=== PATIENT | male | born 1950 | race Caucasian/White ===

== ENCOUNTER → 2017-04-10 | Outpatient (CLI) | payer MEDICARE, BC ==
[2017-04-10 09:37] LABS: CH 33.6; CHCM 33.6; HCT 44.3 % (39.0-53.0); HDW 2.73; HGB 14.8 gm/dL (13.0-17.5); MCH 33.6 pg (25.0-35.0); MCHC 33.4 g/dL (31.0-37.0); MCV 100.5 fL (80.0-100.0); Macrocytosis Slight; Mean Platelet Volume 7.1; RBC 4.41 m/uL (4.30-5.90); RDW 14.1 % (11.5-15.5); WBC 4.5 k/uL (3.8-10.6)
[2017-04-10 10:01] LABS: Anion Gap 6 mmol/L; Blood Urea Nitrogen 12 mg/dL (9-20); Calcium 8.9 mg/dL (8.4-10.2); Carbon Dioxide 29 mmol/L (22-30); Chloride 103 mmol/L (98-107); Glucose 158 mg/dL (74-99); Non-African American GFR(MDRD) >60 (>60 ml/min/1.73 sqM); Potassium 4.9 mmol/L (3.5-5.1); Sodium 138 mmol/L (137-145)
== END | disposition home or self-care (01) ==
LOC: LABWHC1 08:53
PROVIDERS: ATTEND Internal Medicine Clinical Cardiac Electrophysiology
DX: I47.2 Ventricular tachycardia (principal); I25.5 Ischemic cardiomyopathy
CPT/HCPCS: 36415; 80048; 85027

== ENCOUNTER 2017-04-20 11:17 | Inpatient (IN) | payer MEDICARE, BC ==
[2017-04-20] MEDS ORDERED: SODIUM CHLORIDE 0.9% 1,000 ML IV STA (11:31)
[2017-04-20] MEDS ORDERED: LORazepam 2 MG/ML INJ IV STA (11:32)
[2017-04-20] MEDS ORDERED: MECLIZINE 12.5 MG TAB PO STA (11:32)
[2017-04-20] MEDS ORDERED: METOCLOPRAMIDE 5 MG/ML 2 ML VIAL IVP STA (11:32)
--- NOTE | 2017-04-20 11:36 | ED ---
General Adult HPI - General Chief complaint: Dizziness Stated complaint: Dizziness Time Seen by Provider: 04/20/17 11:28 Source: patient, RN notes reviewed Mode of arrival: wheelchair Limitations: no limitations - History of Present Illness Initial comments: Patient is a pleasant 66-year-old male presenting to the emergency department with dizziness. Onset was just 10 minutes ago. Patient feels he is spinning. Symptoms were worse prior to arrival however are still moderate to severe. Patient fall earlier like he was going to fall down. No history of similar symptoms previously. Patient denies any chest pain. No weakness. No confusion. No speech problems. Patient amiss to feeling anxious. - Related Data Home Medications Medication Instructions Recorded Confirmed Atorvastatin [Lipitor] 40 mg PO DAILY 11/28/15 04/20/17 Lisinopril [Zestril] 5 mg PO DAILY 11/28/15 04/20/17 Rivaroxaban [Xarelto] 20 mg PO DAILY 11/28/15 04/20/17 Sotalol [Betapace] 80 mg PO BID 11/28/15 04/20/17 Mexiletine [Mexitil] 150 mg PO TID 04/09/17 04/20/17 Previous Rx's Medication Instructions Recorded Aspirin EC [Ecotrin Low Dose] 81 mg PO DAILY #30 tablet. 03/14/14 Escitalopram [Lexapro] 10 mg PO DAILY #30 tab 03/14/14 Metoprolol Tartrate [Lopressor] 50 mg PO BID #60 tab 03/14/14 Magnesium Oxide [Mag-Ox] 400 mg PO DAILY #30 tab 05/13/14 Allergies Allergy/AdvReac Type Severity Reaction Status Date / Time codeine AdvReac passed out Verified 04/20/17 12:29 Review of Systems ROS Statement: Those systems with pertinent positive or pertinent negative responses have been documented in the HPI. ROS Other: All systems not noted in ROS Statement are negative. Constitutional: Denies: fever Eyes: Denies: eye pain ENT: Denies: ear pain Respiratory: Denies: cough, dyspnea Cardiovascular: Denies: chest pain Endocrine: Denies: fatigue Gastrointestinal: Denies: abdominal pain Genitourinary: Denies: dysuria Musculoskeletal: Denies: back pain Skin: Denies: rash Neurological: Reports: vertigo. Denies: headache, weakness, numbness, paresthesias, confusion Psychiatric: Reports: anxiety Past Medical History Past Medical History: Cancer, Chest Pain / Angina, Hyperlipidemia, Hypertension , Myocardial Infarction ([place]) Additional Past Medical History / Comment(s): BASAL CELL CA, NON SUSTAINED V TACH Last Myocardial Infarction Date:: 1999 History of Any Multi-Drug Resistant Organisms: None Reported Past Surgical History: AICD, Cardiac Ablation, Heart Catheterization With Stent Additional Past Surgical History / Comment(s): COLONOSCOPY Past Anesthesia/Blood Transfusion Reactions: No Reported Reaction Additional Past Anesthesia/Blood Transfusion Reaction / Comment(s): DIFFICULTY WAKING UP AFTER AA Date of Last Stent Placement:: 2012 Type of Cardiac Device: AICD Device Placement Date:: 02/23/14 Past Psychological History: No Psychological Hx Reported Smoking Status: Former smoker Past Alcohol Use History: Occasional Past Drug Use History: None Reported - Past Family History Father Family Medical History: Diabetes Mellitus Additional Family Medical History / Comment(s): AT AGE 72-GAVE UP HIS INSULIN ATE THE WAY HE WANTED A 1 YEAR LATER. HX SPINAL MENINGITIS Mother Family Medical History: Liver Disease Additional Family Medical History / Comment(s): IN 1984- LIVER CONDITION. General Exam Limitations: no limitations General appearance: alert, in no apparent distress Head exam: Present: atraumatic Eye exam: Present: normal appearance, PERRL, EOMI. Absent: nystagmus ENT exam: Present: normal oropharynx Neck exam: Present: normal inspection Respiratory exam: Present: normal lung sounds bilaterally Cardiovascular Exam: Present: regular rate, normal rhythm Expanded Peripheral pulses: 2+: Radial (R), Radial (L), Dorsalis Pedis (R), Dorsalis Pedis (L) GI/Abdominal exam: Present: soft. Absent: tenderness Extremities exam: Present: normal inspection. Absent: pedal edema, calf tenderness Neurological exam: Present: alert, oriented X3, CN II-XII intact. Absent: motor sensory deficit Expanded Cranial nerves: EOM's Intact: Normal, Facial Sensation: Normal Sensory exam: Upper Extremity Light Touch: Normal, Lower Extremity Light Touch: Normal Motor strength exam: RUE: 5, LUE: 5, RLE: 5, LLE: 5 Eye Response: (4) open spontaneously Motor Response: (6) obeys commands Verbal Response: (5) oriented Psychiatric exam: Present: normal affect, normal mood Skin exam: Present: normal color Course Vital Signs 04/20/17 04/20/17 11:30 12:32 Temperature 98.3 F Pulse Rate 60 52 L Respiratory 18 18 Rate Blood Pressure 98/60 124/65 O2 Sat by Pulse 97 98 Oximetry - Reevaluation(s) Reevaluation #1: 04/20/17 14:57 does have some concern regarding previous evaluation of pacemaker/ defibrillator. Patient reexamined and feels much better at this time. Patient has no complaints at this time. Case was discussed with Dr. Feng who would like patient admitted to telemetry and bed rest and have the unit interrogated. Case was also discussed with Dr. Castillo, who will admit for Dr. Cabrera. EKG Findings - EKG Comments: EKG Findings:: Sinus bradycardia 59. First 3 AV block with a OR of 244. QRS 194. QT 506. QTc 500. Left axis. Left bundle branch block. No acute ST change. Previous EKG reviewed dated 11/29/2015. Medical Decision Making - Lab Data Result diagrams: 04/20/17 11:35 04/20/17 11:35 Lab Results 04/20/17 04/20/17 04/20/17 Range/Units 11:35 11:35 11:35 WBC 4.6 (3.8-10.6) k/uL RBC 4.73 (4.30-5.90) m/uL Hgb 15.8 (13.0-17.5) gm/dL Hct 46.7 (39.0-53.0) % MCV 98.8 (80.0-100.0) fL MCH 33.5 (25.0-35.0) pg MCHC 33.9 (31.0-37.0) g/dL RDW 14.7 (11.5-15.5) % Plt Count 171 (150-450) k/uL Neutrophils % 57 % Lymphocytes % 25 % Monocytes % 10 % Eosinophils % 4 % Basophils % 1 % Neutrophils # 2.6 (1.3-7.7) k/uL Lymphocytes # 1.1 (1.0-4.8) k/uL Monocytes # 0.5 (0-1.0) k/uL Eosinophils # 0.2 (0-0.7) k/uL Basophils # 0.0 (0-0.2) k/uL PT (9.0-12.0) sec INR (<1.2) APTT (22.0-30.0) sec Sodium 141 (137-145) mmol/L Potassium 4.2 (3.5-5.1) mmol/L Chloride 104 (98-107) mmol/L Carbon Dioxide 26 (22-30) mmol/L Anion Gap 11 mmol/L BUN 15 (9-20) mg/dL Creatinine 0.64 L (0.66-1.25) mg/dL Est GFR (MDRD) Af Amer >60 (>60 ml/min/1.73 sqM) Est GFR (MDRD) Non-Af >60 (>60 ml/min/1.73 sqM) Glucose 97 (74-99) mg/dL Calcium 9.3 (8.4-10.2) mg/dL Total Bilirubin 1.0 (0.2-1.3) mg/dL AST 52 (17-59) U/L ALT 63 (21-72) U/L Alkaline Phosphatase 120 (38-126) U/L Total Creatine Kinase 421 H (55-170) U/L CK-MB (CK-2) 7.8 H* (0.0-2.4) ng/mL CK-MB (CK-2) Rel Index 1.9 Troponin I 0.034 (0.000-0.034) ng/mL Total Protein 7.0 (6.3-8.2) g/dL Albumin 4.1 (3.5-5.0) g/dL 04/20/17 Range/Units 11:35 WBC (3.8-10.6) k/uL RBC (4.30-5.90) m/uL Hgb (13.0-17.5) gm/dL Hct (39.0-53.0) % MCV (80.0-100.0) fL MCH (25.0-35.0) pg MCHC (31.0-37.0) g/dL RDW (11.5-15.5) % Plt Count (150-450) k/uL Neutrophils % % Lymphocytes % % Monocytes % % Eosinophils % % Basophils % % Neutrophils # (1.3-7.7) k/uL Lymphocytes # (1.0-4.8) k/uL Monocytes # (0-1.0) k/uL Eosinophils # (0-0.7) k/uL Basophils # (0-0.2) k/uL PT 13.4 H (9.0-12.0) sec INR 1.4 H (<1.2) APTT 29.7 (22.0-30.0) sec Sodium (137-145) mmol/L Potassium (3.5-5.1) mmol/L Chloride (98-107) mmol/L Carbon Dioxide (22-30) mmol/L Anion Gap mmol/L BUN (9-20) mg/dL Creatinine (0.66-1.25) mg/dL Est GFR (MDRD) Af Amer (>60 ml/min/1.73 sqM) Est GFR (MDRD) Non-Af (>60 ml/min/1.73 sqM) Glucose (74-99) mg/dL Calcium (8.4-10.2) mg/dL Total Bilirubin (0.2-1.3) mg/dL AST (17-59) U/L ALT (21-72) U/L Alkaline Phosphatase (38-126) U/L Total Creatine Kinase (55-170) U/L CK-MB (CK-2) (0.0-2.4) ng/mL CK-MB (CK-2) Rel Index Troponin I (0.000-0.034) ng/mL Total Protein (6.3-8.2) g/dL Albumin (3.5-5.0) g/dL - Radiology Data Radiology results: report reviewed (Computed tomography scan of the brain shows no acute intercranial abnormality.), image reviewed (Chest x-ray shows some interstitial prominence.) Disposition Clinical Impression: Near syncope Disposition: ADMITTED IP TO THIS [facility] Referrals: Sudeep Cabrera MD [Primary Care Provider] - 1-2 days Decision Time: 15:00
[2017-04-20 11:55] LABS: INR 1.4 (<1.2); Partial Thromboplastin Time 29.7 sec (22.0-30.0); Prothrombin Time 13.4 sec (9.0-12.0)
[2017-04-20 12:01] LABS: ALT 63 U/L (21-72); AST 52 U/L (17-59); Alkaline Phosphatase 120 U/L (38-126); Anion Gap 11 mmol/L; Blood Urea Nitrogen 15 mg/dL (9-20); Calcium 9.3 mg/dL (8.4-10.2); Carbon Dioxide 26 mmol/L (22-30); Chloride 104 mmol/L (98-107); Glucose 97 mg/dL (74-99); Non-African American GFR(MDRD) >60 (>60 ml/min/1.73 sqM); Potassium 4.2 mmol/L (3.5-5.1); Sodium 141 mmol/L (137-145)
[2017-04-20 12:03] LABS: Basophils % (A) 1 %; CH 34.7; CHCM 35.3; Eosinophils # (A) 0.2 k/uL (0-0.7); Eosinophils % (A) 4 %; HCT 46.7 % (39.0-53.0); HDW 2.72; HGB 15.8 gm/dL (13.0-17.5); Luc # (Auto) 0.16; Luc % (Auto) 4; Lymphocytes # (A) 1.1 k/uL (1.0-4.8); Lymphocytes % (A) 25 %; MCH 33.5 pg (25.0-35.0); MCHC 33.9 g/dL (31.0-37.0); MCV 98.8 fL (80.0-100.0); Mean Platelet Volume 7.6; Monocytes # (A) 0.5 k/uL (0-1.0); Monocytes % (A) 10 %; Neutrophils # (A) 2.6 k/uL (1.3-7.7); Neutrophils % (A) 57 %; RBC 4.73 m/uL (4.30-5.90); RDW 14.7 % (11.5-15.5); WBC 4.6 k/uL (3.8-10.6); WBC (Perox) 4.62
--- NOTE | 2017-04-20 12:13 | XR ---
EXAMINATION TYPE: XR chest 2V DATE OF EXAM: 04/20/2017 HISTORY: Dizziness. REFERENCE: Previous study dated 11/28/2015. FINDINGS: There is a bipolar pacemaker in place on the left. Heart is mildly enlarged. The lungs are overinflated. There is vascular congestion and subtle interst itial change. Pleural spaces are clear. IMPRESSION: FINDINGS CONSISTENT WITH MILD HEART FAILURE.
[2017-04-20 12:22] LABS: Troponin I 0.034 ng/mL (0.000-0.034)
[2017-04-20 12:29] LABS: Creatine Kinase MB 7.8 ng/mL (0.0-2.4)
--- NOTE | 2017-04-20 13:24 | CT ---
EXAMINATION TYPE: CT brain wo con DATE OF EXAM: 04/20/2017 COMPARISON: Previous study dated 01/25/2014 HISTORY: Dizziness CT DLP: 1017.9 mGycm Automated exposure control for dose reduction was used. FINDINGS: There are mild, generalized changes of sulcal prominence and ventriculomegaly, compatible with atroph ic change. There is diffuse periventricular white matter lucency, compatible with chronic white matte r ischemic change. There is no acute focal lesion, mass effect or midline shift identified. I do not see evidence of intracranial blood. There is extensive vascular calcification. There is mucoperiosteal thickening involving both ethmoid and the right frontal sinus. Mastoid air ce lls are clear. No depressed skull fracture is seen. IMPRESSION: 1. NO ACUTE INTRACRANIAL ABNORMALITY. 2. MILD ATROPHIC CHANGE. 3. CHRONIC WHITE MATTER ISCHEMIC CHANGE. 4. CHRONIC SINUS MUCOSAL DISEASE.
[2017-04-20] MEDS ORDERED: NALOXONE 0.4 MG/ML 1 ML VIAL IV PRN (15:00)
[2017-04-20 16:50] VITALS: BMI 33.5
[2017-04-20] MEDS: MEXILETINE 150 MG CAP PO SCH ×2 (16:59→20:58)
[2017-04-20] MEDS: METOPROLOL TARTRATE 50 MG TAB PO SCH (20:58)
[2017-04-20] MEDS: SOTALOL 80 MG TAB PO SCH (20:58)
[2017-04-21] MEDS: SOTALOL 80 MG TAB PO SCH (09:14)
[2017-04-21] MEDS: RIVAROXABAN 10 MG TAB PO SCH (09:14)
[2017-04-21] MEDS: ATORVASTATIN 40 MG TAB PO SCH (09:15)
[2017-04-21] MEDS: MEXILETINE 150 MG CAP PO SCH (09:15)
[2017-04-21] MEDS: METOPROLOL TARTRATE 50 MG TAB PO SCH ×2 (09:15→20:53)
[2017-04-21] MEDS: ASPIRIN 81 MG PO SCH (09:15)
[2017-04-21] MEDS: MAGNESIUM OXIDE 400 MG TAB PO SCH (09:15)
[2017-04-21] MEDS: LISINOPRIL 5 MG TAB PO SCH (09:16)
--- NOTE | 2017-04-21 10:52 | P.CRDCN ---
History of Present Illness Consult date: 04/21/17 Requesting physician: Yaya Henson Jr Reason for Consult (text): Dizziness Chief complaint: Dizziness History of present illness: This is a pleasant 66-year-old gentleman who follows regularly with Dr. Garcia in the office. Patient also sees Dr. Celis for history of DVT as well as AICD implant. Most recently patient was just in the hospital earlier this month at which time he underwent an EP study, no VT was induced, following that the device was reprogrammed. Patient has history of hypertension , hyperlipidemia, coronary artery disease with prior stenting of the LAD, history of prior DVT with prior V. fib T ablation. The patient is on Betapace and mexiletine along with Lopressor currently at home. Anticoagulated with xarelto. He presented to the hospital on this occasion with symptoms of dizziness, he states he developed a significant dizzy episode, he felt that as though he may pass out, felt as though everything was spinning, he sat down, did not lose consciousness. He felt as though he was completely unsteady lightheaded and dizzy. He denies any chest discomfort, no difficulty breathing. Device was interrogated by [employer], it did reveal evidence of ventricular tachycardia episodes 2, the exact timing of that is unclear. It appears that ATP was successful twice. EKG on arrival shows a sinus bradycardia with a first-degree AV block and left bundle branch block pattern. Chest x-ray suggests mild congestive heart failure. CAT scan of the brain was performed which did not reveal any acute intracranial abnormality, mild atrophic change, chronic white matter ischemic change. Blood pressure 116/ 60 with a heart rate in the 60s, respirations 18. CBC normal. Potassium 4.2, BUN 15, creatinine 0.6. Troponins 0.034, 0.030, 0.045. BNP 772. At the time of my examination this morning, patient denies any further episodes of dizziness. Past Medical History Past Medical History: Cancer, Chest Pain / Angina, Hyperlipidemia, Hypertension , Myocardial Infarction ([place]) Additional Past Medical History / Comment(s): BASAL CELL CA, NON SUSTAINED V TACH Last Myocardial Infarction Date:: 1999 History of Any Multi-Drug Resistant Organisms: None Reported Past Surgical History: AICD, Cardiac Ablation, Heart Catheterization With Stent Additional Past Surgical History / Comment(s): COLONOSCOPY Past Anesthesia/Blood Transfusion Reactions: No Reported Reaction Additional Past Anesthesia/Blood Transfusion Reaction / Comment(s): DIFFICULTY WAKING UP AFTER AA Date of Last Stent Placement:: 2012 Type of Cardiac Device: AICD Device Placement Date:: 02/23/14 Past Psychological History: No Psychological Hx Reported Additional Psychological History / Comment(s): PT LIVES WITH HIS OF 39 YEARS.PT IS RETIRED-WORKED AN [employer] AND FOR [employer]. 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 Smoking Status: Former smoker Past Alcohol Use History: Occasional Additional Past Alcohol Use History / Comment(s): LESS THAN 14 DRINKS PER WEEK. PT STATED OCC IN PAST WOULD BUMB CIGARETTES HERE AND THERE,QUIT 1994. Past Drug Use History: None Reported - Past Family History Father Family Medical History: Diabetes Mellitus Additional Family Medical History / Comment(s): AT AGE 72-GAVE UP HIS INSULIN ATE THE WAY HE WANTED A 1 YEAR LATER. HX SPINAL MENINGITIS Mother Family Medical History: Liver Disease Additional Family Medical History / Comment(s): IN 1984- LIVER CONDITION. Medications and Allergies Home Medications Medication Instructions Recorded Confirmed Type Aspirin EC [Ecotrin Low Dose] 81 mg PO DAILY #30 tablet. 03/14/14 04/20/17 Rx Escitalopram [Lexapro] 10 mg PO DAILY #30 tab 03/14/14 04/20/17 Rx Metoprolol Tartrate [Lopressor] 50 mg PO BID #60 tab 03/14/14 04/20/17 Rx Magnesium Oxide [Mag-Ox] 400 mg PO DAILY #30 tab 05/13/14 04/20/17 Rx Atorvastatin [Lipitor] 40 mg PO DAILY 11/28/15 04/20/17 History Lisinopril [Zestril] 5 mg PO DAILY 11/28/15 04/20/17 History Rivaroxaban [Xarelto] 20 mg PO DAILY 11/28/15 04/20/17 History Sotalol [Betapace] 80 mg PO BID 11/28/15 04/20/17 History Mexiletine [Mexitil] 150 mg PO TID 04/09/17 04/20/17 History Allergies Allergy/AdvReac Type Severity Reaction Status Date / Time codeine AdvReac passed out Verified 04/20/17 12:29 Physical Exam Vitals: Vital Signs Temp Pulse Pulse Resp BP BP BP 04/21/17 08:00 98.4 F 59 L 18 117/69 04/21/17 04:00 97.4 F L 55 L 18 114/78 04/21/17 00:00 97.9 F 53 L 18 113/69 04/20/17 20:00 97.6 F 65 18 105/60 92/49 04/20/17 16:11 97.3 F L 57 L 16 107/55 04/20/17 15:45 51 L 20 114/68 04/20/17 15:02 54 L 20 105/56 04/20/17 13:27 52 L 20 105/63 04/20/17 12:32 52 L 18 124/65 04/20/17 11:30 98.3 F 60 18 98/60 Pulse Ox 04/21/17 08:00 98 04/21/17 04:00 96 04/21/17 00:00 95 04/20/17 20:00 96 04/20/17 16:11 100 04/20/17 15:45 98 04/20/17 15:02 98 04/20/17 13:27 97 04/20/17 12:32 98 04/20/17 11:30 97 Intake and Output 04/20/17 04/21/17 04/21/17 22:59 06:59 14:59 Intake Total 240 Balance 240 Intake: Oral 240 Other: Voiding Method Toilet Toilet # Voids 1 2 Weight 106.141 kg 107.2 kg PHYSICAL EXAMINATION: HEENT: Head is atraumatic, normocephalic. Pupils equal, round. Neck is supple. There is no elevated jugular venous pressure. HEART EXAMINATION: Heart S1, S2 normal. No murmur or gallop heard. CHEST EXAMINATION: Lungs are clear to auscultation and precussion. No chest wall tenderness is noted on palpation or with deep breathing. ABDOMEN: Soft, nontender. Bowel sounds are heard. No organomegaly noted. EXTREMITIES: 2+ peripheral pulses with no evidence of peripheral edema and no calf tenderness noted. NEUROLOGIC patient is awake, alert and oriented -3. . Results 04/20/17 11:35 04/20/17 11:35 Cardiac Enzymes 04/20/17 04/20/17 04/20/17 Range/Units 11:35 11:35 17:45 AST 52 (17-59) U/L CK-MB (CK-2) 7.8 H* (0.0-2.4) ng/mL Troponin I 0.034 0.030 (0.000-0.034) ng/mL 04/20/17 Range/Units 23:07 AST (17-59) U/L CK-MB (CK-2) (0.0-2.4) ng/mL Troponin I 0.045 H* (0.000-0.034) ng/mL Coagulation 04/20/17 Range/Units 11:35 PT 13.4 H (9.0-12.0) sec APTT 29.7 (22.0-30.0) sec CBC 04/20/17 Range/Units 11:35 WBC 4.6 (3.8-10.6) k/uL RBC 4.73 (4.30-5.90) m/uL Hgb 15.8 (13.0-17.5) gm/dL Hct 46.7 (39.0-53.0) % Plt Count 171 (150-450) k/uL Comprehensive Metabolic Panel 04/20/17 Range/Units 11:35 Sodium 141 (137-145) mmol/L Potassium 4.2 (3.5-5.1) mmol/L Chloride 104 (98-107) mmol/L Carbon Dioxide 26 (22-30) mmol/L BUN 15 (9-20) mg/dL Creatinine 0.64 L (0.66-1.25) mg/dL Glucose 97 (74-99) mg/dL Calcium 9.3 (8.4-10.2) mg/dL AST 52 (17-59) U/L ALT 63 (21-72) U/L Alkaline Phosphatase 120 (38-126) U/L Total Protein 7.0 (6.3-8.2) g/dL Albumin 4.1 (3.5-5.0) g/dL Current Medications Generic Name Dose Route Start Last Admin Trade Name Freq PRN Reason Stop Dose Admin Aspirin 81 mg 04/21/17 09:00 04/21/17 09:15 Aspirin PO 81 mg DAILY NAVEED Administration Atorvastatin Calcium 40 mg 04/21/17 09:00 04/21/17 09:15 Lipitor PO 40 mg DAILY NAVEED Administration Lisinopril 5 mg 04/21/17 09:00 04/21/17 09:16 Zestril PO 5 mg DAILY NAVEED Administration Magnesium Oxide 400 mg 04/21/17 09:00 04/21/17 09:15 Mag-Ox PO 400 mg DAILY NAVEED Administration Metoprolol Tartrate 50 mg 04/20/17 21:00 04/21/17 09:15 Lopressor PO 50 mg BID NAVEED Administration Mexiletine HCl 150 mg 04/20/17 16:00 04/21/17 09:15 Mexitil PO 150 mg TID NAVEED Administration Naloxone HCl 0.2 mg 04/20/17 15:00 Narcan IV Q2M PRN Opioid Reversal Rivaroxaban 20 mg 04/21/17 09:00 04/21/17 09:14 Xarelto PO 20 mg DAILY NAVEED Administration Sotalol HCl 80 mg 04/20/17 21:00 04/21/17 09:14 Betapace PO 80 mg BID NAVEED Administration Intake and Output 04/20/17 04/21/17 04/21/17 22:59 06:59 14:59 Intake Total 240 Balance 240 Intake: Oral 240 Other: Voiding Method Toilet Toilet # Voids 1 2 Weight 106.141 kg 107.2 kg 04/20/17 11:35 04/20/17 11:35 EKG Interpretations (text) EKG shows a sinus bradycardia with first-degree AV block and left bundle branch block pattern. Assessment and Plan Plan: Assessment and plan #1 symptoms of dizziness, device interrogation did reveal 2 episodes of ventricular tachycardia which appeared to be halted by ATP. Exact timing uncertain. We will attempt to reach [employer] to discuss timing of the VT, and treat accordingly. #2 known history of coronary artery disease with prior LAD stenting #3 history of ventricular tachycardia status post prior ablation, history of V. fib, most recently patient underwent EP study earlier this month there was no inducible VT at that time, device was reprogrammed. #4 hypertension # 5 hyperlipidemia #6 paroxysmal atrial fibrillation on Xarelto for anticoagulation #7 prior AICD implant Plan We will obtain an echocardiogram with Doppler study. We'll discuss with a [employer] regarding timing of VT, we will also consult Dr. Celis for further management. DNP note has been reviewed, I agree with a documented findings and plan of care. Patient was seen and examined.
[2017-04-21] MEDS: SPIRONOLACTONE 25 MG TAB PO SCH (11:46)
--- NOTE | 2017-04-21 13:22 | P.HPIM ---
History of Present Illness H&P Date: 04/21/17 66 year old male who presented to the emergency room on 04/20/2017 with a chief complaint of dizziness. Patient states the episode lasted a few minutes and he felt like everything was spinning. Patient states he has experienced similiar episodes before his pacemaker was inserted but nothing as intense as this time. He denies lose of consciousness or falling. Besides a pacemaker insertion, the patient also has a history of hypertension, hyperlipidemia, [place], cath with stent placement. A CT of the brain was completed which was negative for acute process. Chest xray showed mildly enlarged heart, overinflated lungs, and was consistent with mild heart failure. EKG showed SB, 1st degree AV block, left bundle branch block. He was admitted to the hospital under the care of Dr. Cabrera/Natividad. Consults were placed to cardiology. According to cardiology's consultation, the patient underwent an EP study this month in which no VT was induced and the pacer was reprogrammed. The patient was seen and examined this morning at the bedside with Dr. Cabrera. He denies any dizziness or lightheadedness. He states he is feeling well this morning. His pacemaker was interrogated this morning. The interrogation revealed two episodes of ventricular tachycardia with successful anti-tachycardia pacing. He denies shortness of breath. He denies chest pain or pressure. He is tolerating an oral diet without nausea or vomiting. His blood pressure has been stable. His last reading is 105/69. He is on room air with oxygen saturations greater than 92%. He is afebrile. He remains in SB with a rate in the 50s. Review of Systems Those systems with pertinent positive or pertinent negative responses have been documented in the HPI Past Medical History Past Medical History: Cancer, Chest Pain / Angina, Hyperlipidemia, Hypertension , Myocardial Infarction ([place]) Additional Past Medical History / Comment(s): BASAL CELL CA, NON SUSTAINED V TACH Last Myocardial Infarction Date:: 1999 History of Any Multi-Drug Resistant Organisms: None Reported Past Surgical History: AICD, Cardiac Ablation, Heart Catheterization With Stent Additional Past Surgical History / Comment(s): COLONOSCOPY Past Anesthesia/Blood Transfusion Reactions: No Reported Reaction Additional Past Anesthesia/Blood Transfusion Reaction / Comment(s): DIFFICULTY WAKING UP AFTER AA Date of Last Stent Placement:: 2012 Type of Cardiac Device: AICD Device Placement Date:: 02/23/14 Past Psychological History: No Psychological Hx Reported Additional Psychological History / Comment(s): PT LIVES WITH HIS OF 39 YEARS.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 Smoking Status: Former smoker Past Alcohol Use History: Occasional Additional Past Alcohol Use History / Comment(s): LESS THAN 14 DRINKS PER WEEK. PT STATED OCC IN PAST WOULD BUMB CIGARETTES HERE AND THERE,QUIT 1994. Past Drug Use History: None Reported - Past Family History Father Family Medical History: Diabetes Mellitus Additional Family Medical History / Comment(s): AT AGE 72-GAVE UP HIS INSULIN ATE THE WAY HE WANTED A 1 YEAR LATER. HX SPINAL MENINGITIS Mother Family Medical History: Liver Disease Additional Family Medical History / Comment(s): IN 1984- LIVER CONDITION. Medications and Allergies Home Medications Medication Instructions Recorded Confirmed Type Aspirin EC [Ecotrin Low Dose] 81 mg PO DAILY #30 tablet. 03/14/14 04/20/17 Rx Escitalopram [Lexapro] 10 mg PO DAILY #30 tab 03/14/14 04/20/17 Rx Metoprolol Tartrate [Lopressor] 50 mg PO BID #60 tab 03/14/14 04/20/17 Rx Magnesium Oxide [Mag-Ox] 400 mg PO DAILY #30 tab 05/13/14 04/20/17 Rx Atorvastatin [Lipitor] 40 mg PO DAILY 11/28/15 04/20/17 History Lisinopril [Zestril] 5 mg PO DAILY 11/28/15 04/20/17 History Rivaroxaban [Xarelto] 20 mg PO DAILY 11/28/15 04/20/17 History Sotalol [Betapace] 80 mg PO BID 11/28/15 04/20/17 History Mexiletine [Mexitil] 150 mg PO TID 04/09/17 04/20/17 History Allergies Allergy/AdvReac Type Severity Reaction Status Date / Time codeine AdvReac passed out Verified 04/20/17 12:29 Physical Exam Vitals: Vital Signs Temp Pulse Pulse Resp BP BP BP 04/21/17 12:00 98.6 F 50 L 18 105/69 04/21/17 08:00 98.4 F 59 L 18 117/69 04/21/17 04:00 97.4 F L 55 L 18 114/78 04/21/17 00:00 97.9 F 53 L 18 113/69 04/20/17 20:00 97.6 F 65 18 105/60 92/49 04/20/17 16:11 97.3 F L 57 L 16 107/55 04/20/17 15:45 51 L 20 114/68 04/20/17 15:02 54 L 20 105/56 04/20/17 13:27 52 L 20 105/63 Pulse Ox 04/21/17 12:00 95 04/21/17 08:00 98 04/21/17 04:00 96 04/21/17 00:00 95 04/20/17 20:00 96 04/20/17 16:11 100 04/20/17 15:45 98 04/20/17 15:02 98 04/20/17 13:27 97 Intake and Output 04/20/17 04/21/17 04/21/17 22:59 06:59 14:59 Intake Total 240 Balance 240 Intake: Oral 240 Other: Voiding Method Toilet Toilet # Voids 1 2 0 Weight 106.141 kg 107.2 kg GENERAL: Alert and oriented. Appears in no acute distress. Pleasant. RESPIRATORY: Lungs clear bilaterally. No use of accessory muscles. Patient maintaining oxygen saturation greater than 92%. CARDIOVASCULAR: S1 and S2 noted. No murmurs auscultated. No JVD noted. EXTREMITIES: No edema noted. Palpable pedal pulses +2. ABDOMEN: No distention noted. Abdomen soft and round. Normal active bowel sounds auscultated 4 quadrants. No pain or tenderness noted upon palpation. Results CBC & Chem 7: 04/20/17 11:35 04/20/17 11:35 Labs: Abnormal Lab Results - Last 24 Hours (Table) 04/20/17 Range/Units 23:07 Troponin I 0.045 H* (0.000-0.034) ng/mL Thrombosis Risk Factor Assmnt - Choose All That Apply Each Risk Factor Represents 2 Points: Age 61-74 years, Patient confined to bed Thrombosis Risk Factor Assessment Total Risk Factor Score: 4 Thrombosis Risk Factor Assessment Level: Moderate Risk Assessment and Plan Plan: ASSESSMENT: -Dizziness, present on admission, possibly secondary to two episodes of ventricular tachycardia with successful ATP revealed on interrogation of pacemaker -Coronary artery disease with previous stenting to LAD -History of cardiac ablation -History of PPM/AICD insertion -History of atrial fibrillation with mcc anticoagulation with Xarelto -Hypertension -Hyperlipidemia PLAN: -Cardiology on consult. Appreciate recommendations and input. -Await further recommendations from cardiology -Await results of echo -Resume home meds as appropriate -Monitor labs -GI prophylaxis: Protonix 40mg daily -DVT prophylaxis: Xarelto 20mg PO daily -Monitor vital signs and address as appropriate The above impression and plan of care have been discussed and directed by signing physician. Donna Cornejo, nurse practitioner, acting as scribe for signing physician.
[2017-04-21] MEDS: MEXILETINE 200 MG CAP PO SCH ×2 (18:19→23:04)
--- NOTE | 2017-04-21 20:38 | CE ---
CARDIAC ELECTROPHYSIOLOGY REPORT Mr. Meier is a 66-year-old gentleman who is a patient of Dr. Garcia and has undergone VT ablation both scar based VT ablation followed by a focal VT ablation on a separate occasion and has been free of ventricular tachycardia for several years now. Recently started having short bursts of VT treated with antitachycardic pacing. At this time he came to the hospital complaining of being very dizzy and lightheaded. Interrogation of the device revealed episodes of ventricular tachycardia treated successfully with antitachycardia pacing. This is a [employer] device Protecta XT DR [id number] DRG serial number [id number]. The atrial pacing impedance 532 ohms, RV pacing impedance 570 ohms, defibrillation impedance 73 ohms. The atrial pacing threshold 0.9 V at 0.4 milliseconds. P waves 2.6 mV. RV pacing threshold 0.9 V at 0.4 milliseconds. R-wave 16.4 milliseconds. He is programmed to AAIR-to DDDR with 50-130 ppm. Two episodes of ventricular tachycardia were noted on April 20 and was successfully treated with antitachycardic pacing. IMPRESSION: 1. Recurrent ventricular tachycardia despite sotalol and mexiletine. 2. At the recent noninvasive program stimulation he was noninducible but this was performed on medical treatment. 3. Ischemic cardiomyopathy with a good heart failure status. SUGGEST: 1. I discussed this with the patient and discussed with the cardiac team, Dr. Gaston and Dr. Larsen. 2. Increase sotalol to 120 mg twice daily. 3. Increase mexiletine to 200 mg 3 times a day. 4. I will schedule for VT ablation. 5. Prior to VT ablation, sotalol and mexiletine will be held so that we can induce this ventricular tachycardia. In the interim, I will reduce the dose of lisinopril to 2.5 mg p.o. daily so that he can tolerating the higher dose of sotalol. MMODL / IJN: [id number] /
[2017-04-21] MEDS: SOTALOL 120 MG TAB PO SCH (20:53)
[2017-04-22] MEDS: PANTOPRAZOLE 40 MG TABLET PO SCH ×2 (06:46→06:48)
[2017-04-22] MEDS: ATORVASTATIN 40 MG TAB PO SCH (08:36)
[2017-04-22] MEDS: LISINOPRIL 5 MG TAB PO SCH (08:36)
[2017-04-22] MEDS: MEXILETINE 200 MG CAP PO SCH (08:36)
[2017-04-22] MEDS: ASPIRIN 81 MG PO SCH (08:36)
[2017-04-22] MEDS: MAGNESIUM OXIDE 400 MG TAB PO SCH (08:36)
[2017-04-22] MEDS: SPIRONOLACTONE 25 MG TAB PO SCH (08:37)
[2017-04-22] MEDS: RIVAROXABAN 10 MG TAB PO SCH (08:37)
[2017-04-22] MEDS: SOTALOL 120 MG TAB PO SCH (08:37)
[2017-04-22] MEDS: METOPROLOL TARTRATE 50 MG TAB PO SCH (08:37)
[2017-04-22 08:51] VITALS: RESP 16
--- NOTE | 2017-04-22 10:20 | ECHOF ---
Referral Reason:v tach MEASUREMENTS -------- HEIGHT: 152.4 cm WEIGHT: 107.0 kg BP: 117/69 RVIDd: 3.5 cm (< 3.3) IVSd: 1.2 cm (0.6 - 1.1) LVIDd: 5.0 cm (3.9 - 5.3) LVPWd: 1.0 cm (0.6 - 1.1) IVSs: 1.4 cm LVIDs: 4.2 cm LVPWs: 1.1 cm LA Diam: 4.3 cm (2.7 - 3.8) LAESV Index (A-L): 35.88 ml/m Ao Diam: 2.6 cm (2.0 - 3.7) AV Cusp: 1.8 cm (1.5 - 2.6) LA Diam: 4.3 cm (2.7 - 3.8) MV EXCURSION: 14.751 mm (> 18.000) MV EF SLOPE: 37 mm/s (70 - 150) EPSS: 1.3 cm MV E Mychal: 0.97 m/s MV DecT: 232 ms MV A Mychal: 0.54 m/s MV E/A Ratio: 1.80 AR PHT: 515 ms RAP: 5.00 mmHg RVSP: 40.31 mmHg FINDINGS -------- Paced rhythm. This was a techncally difficult study with suboptimal views, , Definity utilized for enhancement of images. There is mild concentric left ventricular hypertrophy. Overall left ventricular systolic function is mild-moderately impaired with, an EF between 40 - 45 %. The right ventricle is moderately enlarged. LA is moderately dilated 34-39 ml/m2 The right atrial size is normal. 1.5MG OF DEFINITY UTLIZED: 2 OR MORE WALL SEGMENTS NOT VISUALIZED. There is mild aortic valve sclerosis. There is mild aortic regurgitation. Mild mitral annular calcification present. Mild mitral regurgitation is present. Mild tricuspid regurgitation present. There is mild pulmonary hypertension. The right ventricular systolic pressure, as measured by Doppler, is 40.31mmHg. There is no pulmonic regurgitation present. The aortic root size is normal. Echo free space represents a pericardial fat pad. CONCLUSIONS -------- 1. This was a techncally difficult study with suboptimal views, , Definity utilized for enhancement of images. 2. Mild mitral regurgitation is present. 3. Mild tricuspid regurgitation present. 4. There is mild pulmonary hypertension. 5. The right ventricular systolic pressure, as measured by Doppler, is 40.31mmHg. 6. There is no pulmonic regurgitation present. 7. The aortic root size is normal. 8. Echo free space represents a pericardial fat pad. 9. There is mild concentric left ventricular hypertrophy. 10. Overall left ventricular systolic function is mild-moderately impaired with, an EF between 40 - 45 %. 11. The right ventricle is moderately enlarged. 12. LA is moderately dilated 34-39 ml/m2 13. 1.5MG OF DEFINITY UTLIZED: 2 OR MORE WALL SEGMENTS NOT VISUALIZED. 14. There is mild aortic valve sclerosis. 15. There is mild aortic regurgitation. 16. Mild mitral annular calcification present. DIRECTOR OF AGRICULTURE: Janie Eaton RDCS
[2017-04-22 11:45] VITALS: BP 100/64; PULSE 63; TEMP 98.4
--- NOTE | 2017-04-22 13:52 | P.PN ---
Subjective Progress Note Date: 04/22/17 Principal diagnosis: V. tach This is a pleasant 66-year-old gentleman who follows regularly with Dr. Garcia in the office. Patient also sees Dr. Celis for history of DVT as well as AICD implant. Most recently patient was just in the hospital earlier this month at which time he underwent an EP study, no VT was induced, following that the device was reprogrammed. Patient has history of hypertension , hyperlipidemia, coronary artery disease with prior stenting of the LAD, history of prior DVT with prior V. fib T ablation. The patient is on Betapace and mexiletine along with Lopressor currently at home. Anticoagulated with xarelto. He presented to the hospital on this occasion with symptoms of dizziness, he states he developed a significant dizzy episode, he felt that as though he may pass out, felt as though everything was spinning, he sat down, did not lose consciousness. He felt as though he was completely unsteady lightheaded and dizzy. He denies any chest discomfort, no difficulty breathing. Device was interrogated by [employer], it did reveal evidence of ventricular tachycardia episodes 2, the exact timing of that is unclear. It appears that ATP was successful twice. EKG on arrival shows a sinus bradycardia with a first-degree AV block and left bundle branch block pattern. Chest x-ray suggests mild congestive heart failure. CAT scan of the brain was performed which did not reveal any acute intracranial abnormality, mild atrophic change, chronic white matter ischemic change. Blood pressure 116/ 60 with a heart rate in the 60s, respirations 18. CBC normal. Potassium 4.2, BUN 15, creatinine 0.6. Troponins 0.034, 0.030, 0.045. BNP 772. At the time of my examination this morning, patient denies any further episodes of dizziness. 04/22/2017 Patient was seen in consultation yesterday by Dr. Alfaro and medication adjustments were made. He had no evidence of any ventricular tachycardia on the monitor. Patient feels well overall, no symptoms of diaphoresis, no dizziness or lightheadedness. Objective - Vital Signs Vital signs: Vital Signs Temp 98.4 F 04/22/17 11:38 Pulse 63 04/22/17 11:38 Resp 16 04/22/17 11:38 BP 100/64 04/22/17 11:38 Pulse Ox 96 04/22/17 11:38 Intake & Output 04/21/17 04/22/17 04/22/17 18:59 06:59 18:59 Intake Total 462 240 180 Balance 462 240 180 Weight 105.6 kg Intake: Oral 462 240 180 Other: Voiding Method Toilet # Voids 0 1 2 # Bowel Movements 0 - Exam PHYSICAL EXAMINATION: HEENT: Head is atraumatic, normocephalic. Pupils equal, round. Neck is supple. There is no elevated jugular venous pressure. HEART EXAMINATION: Heart S1, S2 normal. No murmur or gallop heard. CHEST EXAMINATION: Lungs are clear to auscultation and precussion. No chest wall tenderness is noted on palpation or with deep breathing. ABDOMEN: Soft, nontender. Bowel sounds are heard. No organomegaly noted. EXTREMITIES: 2+ peripheral pulses with no evidence of peripheral edema and no calf tenderness noted. NEUROLOGIC patient is awake, alert and oriented -3. . - Labs CBC & Chem 7: 04/20/17 11:35 04/20/17 11:35 Assessment and Plan Plan: Assessment and plan #1 symptoms of dizziness, device interrogation did reveal 2 episodes of ventricular tachycardia which appeared to be halted by ATP. Exact timing uncertain. We will attempt to reach [employer] to discuss timing of the VT, and treat accordingly. #2 known history of coronary artery disease with prior LAD stenting #3 history of ventricular tachycardia status post prior ablation, history of V. fib, most recently patient underwent EP study earlier this month there was no inducible VT at that time, device was reprogrammed. #4 hypertension # 5 hyperlipidemia #6 paroxysmal atrial fibrillation on Xarelto for anticoagulation #7 prior AICD implant Plan Patient may be able to be discharged home today. A follow-up appointment will be made with Dr. Alfaro, he will be scheduled to ablation as an outpatient. Patient will be discharged home on aspirin 81 mg daily, Lipitor 40 mg daily, Zestril 2-1/2 mg daily, magnesium 400 mg daily, metoprolol tartrate 50 mg twice a day, mexiletine 200 mg every 8 hourly, Xarelto 20 mg daily, sotalol 120 mg twice a day, and Aldactone. DNP note has been reviewed, I agree with a documented findings and plan of care. Patient was seen and examined.
--- NOTE | 2017-04-22 14:13 | P.DS ---
Providers Date of admission: 04/20/17 15:00 Expected date of discharge: 04/22/17 Attending physician: Yaya Henson Consults: 04/20/17 15:01 Consult Physician Urgent Consulting Provider: Emilie Feng Consult Reason/Comments: near syncope Do you want consulting provider notified?: Yes 04/21/17 00:09 Consult Physician Routine Consulting Provider: Pete Alfaro Consult Reason/Comments: your patient Do you want consulting provider notified?: Yes, Notify in am Primary care physician: [facility] Hospital Course: 66 year old male who presented to the emergency room on 04/20/2017 with a chief complaint of dizziness. Patient states the episode lasted a few minutes and he felt like everything was spinning. Patient states he has experienced similiar episodes before his pacemaker was inserted but nothing as intense as this time. He denies lose of consciousness or falling. Besides a pacemaker insertion, the patient also has a history of hypertension, hyperlipidemia, [place], cath with stent placement. A CT of the brain was completed which was negative for acute process. Chest xray showed mildly enlarged heart, overinflated lungs, and was consistent with mild heart failure. EKG showed SB, 1st degree AV block, left bundle branch block. He was admitted to the hospital under the care of Dr. Cabrera/Natividad. Consults were placed to cardiology. According to cardiology's consultation, the patient underwent an EP study this month in which no VT was induced and the pacer was reprogrammed. The patient was seen and examined this morning at the bedside with Dr. Cabrera. He denies any dizziness or lightheadedness. He states he is feeling well this morning. His pacemaker was interrogated 04/21/2017. The interrogation revealed two episodes of ventricular tachycardia with successful anti- tachycardia pacing. Dr. Alfaro was consulted for further pacemaker evaluation. The patient's sotalol was increased to 120 mg twice a day, mexiletine was increased to 200mg TID, and his lisinopril was decreased to 2.5mg a daily in order to tolerate higher doses of other medications. Dr. Johnson recommends a VT ablation. Spoke with Huma Feldman NP for cardiology who states this can be scheduled as an outpatient for ablation and is cleared by cardiology for DC. Per cardiology, the patient is to be discharged home on aspirin 81 mg daily, Lipitor 40mg daily , Zestril 2-1/2 mg daily, magnesium 400mg daily, metoprolol 50mg BID, mexiletine 200mg TID, xarelto 20mg daily, soltalol 120mg BID, and aldactone 25mg daily. He denies shortness of breath. He denies chest pain or pressure. Denies dizziness or lightheadness. He is tolerating an oral diet without nausea or vomiting. His blood pressure has been stable. He is on room air with oxygen saturations greater than 92%. He is afebrile. He remains in SB-SR. DISCHARGE DIAGNOSIS: -Dizziness, present on admission, possibly secondary to two episodes of ventricular tachycardia with successful ATP revealed on interrogation of pacemaker, resolved at time of discharge, outpatient VT ablation to be scheduled -Coronary artery disease with previous stenting to LAD -History of cardiac ablation -History of PPM/AICD insertion -History of atrial fibrillation with halfway anticoagulation with Xarelto -Hypertension -Hyperlipidemia The above impression and plan of care have been discussed and directed by signing physician. Donna Cornejo, nurse practitioner, acting as scribe for signing physician. Plan - Discharge Summary New Discharge Prescriptions: New Lisinopril [Zestril] 2.5 mg PO DAILY #30 tab Mexiletine [Mexitil] 200 mg PO Q8HR #90 cap Sotalol [Betapace] 120 mg PO BID #60 tab Spironolactone [Aldactone] 25 mg PO DAILY #30 tab Continue Aspirin EC [Ecotrin Low Dose] 81 mg PO DAILY #30 tablet. Escitalopram [Lexapro] 10 mg PO DAILY #30 tab Metoprolol Tartrate [Lopressor] 50 mg PO BID #60 tab Magnesium Oxide [Mag-Ox] 400 mg PO DAILY #30 tab Rivaroxaban [Xarelto] 20 mg PO DAILY Atorvastatin [Lipitor] 40 mg PO DAILY Discontinued Sotalol [Betapace] 80 mg PO BID Lisinopril [Zestril] 5 mg PO DAILY Mexiletine [Mexitil] 150 mg PO TID Discharge Medication List Aspirin EC [Ecotrin Low Dose] 81 mg PO DAILY #30 tablet. 03/14/14 [Rx] Escitalopram [Lexapro] 10 mg PO DAILY #30 tab 03/14/14 [Rx] Metoprolol Tartrate [Lopressor] 50 mg PO BID #60 tab 03/14/14 [Rx] Magnesium Oxide [Mag-Ox] 400 mg PO DAILY #30 tab 05/13/14 [Rx] Atorvastatin [Lipitor] 40 mg PO DAILY 11/28/15 [History] Rivaroxaban [Xarelto] 20 mg PO DAILY 11/28/15 [History] Lisinopril [Zestril] 2.5 mg PO DAILY #30 tab 04/22/17 [Rx] Mexiletine [Mexitil] 200 mg PO Q8HR #90 cap 04/22/17 [Rx] Sotalol [Betapace] 120 mg PO BID #60 tab 04/22/17 [Rx] Spironolactone [Aldactone] 25 mg PO DAILY #30 tab 04/22/17 [Rx] Follow up Appointment(s)/Referral(s): Pete Alfaro MD [STAFF PHYSICIAN] - 1 Week Sudeep Cabrera MD [Primary Care Provider] - 1-2 days Patient Instructions/Handouts: Syncope (DC), Safe Use of Anticoagulants (DC) Discharge Disposition: HOME SELF-CARE
[2017-04-23] MEDS ORDERED: LISINOPRIL 2.5 MG TAB PO SCH (09:00)
== END 2017-04-22 15:47 | disposition home or self-care (01) | DRG 310 ==
LOC: EC 11:17 → 6SEL 15:00
PROVIDERS: ADMIT Family Medicine; ATTEND Family Medicine
PROC: 4B02XTZ Measurement of Cardiac Defibrillator, External Approach (ICD-10-PCS; principal; 2017-04-20)
DX: I47.2 Ventricular tachycardia (principal); I11.0 Hypertensive heart disease with heart failure; I50.9 Heart failure, unspecified; E78.5 Hyperlipidemia, unspecified; I25.5 Ischemic cardiomyopathy; I25.10 Atherosclerotic heart disease of native coronary artery without angina pectoris; I48.0 Paroxysmal atrial fibrillation; I44.7 Left bundle-branch block, unspecified; I44.0 Atrioventricular block, first degree; I25.2 Old myocardial infarction; R00.1 Bradycardia, unspecified; Z79.82 Long term (current) use of aspirin; Z79.01 Long term (current) use of anticoagulants; Z79.899 Other long term (current) drug therapy; Z95.5 Presence of coronary angioplasty implant and graft; Z95.810 Presence of automatic (implantable) cardiac defibrillator; Z87.891 Personal history of nicotine dependence; Z86.718 Personal history of other venous thrombosis and embolism; Z85.828 Personal history of other malignant neoplasm of skin; Z88.5 Allergy status to narcotic agent
CPT/HCPCS: 36415; 70450; 71020; 80053; 82550; 82553; 83735; 83880; 84484; 85025; 85610; 85730; 93005; 93306; 94760; 96361; 96374; 96375; 99285

== ENCOUNTER 2017-04-25 01:15 | Inpatient (IN) | payer MEDICARE, BC ==
[2017-04-25 02:30] LABS: ALT 57 U/L (21-72); AST 48 U/L (17-59); Alkaline Phosphatase 172 U/L (38-126); Anion Gap 13 mmol/L; Blood Urea Nitrogen 15 mg/dL (9-20); Calcium 8.7 mg/dL (8.4-10.2); Carbon Dioxide 24 mmol/L (22-30); Chloride 103 mmol/L (98-107); Glucose 131 mg/dL (74-99); Magnesium 2.1 mg/dL (1.6-2.3); Non-African American GFR(MDRD) >60 (>60 ml/min/1.73 sqM); Potassium 4.3 mmol/L (3.5-5.1); Sodium 140 mmol/L (137-145); Total Bilirubin 0.6 mg/dL (0.2-1.3); Total Protein 6.6 g/dL (6.3-8.2)
[2017-04-25 02:35] LABS: Partial Thromboplastin Time 27.5 sec (22.0-30.0)
[2017-04-25 02:38] LABS: INR 1.1 (<1.2); Prothrombin Time 11.3 sec (9.0-12.0)
--- NOTE | 2017-04-25 02:50 | XR ---
PROCEDURE: FILM CXR 1 VIEW HISTORY: 66-year-old male with dysrhythmia. COMPARISON: Chest radiograph 04/20/2017 TECHNIQUE: Frontal view of the chest was obtained. FINDINGS: Limited by technique. Dual-lead pacemaker-defibrillator, with one lead projecting over the right atrium and the other over the right ventricle. Cardiomediastinal silhouette is stable. Mild pulmonary vascular congestion. Bibasilar atelectasis/consolidation. Degenerative changes in the spine. IMPRESSION: Dual-lead pacemaker-defibrillator, with one lead projecting over the right atrium and the other over the right ventricle. Cardiomediastinal silhouette is stable. Mild pulmonary vascular congestion. Bibasilar atelectasis/consolidation.
[2017-04-25 02:53] LABS: Troponin I 0.027 ng/mL (0.000-0.034)
[2017-04-25 03:07] LABS: Creatine Kinase MB 7.4 ng/mL (0.0-2.4)
[2017-04-25 03:15] LABS: Basophils % (A) 1 %; CH 33.5; CHCM 34.9; Eosinophils # (A) 0.4 k/uL (0-0.7); Eosinophils % (A) 8 %; HCT 45.6 % (39.0-53.0); HDW 2.79; HGB 15.6 gm/dL (13.0-17.5); Luc % (Auto) 4; Lymphocytes # (A) 1.1 k/uL (1.0-4.8); Lymphocytes % (A) 24 %; MCH 32.9 pg (25.0-35.0); MCHC 34.1 g/dL (31.0-37.0); MCV 96.5 fL (80.0-100.0); Mean Platelet Volume 7.5; Monocytes # (A) 0.6 k/uL (0-1.0); Monocytes % (A) 12 %; Neutrophils # (A) 2.4 k/uL (1.3-7.7); Neutrophils % (A) 52 %; RBC 4.73 m/uL (4.30-5.90); RDW 13.4 % (11.5-15.5); WBC 4.7 k/uL (3.8-10.6); WBC (Perox) 4.75
[2017-04-25] MEDS ORDERED: NITROGLYCERIN SL TABS 0.4 MG TAB SUBLINGUAL PRN (03:48)
--- NOTE | 2017-04-25 04:53 | ED ---
Arrhythmia/Palpitations HPI - General Chief Complaint: Arrhythmia/Palpitations Stated Complaint: Defibrilator went off Time Seen by Provider: 04/25/17 01:42 Source: patient Mode of arrival: wheelchair Limitations: no limitations - History of Present Illness Initial Comments: This patient is 66-year-old man who presents with the complaint that around 10: 30 tonight while he was trying to sleep he was awakened by what felt like his defibrillator firing. The patient states that he had felt like his usual self when he gone to bed. He had not been having any chest pain, dyspnea, diaphoresis, palpitations, lightheadedness or syncope. Onset/Timin -: hour(s) Context: occurred during rest Arrhythmia History: AICD Associated Symptoms: denies other symptoms - Related Data Home Medications Medication Instructions Recorded Confirmed Atorvastatin [Lipitor] 40 mg PO DAILY 11/28/15 04/25/17 Rivaroxaban [Xarelto] 20 mg PO DAILY 11/28/15 04/25/17 Previous Rx's Medication Instructions Recorded Aspirin EC [Ecotrin Low Dose] 81 mg PO DAILY #30 tablet. 03/14/14 Escitalopram [Lexapro] 10 mg PO DAILY #30 tab 03/14/14 Metoprolol Tartrate [Lopressor] 50 mg PO BID #60 tab 03/14/14 Magnesium Oxide [Mag-Ox] 400 mg PO DAILY #30 tab 05/13/14 Lisinopril [Zestril] 2.5 mg PO DAILY #30 tab 04/22/17 Mexiletine [Mexitil] 200 mg PO Q8HR #90 cap 04/22/17 Sotalol [Betapace] 120 mg PO BID #60 tab 04/22/17 Spironolactone [Aldactone] 25 mg PO DAILY #30 tab 04/22/17 Allergies Allergy/AdvReac Type Severity Reaction Status Date / Time codeine AdvReac passed out Verified 04/25/17 04:36 Review of Systems ROS Statement: Those systems with pertinent positive or pertinent negative responses have been documented in the HPI. ROS Other: All systems not noted in ROS Statement are negative. Constitutional: Denies: fever, chills, weakness Respiratory: Denies: cough, dyspnea Cardiovascular: Denies: chest pain, palpitations, orthopnea, edema, syncope Gastrointestinal: Denies: abdominal pain, vomiting, diarrhea Musculoskeletal: Denies: back pain Skin: Denies: rash Neurological: Denies: headache, weakness, numbness Past Medical History Past Medical History: Cancer, Chest Pain / Angina, Hyperlipidemia, Hypertension , Myocardial Infarction ([place]) Additional Past Medical History / Comment(s): BASAL CELL CA, NON SUSTAINED V TACH Last Myocardial Infarction Date:: 1999 History of Any Multi-Drug Resistant Organisms: None Reported Past Surgical History: AICD, Cardiac Ablation, Heart Catheterization With Stent Additional Past Surgical History / Comment(s): COLONOSCOPY Past Anesthesia/Blood Transfusion Reactions: No Reported Reaction Additional Past Anesthesia/Blood Transfusion Reaction / Comment(s): DIFFICULTY WAKING UP AFTER AA Date of Last Stent Placement:: 2012 Type of Cardiac Device: AICD Device Placement Date:: 02/23/14 Past Psychological History: No Psychological Hx Reported Additional Psychological History / Comment(s): PT LIVES WITH HIS OF 39 YEARS.PT IS RETIRED-WORKED AN [employer] AND FOR [employer]. 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 Smoking Status: Never smoker Past Alcohol Use History: Occasional Additional Past Alcohol Use History / Comment(s): LESS THAN 14 DRINKS PER WEEK. PT STATED OCC IN PAST WOULD BUMB CIGARETTES HERE AND THERE,QUIT 1994. Past Drug Use History: None Reported - Past Family History Father Family Medical History: Diabetes Mellitus Additional Family Medical History / Comment(s): AT AGE 72-GAVE UP HIS INSULIN ATE THE WAY HE WANTED A 1 YEAR LATER. HX SPINAL MENINGITIS Mother Family Medical History: Liver Disease Additional Family Medical History / Comment(s): IN 1984- LIVER CONDITION. General Exam Limitations: no limitations General appearance: alert, in no apparent distress Head exam: Present: atraumatic, normocephalic Eye exam: Present: normal appearance. Absent: scleral icterus, conjunctival injection Neck exam: Present: normal inspection, full ROM Respiratory exam: Present: normal lung sounds bilaterally. Absent: respiratory distress, wheezes, rales, rhonchi, stridor, chest wall tenderness Cardiovascular Exam: Present: regular rate, normal rhythm, normal heart sounds. Absent: systolic murmur, diastolic murmur, rubs, gallop GI/Abdominal exam: Present: soft. Absent: distended, tenderness, guarding, rebound Extremities exam: Present: normal inspection, normal capillary refill. Absent: pedal edema, calf tenderness Back exam: Present: normal inspection. Absent: CVA tenderness (R), CVA tenderness (L) Neurological exam: Present: alert Skin exam: Present: warm, dry, intact, normal color. Absent: rash Course Vital Signs 04/25/17 04/25/17 04/25/17 01:16 01:24 02:24 Temperature 99.1 F Pulse Rate 72 66 58 L Respiratory 16 18 18 Rate Blood Pressure 128/63 106/59 101/58 O2 Sat by Pulse 93 L 94 L 96 Oximetry 04/25/17 04/25/17 03:00 04:00 Temperature Pulse Rate 55 L 58 L Respiratory 18 18 Rate Blood Pressure 102/57 108/60 O2 Sat by Pulse 96 94 L Oximetry EKG Findings - EKG Results: EKG: interpreted by ERMD - Blocks, Finley, Hypertrophy, ST Abn: AV and intraventricular conduction: 1 AV block, intraventricular conduction delay QRS axis and voltage: left axis deviation (-30 to -90) Medical Decision Making - Medical Decision Making Patient is a 66-year-old man whose defibrillator had gone off. He is currently a symptomatically. The device was interrogated and it appears to have fired in response to episode of V. tach. Patient admitted to be seen by cardiology. - Lab Data Result diagrams: 04/25/17 01:34 04/25/17 01:34 Lab Results 04/25/17 04/25/17 04/25/17 Range/Units 01:34 01:34 01:34 WBC 4.7 (3.8-10.6) k/uL RBC 4.73 (4.30-5.90) m/uL Hgb 15.6 (13.0-17.5) gm/dL Hct 45.6 (39.0-53.0) % MCV 96.5 (80.0-100.0) fL MCH 32.9 (25.0-35.0) pg MCHC 34.1 (31.0-37.0) g/dL RDW 13.4 (11.5-15.5) % Plt Count 144 L (150-450) k/uL Neutrophils % 52 % Lymphocytes % 24 % Monocytes % 12 % Eosinophils % 8 % Basophils % 1 % Neutrophils # 2.4 (1.3-7.7) k/uL Lymphocytes # 1.1 (1.0-4.8) k/uL Monocytes # 0.6 (0-1.0) k/uL Eosinophils # 0.4 (0-0.7) k/uL Basophils # 0.0 (0-0.2) k/uL PT (9.0-12.0) sec INR (<1.2) APTT (22.0-30.0) sec Sodium 140 (137-145) mmol/L Potassium 4.3 (3.5-5.1) mmol/L Chloride 103 (98-107) mmol/L Carbon Dioxide 24 (22-30) mmol/L Anion Gap 13 mmol/L BUN 15 (9-20) mg/dL Creatinine 0.60 L (0.66-1.25) mg/dL Est GFR (MDRD) Af Amer >60 (>60 ml/min/1.73 sqM) Est GFR (MDRD) Non-Af >60 (>60 ml/min/1.73 sqM) Glucose 131 H (74-99) mg/dL Calcium 8.7 (8.4-10.2) mg/dL Magnesium 2.1 (1.6-2.3) mg/dL Total Bilirubin 0.6 (0.2-1.3) mg/dL AST 48 (17-59) U/L ALT 57 (21-72) U/L Alkaline Phosphatase 172 H (38-126) U/L Total Creatine Kinase 324 H (55-170) U/L CK-MB (CK-2) 7.4 H* (0.0-2.4) ng/mL CK-MB (CK-2) Rel Index 2.3 Troponin I 0.027 (0.000-0.034) ng/mL Total Protein 6.6 (6.3-8.2) g/dL Albumin 4.0 (3.5-5.0) g/dL 04/25/17 Range/Units 01:34 WBC (3.8-10.6) k/uL RBC (4.30-5.90) m/uL Hgb (13.0-17.5) gm/dL Hct (39.0-53.0) % MCV (80.0-100.0) fL MCH (25.0-35.0) pg MCHC (31.0-37.0) g/dL RDW (11.5-15.5) % Plt Count (150-450) k/uL Neutrophils % % Lymphocytes % % Monocytes % % Eosinophils % % Basophils % % Neutrophils # (1.3-7.7) k/uL Lymphocytes # (1.0-4.8) k/uL Monocytes # (0-1.0) k/uL Eosinophils # (0-0.7) k/uL Basophils # (0-0.2) k/uL PT 11.3 (9.0-12.0) sec INR 1.1 (<1.2) APTT 27.5 (22.0-30.0) sec Sodium (137-145) mmol/L Potassium (3.5-5.1) mmol/L Chloride (98-107) mmol/L Carbon Dioxide (22-30) mmol/L Anion Gap mmol/L BUN (9-20) mg/dL Creatinine (0.66-1.25) mg/dL Est GFR (MDRD) Af Amer (>60 ml/min/1.73 sqM) Est GFR (MDRD) Non-Af (>60 ml/min/1.73 sqM) Glucose (74-99) mg/dL Calcium (8.4-10.2) mg/dL Magnesium (1.6-2.3) mg/dL Total Bilirubin (0.2-1.3) mg/dL AST (17-59) U/L ALT (21-72) U/L Alkaline Phosphatase (38-126) U/L Total Creatine Kinase (55-170) U/L CK-MB (CK-2) (0.0-2.4) ng/mL CK-MB (CK-2) Rel Index Troponin I (0.000-0.034) ng/mL Total Protein (6.3-8.2) g/dL Albumin (3.5-5.0) g/dL Disposition Clinical Impression: AICD discharge Disposition: ADMITTED IP TO THIS HOSP Condition: Good
[2017-04-25] MEDS: SODIUM CHLORIDE 0.9% 1,000 ML IV SCH ×2 (05:25→23:43)
[2017-04-25 08:36] LABS: Troponin I 0.038 ng/mL (0.000-0.034)
[2017-04-25 08:37] LABS: Creatine Kinase MB 5.9 ng/mL (0.0-2.4)
[2017-04-25] MEDS ORDERED: RIVAROXABAN 10 MG TAB PO SCH (09:00)
[2017-04-25] MEDS: ASPIRIN 81 MG PO SCH (09:07)
[2017-04-25] MEDS: MEXILETINE 200 MG CAP PO SCH ×3 (09:07→23:02)
[2017-04-25] MEDS: ATORVASTATIN 40 MG TAB PO SCH (09:08)
[2017-04-25] MEDS: SOTALOL 80 MG TAB PO SCH ×2 (09:09→21:03)
[2017-04-25] MEDS: ESCITALOPRAM 10 MG TAB PO SCH (09:09)
[2017-04-25] MEDS: MAGNESIUM OXIDE 400 MG TAB PO SCH (09:09)
[2017-04-25] MEDS: METOPROLOL TARTRATE 50 MG TAB PO SCH ×2 (09:09→21:03)
[2017-04-25] MEDS ORDERED: ASPIRIN 81 MG PO STA (09:13)
[2017-04-25] MEDS ORDERED: ALPRAZolam 0.25 MG TAB PO PRN (09:13)
[2017-04-25] MEDS ORDERED: ALPRAZolam 0.5 MG TAB PO PRN (09:13)
[2017-04-25] MEDS ORDERED: SODIUM CHLORIDE 0.9% 1,000 ML in EMPTY BAG 1 BAG IV ONE (09:13)
[2017-04-25] MEDS ORDERED: ATORVASTATIN 40 MG TAB PO STA (09:13)
--- NOTE | 2017-04-25 09:18 | P.CRDCN ---
History of Present Illness Consult date: 04/25/17 History of present illness: This is a 66-year-old male with past medical history significant for coronary artery disease with prior stenting of the LAD, hyperlipidemia, hypertension, DVT and AICD placement status post ventricular arrhythmia. He has undergone [address] Weinstein. He follows regularly with Dr. Garcia in the office. He presented to the hospital last night after he states his AICD fired while he was sleeping. He states he recently moved into a new home and his activity has greatly increased over the previous week. Prior to this happening he denies any symptoms of chest pain, shortness of breath, palpitations, dizziness or any abnormal symptoms for that matter. He was recently in the hospital earlier this month for symptoms of dizziness and his pacemaker was interrogated by [employer] at that time. It did reveal evidence of 2 episodes of ventricular tachycardia with successful ATP. EKG on arrival shows underlying sinus rhythm with first-degree AV block and nonspecific intraventricular block. This appears consistent with previous EKGs on file. Chest x-ray reveals no acute cardiopulmonary process. The patient denies any recent history of cough, fever or chills. Potassium 4.3, magnesium 2.1, BUN/creatinine 15/0.6, CK 324 and 245 and first troponin 0.027 with second is pending. Blood pressure 110/67 with a heart rate of 64. Patient states he' s been compliant with his medications as previously ordered. Most recent echo reveals decreased systolic function with EF 40-45%, LA moderately dilated, Mild MR, mild TR, mild pulmonary hypertension RVSP 40.31 mmHg, mild LVH, moderately enlarged RV, mild aortic sclerosis. Review of Systems CONSTITUTIONAL: Denies fever. Denies chills. EYES: Denies blurred vision. Denies vision changes. Denies eye pain. EARS, NOSE, MOUTH & THROAT: Denies headache. Denies sore throat. Denies ear pain. CARDIOVASCULAR: Denies chest pain. Denies shortness of breath. Denies orthopnea. Denies PND. Denies palpitations. RESPIRATORY: Denies cough. GASTROINTESTINAL: Denies abdominal pain. Denies diarrhea. Denies constipation. Denies nausea. Denies vomitng. MUSCULOSKELETAL: Denies myalgias. INTEGUMENTARY: Denies pruitis. Denies rash. NEUROLOGIC: Denies numbness. Denies tingling. Denies weakness. PSYCHIATRIC: Denies anxiety. Denies depression. ENDOCRINE: Denies fatigue. Denies weight change. Denies polydipsia. Denies polyurina. GENITOURINARY: Denies burning, hematuria or urgency with micturation. HEMATOLOGIC: Denies history of anemia. Denies bleeding. Past Medical History Past Medical History: Cancer, Chest Pain / Angina, Hyperlipidemia, Hypertension , Myocardial Infarction ([place]) Additional Past Medical History / Comment(s): BASAL CELL CA, NON SUSTAINED V TACH Last Myocardial Infarction Date:: 1999 History of Any Multi-Drug Resistant Organisms: None Reported Past Surgical History: AICD, Cardiac Ablation, Heart Catheterization With Stent Additional Past Surgical History / Comment(s): COLONOSCOPY Past Anesthesia/Blood Transfusion Reactions: No Reported Reaction Additional Past Anesthesia/Blood Transfusion Reaction / Comment(s): DIFFICULTY WAKING UP AFTER AA Date of Last Stent Placement:: 2012 Type of Cardiac Device: AICD Device Placement Date:: 02/23/14 Past Psychological History: No Psychological Hx Reported Additional Psychological History / Comment(s): PT LIVES WITH HIS OF 39 YEARS.PT IS RETIRED-WORKED AN [employer] AND [employer]. 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 Smoking Status: Never smoker Past Alcohol Use History: Occasional Additional Past Alcohol Use History / Comment(s): LESS THAN 14 DRINKS PER WEEK. PT STATED OCC IN PAST WOULD BUMB CIGARETTES HERE AND THERE,QUIT 1994. Past Drug Use History: None Reported - Past Family History Father Family Medical History: Diabetes Mellitus Additional Family Medical History / Comment(s): AT AGE 72-GAVE UP HIS INSULIN ATE THE WAY HE WANTED A 1 YEAR LATER. HX SPINAL MENINGITIS Mother Family Medical History: Liver Disease Additional Family Medical History / Comment(s): IN 1984- LIVER CONDITION. Medications and Allergies Home Medications Medication Instructions Recorded Confirmed Type Aspirin EC [Ecotrin Low Dose] 81 mg PO DAILY #30 tablet. 03/14/14 04/25/17 Rx Escitalopram [Lexapro] 10 mg PO DAILY #30 tab 03/14/14 04/25/17 Rx Metoprolol Tartrate [Lopressor] 50 mg PO BID #60 tab 03/14/14 04/25/17 Rx Magnesium Oxide [Mag-Ox] 400 mg PO DAILY #30 tab 05/13/14 04/25/17 Rx Atorvastatin [Lipitor] 40 mg PO DAILY 11/28/15 04/25/17 History Rivaroxaban [Xarelto] 20 mg PO DAILY 11/28/15 04/25/17 History Lisinopril [Zestril] 2.5 mg PO DAILY #30 tab 04/22/17 04/25/17 Rx Mexiletine [Mexitil] 200 mg PO Q8HR #90 cap 04/22/17 04/25/17 Rx Sotalol [Betapace] 120 mg PO BID #60 tab 04/22/17 04/25/17 Rx Spironolactone [Aldactone] 25 mg PO DAILY #30 tab 04/22/17 04/25/17 Rx Allergies Allergy/AdvReac Type Severity Reaction Status Date / Time codeine AdvReac passed out Verified 04/25/17 04:36 Physical Exam Vitals: Vital Signs Temp Pulse Pulse Resp BP BP Pulse Ox 04/25/17 07:35 98.2 F 64 16 110/67 94 L 04/25/17 05:05 18 04/25/17 04:55 97.9 F 56 L 18 108/65 96 04/25/17 04:00 58 L 18 108/60 94 L 04/25/17 03:00 55 L 18 102/57 96 04/25/17 02:24 58 L 18 101/58 96 04/25/17 01:24 66 18 106/59 94 L 04/25/17 01:16 99.1 F 72 16 128/63 93 L Intake and Output 04/24/17 04/25/17 04/25/17 22:59 06:59 14:59 Other: # Voids 1 Weight 104.7 kg GENERAL: This is a 66-year-old male in no apparent distress at the time of my examination. HEENT: Head is atraumatic, normocephalic. Pupils are equal, round. Sclerae anicteric. Conjunctivae are clear. Mucous membranes of the mouth are moist. Neck is supple. There is no jugular venous distention. No carotid bruit is heard. LUNGS: Clear to auscultation no wheezes, rales or rhonchi. No chest wall tenderness is noted on palpation or with deep breathing. HEART: Regular rate and rhythm without murmurs, rubs or gallops. S1 and S2 heard. ABDOMEN: Soft, nontender. Bowel sounds are heard. No organomegaly noted. EXTREMITIES: 2+ peripheral pulses with no evidence of peripheral edema and no calf tenderness noted. NEUROLOGIC: Patient is awake, alert and oriented x3. Results 04/25/17 01:34 04/25/17 01:34 Cardiac Enzymes 04/25/17 04/25/17 Range/Units 01:34 01:34 AST 48 (17-59) U/L CK-MB (CK-2) 7.4 H* (0.0-2.4) ng/mL Troponin I 0.027 (0.000-0.034) ng/mL Coagulation 04/25/17 Range/Units 01:34 PT 11.3 (9.0-12.0) sec APTT 27.5 (22.0-30.0) sec CBC 04/25/17 Range/Units 01:34 WBC 4.7 (3.8-10.6) k/uL RBC 4.73 (4.30-5.90) m/uL Hgb 15.6 (13.0-17.5) gm/dL Hct 45.6 (39.0-53.0) % Plt Count 144 L (150-450) k/uL Comprehensive Metabolic Panel 04/25/17 Range/Units 01:34 Sodium 140 (137-145) mmol/L Potassium 4.3 (3.5-5.1) mmol/L Chloride 103 (98-107) mmol/L Carbon Dioxide 24 (22-30) mmol/L BUN 15 (9-20) mg/dL Creatinine 0.60 L (0.66-1.25) mg/dL Glucose 131 H (74-99) mg/dL Calcium 8.7 (8.4-10.2) mg/dL AST 48 (17-59) U/L ALT 57 (21-72) U/L Alkaline Phosphatase 172 H (38-126) U/L Total Protein 6.6 (6.3-8.2) g/dL Albumin 4.0 (3.5-5.0) g/dL Current Medications Generic Name Dose Route Start Last Admin Trade Name Freq PRN Reason Stop Dose Admin Aspirin 81 mg 04/25/17 09:00 Aspirin PO DAILY [facility] Atorvastatin Calcium 40 mg 04/25/17 09:00 Lipitor PO DAILY [facility] Escitalopram Oxalate 10 mg 04/25/17 09:00 Lexapro PO DAILY [facility] Sodium Chloride 1,000 mls @ 20 mls/hr 04/25/17 04:00 04/25/17 05:25 Saline 0.9% IV Not Given .Q24H NAVEED Magnesium Oxide 400 mg 04/25/17 09:00 Mag-Ox PO DAILY [facility] Metoprolol Tartrate 50 mg 04/25/17 09:00 Lopressor PO BID NAVEED Mexiletine HCl 200 mg 04/25/17 08:00 Mexitil PO Q8HR NAVEED Nitroglycerin 0.4 mg 04/25/17 03:48 Nitrostat SUBLINGUAL Q5M PRN Chest Pain Rivaroxaban 20 mg 04/25/17 09:00 Xarelto PO DAILY NAVEED Sotalol HCl 160 mg 04/25/17 09:00 Betapace PO BID NAVEED Intake and Output 04/24/17 04/25/17 04/25/17 22:59 06:59 14:59 Other: # Voids 1 Weight 104.7 kg 04/25/17 01:34 04/25/17 01:34 Assessment and Plan Assessment: ASSESSMENT 1. Ventricular tachycardia with subsequent AICD firing 2. Chronic stable coronary artery disease with prior stenting of LAD 3. Hypertension 4. Hyperlipidemia 5. History of frequent DVTs 6. History of AICD implant 7. Status post VT ablation. 8. Systolic dysfunction, EF 40-45% PLAN Case has been discussed with Dr. Alfaro. Sotolol has been increased as well as Mexitil. We will hold lisinopril since blood pressure is borderline. [employer] has been notified to interrogate the AICD. Apparently this was done in ED last night but we have no report. They will fax now. Due to the fact that this gentleman has had frequent recurrent episodes but Dr. Alfaro was unable to induce VT at his last ablation he will undergo cardiac catheterization today to assess for worsening CAD causing arrhythmia. I have discussed the risks, benefits and alternative therapies for the above-mentioned procedure and for both sedation/analgesia as well as necessary blood product administration, if indicated, as they pertain to this patient. The patient has indicated understanding and acceptance of the risks and procedures discussed. He has agreed to move forward with the above stated procedure and has been boarded for early afternoon. Further recommendations will be based upon clinical course. Thank you kindly for this consultation. Nurse Practitioner note has been reviewed, I agree with a documented findings and plan of care. Patient was seen and examined.
--- NOTE | 2017-04-25 14:17 | P.HPIM ---
History of Present Illness H&P Date: 04/25/17 66 year old male patient who presented to the ER after his AICD went off at home. The patient was recently hospitalized from 04/20/17 to 04/22/17. At that time, he presented with a chief complaint of dizziness. Patient states the episode lasted a few minutes and he felt like everything was spinning. Patient states he has experienced similiar episodes before his pacemaker was inserted but nothing as intense as this time. He denies lose of consciousness or falling. Besides a pacemaker insertion, the patient also has a history of hypertension, hyperlipidemia, [place], cath with stent placement. A CT of the brain was completed which was negative for acute process. Chest xray showed mildly enlarged heart, overinflated lungs, and was consistent with mild heart failure. EKG showed SB, 1st degree AV block, left bundle branch block. He was admitted to the hospital under the care of Dr. Cabrera/Natividad. Consults were placed to cardiology. According to cardiology's consultation, the patient underwent an EP study this month in which no VT was induced and the pacer was reprogrammed. His pacemaker was interrogated 04/21/2017. The interrogation revealed two episodes of ventricular tachycardia with successful anti-tachycardia pacing. Dr. Alfaro was consulted for further pacemaker evaluation. The patient's sotalol was increased to 120 mg twice a day, mexiletine was increased to 200mg TID, and his lisinopril was decreased to 2.5mg a daily in order to tolerate higher doses of other medications. Dr. Johnson recommends a VT ablation, which could be scheduled as an outpatient per cardiology. The patient was discharged home on aspirin 81 mg daily, Lipitor 40mg daily, Zestril 2-1/2 mg daily, magnesium 400mg daily, metoprolol 50mg BID, mexiletine 200mg TID, xarelto 20mg daily, soltalol 120mg BID, and aldactone 25mg daily per cardiology. The patient was seen and examined at the bedside with Dr. Cabrera. Spouse at bedside. The patient states he was sleeping and he was woke up when his defibrillator fired. He denies chest pain or shortness of breath at this time. Cardiology was consulted. His lisinopril was held due to his blood pressure being borderline low. [employer] was notified to interrogate patients pacemaker. The patient is scheduled to undergo a cardiac catheterization this afternoon to evaluate for possible worsening CAD. The patient states he is scheduled Friday for a VT ablation. Review of Systems Those systems with pertinent positive or pertinent negative responses have been documented in the HPI Past Medical History Past Medical History: Cancer, Chest Pain / Angina, Hyperlipidemia, Hypertension , Myocardial Infarction (CA) Additional Past Medical History / Comment(s): BASAL CELL CA, NON SUSTAINED V TACH Last Myocardial Infarction Date:: 1999 History of Any Multi-Drug Resistant Organisms: None Reported Past Surgical History: AICD, Cardiac Ablation, Heart Catheterization With Stent Additional Past Surgical History / Comment(s): COLONOSCOPY Past Anesthesia/Blood Transfusion Reactions: No Reported Reaction Additional Past Anesthesia/Blood Transfusion Reaction / Comment(s): DIFFICULTY WAKING UP AFTER AA Date of Last Stent Placement:: 2012 Type of Cardiac Device: AICD Device Placement Date:: 02/23/14 Past Psychological History: No Psychological Hx Reported Additional Psychological History / Comment(s): PT LIVES WITH HIS OF 39 YEARS.PT IS RETIRED-WORKED AN [employer] AND [employer]. 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 Smoking Status: Never smoker Past Alcohol Use History: Occasional Additional Past Alcohol Use History / Comment(s): LESS THAN 14 DRINKS PER WEEK. PT STATED OCC IN PAST WOULD BUMB CIGARETTES HERE AND THERE,QUIT 1994. Past Drug Use History: None Reported - Past Family History Father Family Medical History: Diabetes Mellitus Additional Family Medical History / Comment(s): AT AGE 72-GAVE UP HIS INSULIN ATE THE WAY HE WANTED A 1 YEAR LATER. HX SPINAL MENINGITIS Mother Family Medical History: Liver Disease Additional Family Medical History / Comment(s): IN 1984- LIVER CONDITION. Medications and Allergies Home Medications Medication Instructions Recorded Confirmed Type Aspirin EC [Ecotrin Low Dose] 81 mg PO DAILY #30 tablet. 03/14/14 04/25/17 Rx Escitalopram [Lexapro] 10 mg PO DAILY #30 tab 03/14/14 04/25/17 Rx Metoprolol Tartrate [Lopressor] 50 mg PO BID #60 tab 03/14/14 04/25/17 Rx Magnesium Oxide [Mag-Ox] 400 mg PO DAILY #30 tab 05/13/14 04/25/17 Rx Atorvastatin [Lipitor] 40 mg PO DAILY 11/28/15 04/25/17 History Rivaroxaban [Xarelto] 20 mg PO DAILY 11/28/15 04/25/17 History Lisinopril [Zestril] 2.5 mg PO DAILY #30 tab 04/22/17 04/25/17 Rx Mexiletine [Mexitil] 200 mg PO Q8HR #90 cap 04/22/17 04/25/17 Rx Sotalol [Betapace] 120 mg PO BID #60 tab 04/22/17 04/25/17 Rx Spironolactone [Aldactone] 25 mg PO DAILY #30 tab 04/22/17 04/25/17 Rx Allergies Allergy/AdvReac Type Severity Reaction Status Date / Time codeine AdvReac passed out Verified 04/25/17 09:44 Physical Exam Vitals: Vital Signs Temp Pulse Pulse Resp BP BP Pulse Ox 04/25/17 11:33 99 F 55 L 16 90/54 96 04/25/17 08:39 97 04/25/17 08:38 97 04/25/17 07:35 98.2 F 64 16 110/67 94 L 04/25/17 05:05 18 04/25/17 04:55 97.9 F 56 L 18 108/65 96 04/25/17 04:00 58 L 18 108/60 94 L 04/25/17 03:00 55 L 18 102/57 96 04/25/17 02:24 58 L 18 101/58 96 04/25/17 01:24 66 18 106/59 94 L 04/25/17 01:16 99.1 F 72 16 128/63 93 L Intake and Output 04/24/17 04/25/17 04/25/17 22:59 06:59 14:59 Other: Voiding Method Toilet # Voids 1 Weight 104.7 kg GENERAL: Alert and oriented. Appears in no acute distress. Pleasant. RESPIRATORY: Lungs clear bilaterally. No use of accessory muscles. Patient maintaining oxygen saturation greater than 92%. CARDIOVASCULAR: S1 and S2 noted. No murmurs auscultated. No JVD noted. EXTREMITIES: No edema noted. Palpable pedal pulses +2. ABDOMEN: No distention noted. Abdomen soft and round. Normal active bowel sounds auscultated 4 quadrants. No pain or tenderness noted upon palpation. Results CBC & Chem 7: 04/25/17 01:34 04/25/17 01:34 Labs: Abnormal Lab Results - Last 24 Hours (Table) 04/25/17 04/25/17 04/25/17 Range/Units 01:34 01:34 01:34 Plt Count 144 L (150-450) k/uL Creatinine 0.60 L (0.66-1.25) mg/dL Glucose 131 H (74-99) mg/dL Alkaline Phosphatase 172 H (38-126) U/L Total Creatine Kinase 324 H (55-170) U/L CK-MB (CK-2) 7.4 H* (0.0-2.4) ng/mL Troponin I (0.000-0.034) ng/mL 04/25/17 Range/Units 07:05 Plt Count (150-450) k/uL Creatinine (0.66-1.25) mg/dL Glucose (74-99) mg/dL Alkaline Phosphatase (38-126) U/L Total Creatine Kinase 245 H (55-170) U/L CK-MB (CK-2) 5.9 H* (0.0-2.4) ng/mL Troponin I 0.038 H* (0.000-0.034) ng/mL Thrombosis Risk Factor Assmnt - Choose All That Apply Each Risk Factor Represents 2 Points: Age 61-74 years Thrombosis Risk Factor Assessment Total Risk Factor Score: 2 Thrombosis Risk Factor Assessment Level: Low Risk Assessment and Plan Plan: ASSESSMENT: -Ventricular tachycardia with subsequent AICD firing -Coronary artery disease with previous stenting to LAD -History of cardiac ablation -History of PPM/AICD insertion -History of atrial fibrillation with senior care anticoagulation with Xarelto -Hypertension -Hyperlipidemia PLAN: -Cardiology on consult. appreciate recommendations and input -Cardiac cath today -NPO for cardiac cath -Possible VT ablation friday -Resume home meds as appropriate -Monitor labs -GI prophylaxis: Protonix 40mg daily -DVT prophylaxis: Xarelto 20mg daily -Monitor vital signs and address as appropriate The above impression and plan of care have been discussed and directed by signing physician. Donna Cornejo, nurse practitioner, acting as scribe for signing physician.
[2017-04-25 15:11] LABS: Troponin I 0.028 ng/mL (0.000-0.034)
[2017-04-25 15:14] LABS: Creatine Kinase MB 5.3 ng/mL (0.0-2.4)
[2017-04-26 03:10] LABS: Cholesterol 140 mg/dL (<200); HDL Cholesterol 31 mg/dL (40-60)
[2017-04-26] MEDS: ASPIRIN 81 MG PO SCH (06:09)
[2017-04-26] MEDS: METOPROLOL TARTRATE 50 MG TAB PO SCH ×2 (06:09→20:45)
[2017-04-26] MEDS: ATORVASTATIN 40 MG TAB PO SCH (06:09)
[2017-04-26] MEDS: SOTALOL 80 MG TAB PO SCH ×2 (06:09→20:45)
[2017-04-26] MEDS: ESCITALOPRAM 10 MG TAB PO SCH (06:10)
[2017-04-26] MEDS: MEXILETINE 200 MG CAP PO SCH ×2 (06:10→15:02)
[2017-04-26] MEDS: MAGNESIUM OXIDE 400 MG TAB PO SCH (06:10)
[2017-04-26] MEDS ORDERED: LIDOCAINE 2% INJ 20 MG/ML (20 ML MDV) ONE (07:11)
[2017-04-26] MEDS ORDERED: PANTOPRAZOLE 40 MG TABLET PO SCH (07:30)
[2017-04-26] MEDS ORDERED: MIDAZOLAM 2 MG/2 ML VIAL ONE (07:37)
[2017-04-26] MEDS ORDERED: VERAPAMIL 2.5 MG/ML 2 ML AMP ONE (07:37)
[2017-04-26] MEDS ORDERED: HEPARIN SODIUM 1,000 UN/ML (10ML VL) ONE (07:38)
[2017-04-26] MEDS: fentaNYL (PF) 50 MCG/ML 2 ML AMP IVP ONE ×2 (07:42→08:23)
[2017-04-26] MEDS ORDERED: MIDAZOLAM 2 MG/2 ML VIAL IVP ONE (07:42)
[2017-04-26] MEDS ORDERED: LIDOCAINE 2% INJ 20 MG/ML SQ ONE (07:43)
[2017-04-26] MEDS ORDERED: SODIUM CHLORIDE 0.9% 1,000 ML IV ONE (07:43)
[2017-04-26] MEDS ORDERED: fentaNYL (PF) 50 MCG/ML 2 ML AMP ONE (07:44)
[2017-04-26] MEDS ORDERED: VERAPAMIL SYRINGE (5 MG/10 ML) INTRAARTER ONE (07:44)
[2017-04-26] MEDS ORDERED: HEPARIN SODIUM 1,000 UN/ML (10ML VL) IV ONE (07:45)
[2017-04-26] MEDS ORDERED: ADENOSINE 90 MG in SODIUM CHLORIDE 0.9% 60 ML IVP ONE (08:22)
[2017-04-26] MEDS ORDERED: NITROGLYCERIN 1000MCG/10ML SYRINGE INTRACORON ONE (08:23)
[2017-04-26] MEDS ORDERED: CLOPIDOGREL 75 MG TAB ONE (08:33)
[2017-04-26] MEDS ORDERED: CLOPIDOGREL 75 MG TAB PO ONE (08:40)
[2017-04-26] MEDS ORDERED: MAG HYDROX/AL HYDROX/SIMETH 30 ML CUP PO PRN (08:47)
[2017-04-26] MEDS ORDERED: ZOLPIDEM 5 MG TAB PO PRN (08:47)
[2017-04-26] MEDS ORDERED: ATROPINE SULFATE 0.1 MG/ML 10ML SYRINGE IV PRN (08:47)
[2017-04-26] MEDS ORDERED: NITROGLYCERIN SL TABS 0.4 MG TAB SUBLINGUAL PRN (08:47)
[2017-04-26] MEDS ORDERED: RX INFO: IV CONTRAST WAS GIVEN 1 EACH MISC MISCELLANE PRN (08:47)
[2017-04-26] MEDS ORDERED: IOHEXOL 350 MG/ML 100 ML BOTTLE INJ ONE (08:47)
[2017-04-26] MEDS ORDERED: ASPIRIN 325 MG TAB PO SCH (09:00)
[2017-04-26] MEDS ORDERED: SODIUM CHLORIDE 0.9% 1,000 ML IV SCH (09:00)
[2017-04-26] MEDS: ASPIRIN 325 MG TAB PO SCH (09:20)
--- NOTE | 2017-04-26 09:46 | CC ---
CARDIAC CATHETERIZATION REPORT DATE OF SERVICE: April 26, 2017 PERFORMING PHYSICIAN: Orlando Velez M.D. supervisor color making. PROCEDURE PERFORMED: 1. Selective right and left coronary angiogram. 2. Left heart catheterization. 3. Fractional flow reserve of the left circumflex coronary artery. 4. Successful stenting of the proximal left circumflex using x 23 mm Xience HUNTER with good angiographic results. INDICATION: This is a pleasant 66-year-old gentleman who sees Dr. Garcia and sees Dr. Alfaro as an outpatient who is known to have coronary artery disease and prior stenting of the LAD as well as cardiomyopathy and status post AICD, was admitted to the hospital with ventricular tachycardia and subsequent AICD firing. Severe underlying CAD to be ruled out and the patient was seen by Dr. Alfaro who recommended proceeding with a heart catheterization. APPROACH: Right radial artery. COMPLICATION: None. LEVEL OF SEDATION: Moderate with sedation length of 58 minutes. PROCEDURE DESCRIPTION: After obtaining informed consent, the patient was brought to the cardiac laundry laborer. The right radial artery was cannulated using micropuncture technique, the micropuncture wire passed easily. Then I placed a 6-Portuguese sheath in the right radial artery and subsequently anticoagulation was given using heparin and the patient was given a total of 10,000 units of heparin IV. Also, I gave the patient 2 mg of verapamil IA. After that, I did selective right and left coronary angiogram using JR4 and JL3.5 catheters. After that, I did left heart catheterization using 6-Portuguese pigtail catheter. Then I did do an FFR of the left circumflex as well as stenting of the left circumflex. Please see a separate paragraph for that. SELECTIVE CORONARY ANGIOGRAM: 1. The right coronary artery is a small to medium caliber vessel and it is a nondominant vessel. It has mild disease only. 2. The left main is angiographically normal. It bifurcates into left circumflex and left anterior descending artery. 3. The left circumflex is a large caliber vessel. It is a dominant vessel. The proximal left circumflex has 2 tandem lesions in the range of 60% to 70%. It seems to be slightly worse compared to before. FFR was performed and came in to be ischemic. The proximal left circumflex gives rise into the first OM branch which is a moderate caliber vessel, seems to be angiographically normal. The mid left circumflex normal, and the left circumflex distally is normal and bifurcates into PDA and PLV branches. Both are angiographically normal. 4. The left anterior descending artery: The proximal LAD is calcified with mild disease only and gives rise into a first diagonal branch which seems to be angiographically normal. The mid LAD is stented and the stent is patent. The LAD in the midportion gives rise in the second diagonal branch which seems to be angiographically normal. The LAD distally is normal. HEMODYNAMICS: The left ventricular end-diastolic pressure was 16-18 mmHg. No significant gradient was seen across the aortic valve. FFR of the left circumflex and stenting of the left circumflex: After the zeroing the Doppler wire and equalizing between the Doppler wire and the guiding catheter which was JL 3.5 guiding catheter, we did an FFR per IV infusion and FFR came in to be 0.58 at the lowest. At that point, I decided to pursue with intervention on the left circumflex. We checked ACT and came in to be a high within the therapeutic range. I did try to advance the 4.0 x 23 mm Xience stent over the Doppler wire, but the stent will not make the turn and it was hitting the distal lesion. At that point I pre-dilated using 3.5 mm balloon which was inflated under 10 atmospheres for 20 seconds. After that, I tried to advance the stent and I was unable. Then I decided to double wire using Whisper wire with the Doppler wire. I was able to get the stent over the whisper wire to the proximal left circumflex where the stent was positioned under fluoroscopy guidance and deployed under 12 atmospheres for 20 seconds. The following angiogram showed good angiographic results. The procedure was completed without any complication. POSTPROCEDURE MANAGEMENT: 1. Dual anti-platelet therapy. 2. Risk factors modifications. 3. Follow up with the patient. MMODL / IJN: [id number] /
--- NOTE | 2017-04-26 11:52 | P.PN ---
Roxanna Marie is a 66 year old male patient who presented to the ER after his AICD went off at home. The patient was recently hospitalized from 04/20/17 to 04/22/17. At that time, he presented with a chief complaint of dizziness. Patient states the episode lasted a few minutes and he felt like everything was spinning. Patient states he has experienced similiar episodes before his pacemaker was inserted but nothing as intense as this time. He denies lose of consciousness or falling. Besides a pacemaker insertion, the patient also has a history of hypertension, hyperlipidemia, [place], cath with stent placement. A CT of the brain was completed which was negative for acute process. Chest xray showed mildly enlarged heart, overinflated lungs, and was consistent with mild heart failure. EKG showed SB, 1st degree AV block, left bundle branch block. He was admitted to the hospital under the care of Dr. Cabrera/Natividad. Consults were placed to cardiology. According to cardiology's consultation, the patient underwent an EP study this month in which no VT was induced and the pacer was reprogrammed. His pacemaker was interrogated 04/21/2017. The interrogation revealed two episodes of ventricular tachycardia with successful anti-tachycardia pacing. Dr. Alfaro was consulted for further pacemaker evaluation. The patient's sotalol was increased to 120 mg twice a day, mexiletine was increased to 200mg TID, and his lisinopril was decreased to 2.5mg a daily in order to tolerate higher doses of other medications. Dr. Johnson recommends a VT ablation, which could be scheduled as an outpatient per cardiology. The patient was discharged home on aspirin 81 mg daily, Lipitor 40mg daily, Zestril 2-1/2 mg daily, magnesium 400mg daily, metoprolol 50mg BID, mexiletine 200mg TID, xarelto 20mg daily, soltalol 120mg BID, and aldactone 25mg daily per cardiology. 04/25/2017: The patient was seen and examined The patient states he was sleeping and he was woke up when his defibrillator fired. He denies chest pain or shortness of breath at this time. Cardiology was consulted. His lisinopril was held due to his blood pressure being borderline low. [employer] was notified to interrogate patients pacemaker. The patient is scheduled to undergo a cardiac catheterization this afternoon to evaluate for possible worsening CAD. The patient states he is scheduled Friday for a VT ablation. 04/26/2017: The patient was found sleeping in his room. He is status post left heart catheterization selective right and left coronary angiogram. He underwent a successful stenting of the proximal left circumflex using a 23 mm stent, with good results, with Dr. Mota. He is resting comfortably in bed. Cardiology is debating whether Dr. Alfaro, acquisition associate will do an EP study on him Friday or have him return outpatient. Objective - Vital Signs Vital signs: Vital Signs Temp 97.3 F L 04/26/17 11:27 Pulse 55 L 04/26/17 11:32 Resp 16 04/26/17 11:32 BP 112/62 04/26/17 11:32 Pulse Ox 95 04/26/17 11:32 Intake & Output 04/25/17 04/26/17 04/26/17 18:59 06:59 18:59 Intake Total 760 200 269 Balance 760 200 269 Weight 104.7 kg Intake: IV 200 269 Sodium Chloride 0.9% 1, 200 000 ml @ 20 mls/hr IV . Q24H [facility] Rx#:[id number] Intake, IV Titration 400 Amount Sodium Chloride 0.9% 1, 400 000 ml In Empty Bag 1 bag @ 1 ML/KG/HR 104.7 mls/ hr IV .[id number] ONE Rx#: [id number] Oral 360 0 Other: Voiding Method Toilet Toilet Toilet # Voids 1 - Exam GENERAL: Alert and oriented. Appears in no acute distress. Pleasant. RESPIRATORY: Lungs clear bilaterally. No use of accessory muscles. Patient maintaining oxygen saturation greater than 92%. CARDIOVASCULAR: S1 and S2 noted. No murmurs auscultated. No JVD noted. EXTREMITIES: No edema noted. Palpable pedal pulses +2. ABDOMEN: No distention noted. Abdomen soft and round. Normal active bowel sounds auscultated 4 quadrants. No pain or tenderness noted upon palpation. - Labs CBC & Chem 7: 04/25/17 01:34 04/25/17 01:34 Labs: Abnormal Lab Results - Last 24 Hours (Table) 04/25/17 04/25/17 Range/Units 07:05 14:09 Total Creatine Kinase 208 H (55-170) U/L CK-MB (CK-2) 5.3 H* (0.0-2.4) ng/mL Triglycerides 388 H (<150) mg/dL HDL Cholesterol 31 L (40-60) mg/dL Assessment and Plan Plan: -Proximal left circumflex lesion status post stenting today: Positive postoperative monitoring to continue -Ventricular tachycardia with subsequent AICD firing: wait on recommendations from electrophysiology -Coronary artery disease with previous stenting to LAD -History of cardiac ablation: As above, on Mexitil -History of PPM/AICD insertion: Monitor -History of atrial fibrillation: Continue Xarelto -Hypertension: Continue sotalol -Hyperlipidemia: Continue atorvastatin Anxiety and depression: Continue Lexapro and Xanax -GI prophylaxis: Protonix 40mg daily -DVT prophylaxis: Xarelto 20mg daily The patient will be reevaluated next 24 hours, wait further respirations are electrophysiology cardiology.
[2017-04-26] MEDS ORDERED: NITROGLYCERIN OINT 1 INCH/GM PACKET TOPICAL ONE (12:28)
[2017-04-26] MEDS ORDERED: NITROGLYCERIN OINT 1 INCH/GM PACKET TOPICAL STA (12:29)
[2017-04-26 14:23] VITALS: BMI 34.0
[2017-04-26] MEDS ORDERED: PANTOPRAZOLE 40 MG/10 ML VIAL IVP STA (18:57)
[2017-04-26] MEDS: FAMOTIDINE 20 MG TAB PO SCH (20:45)
[2017-04-27] MEDS: MEXILETINE 200 MG CAP PO SCH ×2 (00:15→08:34)
[2017-04-27] MEDS: SODIUM CHLORIDE 0.9% 1,000 ML IV SCH ×2 (00:16→18:14)
[2017-04-27 06:24] LABS: Basophils % (A) 1 %; CH 33.6; CHCM 34.6; Eosinophils # (A) 0.2 k/uL (0-0.7); Eosinophils % (A) 5 %; HCT 40.8 % (39.0-53.0); HGB 13.9 gm/dL (13.0-17.5); Luc # (Auto) 0.16; Luc % (Auto) 3; Lymphocytes # (A) 0.8 k/uL (1.0-4.8); Lymphocytes % (A) 18 %; MCH 33.2 pg (25.0-35.0); MCV 97.5 fL (80.0-100.0); Mean Platelet Volume 7.2; Monocytes # (A) 0.5 k/uL (0-1.0); Monocytes % (A) 10 %; Neutrophils % (A) 64 %; RBC 4.19 m/uL (4.30-5.90); RDW 13.4 % (11.5-15.5); WBC 4.7 k/uL (3.8-10.6); WBC (Perox) 4.58
[2017-04-27 06:42] LABS: Anion Gap 6 mmol/L; Blood Urea Nitrogen 12 mg/dL (9-20); Calcium 8.5 mg/dL (8.4-10.2); Carbon Dioxide 27 mmol/L (22-30); Chloride 103 mmol/L (98-107); Glucose 110 mg/dL (74-99); Non-African American GFR(MDRD) >60 (>60 ml/min/1.73 sqM); Potassium 4.4 mmol/L (3.5-5.1); Sodium 136 mmol/L (137-145)
[2017-04-27] MEDS: CLOPIDOGREL 75 MG TAB PO SCH (08:34)
[2017-04-27] MEDS: METOPROLOL TARTRATE 50 MG TAB PO SCH ×2 (08:34→20:58)
[2017-04-27] MEDS: FAMOTIDINE 20 MG TAB PO SCH ×2 (08:34→20:58)
[2017-04-27] MEDS: ATORVASTATIN 40 MG TAB PO SCH (08:34)
[2017-04-27] MEDS: SOTALOL 80 MG TAB PO SCH (08:34)
[2017-04-27] MEDS: ASPIRIN 325 MG TAB PO SCH (08:34)
[2017-04-27] MEDS: MAGNESIUM OXIDE 400 MG TAB PO SCH (08:35)
--- NOTE | 2017-04-27 12:03 | P.PN ---
Roxanna Marie is a 66 year old male patient who presented to the ER after his AICD went off at home. The patient was recently hospitalized from 04/20/17 to 04/22/17. At that time, he presented with a chief complaint of dizziness. Patient states the episode lasted a few minutes and he felt like everything was spinning. Patient states he has experienced similiar episodes before his pacemaker was inserted but nothing as intense as this time. He denies lose of consciousness or falling. Besides a pacemaker insertion, the patient also has a history of hypertension, hyperlipidemia, [place], cath with stent placement. A CT of the brain was completed which was negative for acute process. Chest xray showed mildly enlarged heart, overinflated lungs, and was consistent with mild heart failure. EKG showed SB, 1st degree AV block, left bundle branch block. He was admitted to the hospital under the care of Dr. Cabrera/Natividad. Consults were placed to cardiology. According to cardiology's consultation, the patient underwent an EP study this month in which no VT was induced and the pacer was reprogrammed. His pacemaker was interrogated 04/21/2017. The interrogation revealed two episodes of ventricular tachycardia with successful anti-tachycardia pacing. Dr. Alfaro was consulted for further pacemaker evaluation. The patient's sotalol was increased to 120 mg twice a day, mexiletine was increased to 200mg TID, and his lisinopril was decreased to 2.5mg a daily in order to tolerate higher doses of other medications. Dr. Johnson recommends a VT ablation, which could be scheduled as an outpatient per cardiology. The patient was discharged home on aspirin 81 mg daily, Lipitor 40mg daily, Zestril 2-1/2 mg daily, magnesium 400mg daily, metoprolol 50mg BID, mexiletine 200mg TID, xarelto 20mg daily, soltalol 120mg BID, and aldactone 25mg daily per cardiology. 04/25/2017: The patient was seen and examined The patient states he was sleeping and he was woke up when his defibrillator fired. He denies chest pain or shortness of breath at this time. Cardiology was consulted. His lisinopril was held due to his blood pressure being borderline low. [employer] was notified to interrogate patients pacemaker. The patient is scheduled to undergo a cardiac catheterization this afternoon to evaluate for possible worsening CAD. The patient states he is scheduled Friday for a VT ablation. 04/26/2017: The patient was found sleeping in his room. He is status post left heart catheterization selective right and left coronary angiogram. He underwent a successful stenting of the proximal left circumflex using a 23 mm stent, with good results, with Dr. Mota. He is resting comfortably in bed. Cardiology is debating whether Dr. Alfaro, insurance executive will do an EP study on him Friday or have him return outpatient. 04/27/2017: patient feels much better since cardiac catheterization. He said he was unknowingly short of breath. Since his procedure, he is breathing much easier. Dr. Wood is planning a EP study on him tomorrow. Overnight he had had some heartburn and was relieved with Protonix. Objective - Vital Signs Vital signs: Vital Signs Temp 97.8 F 04/27/17 11:27 Pulse 56 L 04/27/17 11:27 Resp 18 04/27/17 11:27 BP 105/71 04/27/17 11:27 Pulse Ox 99 04/27/17 11:27 Intake & Output 04/26/17 04/27/17 04/27/17 18:59 06:59 18:59 Intake Total 1211 240 Output Total 400 Balance 811 240 Weight 104.7 kg 104.6 kg Intake: IV 269 Oral 942 240 Output: Urine 400 Other: Voiding Method Toilet Toilet Toilet # Voids 1 1 - Exam GENERAL: Alert and oriented. Appears in no acute distress. Pleasant. RESPIRATORY: Lungs clear bilaterally. No use of accessory muscles. Patient maintaining oxygen saturation greater than 92%. CARDIOVASCULAR: S1 and S2 noted. No murmurs auscultated. No JVD noted. EXTREMITIES: No edema noted. Palpable pedal pulses +2. ABDOMEN: No distention noted. Abdomen soft and round. Normal active bowel sounds auscultated 4 quadrants. No pain or tenderness noted upon palpation. - Labs CBC & Chem 7: 04/27/17 06:03 04/27/17 06:03 Labs: Abnormal Lab Results - Last 24 Hours (Table) 04/27/17 04/27/17 Range/Units 06:03 06:03 RBC 4.19 L (4.30-5.90) m/uL Plt Count 119 L (150-450) k/uL Lymphocytes # 0.8 L (1.0-4.8) k/uL Sodium 136 L (137-145) mmol/L Creatinine 0.60 L (0.66-1.25) mg/dL Glucose 110 H (74-99) mg/dL Assessment and Plan Plan: -Proximal left circumflex lesion status post stenting today: postoperative monitoring to continue -Ventricular tachycardia with subsequent AICD firing: wait on recommendations from electrophysiology and their upcoming study -Coronary artery disease with previous stenting to LAD -History of cardiac ablation: As above, on Mexitil, sotalol -History of PPM/AICD insertion: Monitor -History of atrial fibrillation: Continue Xarelto -Hypertension: Continue sotalol -Hyperlipidemia: Continue atorvastatin Anxiety and depression: Continue Lexapro and Xanax -GI prophylaxis: Protonix 40mg daily -DVT prophylaxis: Xarelto 20mg daily The patient will be reevaluated next 24 hours, wait further recommendations from consultants
--- NOTE | 2017-04-27 14:14 | P.PN ---
Subjective Progress Note Date: 04/27/17 This is a 65-year-old gentleman with known history of hypertension, hyperlipidemia, coronary artery disease with prior stent placement to the LAD, history of ventricular tachycardia status post ablation, history of ventricular fibrillation, paroxysmal atrial fibrillation, on xarelto, ischemic cardiomyopathy status post AICD, patient follows regularly with Dr. Garcia in the office. Patient was recently in the hospital for symptoms of dizziness and was found to have evidence of ventricular tachycardia on his AICD interrogation as well as successful ATP. He read presented to the hospital again on this admission following discharge from his AICD. Patient was seen by Dr. Alfaro and will be scheduled tomorrow to undergo study. He was seen and examined this morning, denies any further palpitations, no episodes of any V. tach were noted on the monitor. Objective - Vital Signs Vital signs: Vital Signs Temp 97.8 F 04/27/17 11:27 Pulse 56 L 04/27/17 11:27 Resp 18 04/27/17 11:27 BP 105/71 04/27/17 11:27 Pulse Ox 99 04/27/17 11:27 Intake & Output 04/26/17 04/27/17 04/27/17 18:59 06:59 18:59 Intake Total 1211 240 Output Total 400 Balance 811 240 Weight 104.7 kg 104.6 kg Intake: IV 269 Oral 942 240 Output: Urine 400 Other: Voiding Method Toilet Toilet Toilet # Voids 1 1 - Exam PHYSICAL EXAMINATION: HEENT: Head is atraumatic, normocephalic. Pupils equal, round. Neck is supple. There is no elevated jugular venous pressure. HEART EXAMINATION: Heart S1, S2 normal. No murmur or gallop heard. CHEST EXAMINATION: Lungs are clear to auscultation and precussion. No chest wall tenderness is noted on palpation or with deep breathing. ABDOMEN: Soft, nontender. Bowel sounds are heard. No organomegaly noted. EXTREMITIES: 2+ peripheral pulses with no evidence of peripheral edema and no calf tenderness noted. NEUROLOGIC patient is awake, alert and oriented -3. . - Labs CBC & Chem 7: 04/27/17 06:03 04/27/17 06:03 Labs: Abnormal Lab Results - Last 24 Hours (Table) 10/22/17 10/22/17 Range/Units 06:03 06:03 RBC 4.19 L (4.30-5.90) m/uL Plt Count 119 L (150-450) k/uL Lymphocytes # 0.8 L (1.0-4.8) k/uL Sodium 136 L (137-145) mmol/L Creatinine 0.60 L (0.66-1.25) mg/dL Glucose 110 H (74-99) mg/dL Assessment and Plan Plan: Assessment and plan #1 ventricular tachycardia with subsequent AICD discharge #2 chronic stable coronary artery disease with prior PCI #3 hypertension #4 hyperlipidemia #5 history of prior DVTs #6 history of AICD implant #7 status post VT ablation Plan We will hold this evening's dose of sotalol and mexiletine, we will also hold the a.m. doses of sotalol and mexiletine patient is scheduled tomorrow to undergo EP study by Dr. Alfaro. Further recommendations to follow. DNP note has been reviewed, I agree with a documented findings and plan of care. Patient was seen and examined.
[2017-04-28] MEDS: ASPIRIN 325 MG TAB PO SCH (06:24)
[2017-04-28] MEDS: METOPROLOL TARTRATE 50 MG TAB PO SCH ×2 (06:24→20:45)
[2017-04-28] MEDS: CLOPIDOGREL 75 MG TAB PO SCH (06:24)
[2017-04-28] MEDS: FAMOTIDINE 20 MG TAB PO SCH ×2 (06:24→20:45)
[2017-04-28] MEDS: ESCITALOPRAM 10 MG TAB PO SCH (06:24)
[2017-04-28] MEDS: MAGNESIUM OXIDE 400 MG TAB PO SCH (06:24)
[2017-04-28] MEDS: ATORVASTATIN 40 MG TAB PO SCH (06:24)
[2017-04-28 06:54] LABS: Anion Gap 8 mmol/L; Blood Urea Nitrogen 13 mg/dL (9-20); Calcium 8.6 mg/dL (8.4-10.2); Carbon Dioxide 29 mmol/L (22-30); Chloride 102 mmol/L (98-107); Glucose 125 mg/dL (74-99); Non-African American GFR(MDRD) >60 (>60 ml/min/1.73 sqM); Potassium 4.3 mmol/L (3.5-5.1); Sodium 139 mmol/L (137-145)
[2017-04-28 10:08] LABS: Glucose,Whole Blood 114 mg/dL (75-99)
[2017-04-28] MEDS ORDERED: ceFAZolin 2 GM in SODIUM CHLORIDE 0.9% 100 ML IVPB STA (12:04)
[2017-04-28] MEDS: SODIUM CHLORIDE 0.9% 1,000 ML IV SCH (12:16)
[2017-04-28] MEDS ORDERED: ISOPROTERENOL 250 MCG/1.25 ML SYR IV ONE (12:47)
[2017-04-28] MEDS ORDERED: MIDAZOLAM 2 MG/2 ML VIAL ONE (12:47)
[2017-04-28] MEDS ORDERED: fentaNYL (PF) 50 MCG/ML 2 ML AMP ONE (12:47)
[2017-04-28] MEDS ORDERED: HEPARIN SODIUM,PORCINE 10,000 UNIT/ML 1 ML VIAL ONE (12:47)
[2017-04-28] MEDS ORDERED: PROPOFOL 10 MG/ML 20 ML VIAL IV ONE (12:47)
[2017-04-28] MEDS ORDERED: GLYCOPYRROLATE 0.2 MG/ML 2 ML VIAL ONE (12:47)
[2017-04-28] MEDS ORDERED: ePHEDrine SULFATE/0.9% NACL/PF 50 MG/5 ML SYRINGE IV ONE (12:47)
[2017-04-28] MEDS ORDERED: ROCURONIUM BROMIDE 10 MG/ML 10 ML VIAL IV ONE (12:47)
[2017-04-28] MEDS ORDERED: FUROSEMIDE 10 MG/ML 2 ML VIAL ONE (12:47)
[2017-04-28] MEDS ORDERED: NEOSTIGMINE 1 MG/ML 10 ML VIAL ONE (12:47)
[2017-04-28] MEDS ORDERED: SUCCINYLCHOLINE CHLORIDE 100 MG/5 ML SYR IV ONE (12:47)
[2017-04-28] MEDS ORDERED: PROTAMINE SULFATE 10 MG/ML 5 ML VIAL IV ONE (12:47)
[2017-04-28] MEDS ORDERED: IODIXANOL 320 MG/ML 100 ML IV ONE (13:15)
--- NOTE | 2017-04-28 13:30 | P.PN ---
Subjective Progress Note Date: 04/28/17 04/25/2017 66 year old male patient who presented to the ER after his AICD went off at home. The patient was recently hospitalized from 04/20/17 to 04/22/17. At that time, he presented with a chief complaint of dizziness. Patient states the episode lasted a few minutes and he felt like everything was spinning. Patient states he has experienced similiar episodes before his pacemaker was inserted but nothing as intense as this time. He denies lose of consciousness or falling. Besides a pacemaker insertion, the patient also has a history of hypertension, hyperlipidemia, [place], cath with stent placement. A CT of the brain was completed which was negative for acute process. Chest xray showed mildly enlarged heart, overinflated lungs, and was consistent with mild heart failure. EKG showed SB, 1st degree AV block, left bundle branch block. He was admitted to the hospital under the care of Dr. Cabrera/Natividad. Consults were placed to cardiology. According to cardiology's consultation, the patient underwent an EP study this month in which no VT was induced and the pacer was reprogrammed. His pacemaker was interrogated 04/21/2017. The interrogation revealed two episodes of ventricular tachycardia with successful anti-tachycardia pacing. Dr. Alfaro was consulted for further pacemaker evaluation. The patient's sotalol was increased to 120 mg twice a day, mexiletine was increased to 200mg TID, and his lisinopril was decreased to 2.5mg a daily in order to tolerate higher doses of other medications. Dr. Johnson recommends a VT ablation, which could be scheduled as an outpatient per cardiology. The patient was discharged home on aspirin 81 mg daily, Lipitor 40mg daily, Zestril 2-1/2 mg daily, magnesium 400mg daily, metoprolol 50mg BID, mexiletine 200mg TID, xarelto 20mg daily, soltalol 120mg BID, and aldactone 25mg daily per cardiology. The patient was seen and examined at the bedside with Dr. Cabrera. Spouse at bedside. The patient states he was sleeping and he was woke up when his defibrillator fired. He denies chest pain or shortness of breath at this time. Cardiology was consulted. His lisinopril was held due to his blood pressure being borderline low. [employer] was notified to interrogate patients pacemaker. The patient is scheduled to undergo a cardiac catheterization this afternoon to evaluate for possible worsening CAD. The patient states he is scheduled Friday for a VT ablation. 04/25/2017 (Notes per Dr. Cabrera): The patient was found sleeping in his room. He is status post left heart catheterization selective right and left coronary angiogram. He underwent a successful stenting of the proximal left circumflex using a 23 mm stent, with good results, with Dr. Mota. He is resting comfortably in bed. Cardiology is debating whether Dr. Alfaro, selling manager will do an EP study on him Friday or have him return outpatient 04/26/2017 (Notes per Dr. Cabrera): Patient feels much better since cardiac catheterization. He said he was unknowingly short of breath. Since his procedure, he is breathing much easier. Dr. Wood is planning a EP study on him tomorrow. Overnight he had had some heartburn and was relieved with Protonix. 04/28/2017 Patient underwent cardiac catherization with placement of a stent to the proximal left circumflex. The patient is scheduled for an EP study today with Dr. Alfaro. No new lab work available today. Patients blood pressure is stable. Heart rate ranging from 56-71. He remains NPO for EP study. Patient was not in his room upon rounds with Dr. Henson Objective - Vital Signs Vital signs: Vital Signs Temp 97.0 F L 04/28/17 07:50 Pulse 56 L 04/28/17 07:50 Resp 18 04/28/17 07:50 BP 109/66 04/28/17 07:50 Pulse Ox 95 04/28/17 09:23 Intake & Output 04/27/17 04/28/17 04/28/17 18:59 06:59 18:59 Intake Total 900 100 Output Total 450 Balance 450 100 Intake: IV 100 Sodium Chloride 0.9% 1, 100 000 ml @ 20 mls/hr IV . Q24H [facility] Rx#:[id number] Oral 900 Output: Urine 450 Other: Voiding Method Toilet Toilet Toilet # Voids 1 - Exam GENERAL: Alert and oriented. Appears in no acute distress. Pleasant. RESPIRATORY: Lungs clear bilaterally. No use of accessory muscles. Patient maintaining oxygen saturation greater than 92%. CARDIOVASCULAR: S1 and S2 noted. No murmurs auscultated. No JVD noted. EXTREMITIES: No edema noted. Palpable pedal pulses +2. ABDOMEN: No distention noted. Abdomen soft and round. Normal active bowel sounds auscultated 4 quadrants. No pain or tenderness noted upon palpation. - Labs CBC & Chem 7: 04/27/17 06:03 04/28/17 05:52 Labs: Abnormal Lab Results - Last 24 Hours (Table) 04/28/17 04/28/17 Range/Units 05:52 10:05 Creatinine 0.63 L (0.66-1.25) mg/dL Glucose 125 H (74-99) mg/dL POC Glucose (mg/dL) 114 H (75-99) mg/dL Assessment and Plan Plan: ASSESSMENT: -Ventricular tachycardia with subsequent AICD firing -Coronary artery disease with previous stenting to LAD -S/P cardiac catherization with stent to proximal left circumflex -History of cardiac ablation -History of PPM/AICD insertion -History of atrial fibrillation with fdc anticoagulation with Xarelto -Hypertension -Hyperlipidemia PLAN: -Cardiology on consult. appreciate recommendations and input -VT ablation scheduled for today per Dr. Alfaro -[place] meds as appropriate -Monitor labs -GI prophylaxis: Protonix 40mg daily -DVT prophylaxis: Xarelto 20mg daily -Monitor vital signs and address as appropriate -Further recommendations to follow The above impression and plan of care have been discussed and directed by signing physician. Donna Cornejo, nurse practitioner, acting as scribe for signing physician.
[2017-04-28] MEDS ORDERED: IV FLUID CONTINUATION 1,000 ML IV ONE (14:23)
[2017-04-28] MEDS ORDERED: LIDOCAINE 2% INJ 20 MG/ML SQ ONE (14:23)
[2017-04-28] MEDS ORDERED: HEPARIN SODIUM (1,000 UNIT/ML) 1,000 UNIT in SODIUM CHLORIDE 0.9% 1,000 ML IRRIGATION ONE (14:23)
[2017-04-28] MEDS ORDERED: HEPARIN SODIUM,PORCINE/D5W PMX 25,000 UNIT in DEXTROSE/WATER 1 500ML.BAG IV ONE (14:24)
[2017-04-28] MEDS ORDERED: LACTATED RINGERS 1,000 ML IV ONE (17:49)
[2017-04-28] MEDS ORDERED: ACETAMINOPHEN TAB 325 MG TAB PO PRN (18:36)
--- NOTE | 2017-04-28 18:54 | P.PCN ---
Preoperative Diagnosis: Procedure summary Diagnoses EP study via the device revealed 2 distinct VT morphologies one of which was clinical. Both had a cycle length of between 232 240 ms. 3-D mapping, intracardiac echo guided, revealed that the clinical VT was inferior basal septal just beyond the His bundle. Ablation was performed very carefully to avoid AV node block. The second ventricular tachycardia was inferior lateral/basal and was successfully ablated Thereafter, repeat diagnostic EP study on Isuprel did not induce any VT Plan Aspirin 81 mg by mouth daily Plavix 75 g by mouth daily After 2 days we will start Rivaroxaban 15 mg by mouth daily After one month Rivaroxaban plus Plavix Sotalol 120 mg twice daily and I would reduce this to 80 mg twice daily after 3 months Mexiletine 150 mg 3 times a day Continue other medications as before including Toprol Anesthesia: GETA Condition: stable Disposition: floor
--- NOTE | 2017-04-28 20:42 | CE ---
CARDIAC ELECTROPHYSIOLOGY REPORT This is a 66-year-old male patient who presented with recurrent ventricular tachycardia despite high doses of sotalol. He underwent coronary angiography which revealed left circumflex stenosis which was significant by FFR, and Dr. Velez stented this on Friday morning. Today he was brought in for a diagnostic EP study via the device, and if VT was still inducible, then we would proceed with VT ablation. The patient was brought to the EP lab in a fasting state. Written informed consent was obtained prior to the procedure. The initial part of the procedure was performed under conscious sedation. Once VT ablation was begun, general anesthesia was given. Non-invasive program stimulation was performed with up to triple extrastimuli at [address] On Isuprel, VT was induced with triple extrastimuli. The clinical ventricular tachycardia had a cycle length of 232 milliseconds, 250 beats per minute. That was induced with triple extrastimuli at 500/260/230/230 milliseconds. Antitachycardia pacing followed by an ICD shock resulted in conversion to sinus rhythm. Antitachycardia pacing changed the morphology of the ventricular tachycardia and was unsuccessful. Finally he had to be cardioverted via the device. This was repeated, and this time with triple extrastimuli at 500/280/230/260 milliseconds, a second VT morphology was induced with a cycle length of about 239 milliseconds. This ventricular tachycardia totally reformed morphology. His clinical ventricular tachycardia had a right bundle branch block morphology with upright QRSs in lead 1 and aVL and negative QRSs in the inferior leads. However, there was an initial period followed by negativity and delta wavelike morphology was noted in the precordial lead surface electrograms consistent with a defocus. The second ventricular tachycardia induced had a right bundle branch block morphology, again with a delta wavelike configuration, but deep S waves in lead I and aVL and predominantly negative in the inferior leads consistent with a more lateral exit. Therefore the patient was placed under general anesthesia and catheters were placed in the LV and the RV. An 8-[place] long arterial sheath was placed in the right femoral artery for hemodynamic monitoring, sampling and later for mapping. Venous sheaths were placed in the right and left femoral veins. Intracardiac echo catheter was placed. Coronary sinus catheters were placed. Diagnostic catheters. A mapping catheter was placed retrogradely in the LV (PentaRay catheter) and a scar map of the LV was performed. Three-dimensional mapping using the intracardiac echo revealed fairly reasonable LV function without any distinct wall motion abnormality. Scar mapping, both with bipolar and unipolar mapping, showed a small lateral scar at the base (inferobasal/lateral). Pace mapping was performed since the tachycardia was induced very inconsistently and had a very fast heart rate and was hemodynamically unstable. Pace mapping of the clinical VT revealed that the best pace map was obtained just beyond the His bundle at the base of the septum inferiorly, and a pace map of about 93%. The best pace map for the second VT was about 90% and was within the small inferolateral basal scar. RF ablation was first performed in the inferolateral basal scar, and this was joined to the mitral anulus. During ablation multiple different VT morphologies were induced, and finally at the end of the procedure no further VT could be induced during RF. More importantly, within and around this small scar, late potentials were present and with RF ablation these were eliminated. Good contact force was achieved and a power of 25 green was used. The clinical VT was ablated carefully in a very limited manner at the site of the best pace map and beyond that along the areas of the late potential with good contact force but with a maximum power of only 20 green. No AV block was observed. Following that, on Isuprel AV node Wenckebach block was 450 milliseconds, while at the coronary sinus ventricular ERP was 500/280/240/280 milliseconds and VT could not be induced with triple extrastimuli on Isuprel under general anesthesia. Baseline measurements were sinus cycle length 1203 milliseconds, PA interval 294 milliseconds, QRS 200 milliseconds, QT 525 milliseconds, AH interval 140 milliseconds, HV interval 65 milliseconds. RESULT: Diagnostic EP study revealing 2 distinct VT morphologies, one inferoseptal and basal via the inferoseptal and lateral. These areas were associated with late potentials. Pace map was about 93% for the septal location and about 90% for the lateral location. The VT morphology suggested a deep focus. After ablation, VT could not be induced any further. PROCEDURES PERFORMED: 1. EP study via the ICD for induction of VT (21903). 2. CS pacing and recording. 3. Programmed stimulation following Isuprel. 4. Three-dimensional mapping of the ventricular tachycardia. 5. Percutaneous arterial cannulation for sampling and monitoring and later for mapping. 6. Intracardiac echocardiography. 7. VT ablation (79053) and ablation of an additional discrete VT focus (70865). At the end of the procedure, the device was then reprogrammed. Rate responsiveness was turned on; VF zone at 214 beats per minute, VT zone at 171 beats per minute, and appropriate antitachycardia pacing, cardioversion and defibrillation was programmed. The patient tolerated the procedure well without any acute complications. At the end of the procedure intracardiac echo revealed reasonably normal LV function without any pericardial effusion. MMODL / IJN: [id number] /
[2017-04-28] MEDS: SOTALOL 120 MG TAB PO SCH (20:45)
[2017-04-28] MEDS: MEXILETINE 150 MG CAP PO SCH ×2 (20:45→23:20)
[2017-04-28] MEDS: ASPIRIN 81 MG PO SCH (20:45)
[2017-04-29 07:25] LABS: Anion Gap 9 mmol/L; Basophils % (A) 1 %; Blood Urea Nitrogen 12 mg/dL (9-20); CH 34.8; CHCM 34.6; Calcium 8.6 mg/dL (8.4-10.2); Carbon Dioxide 30 mmol/L (22-30); Chloride 99 mmol/L (98-107); Eosinophils # (A) 0.2 k/uL (0-0.7); Eosinophils % (A) 3 %; Glucose 119 mg/dL (74-99); HDW 2.69; HGB 14.3 gm/dL (13.0-17.5); Luc % (Auto) 2; Lymphocytes # (A) 0.8 k/uL (1.0-4.8); Lymphocytes % (A) 14 %; MCH 32.1 pg (25.0-35.0); MCHC 31.8 g/dL (31.0-37.0); MCV 101.1 fL (80.0-100.0); Macrocytosis Slight; Mean Platelet Volume 7.9; Monocytes # (A) 0.4 k/uL (0-1.0); Monocytes % (A) 7 %; Neutrophils # (A) 4.3 k/uL (1.3-7.7); Neutrophils % (A) 74 %; Non-African American GFR(MDRD) >60 (>60 ml/min/1.73 sqM); Potassium 4.3 mmol/L (3.5-5.1); RBC 4.45 m/uL (4.30-5.90); RDW 14.7 % (11.5-15.5); Sodium 138 mmol/L (137-145); WBC 5.8 k/uL (3.8-10.6); WBC (Perox) 5.63
[2017-04-29] MEDS: ASPIRIN 81 MG PO SCH (08:04)
[2017-04-29] MEDS: MAGNESIUM OXIDE 400 MG TAB PO SCH (08:04)
[2017-04-29] MEDS: MEXILETINE 150 MG CAP PO SCH ×3 (08:05→23:27)
[2017-04-29] MEDS: ESCITALOPRAM 10 MG TAB PO SCH (08:05)
[2017-04-29] MEDS: FAMOTIDINE 20 MG TAB PO SCH ×2 (08:05→20:43)
[2017-04-29] MEDS: CLOPIDOGREL 75 MG TAB PO SCH (08:05)
[2017-04-29] MEDS: ATORVASTATIN 40 MG TAB PO SCH (08:05)
[2017-04-29] MEDS: METOPROLOL TARTRATE 50 MG TAB PO SCH ×2 (08:05→20:44)
[2017-04-29] MEDS: SOTALOL 120 MG TAB PO SCH ×2 (08:05→20:44)
--- NOTE | 2017-04-29 13:12 | P.PN ---
Subjective 04/25/2017 66 year old male patient who presented to the ER after his AICD went off at home. The patient was recently hospitalized from 04/20/17 to 04/22/17. At that time, he presented with a chief complaint of dizziness. Patient states the episode lasted a few minutes and he felt like everything was spinning. Patient states he has experienced similiar episodes before his pacemaker was inserted but nothing as intense as this time. He denies lose of consciousness or falling. Besides a pacemaker insertion, the patient also has a history of hypertension, hyperlipidemia, VT, cath with stent placement. A CT of the brain was completed which was negative for acute process. Chest xray showed mildly enlarged heart, overinflated lungs, and was consistent with mild heart failure. EKG showed SB, 1st degree AV block, left bundle branch block. He was admitted to the hospital under the care of Dr. Cabrera/Natividad. Consults were placed to cardiology. According to cardiology's consultation, the patient underwent an EP study this month in which no VT was induced and the pacer was reprogrammed. His pacemaker was interrogated 04/21/2017. The interrogation revealed two episodes of ventricular tachycardia with successful anti-tachycardia pacing. Dr. Alfaro was consulted for further pacemaker evaluation. The patient's sotalol was increased to 120 mg twice a day, mexiletine was increased to 200mg TID, and his lisinopril was decreased to 2.5mg a daily in order to tolerate higher doses of other medications. Dr. Johnson recommends a VT ablation, which could be scheduled as an outpatient per cardiology. The patient was discharged home on aspirin 81 mg daily, Lipitor 40mg daily, Zestril 2-1/2 mg daily, magnesium 400mg daily, metoprolol 50mg BID, mexiletine 200mg TID, xarelto 20mg daily, soltalol 120mg BID, and aldactone 25mg daily per cardiology. The patient was seen and examined at the bedside with Dr. Cabrera. Spouse at bedside. The patient states he was sleeping and he was woke up when his defibrillator fired. He denies chest pain or shortness of breath at this time. Cardiology was consulted. His lisinopril was held due to his blood pressure being borderline low. [employer] was notified to interrogate patients pacemaker. The patient is scheduled to undergo a cardiac catheterization this afternoon to evaluate for possible worsening CAD. The patient states he is scheduled Friday for a VT ablation. 04/25/2017 (Notes per Dr. Cabrera): The patient was found sleeping in his room. He is status post left heart catheterization selective right and left coronary angiogram. He underwent a successful stenting of the proximal left circumflex using a 23 mm stent, with good results, with Dr. Mota. He is resting comfortably in bed. Cardiology is debating whether Dr. Alfaro, process engineer will do an EP study on him Friday or have him return outpatient 04/26/2017 (Notes per Dr. Cabrera): Patient feels much better since cardiac catheterization. He said he was unknowingly short of breath. Since his procedure, he is breathing much easier. Dr. Wood is planning a EP study on him tomorrow. Overnight he had had some heartburn and was relieved with Protonix. 04/28/2017 Patient underwent cardiac catherization with placement of a stent to the proximal left circumflex. The patient is scheduled for an EP study today with Dr. Alfaro. No new lab work available today. Patients blood pressure is stable. Heart rate ranging from 56-71. He remains NPO for EP study. Patient was not in his room upon rounds with Dr. Henson 04/29/2017 Patient was seen and evaluated by Dr. Henson at the bedside. Patient states he is feeling well and requesting to go home. Per cardiology, they would like him to stay until tomorrow and possible discharge home. He underwent VT ablation yesterday with Dr. Alfaro. Lab work was reviewed this morning. Blood pressure is stable. Patient is afebrile. Maintaining oxygen saturation greater than 92% on room air. He denies chest pain, pressure, or shortness of breath. Objective - Vital Signs Vital signs: Vital Signs Temp 98.3 F 04/29/17 11:29 Pulse 65 04/29/17 11:29 Resp 18 04/29/17 11:30 BP 109/64 04/29/17 11:29 Pulse Ox 98 04/29/17 11:29 Intake & Output 04/28/17 04/29/17 04/29/17 18:59 06:59 18:59 Intake Total 1998 50 400 Output Total 450 2300 300 Balance 1548 -2250 100 Weight 104.6 kg Intake: IV 1758 50 Intake, IV Titration 240 Amount Sodium Chloride 0.9% 1, 240 000 ml @ 20 mls/hr IV . Q24H [facility] Rx#:[id number] Oral 0 400 Output: Urine 450 2300 300 Uretheral ([place]) 700 Other: Voiding Method Toilet Indwelling Catheter Toilet # Voids 1 1 - Exam GENERAL: Alert and oriented. Appears in no acute distress. Pleasant. RESPIRATORY: Lungs clear bilaterally. No use of accessory muscles. Patient maintaining oxygen saturation greater than 92%. CARDIOVASCULAR: S1 and S2 noted. No murmurs auscultated. No JVD noted. EXTREMITIES: No edema noted. Palpable pedal pulses +2. ABDOMEN: No distention noted. Abdomen soft and round. Normal active bowel sounds auscultated 4 quadrants. No pain or tenderness noted upon palpation. - Labs CBC & Chem 7: 04/29/17 06:41 04/29/17 06:41 Labs: Abnormal Lab Results - Last 24 Hours (Table) 04/29/17 04/29/17 Range/Units 06:41 06:41 MCV 101.1 H (80.0-100.0) fL Plt Count 146 L (150-450) k/uL Lymphocytes # 0.8 L (1.0-4.8) k/uL Creatinine 0.61 L (0.66-1.25) mg/dL Glucose 119 H (74-99) mg/dL Assessment and Plan Plan: ASSESSMENT: -Ventricular tachycardia with subsequent AICD firing -S/P VT Ablation -Coronary artery disease with previous stenting to LAD -S/P cardiac catherization with stent to proximal left circumflex -History of cardiac ablation -History of PPM/AICD insertion -History of atrial fibrillation with detention anticoagulation with Xarelto -Hypertension -Hyperlipidemia PLAN: -Cardiology on consult. appreciate recommendations and input -home meds as appropriate -Monitor labs -GI prophylaxis: Protonix 40mg daily -DVT prophylaxis: Xarelto 20mg daily -Monitor vital signs and address as appropriate -Further recommendations to follow -Anticipate discharge tomorrow The above impression and plan of care have been discussed and directed by signing physician. Donna Cornejo, nurse practitioner, acting as scribe for signing physician.
--- NOTE | 2017-04-29 16:30 | P.PN ---
Subjective Progress Note Date: 04/29/17 This is a 65-year-old gentleman with known history of hypertension, hyperlipidemia, coronary artery disease with prior stent placement to the LAD, history of ventricular tachycardia status post ablation, history of ventricular fibrillation, paroxysmal atrial fibrillation, on xarelto, ischemic cardiomyopathy status post AICD, patient follows regularly with Dr. Garcia in the office. Patient was recently in the hospital for symptoms of dizziness and was found to have evidence of ventricular tachycardia on his AICD interrogation as well as successful ATP. He read presented to the hospital again on this admission following discharge from his AICD. Patient was seen by Dr. Alfaro and will be scheduled tomorrow to undergo study. He was seen and examined this morning, denies any further palpitations, no episodes of any V. tach were noted on the monitor. 04/29/2017 Patient seen and examined this morning, in normal sinus rhythm with no evidence of ventricular tachycardia. He underwent a diagnostic EP study yesterday by Dr. Alfaro as well as a VT ablation in 2 separate areas. Patient feels well this morning, denies any chest pain, breathing overall has been stable. Objective - Vital Signs Vital signs: Vital Signs Temp 98.3 F 04/29/17 11:29 Pulse 65 04/29/17 11:29 Resp 18 04/29/17 11:30 BP 109/64 04/29/17 11:29 Pulse Ox 98 04/29/17 11:29 Intake & Output 04/28/17 04/29/17 04/29/17 18:59 06:59 18:59 Intake Total 1998 50 760 Output Total 450 2300 300 Balance 1548 -2250 460 Weight 104.6 kg Intake: IV 1758 50 Intake, IV Titration 240 Amount Sodium Chloride 0.9% 1, 240 000 ml @ 20 mls/hr IV . Q24H [facility] Rx#:[id number] Oral 0 760 Output: Urine 450 2300 300 Uretheral ([place]) 700 Other: Voiding Method Toilet Indwelling Catheter Toilet # Voids 1 1 - Exam PHYSICAL EXAMINATION: HEENT: Head is atraumatic, normocephalic. Pupils equal, round. Neck is supple. There is no elevated jugular venous pressure. HEART EXAMINATION: Heart S1, S2 normal. No murmur or gallop heard. CHEST EXAMINATION: Lungs are clear to auscultation and precussion. No chest wall tenderness is noted on palpation or with deep breathing. ABDOMEN: Soft, nontender. Bowel sounds are heard. No organomegaly noted. Right and left groins are soft no evidence of any hematoma. EXTREMITIES: 2+ peripheral pulses with no evidence of peripheral edema and no calf tenderness noted. NEUROLOGIC patient is awake, alert and oriented -3. . - Labs CBC & Chem 7: 04/29/17 06:41 04/29/17 06:41 Labs: Abnormal Lab Results - Last 24 Hours (Table) 04/29/17 04/29/17 Range/Units 06:41 06:41 MCV 101.1 H (80.0-100.0) fL Plt Count 146 L (150-450) k/uL Lymphocytes # 0.8 L (1.0-4.8) k/uL Creatinine 0.61 L (0.66-1.25) mg/dL Glucose 119 H (74-99) mg/dL Assessment and Plan Plan: Assessment and plan #1 ventricular tachycardia with subsequent AICD discharge #2 successful stenting of the proximal left circumflex #3 hypertension #4 hyperlipidemia #5 history of prior DVTs #6 history of AICD implant #7 status post VT ablation of 2 separate areas yesterday Plan We'll continue aspirin 81 mg daily, Plavix 75 mg daily, after 2 days we will start the patient on xarelto 15 mg daily , after one month we will continue xarelto and Plavix only. Patient will be on sotalol 120 mg twice daily and after 3 months this will be reduced to 80 mg twice daily. We will continue mexiletine 150 mg 3 times daily, other medications will also be continued, including the Toprol. Patient has been instructed to be up ambulating with plans for possible discharge home tomorrow DNP note has been reviewed, I agree with a documented findings and plan of care. Patient was seen and examined.
[2017-04-30 06:27] LABS: Basophils % (A) 1 %; CH 32.3; CHCM 33.6; Eosinophils # (A) 0.2 k/uL (0-0.7); Eosinophils % (A) 5 %; HCT 43.5 % (39.0-53.0); HDW 2.63; HGB 14.9 gm/dL (13.0-17.5); Luc # (Auto) 0.11; Luc % (Auto) 2; Lymphocytes # (A) 1.1 k/uL (1.0-4.8); Lymphocytes % (A) 21 %; MCH 33.1 pg (25.0-35.0); MCHC 34.3 g/dL (31.0-37.0); MCV 96.4 fL (80.0-100.0); Mean Platelet Volume 7.7; Monocytes # (A) 0.4 k/uL (0-1.0); Monocytes % (A) 8 %; Neutrophils # (A) 3.1 k/uL (1.3-7.7); Neutrophils % (A) 63 %; RBC 4.51 m/uL (4.30-5.90); RDW 14.5 % (11.5-15.5); WBC (Perox) 4.99
[2017-04-30 06:44] LABS: Anion Gap 7 mmol/L; Blood Urea Nitrogen 16 mg/dL (9-20); Calcium 8.6 mg/dL (8.4-10.2); Carbon Dioxide 29 mmol/L (22-30); Chloride 103 mmol/L (98-107); Glucose 120 mg/dL (74-99); Non-African American GFR(MDRD) >60 (>60 ml/min/1.73 sqM); Potassium 4.4 mmol/L (3.5-5.1); Sodium 139 mmol/L (137-145)
[2017-04-30] MEDS: SOTALOL 120 MG TAB PO SCH (09:43)
[2017-04-30] MEDS: MEXILETINE 150 MG CAP PO SCH (09:43)
[2017-04-30] MEDS: ESCITALOPRAM 10 MG TAB PO SCH (09:44)
[2017-04-30] MEDS: CLOPIDOGREL 75 MG TAB PO SCH (09:44)
[2017-04-30] MEDS: ATORVASTATIN 40 MG TAB PO SCH (09:44)
[2017-04-30] MEDS: METOPROLOL TARTRATE 50 MG TAB PO SCH (09:44)
[2017-04-30] MEDS: ASPIRIN 81 MG PO SCH (09:44)
[2017-04-30] MEDS: MAGNESIUM OXIDE 400 MG TAB PO SCH (09:45)
[2017-04-30] MEDS: FAMOTIDINE 20 MG TAB PO SCH (09:46)
[2017-04-30 10:05] VITALS: RESP 18; TEMP 98.2
--- NOTE | 2017-04-30 12:22 | P.PN ---
Subjective Progress Note Date: 04/30/17 Principal diagnosis: VTach This is a 65-year-old gentleman with known history of hypertension, hyperlipidemia, coronary artery disease with prior stent placement to the LAD, history of ventricular tachycardia status post ablation, history of ventricular fibrillation, paroxysmal atrial fibrillation, on xarelto, ischemic cardiomyopathy status post AICD, patient follows regularly with Dr. Garcia in the office. Patient was recently in the hospital for symptoms of dizziness and was found to have evidence of ventricular tachycardia on his AICD interrogation as well as successful ATP. He read presented to the hospital again on this admission following discharge from his AICD. Patient was seen by Dr. Alfaro and will be scheduled tomorrow to undergo study. He was seen and examined this morning, denies any further palpitations, no episodes of any V. tach were noted on the monitor. 04/29/2017 Patient seen and examined this morning, in normal sinus rhythm with no evidence of ventricular tachycardia. He underwent a diagnostic EP study yesterday by Dr. Alfaro as well as a VT ablation in 2 separate areas. Patient feels well this morning, denies any chest pain, breathing overall has been stable. 04/30/2017 Seen and examined this morning, feels well overall, up ambulating without any difficulty. Denies any palpitations, no arrhythmias have been noted on the monitor. He is chest pain-free. Blood pressure continues to be in the 90 systolic range therefore we will continue to hold the OSMAN inhibitor and Aldactone until the patient is reevaluated by Dr. Garcia in the office. Objective - Vital Signs Vital signs: Vital Signs Temp 98.2 F 04/30/17 08:00 Pulse 58 L 04/30/17 08:00 Resp 18 04/30/17 08:00 BP 98/72 04/30/17 08:00 Pulse Ox 97 04/30/17 08:00 Intake & Output 04/29/17 04/30/17 04/30/17 18:59 06:59 18:59 Intake Total 1060 320 Output Total 540 Balance 520 320 Weight 104.4 kg Intake: Oral 1060 320 Output: Urine 540 Other: Voiding Method Toilet Toilet # Voids 1 1 - Exam PHYSICAL EXAMINATION: HEENT: Head is atraumatic, normocephalic. Pupils equal, round. Neck is supple. There is no elevated jugular venous pressure. HEART EXAMINATION: Heart S1, S2 normal. No murmur or gallop heard. CHEST EXAMINATION: Lungs are clear to auscultation and precussion. No chest wall tenderness is noted on palpation or with deep breathing. ABDOMEN: Soft, nontender. Bowel sounds are heard. No organomegaly noted. Right and left groins are soft no evidence of any hematoma. EXTREMITIES: 2+ peripheral pulses with no evidence of peripheral edema and no calf tenderness noted. NEUROLOGIC patient is awake, alert and oriented -3. . - Labs CBC & Chem 7: 04/30/17 06:07 04/30/17 06:07 Labs: Abnormal Lab Results - Last 24 Hours (Table) 04/30/17 04/30/17 Range/Units 06:07 06:07 Plt Count 148 L (150-450) k/uL Glucose 120 H (74-99) mg/dL Assessment and Plan Plan: Assessment and plan #1 ventricular tachycardia with subsequent AICD discharge #2 successful stenting of the proximal left circumflex #3 hypertension #4 hyperlipidemia #5 history of prior DVTs #6 history of AICD implant #7 status post VT ablation of 2 separate areas this admission Plan From cardiology's perspective, patient may be able to be discharged home today. We'll go home on xarelto 15 mg one tablet daily, Plavix 75 mg daily, Ecotrin 81 mg daily which will be discontinued in one month, metoprolol tartrate 50 mg one tablet by mouth twice a day, sotalol 120 mg by mouth twice a day which will be reduced to 80 twice a day after 3 months, mexiletine 150 mg 3 times a day. We will make the patient appointment to see Dr. Garcia in the office within the next couple of days. DNP note has been reviewed, I agree with a documented findings and plan of care. Patient was seen and examined.
--- NOTE | 2017-04-30 14:10 | P.DS ---
Providers Date of admission: 04/25/17 08:22 Expected date of discharge: 04/30/17 Attending physician: Sudeep Cabrera Consults: 04/25/17 03:48 Consult Physician Routine Consulting Provider: Orlando Velez Consult Reason/Comments: defibrillator discharge Do you want consulting provider notified?: Yes 04/26/17 08:47 Consult Physician Routine Consulting Provider: [facility] Consult Reason/Comments: Post Interventional patient Do you want consulting provider notified?: Already Contacted Primary care physician: Sudeep Cabrera [facility] Course: 66 year old male patient who presented to the ER after his AICD went off at home. The patient was recently hospitalized from 04/20/17 to 04/22/17. At that time, he presented with a chief complaint of dizziness. Patient states the episode lasted a few minutes and he felt like everything was spinning. Patient states he has experienced similiar episodes before his pacemaker was inserted but nothing as intense as this time. He denies lose of consciousness or falling. Besides a pacemaker insertion, the patient also has a history of hypertension, hyperlipidemia, [place], cath with stent placement. A CT of the brain was completed which was negative for acute process. Chest xray showed mildly enlarged heart, overinflated lungs, and was consistent with mild heart failure. EKG showed SB, 1st degree AV block, left bundle branch block. He was admitted to the hospital under the care of Dr. Cabrera/Natividad. Consults were placed to cardiology. According to cardiology's consultation, the patient underwent an EP study this month in which no VT was induced and the pacer was reprogrammed. His pacemaker was interrogated 04/21/2017. The interrogation revealed two episodes of ventricular tachycardia with successful anti-tachycardia pacing. Dr. Alfaro was consulted for further pacemaker evaluation. The patient's sotalol was increased to 120 mg twice a day, mexiletine was increased to 200mg TID, and his lisinopril was decreased to 2.5mg a daily in order to tolerate higher doses of other medications. Dr. Johnson recommends a VT ablation, which could be scheduled as an outpatient per cardiology. The patient was discharged home on aspirin 81 mg daily, Lipitor 40mg daily, Zestril 2-1/2 mg daily, magnesium 400mg daily, metoprolol 50mg BID, mexiletine 200mg TID, xarelto 20mg daily, soltalol 120mg BID, and aldactone 25mg daily per cardiology. The patient states he was sleeping and he was woke up when his defibrillator fired. He denies chest pain or shortness of breath at this time. Cardiology was consulted. The patient underwent a left heart catheterization with Dr. Mota with stenting to the proximal left circumflex. Additionally on April 28 2017, the patient went for a VT ablation in two separate areas with Dr. Alfaro. Per cardiology the patient is to take aspirin 81 mg daily, Plavix 75 mg daily, also 15 mg daily. After 1 month the patient is to continue Xarelto and Plavix only. The patient will be on sotalol 120 mg twice a day and after 3 months this will be reduced to 80 mg twice a day. The patient is to continue mexiletine 150mg TID and toprol as well per cardiology. The patient is deemed stable for discharge per Dr. Henson. DISCHARGE DIAGNOSIS: -Ventricular tachycardia with subsequent AICD firing -S/P VT Ablation -Coronary artery disease with previous stenting to LAD -S/P cardiac catherization with stent to proximal left circumflex -History of cardiac ablation -History of PPM/AICD insertion -History of atrial fibrillation with nursing home anticoagulation with Xarelto -Hypertension -Hyperlipidemia The above impression and plan of care have been discussed and directed by signing physician. Donna Cornejo, nurse practitioner, acting as scribe for signing physician. Patient Condition at Discharge: Stable Plan - Discharge Summary New Discharge Prescriptions: New Clopidogrel [Plavix] 75 mg PO DAILY #30 tab Mexiletine [Mexitil] 150 mg PO Q8HR #90 cap Rivaroxaban [Xarelto] 15 mg PO W/SUPPER #30 tab Aspirin 81 mg PO DAILY #30 chew Continue Escitalopram [Lexapro] 10 mg PO DAILY #30 tab Metoprolol Tartrate [Lopressor] 50 mg PO BID #60 tab Magnesium Oxide [Mag-Ox] 400 mg PO DAILY #30 tab Atorvastatin [Lipitor] 40 mg PO DAILY Sotalol [Betapace] 120 mg PO BID #60 tab Discontinued Aspirin EC [Ecotrin Low Dose] 81 mg PO DAILY #30 tablet. Rivaroxaban [Xarelto] 20 mg PO DAILY Lisinopril [Zestril] 2.5 mg PO DAILY #30 tab Mexiletine [Mexitil] 200 mg PO Q8HR #90 cap Spironolactone [Aldactone] 25 mg PO DAILY #30 tab Discharge Medication List Escitalopram [Lexapro] 10 mg PO DAILY #30 tab 03/14/14 [Rx] Metoprolol Tartrate [Lopressor] 50 mg PO BID #60 tab 03/14/14 [Rx] Magnesium Oxide [Mag-Ox] 400 mg PO DAILY #30 tab 05/13/14 [Rx] Atorvastatin [Lipitor] 40 mg PO DAILY 11/28/15 [History] Sotalol [Betapace] 120 mg PO BID #60 tab 04/22/17 [Rx] Aspirin 81 mg PO DAILY #30 chew 04/30/17 [Rx] Clopidogrel [Plavix] 75 mg PO DAILY #30 tab 04/30/17 [Rx] Mexiletine [Mexitil] 150 mg PO Q8HR #90 cap 04/30/17 [Rx] Rivaroxaban [Xarelto] 15 mg PO W/SUPPER #30 tab 04/30/17 [Rx] Follow up Appointment(s)/Referral(s): Sudeep Cabrera MD [Primary Care Provider] - 05/07/17 9:30 am Raj Garcia MD [STAFF PHYSICIAN] - 05/09/17 2:45 pm Patient Instructions/Handouts: *Sur[facility] - After Heart Catheterization - [facility] Instructions, Heart Healthy Diet (DC), Cardiac Ablation (DC), Safe Use of Anticoagulants (DC), After Radial Heart Catheterization (GEN) Discharge Disposition: HOME SELF-CARE
[2017-04-30 15:16] VITALS: BP 112/68; PULSE 52
[2017-04-30] MEDS ORDERED: RIVAROXABAN 15 MG TAB PO SCH (17:30)
== END 2017-04-30 16:05 | disposition home or self-care (01) | DRG 274 ==
LOC: EC 01:15 → 3OBS 04:01 → OBSVTOIN 08:22 → 6SEL 12:46
PROVIDERS: ADMIT Family Medicine; ATTEND Family Medicine
PROC: 02583ZZ Destruction of Conduction Mechanism, Percutaneous Approach (ICD-10-PCS; principal; 2017-04-25)
PROC: 4A023FZ Measurement of Cardiac Rhythm, Percutaneous Approach (ICD-10-PCS; principal; 2017-04-25)
PROC: 02K83ZZ Map Conduction Mechanism, Percutaneous Approach (ICD-10-PCS; principal; 2017-04-25)
PROC: 4A0234Z Measurement of Cardiac Electrical Activity, Percutaneous Approach (ICD-10-PCS; principal; 2017-04-25)
PROC: 027034Z Dilation of Coronary Artery, One Artery with Drug-eluting Intraluminal Device, Percutaneous Approach (ICD-10-PCS; 2017-04-26 07:30)
PROC: B2161ZZ Fluoroscopy of Right and Left Heart using Low Osmolar Contrast (ICD-10-PCS; 2017-04-26 07:30)
PROC: 4A023N7 Measurement of Cardiac Sampling and Pressure, Left Heart, Percutaneous Approach (ICD-10-PCS; 2017-04-26 07:30)
PROC: B2111ZZ Fluoroscopy of Multiple Coronary Arteries using Low Osmolar Contrast (ICD-10-PCS; 2017-04-26 07:30)
DX: I47.2 Ventricular tachycardia (principal); I11.0 Hypertensive heart disease with heart failure; I27.20 Pulmonary hypertension, unspecified; I50.9 Heart failure, unspecified; E78.5 Hyperlipidemia, unspecified; I25.10 Atherosclerotic heart disease of native coronary artery without angina pectoris; I25.2 Old myocardial infarction; I25.5 Ischemic cardiomyopathy; I44.0 Atrioventricular block, first degree; I44.7 Left bundle-branch block, unspecified; I48.0 Paroxysmal atrial fibrillation; Z79.01 Long term (current) use of anticoagulants; Z79.02 Long term (current) use of antithrombotics/antiplatelets; Z79.82 Long term (current) use of aspirin; Z79.899 Other long term (current) drug therapy; Z83.3 Family history of diabetes mellitus; Z85.828 Personal history of other malignant neoplasm of skin; Z86.718 Personal history of other venous thrombosis and embolism; Z86.79 Personal history of other diseases of the circulatory system; Z95.5 Presence of coronary angioplasty implant and graft; Z95.810 Presence of automatic (implantable) cardiac defibrillator
CPT/HCPCS: 36415; 71010; 80048; 80053; 80061; 82550; 82553; 83735; 84484; 85025; 85347; 85610; 85730; 93005; 93458; 93571; 93623; 93654; 93662; 94760; 99285

== ENCOUNTER 2018-08-05 17:09 | Inpatient (IN) | payer OTHER, MEDICARE ==
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
[2018-08-05 18:13] LABS: Basophils % (A) 1 %; Eosinophils # (A) 0.2 k/uL (0-0.7); Eosinophils % (A) 4 %; HCT 43.9 % (39.0-53.0); HGB 15.2 gm/dL (13.0-17.5); Lymphocytes # (A) 1.2 k/uL (1.0-4.8); Lymphocytes % (A) 26 %; MCH 32.3 pg (25.0-35.0); MCHC 34.7 g/dL (31.0-37.0); MCV 93.3 fL (80.0-100.0); Mean Platelet Volume 7.8; Monocytes # (A) 0.4 k/uL (0-1.0); Monocytes % (A) 9 %; Neutrophils # (A) 2.5 k/uL (1.3-7.7); Neutrophils % (A) 57 %; RBC 4.71 m/uL (4.30-5.90); RDW 14.1 % (11.5-15.5); WBC 4.4 k/uL (3.8-10.6)
[2018-08-05 18:21] LABS: INR 1.1 (<1.2); Partial Thromboplastin Time 29.6 sec (22.0-30.0); Prothrombin Time 11.9 sec (9.0-12.0)
[2018-08-05 18:23] LABS: ALT 41 U/L (21-72); AST 54 U/L (17-59); Albumin 3.8 g/dL (3.5-5.0); Alcohol <10 mg/dL; Alkaline Phosphatase 127 U/L (38-126); Anion Gap 5 mmol/L; Blood Urea Nitrogen 15 mg/dL (9-20); Calcium 8.7 mg/dL (8.4-10.2); Carbon Dioxide 25 mmol/L (22-30); Chloride 105 mmol/L (98-107); Glucose 139 mg/dL (74-99); Sodium 135 mmol/L (137-145); Total Bilirubin 1.4 mg/dL (0.2-1.3); Total Protein 6.9 g/dL (6.3-8.2)
[2018-08-05 18:38] LABS: Platelet Count 94 k/uL (150-450)
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
[2018-08-05 18:45] LABS: Potassium 5.7 mmol/L (3.5-5.1)
[2018-08-05 18:49] LABS: Creatine Kinase MB 5.3 ng/mL (0.0-2.4)
[2018-08-05 18:58] LABS: Troponin I 0.042 ng/mL (0.000-0.034)
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
[2018-08-05 20:44] LABS: Appearance,Urine Clear (Clear); Bilirubin,Urine Negative (Negative); Blood,Urine Negative (Negative); Color,Urine Light Yellow; Glucose,Urine (UA) Negative (Negative); Ketones,Urine Negative (Negative); Leukocyte Esterase,Urine Negative (Negative); Nitrite,Urine Negative (Negative); Protein,Urine Negative (Negative); Urobilinogen,Urine <2.0 mg/dL (<2.0)
[2018-08-05 21:09] LABS: Amphetamine Screen,Urine Detected (NotDetected); Barbiturate Screen,Urine Not Detected (NotDetected); Benzodiazepines Screen,Urine Not Detected (NotDetected); Cocaine Screen,Urine Not Detected (NotDetected); Methadone Screen, Urine Not Detected (NotDetected); Opiate Screen,Urine Not Detected (NotDetected); Oxycodone Screen, Urine Not Detected (NotDetected); Phencyclidine Screen,Urine Not Detected (NotDetected); Tricyclic Antidepressant,Urine Not Detected (NotDetected); Urn Cannabinoid Scrn Not Detected (NotDetected)
[2018-08-05 21:23] LABS: Specific Gravity,Urine >1.050 (1.001-1.035)
[2018-08-05] MEDS ORDERED: NITROGLYCERIN SL TABS 0.4 MG TAB SUBLINGUAL PRN (21:57)
[2018-08-06 04:31] LABS: Cholesterol 168 mg/dL (<200); HDL Cholesterol 41 mg/dL (40-60); LDL Cholesterol,Calculated 81 mg/dL (0-99); Triglycerides 232 mg/dL (<150)
[2018-08-06 07:22] LABS: Creatine Kinase MB 3.9 ng/mL (0.0-2.4)
[2018-08-06 07:33] LABS: Troponin I 0.054 ng/mL (0.000-0.034)
[2018-08-06] MEDS: ASPIRIN 325 MG TAB PO SCH (08:36)
[2018-08-06] MEDS: CLOPIDOGREL 75 MG TAB PO SCH (08:36)
[2018-08-06] MEDS: MEXILETINE 150 MG CAP PO SCH ×3 (08:36→21:49)
[2018-08-06] MEDS: MAGNESIUM OXIDE 400 MG TAB PO SCH (08:36)
[2018-08-06] MEDS: METOPROLOL TARTRATE 50 MG TAB PO SCH ×2 (08:37→21:11)
[2018-08-06] MEDS: SOTALOL 80 MG TAB PO SCH ×2 (08:38→22:00)
[2018-08-06] MEDS ORDERED: ASPIRIN 81 MG PO SCH (09:00)
[2018-08-06 09:42] LABS: Basophils % (A) 1 %; Eosinophils # (A) 0.2 k/uL (0-0.7); Eosinophils % (A) 4 %; HCT 42.1 % (39.0-53.0); HGB 14.2 gm/dL (13.0-17.5); Lymphocytes # (A) 0.9 k/uL (1.0-4.8); Lymphocytes % (A) 26 %; MCH 32.3 pg (25.0-35.0); MCHC 33.6 g/dL (31.0-37.0); MCV 96.1 fL (80.0-100.0); Mean Platelet Volume 7.7; Monocytes # (A) 0.2 k/uL (0-1.0); Monocytes % (A) 7 %; Neutrophils # (A) 2.2 k/uL (1.3-7.7); Neutrophils % (A) 60 %; RBC 4.39 m/uL (4.30-5.90); RDW 14.2 % (11.5-15.5); WBC 3.6 k/uL (3.8-10.6)
[2018-08-06 09:47] LABS: Anion Gap 4 mmol/L; Blood Urea Nitrogen 16 mg/dL (9-20); Calcium 8.6 mg/dL (8.4-10.2); Carbon Dioxide 30 mmol/L (22-30); Chloride 105 mmol/L (98-107); Glucose 139 mg/dL (74-99); Potassium 4.2 mmol/L (3.5-5.1); Sodium 139 mmol/L (137-145)
[2018-08-06 09:49] LABS: Platelet Count 82 k/uL (150-450)
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
[2018-08-06] MEDS ORDERED: CYCLOBENZAPRINE 5 MG TAB PO PRN (11:47)
[2018-08-06] MEDS ORDERED: HYDROcodone/APAP 5-325MG 1 EACH TAB PO PRN (11:51)
[2018-08-06] MEDS: ESCITALOPRAM 10 MG TAB PO SCH (12:35)
[2018-08-06] MEDS: FAMOTIDINE 20 MG TAB PO SCH (12:35)
[2018-08-06] MEDS: ATORVASTATIN 40 MG TAB PO SCH (12:35)
[2018-08-06] MEDS: RIVAROXABAN 15 MG TAB PO SCH (16:43)
[2018-08-07 08:08] LABS: Basophils % (A) 1 %; Eosinophils # (A) 0.1 k/uL (0-0.7); Eosinophils % (A) 3 %; HCT 44.6 % (39.0-53.0); HGB 14.7 gm/dL (13.0-17.5); Lymphocytes % (A) 23 %; MCH 31.2 pg (25.0-35.0); MCHC 33.1 g/dL (31.0-37.0); MCV 94.4 fL (80.0-100.0); Mean Platelet Volume 7.7; Monocytes # (A) 0.3 k/uL (0-1.0); Monocytes % (A) 7 %; Neutrophils # (A) 2.7 k/uL (1.3-7.7); Neutrophils % (A) 64 %; RBC 4.72 m/uL (4.30-5.90); RDW 13.9 % (11.5-15.5); WBC 4.2 k/uL (3.8-10.6)
[2018-08-07 08:16] LABS: Platelet Count 80 k/uL (150-450)
[2018-08-07 08:20] LABS: Anion Gap 4 mmol/L; Blood Urea Nitrogen 15 mg/dL (9-20); Calcium 8.5 mg/dL (8.4-10.2); Carbon Dioxide 30 mmol/L (22-30); Chloride 105 mmol/L (98-107); Glucose 158 mg/dL (74-99); Magnesium 2.1 mg/dL (1.6-2.3); Sodium 139 mmol/L (137-145)
[2018-08-07] MEDS: MEXILETINE 150 MG CAP PO SCH ×3 (09:12→21:11)
[2018-08-07] MEDS: ASPIRIN 325 MG TAB PO SCH (09:13)
[2018-08-07] MEDS: CLOPIDOGREL 75 MG TAB PO SCH (09:14)
[2018-08-07] MEDS: ATORVASTATIN 40 MG TAB PO SCH (09:14)
[2018-08-07] MEDS: ESCITALOPRAM 10 MG TAB PO SCH (09:15)
[2018-08-07] MEDS: METOPROLOL TARTRATE 50 MG TAB PO SCH ×2 (09:17→21:11)
[2018-08-07] MEDS: MAGNESIUM OXIDE 400 MG TAB PO SCH (09:17)
[2018-08-07] MEDS: SOTALOL 80 MG TAB PO SCH ×2 (09:18→21:11)
[2018-08-07] MEDS: FAMOTIDINE 20 MG TAB PO SCH (09:19)
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
[2018-08-07] MEDS: RIVAROXABAN 15 MG TAB PO SCH (18:46)
[2018-08-08] MEDS: ATORVASTATIN 40 MG TAB PO SCH (09:12)
[2018-08-08] MEDS: MAGNESIUM OXIDE 400 MG TAB PO SCH (09:12)
[2018-08-08] MEDS: FAMOTIDINE 20 MG TAB PO SCH (09:12)
[2018-08-08] MEDS: CLOPIDOGREL 75 MG TAB PO SCH ×2 (09:12→12:24)
[2018-08-08] MEDS: ASPIRIN 325 MG TAB PO SCH (09:12)
[2018-08-08] MEDS: ESCITALOPRAM 10 MG TAB PO SCH (09:12)
[2018-08-08] MEDS: METOPROLOL TARTRATE 50 MG TAB PO SCH (09:12)
[2018-08-08] MEDS: MEXILETINE 150 MG CAP PO SCH (09:12)
[2018-08-08] MEDS: SOTALOL 80 MG TAB PO SCH (09:13)
[2018-08-08 09:14] VITALS: RESP 16; TEMP 97.4
--- NOTE | 2018-08-08 09:27 | ECHOF ---
Referral Reason:evaluate for pericardial Effusion MEASUREMENTS -------- HEIGHT: 175.3 cm WEIGHT: 103.9 kg BP: 110/65 IVSd: 1.1 cm (0.6 - 1.1) LVIDd: 5.0 cm (3.9 - 5.3) LVPWd: 1.1 cm (0.6 - 1.1) IVSs: 1.2 cm LVIDs: 3.9 cm LVPWs: 1.3 cm RVIDd: 3.2 cm (< 3.3) LAESV Index (A-L): 27.38 ml/m Ao Diam: 2.9 cm (2.0 - 3.7) LA Diam: 4.1 cm (2.7 - 3.8) AV Cusp: 1.8 cm (1.5 - 2.6) EPSS: 1.2 cm MV E Mychal: 1.16 m/s MV DecT: 247 ms MV A Mychal: 0.40 m/s MV E/A Ratio: 2.87 AR PHT: 534 ms RAP: 5.00 mmHg RVSP: 34.31 mmHg MV EF SLOPE: 66.36 mm/s (70 - 150) MV EXCURSION: 1.41 cm (> 18.000) FINDINGS -------- Paced rhythm. This was a technically difficult study with suboptimal views. The left ventricular size is normal. There is mild concentric left ventricular hypertrophy. There is moderate global hypokinesis of LV . Overall left ventricular systolic function is moderately im paired with, an EF between 35 - 40 %. The right ventricle is normal in size and function. Normal LA size by volume 22+/-6 ml/m2. Electronic pacemaker lead seen in the right ventricular cavity. RA appears enlarged. 3 ml of Lumason was utilized for enhancement of images. Aortic valve is trileaflet and is mildly thickened. There is waes-fj-fttybctc aortic regurgitation. There is no evidence of aortic stenosis. The mitral valve leaflets are mildly thickened. Mild mitral regurgitation is present. Mild tricuspid regurgitation present. There is borderline pulmonary hypertension. The right ventr icular systolic pressure, as measured by Doppler, is 34.31mmHg. Trace/mild (physiologic) pulmonic regurgitation. The aortic root size is normal. IVC Not well visulized. There is no pericardial effusion. CONCLUSIONS -------- 1. Paced rhythm. 2. This was a technically difficult study with suboptimal views. 3. The left ventricular size is normal. 4. There is mild concentric left ventricular hypertrophy. 5. There is moderate global hypokinesis of LV . 6. Overall left ventricular systolic function is moderately impaired with, an EF between 35 - 40 %. 7. Normal LA size by volume 22+/-6 ml/m2. 8. Electronic pacemaker lead seen in the right ventricular cavity. 9. RA appears enlarged. 10. 3 ml of Lumason was utilized for enhancement of images. 11. Aortic valve is trileaflet and is mildly thickened. 12. There is jort-ic-rhgbhxcs aortic regurgitation. 13. There is no evidence of aortic stenosis. 14. The mitral valve leaflets are mildly thickened. 15. Mild mitral regurgitation is present. 16. Mild tricuspid regurgitation present. 17. There is borderline pulmonary hypertension. 18. The right ventricular systolic pressure, as measured by Doppler, is 34.31mmHg. 19. Trace/mild (physiologic) pulmonic regurgitation. 20. The aortic root size is normal. 21. IVC Not well visulized. 22. There is no pericardial effusion. [employer] SPECIALIST: Loco Gonzalez RDCS
--- NOTE | 2018-08-08 11:53 | P.PN ---
Progress Note - Text She was to be discharged home yesterday, but due to abnormal telemetry, this was held, and [employer] to come interrogate his pacemaker and make any adjustments necessary. He will then be discharged. If there were any abnormalities, we'll follow Dr. Mota's recommendations.
[2018-08-08 12:06] VITALS: BP 120/64; PULSE 60
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
== END 2018-08-08 13:22 | disposition home or self-care (01) | DRG 552 ==
LOC: EC 17:09 → 3SCARD 22:00
PROVIDERS: ADMIT Family Medicine; ATTEND Family Medicine
DX: M54.5 Low back pain (principal); E78.5 Hyperlipidemia, unspecified; I11.0 Hypertensive heart disease with heart failure; I25.10 Atherosclerotic heart disease of native coronary artery without angina pectoris; I25.2 Old myocardial infarction; I25.5 Ischemic cardiomyopathy; I44.7 Left bundle-branch block, unspecified; I50.9 Heart failure, unspecified; V89.2XXA Person injured in unspecified motor-vehicle accident, traffic, initial encounter; Y92.410 Unspecified street and highway as the place of occurrence of the external cause; Z79.01 Long term (current) use of anticoagulants; Z79.02 Long term (current) use of antithrombotics/antiplatelets; Z79.82 Long term (current) use of aspirin; Z79.899 Other long term (current) drug therapy; Z83.3 Family history of diabetes mellitus; Z85.828 Personal history of other malignant neoplasm of skin; Z86.718 Personal history of other venous thrombosis and embolism; Z95.5 Presence of coronary angioplasty implant and graft; Z95.810 Presence of automatic (implantable) cardiac defibrillator; R74.8 Abnormal levels of other serum enzymes
CPT/HCPCS: 36415; 71045; 71275; 74174; 80048; 80053; 80061; 80306; 80320; 81003; 82550; 82553; 83735; 84484; 85025; 85610; 85730; 86850; 86900; 86901; 93005; 93306; 94760; 99285

== ENCOUNTER → 2018-10-15 | Outpatient (CLI) | payer MEDICARE ==
[2018-10-15 17:54] LABS: Basophils % (A) 1 %; Eosinophils # (A) 0.2 k/uL (0-0.7); Eosinophils % (A) 3 %; HCT 47.7 % (39.0-53.0); HGB 15.7 gm/dL (13.0-17.5); Lymphocytes # (A) 0.9 k/uL (1.0-4.8); Lymphocytes % (A) 22 %; MCH 31.8 pg (25.0-35.0); MCV 96.3 fL (80.0-100.0); Mean Platelet Volume 8.2; Monocytes # (A) 0.4 k/uL (0-1.0); Monocytes % (A) 8 %; Neutrophils # (A) 2.8 k/uL (1.3-7.7); Neutrophils % (A) 64 %; Platelet Count 95 k/uL (150-450); RBC 4.95 m/uL (4.30-5.90); RDW 13.5 % (11.5-15.5); WBC 4.4 k/uL (3.8-10.6)
[2018-10-16 00:12] LABS: Albumin 4.2 g/dL (3.80-4.90); Albumin/Globulin Ratio 1.83 (1.60-3.17); Anion Gap 9.3 mmol/L (4.00-12.00); Calcium 8.8 mg/dL (8.7-10.3); Carbon Dioxide 26.7 mmol/L (21.6-31.8); Globulin 2.3 g/dL (1.6-3.3); Potassium 4.2 mmol/L (3.5-5.5); Total Bilirubin 0.6 mg/dL (0.3-1.2); Total Protein 6.5 g/dL (6.2-8.2)
[2018-10-16 00:13] LABS: Magnesium 1.8 mg/dL (1.5-2.4)
== END | disposition home or self-care (01) ==
LOC: LABWHC1 17:16
PROVIDERS: ATTEND Internal Medicine Cardiovascular Disease
DX: I47.2 Ventricular tachycardia (principal); I42.9 Cardiomyopathy, unspecified
CPT/HCPCS: 36415; 80053; 83735; 85025

== ENCOUNTER 2018-10-25 17:18 | Emergency (ER) | payer MEDICARE ==
[2018-10-25 17:45] LABS: Glucose,Whole Blood 528 mg/dL (75-99)
[2018-10-25 18:29] LABS: Basophils % (A) 1 %; Eosinophils # (A) 0.2 k/uL (0-0.7); Eosinophils % (A) 3 %; HCT 47.1 % (39.0-53.0); HGB 15.8 gm/dL (13.0-17.5); Lymphocytes # (A) 0.9 k/uL (1.0-4.8); Lymphocytes % (A) 21 %; MCH 32.3 pg (25.0-35.0); MCHC 33.5 g/dL (31.0-37.0); MCV 96.3 fL (80.0-100.0); Mean Platelet Volume 8.8; Monocytes # (A) 0.4 k/uL (0-1.0); Monocytes % (A) 8 %; Neutrophils # (A) 2.8 k/uL (1.3-7.7); Neutrophils % (A) 63 %; Platelet Count 101 k/uL (150-450); RBC 4.89 m/uL (4.30-5.90); RDW 14.7 % (11.5-15.5); WBC 4.4 k/uL (3.8-10.6)
[2018-10-25 18:37] LABS: ALT 46 U/L (21-72); AST 36 U/L (17-59); Albumin 3.9 g/dL (3.5-5.0); Alkaline Phosphatase 221 U/L (38-126); Anion Gap 9 mmol/L; Blood Urea Nitrogen 19 mg/dL (9-20); Calcium 9.3 mg/dL (8.4-10.2); Carbon Dioxide 29 mmol/L (22-30); Chloride 94 mmol/L (98-107); Glucose 495 mg/dL (74-99); Magnesium 2.1 mg/dL (1.6-2.3); Potassium 5.5 mmol/L (3.5-5.1); Sodium 132 mmol/L (137-145); Total Bilirubin 0.7 mg/dL (0.2-1.3); Total Protein 6.6 g/dL (6.3-8.2)
[2018-10-25 19:00] LABS: Appearance,Urine Clear (Clear); Bilirubin,Urine Negative (Negative); Blood,Urine Negative (Negative); Color,Urine Light Yellow; Glucose,Urine (UA) 4+ (Negative); Ketones,Urine Negative (Negative); Leukocyte Esterase,Urine Negative (Negative); Nitrite,Urine Negative (Negative); Protein,Urine Negative (Negative); Specific Gravity,Urine 1.031 (1.001-1.035); Urobilinogen,Urine <2.0 mg/dL (<2.0)
[2018-10-25] MEDS ORDERED: INSULIN REGULAR 100 UNIT/ML VIAL SQ ONE ×2 (19:07→20:56)
[2018-10-25] MEDS ORDERED: SODIUM CHLORIDE 0.9% 1,000 ML IV ONE (19:07)
--- NOTE | 2018-10-25 19:22 | ED ---
Recheck HPI - General Chief Complaint: Recheck/Abnormal Lab/Rx Stated Complaint: high blood sugar Time Seen by Provider: 10/25/18 17:33 Source: patient Mode of arrival: ambulatory - History of Present Illness Initial Comments: 68-year-old male past history of hypertension, v-fib with ACID/paced presenting today for cc of elevated blood glucose. Pt states that for the past 1-2 weeks increased thirst, and urination. Took blood glucose at family event with sons glucometer. Revealed glucose >500. Pt has no known history of DM. Pt denies CP, SOB, leg swelling, headache, dizziness or any other complaints, patient denies any recent fever, chills, back pain, abdominal pain, nausea or vomiting, numbness or tingling, dysuria or hematuria, constipation or diarrhea, headaches or visual changes, or any other complaints.. Patient appears well upon arrival. No signs of acute distress. VS within acceptable limits. - Related Data Home Medications Medication Instructions Recorded Confirmed Atorvastatin [Lipitor] 40 mg PO DAILY 11/28/15 08/05/18 Rivaroxaban [Xarelto] 15 mg PO DAILY 08/05/18 08/05/18 Sotalol [Betapace] 80 mg PO BID 08/05/18 08/05/18 Previous Rx's Medication Instructions Recorded Escitalopram [Lexapro] 10 mg PO DAILY #30 tab 03/14/14 Metoprolol Tartrate [Lopressor] 50 mg PO BID #60 tab 03/14/14 Magnesium Oxide [Mag-Ox] 400 mg PO DAILY #30 tab 05/13/14 Aspirin 81 mg PO DAILY #30 chew 04/30/17 Clopidogrel [Plavix] 75 mg PO DAILY #30 tab 04/30/17 Mexiletine [Mexitil] 150 mg PO Q8HR #90 cap 04/30/17 Aspirin 325 mg PO DAILY tab 08/07/18 Allergies Allergy/AdvReac Type Severity Reaction Status Date / Time codeine AdvReac passed out Verified 08/05/18 19:03 Review of Systems ROS Statement: Those systems with pertinent positive or pertinent negative responses have been documented in the HPI. ROS Other: All systems not noted in ROS Statement are negative. Past Medical History Past Medical History: Coronary Artery Disease (CAD), Cancer, Chest Pain / Angina, Heart Failure, Hyperlipidemia, Hypertension, Myocardial Infarction ([place]) Additional Past Medical History / Comment(s): Nonsustained VT-has had ablations/AICD-PPM, basal cell skin cancer removed Last Myocardial Infarction Date:: 1999 History of Any Multi-Drug Resistant Organisms: None Reported Past Surgical History: AICD, Cardiac Ablation, Heart Catheterization, Heart Catheterization With Stent Additional Past Surgical History / Comment(s): 1999 cardiac cath, 2012 PCI with stent, 2013 AICD/pacer, 2016 PCI with stent, cardiac ablation for VT twice, EPS, COLONOSCOPY Past Anesthesia/Blood Transfusion Reactions: No Reported Reaction Additional Past Anesthesia/Blood Transfusion Reaction / Comment(s): DIFFICULTY WAKING UP AFTER AA Date of Last Stent Placement:: 2016 Type of Cardiac Device: AICD Device Placement Date:: 02/23/14 Past Psychological History: No Psychological Hx Reported Smoking Status: Never smoker Past Alcohol Use History: Rare Past Drug Use History: None Reported - Past Family History Father Family Medical History: Diabetes Mellitus Additional Family Medical History / Comment(s): AT AGE 72-GAVE UP HIS INSULIN ATE THE WAY HE WANTED A 1 YEAR LATER. HX SPINAL MENINGITIS Mother Family Medical History: Liver Disease Additional Family Medical History / Comment(s): at the age of 72 yrs from a LIVER CONDITION. General Exam - General Exam Comments Initial Comments: General: The patient is awake and alert, in no distress, and does not appear acutely ill. Eye: Pupils are equal, round and reactive to light, extra-ocular movements are intact. No nystagmus. There is normal conjunctiva bilaterally. No signs of icterus. Ears, nose, mouth and throat: There are moist mucous membranes and no oral lesions. Neck: The neck is supple, there is no tenderness or JVD. Cardiovascular: There is a regular rate and rhythm. No murmur, rub or gallop is appreciated. Respiratory: Lungs are clear to auscultation, respirations are non-labored, breath sounds are equal. No wheezes, stridor, rales, or rhonchi. Gastrointestinal: Soft, non-distended, non-tender abdomen without masses or organomegaly noted. There is no rebound or guarding present. No CVA tenderness. Bowel sounds are unremarkable. Musculoskeletal: Normal ROM, no tenderness. Strength 5/5. Sensation intact. Pulses equal bilaterally 2+. Neurological: A&O x 3. CN II-XII intact, There are no obvious motor or sensory deficits. Coordination appears grossly intact. Speech is normal. Skin: Skin is warm and dry and no rashes or lesions are noted. Psychiatric: Cooperative, appropriate mood & affect, normal judgment. Course Vital Signs 10/25/18 10/25/18 10/25/18 17:25 18:54 21:27 Temperature 99.1 F 98.9 F Pulse Rate 60 55 L 54 L Respiratory 18 18 16 Rate Blood Pressure 122/81 117/75 109/61 O2 Sat by Pulse 98 97 99 Oximetry Medical Decision Making - Medical Decision Making 68-year-old male in today for chief complaint of elevated blood glucose. Patient denies history of diabetes. Glucose 536 upon arrival. Anion gap within normal limits. No ketones in urine. acetone negative. Slight elevation of potassium. Patient was given 5 units of SQ regular insulin and IV fluids. Glucose trending downward. Pt was educated on diabetes diet, exercise and consequences of uncontrolled DM, a total of 20 minutes was spent on diabetes education. Patient has no additional complaints. I discussed the case provider Dr. Leija who reviewed patients laboratory studies. At this time we feel patient is stable for discharge with outpatient primary care f/u for management of diabetes. Pt is agreeable with plan. Pt states he will f/u tomorrow. Pt discharged appearing well. - Lab Data Result diagrams: 10/25/18 18:03 10/25/18 18:03 Lab Results 10/25/18 10/25/18 10/25/18 Range/Units 17:44 18:03 18:03 WBC 4.4 (3.8-10.6) k/uL RBC 4.89 (4.30-5.90) m/uL Hgb 15.8 (13.0-17.5) gm/dL Hct 47.1 (39.0-53.0) % MCV 96.3 (80.0-100.0) fL MCH 32.3 (25.0-35.0) pg MCHC 33.5 (31.0-37.0) g/dL RDW 14.7 (11.5-15.5) % Plt Count 101 L (150-450) k/uL Neutrophils % 63 % Lymphocytes % 21 % Monocytes % 8 % Eosinophils % 3 % Basophils % 1 % Neutrophils # 2.8 (1.3-7.7) k/uL Lymphocytes # 0.9 L (1.0-4.8) k/uL Monocytes # 0.4 (0-1.0) k/uL Eosinophils # 0.2 (0-0.7) k/uL Basophils # 0.0 (0-0.2) k/uL Sodium 132 L (137-145) mmol/L Potassium 5.5 H (3.5-5.1) mmol/L Chloride 94 L (98-107) mmol/L Carbon Dioxide 29 (22-30) mmol/L Anion Gap 9 mmol/L BUN 19 (9-20) mg/dL Creatinine 0.58 L (0.66-1.25) mg/dL Est GFR (CKD-EPI)AfAm >90 (>60 ml/min/1.73 sqM) Est GFR (CKD-EPI)NonAf >90 (>60 ml/min/1.73 sqM) Glucose 495 H (74-99) mg/dL POC Glucose (mg/dL) 528 H (75-99) mg/dL POC Glu Sales Recruiting Coordinator ID Ale George Calcium 9.3 (8.4-10.2) mg/dL Magnesium 2.1 (1.6-2.3) mg/dL Total Bilirubin 0.7 (0.2-1.3) mg/dL AST 36 (17-59) U/L ALT 46 (21-72) U/L Alkaline Phosphatase 221 H (38-126) U/L Total Protein 6.6 (6.3-8.2) g/dL Albumin 3.9 (3.5-5.0) g/dL Urine Color Urine Appearance (Clear) Urine pH (5.0-8.0) Ur Specific [place] (1.001-1.035) Urine Protein (Negative) Urine Glucose (UA) (Negative) Urine Ketones (Negative) Urine Blood (Negative) Urine Nitrite (Negative) Urine Bilirubin (Negative) Urine Urobilinogen (<2.0) mg/dL Ur Leukocyte Esterase (Negative) Acetone, Qual Negative (Negative) 10/25/18 10/25/18 Range/Units 18:29 20:44 WBC (3.8-10.6) k/uL RBC (4.30-5.90) m/uL Hgb (13.0-17.5) gm/dL Hct (39.0-53.0) % MCV (80.0-100.0) fL MCH (25.0-35.0) pg MCHC (31.0-37.0) g/dL RDW (11.5-15.5) % Plt Count (150-450) k/uL Neutrophils % % Lymphocytes % % Monocytes % % Eosinophils % % Basophils % % Neutrophils # (1.3-7.7) k/uL Lymphocytes # (1.0-4.8) k/uL Monocytes # (0-1.0) k/uL Eosinophils # (0-0.7) k/uL Basophils # (0-0.2) k/uL Sodium (137-145) mmol/L Potassium (3.5-5.1) mmol/L Chloride (98-107) mmol/L Carbon Dioxide (22-30) mmol/L Anion Gap mmol/L BUN (9-20) mg/dL Creatinine (0.66-1.25) mg/dL Est GFR (CKD-EPI)AfAm (>60 ml/min/1.73 sqM) Est GFR (CKD-EPI)NonAf (>60 ml/min/1.73 sqM) Glucose (74-99) mg/dL POC Glucose (mg/dL) 318 H (75-99) mg/dL POC Glu Sales Recruiting Coordinator Eliazar Swain Calcium (8.4-10.2) mg/dL Magnesium (1.6-2.3) mg/dL Total Bilirubin (0.2-1.3) mg/dL AST (17-59) U/L ALT (21-72) U/L Alkaline Phosphatase (38-126) U/L Total Protein (6.3-8.2) g/dL Albumin (3.5-5.0) g/dL Urine Color Light Yellow Urine Appearance Clear (Clear) Urine pH 5.0 (5.0-8.0) Ur Specific [place] 1.031 (1.001-1.035) Urine Protein Negative (Negative) Urine Glucose (UA) 4+ H (Negative) Urine Ketones Negative (Negative) Urine Blood Negative (Negative) Urine Nitrite Negative (Negative) Urine Bilirubin Negative (Negative) Urine Urobilinogen <2.0 (<2.0) mg/dL Ur Leukocyte Esterase Negative (Negative) Acetone, Qual (Negative) Disposition Clinical Impression: New onset type 2 diabetes mellitus Disposition: HOME SELF-CARE Condition: Good Instructions (If sedation given, give patient instructions): Type 2 Diabetes in Adults: New Diagnosis (ED), Basic Carbohydrate Counting (DC), Diabetes and Your Skin (ED), Diabetes and Nutrition (ED), Diabetes and Exercise (ED) Additional Instructions: Please use medication as discussed. Please follow-up with family doctor tomorrow as discussed. Please return to emergency room if the symptoms increase or worsen or for any other concerns. Is patient prescribed a controlled substance at d/c from ED?: No Referrals: Sudeep Cabrera MD [Primary Care Provider] - 1-2 days Time of Disposition: 21:12
[2018-10-25 20:46] LABS: Glucose,Whole Blood 318 mg/dL (75-99)
[2018-10-25 21:29] VITALS: BP 109/61; PULSE 54; RESP 16; TEMP 98.9
== END 2018-10-25 21:29 | disposition home or self-care (01) ==
LOC: EC 17:18
DX: E11.9 Type 2 diabetes mellitus without complications (principal); E87.5 Hyperkalemia; I25.119 Atherosclerotic heart disease of native coronary artery with unspecified angina pectoris; I11.0 Hypertensive heart disease with heart failure; I50.9 Heart failure, unspecified; E78.5 Hyperlipidemia, unspecified; I49.01 Ventricular fibrillation; Z79.01 Long term (current) use of anticoagulants; Z79.899 Other long term (current) drug therapy; Z88.5 Allergy status to narcotic agent; Z95.810 Presence of automatic (implantable) cardiac defibrillator; Z95.5 Presence of coronary angioplasty implant and graft; Z85.828 Personal history of other malignant neoplasm of skin
CPT/HCPCS: 36415; 80053; 81003; 82009; 83735; 85025; 96360; 96361; 99284

== ENCOUNTER 2018-10-29 09:32 | Day surgery (SDC) | payer MEDICARE ==
[2018-10-27 14:49] VITALS: BMI 34.5
[~2018-10-29 09:32] MED LIST: ALPRAZolam 0.25 MG TAB PO PRN; ALPRAZolam 0.5 MG TAB PO PRN; ASPIRIN 325 MG TAB PO STA; ATORVASTATIN 80 MG TAB PO STA; NITROGLYCERIN SL TABS 0.4 MG TAB SUBLINGUAL PRN; SODIUM CHLORIDE 0.9% 1,000 ML in EMPTY BAG 1 BAG IV ONE
[2018-10-29 10:02] LABS: Glucose,Whole Blood 162 mg/dL (75-99)
[2018-10-29 10:08] VITALS: RESP 16; TEMP 97.5
[2018-10-29] MEDS ORDERED: SODIUM CHLORIDE 0.9% 1,000 ML IV ONE (10:19)
[2018-10-29] MEDS ORDERED: LIDOCAINE 1% INJ 10MG/ML (20 ML MDV) ONE (10:33)
[2018-10-29] MEDS ORDERED: fentaNYL (PF) 50 MCG/ML 2 ML AMP ONE (10:33)
[2018-10-29] MEDS ORDERED: HEPARIN SODIUM 1,000 UN/ML (10ML VL) ONE (10:33)
[2018-10-29] MEDS ORDERED: VERAPAMIL 2.5 MG/ML 2 ML AMP ONE (10:33)
[2018-10-29] MEDS ORDERED: fentaNYL (PF) 50 MCG/ML 2 ML AMP IV ONE (10:46)
[2018-10-29] MEDS: MIDAZOLAM (PF) 2 MG/2 ML VIAL IV ONE ×2 (10:46→10:49)
[2018-10-29] MEDS ORDERED: LIDOCAINE 1% INJ 10MG/ML (20 ML MDV) SQ ONE (10:47)
[2018-10-29] MEDS ORDERED: VERAPAMIL SYRINGE (5 MG/10 ML) INTRAARTER ONE (10:50)
[2018-10-29] MEDS ORDERED: IOPAMIDOL-370 100ML BTL INJ ONE (11:02)
[2018-10-29] MEDS ORDERED: RX INFO: IV CONTRAST WAS GIVEN 1 EACH MISC MISCELLANE PRN (11:10)
[2018-10-29] MEDS ORDERED: SODIUM CHLORIDE 0.9% 1,000 ML IV SCH (11:15)
--- NOTE | 2018-10-29 11:55 | P.CARDCATH ---
Date of Procedure: 10/29/18 Preoperative Diagnosis: Recurrent episodes of ventricle a tachycardia, ischemic heart disease and cardiomyopathy Postoperative Diagnosis: Stable coronary artery disease Procedure(s) Performed: Left heart catheterization without left ventriculography Description of Procedure: HISTORY: This is a 68-year-old gentleman with history of ischemic heart disease and with the previous myocardial infarctions and stent placement of the LAD and also circumflex was noted to have recurrent bouts of ventricular tachycardia. Patient also has ischemic cardiomyopathy and AICD. He is being considered for possible ablation. A cardiac catheterization requested to rule out any aggression of ischemic heart disease. CONSENT:I have discussed the risks, benefits and alternative therapies for the above-mentioned procedure and for both sedation/analgesia as well as necessary blood product administration, if indicated, as they pertain to this patient. The patient has indicated understanding and acceptance of the risks and procedures discussed. PROCEDURE: Patient was brought to the lab in a fasting state. Patient was given some IV sedation. The right wrist is infiltrated with lidocaine and right radial artery was entered using Seldinger technique. A 6-[place] catheter was left in place and selective coronary arteriography was performed. Patient tolerated the procedure well. . No immediate complications were noted and patient is waiting to have stent placement of the LAD by Dr. Mota Conscious Sedation: Versed 1mg Fentanyl 50 g Duration 20minutes HEMODYNAMICS: The aortic pressure is about 110/70. Left ventricle end-diastolic pressure is about 10. There was no gradient across the aortic valve SELECTIVE CORONARY ARTERIOGRAPHY: LEFT MAIN: Normal length and patent without an obstructive disease THE LEFT ANTERIOR DESCENDING CORONARY ARTERY:. This is a good caliber vessel giving rise to 2 diagonal branches. The LAD is patent at the site of previous stent placement without any other obstructive disease of significance. There is mild disease in the first diagonal. THE INTERMEDIATE CORONARY ARTERY: This is a moderate caliber vessel free of occlusive disease THE LEFT CIRCUMFLEX AND IS CORONARY ARTERY:. This is a good caliber vessel giving rise to 2 PLV branches. Dominant and size. No significant obstructive coronary disease THE RIGHT CORONARY ARTERY: Nondominant vessel consisting of 2 branches. The small branch is about 80-90% stenosis in the midportion LEFT VENTRICULOGRAPHY: Not performed FINAL IMPRESSION:. Stable coronary artery disease with patent stent in the LAD and circumflex. Non-dominant right coronary artery has a 80-90% stenosis in a small branch PLAN: Maximum medical therapy. May proceed with ablation for the ventricular tachycardia PROGNOSIS: Fair
[2018-10-29 12:29] LABS: Glucose,Whole Blood 145 mg/dL (75-99)
[2018-10-29 19:50] VITALS: BP 106/62; PULSE 60
== END 2018-10-29 16:00 | disposition home or self-care (01) ==
LOC: CATHCVL 09:32
PROVIDERS: ATTEND Internal Medicine Cardiovascular Disease
DX: I25.10 Atherosclerotic heart disease of native coronary artery without angina pectoris (principal); I47.2 Ventricular tachycardia; I25.2 Old myocardial infarction; Z95.5 Presence of coronary angioplasty implant and graft; I25.5 Ischemic cardiomyopathy; Z95.810 Presence of automatic (implantable) cardiac defibrillator; I11.0 Hypertensive heart disease with heart failure; I50.9 Heart failure, unspecified; E78.5 Hyperlipidemia, unspecified; Z79.82 Long term (current) use of aspirin; Z79.899 Other long term (current) drug therapy
CPT/HCPCS: 93458; C1769; C1894; J2001; J3010; J1644; Q9967; J2250

== ENCOUNTER → 2018-12-23 | Outpatient (CLI) | payer MEDICARE ==
[2018-12-23 15:26] LABS: MCH 31.3 pg (25.0-35.0); MCHC 32.7 g/dL (31.0-37.0); MCV 95.7 fL (80.0-100.0); Mean Platelet Volume 8.4; Platelet Count 102 k/uL (150-450); RBC 4.81 m/uL (4.30-5.90); RDW 14.5 % (11.5-15.5); WBC 4.2 k/uL (3.8-10.6)
[2018-12-23 15:35] LABS: African American GFR (CKD) >90 (>60 ml/min/1.73 sqM); Anion Gap 7 mmol/L; Blood Urea Nitrogen 15 mg/dL (9-20); Carbon Dioxide 29 mmol/L (22-30); Chloride 105 mmol/L (98-107); Glucose 74 mg/dL (74-99); Potassium 4.4 mmol/L (3.5-5.1); Sodium 141 mmol/L (137-145)
== END | disposition home or self-care (01) ==
LOC: LABPAT 14:33
PROVIDERS: ATTEND Internal Medicine Clinical Cardiac Electrophysiology
DX: Z01.812 Encounter for preprocedural laboratory examination (principal); I47.2 Ventricular tachycardia; I25.5 Ischemic cardiomyopathy
CPT/HCPCS: 80051; 82565; 82947; 84520; 85027

== ENCOUNTER 2018-12-24 08:59 | Day surgery (SDC) | payer MEDICARE ==
[2018-12-24] MEDS ORDERED: ceFAZolin IN SWFI 2 GM/20 ML SYRINGE IVP ONE (09:30)
[2018-12-24] MEDS: SODIUM CHLORIDE 0.9% 1,000 ML IV SCH (09:35)
[2018-12-24 09:36] LABS: Glucose,Whole Blood 92 mg/dL (75-99)
[2018-12-24] MEDS ORDERED: HEPARIN SODIUM,PORCINE 5,000 UNIT/ML 1 ML VIAL ONE (12:01)
[2018-12-24] MEDS ORDERED: MIDAZOLAM 2 MG/2 ML VIAL ONE (12:01)
[2018-12-24] MEDS ORDERED: GLYCOPYRROLATE 0.2 MG/ML 2 ML VIAL ONE (12:01)
[2018-12-24] MEDS ORDERED: fentaNYL (PF) 50 MCG/ML 2 ML AMP ONE (12:01)
[2018-12-24] MEDS ORDERED: diphenhydrAMINE 50 MG/ML 1 ML VIAL ONE (12:01)
[2018-12-24] MEDS ORDERED: KETAMINE 10 MG/ML 20 ML VIAL ONE (12:01)
[2018-12-24] MEDS ORDERED: PROPOFOL 10 MG/ML 20 ML VIAL IV ONE (12:01)
[2018-12-24] MEDS ORDERED: PROTAMINE SULFATE 10 MG/ML 5 ML VIAL IV ONE (12:01)
[2018-12-24] MEDS ORDERED: LIDOCAINE 1% INJ 10MG/ML (20 ML MDV) ONE ×2 (12:36→13:06)
[2018-12-24] MEDS ORDERED: LIDOCAINE 1% INJ 10MG/ML (20 ML MDV) SQ ONE ×2 (13:01)
[2018-12-24] MEDS ORDERED: HEPARIN SOD,PORK IN 0.45% NACL 25,000 UNIT in 0.45% NACL 1 250ML.BAG IV ONE ×2 (13:15)
[2018-12-24] MEDS ORDERED: HEPARIN SODIUM 1,000 UN/ML (10ML VL) ONE (13:22)
[2018-12-24] MEDS ORDERED: ACETAMINOPHEN TAB 325 MG TAB PO PRN ×2 (14:03→14:04)
[2018-12-24] MEDS ORDERED: ACETAMINOPHEN IV (For NPO) 1,000 MG in EMPTY BAG 1 BAG IVPB ONE (14:04)
[2018-12-24] MEDS ORDERED: HYDROcodone/APAP 5-325MG 1 EACH TAB PO PRN (14:04)
--- NOTE | 2018-12-24 14:29 | P.PCN ---
Preoperative Diagnosis: Diagnosis Recurrent symptomatic ventricular tachycardia requiring antitachycardia pacing line feels sotalol plus mexiletine Ischemic cardiomyopathy Dual-chamber ICD Stable congestive heart failure, chronic Proposed procedure Diagnostic EP study and ablation of ventricular tachycardia Patient was brought to the EP lab in a fasting state. Written informed consent was obtained prior to the procedure. The right and left groins were prepped and draped as a protocol. IV antibiotics were administered. The patient has a Medtronic dual-chamber ICD protecta XT This was interrogated and reprogrammed prior to obtaining access Atrial pacing impedance 532 ohms, RV pacing impedance 494 ohms Atrial pacing threshold 1 warted 0.4 ms, RV pacing threshold 1 warted 0.4 ms P waves 1.9 mV and R waves 14.6 mV Patient's ICD was reprogrammed Rate responsiveness was turned off ICD therapies/detections were turned off At the end of the procedure the device was interrogated He is had no recent arrhythmias Rate responsiveness was turned back on VF, VT therapy and monitor zone for VT was turned on All therapies were turned on Details of the procedure Venous and arterial access was obtained successfully in bilateral groins. 2 venous accesses in the left femoral vein and one venous access in the right femoral vein. 1 arterial access in the right femoral artery An 8-[place] sheath was placed in the right femoral artery successfully and via that a long wire was placed in the aorta. The 8-[place] sheath was removed and a long sheath was inserted over the wire. However in that process the wire in the aorta and the femoral artery kinked and finally came out. Despite several attempts at placing a wire back in the femoral artery, this was completely unsuccessful. Heparin was reversed and hemostasis was assured The procedure was discontinued since the patient will need high dose IV heparin for the VT ablation Hemostasis was assured in both groins. There was no hematoma at the end of the procedure Impression aborted VT ablation procedure as well as access from the femoral artery Plan Resume all medications including xarelto sotalol mexiletine and all other cardiac medications for cardio myopathy Reschedule procedure after about 3-4 weeks Bedrest for about 6 hours FemStop was placed Postoperative Diagnosis: Diagnosis Recurrent ventricular tachycardia requiring antitachycardia pacing, failure of sotalol and mexiletine Ischemic cardio myopathy Dual-chamber Medtronic ICD Proposed procedure EP study and VT ablation Procedure details Patient was brought to the EP lab in a fasting state. Written informed consent was obtained prior to the procedure. Both groins were prepped and draped as a protocol. IV antibiotics administered Dual-chamber ICD was interrogated and reprogrammed prior to the procedure Atrial impedance 552 ohms, RV impedance 494 ohms, high-voltage impedance 68 ohms Atrial pacing 1 V 0.4 ms, RV pacing impedance 1 V at 0.4 ms P waves 1.9 mV, R waves 14.6 mV The device was re-programed Rate responsiveness was turned off VT and VF therapies and detection returned off At the end of the procedure the device was re-interrogated and rate responsiveness was turned on. VT and VF therapies were turned on Details of the procedure Right and left groins were prepped and draped as a protocol. Local anesthesia was used. An arterial access was obtained in the right femoral artery and right femoral vein access was obtained, left femoral vein access obtained 2 The femoral artery appeared to be calcified Short 8-[place] Citizen sheath was placed over the wire into the femoral artery. After dilating the track, along wire was placed in the aorta successfully However been a long sheath was placed over the wire, the wire was kinked and came out of the femoral artery. I could not get access is back in the femoral artery successfully and therefore the sheath was removed from the groin Hemostasis was achieved heparin was reversed We could not continue the procedure any further since she had lost femoral arterial access and the patient requires IV heparin during VT ablation Plan After successful hemostasis, no hematoma was noted in either groin. No complications occurred FemStop was placed Patient's home medications were restarted Plan Reschedule the procedure after 3-4 weeks
[2018-12-24] MEDS ORDERED: DEXTROSE 50% SYRINGE 50 ML IVP ONE (14:41)
[2018-12-24 14:55] LABS: Glucose,Whole Blood 94 mg/dL (75-99)
[2018-12-24 14:55] LABS: Glucose,Whole Blood 61 mg/dL (75-99)
[2018-12-24 15:04] VITALS: BMI 32.0
[2018-12-24] MEDS ORDERED: SODIUM CHLORIDE 0.9% 1,000 ML IV ONE ×2 (15:04)
[2018-12-24] MEDS: metFORMIN 500 MG TAB PO SCH (15:20)
[2018-12-24] MEDS: MEXILETINE 150 MG CAP PO SCH ×2 (15:48→23:23)
[2018-12-24 16:56] LABS: Glucose,Whole Blood 76 mg/dL (75-99)
[2018-12-24] MEDS: SOTALOL 80 MG TAB PO SCH (20:38)
[2018-12-24 20:41] LABS: Glucose,Whole Blood 78 mg/dL (75-99)
[2018-12-24] MEDS ORDERED: INSULIN DETEMIR (LEVEMIR) 100 UNIT/ML SYR SQ SCH (21:00)
[2018-12-25 06:39] LABS: Glucose,Whole Blood 92 mg/dL (75-99)
[2018-12-25 07:06] VITALS: BP 115/68; PULSE 54; RESP 18; TEMP 97.7
--- NOTE | 2018-12-25 07:59 | P.DS ---
Providers Attending physician: Pete Alfaro Primary care physician: [facility] Course: Patient is doing well. He is in good spirits. His groins have healed well as no hematoma no swelling. Minimal tenderness in the right side Heart sounds are normal breath sounds are clear Abdomen soft nontender He is ambulating around in his room Blood pressure 1502 mmHg heart rate in the 50s Afebrile 97.7F normal respirations Impression Recurrent ventricular tachycardia requiring antitachycardia pacing despite these mexiletine and sotalol Ischemic cardiomyopathy Chronic heart failure class II stable Dual-chamber ICD, Medtronic Suggest Discharge home today after ICD interrogation Restart/resume all home medications without any changes Reschedule VT ablation after about 4 weeks Plan - Discharge Summary Discharge Rx Participant: No New Discharge Prescriptions: Continue Escitalopram [Lexapro] 10 mg PO DAILY #30 tab Metoprolol Tartrate [Lopressor] 50 mg PO BID #60 tab Magnesium Oxide [Mag-Ox] 400 mg PO DAILY #30 tab Atorvastatin [Lipitor] 40 mg PO DAILY Mexiletine [Mexitil] 150 mg PO Q8HR #90 cap Aspirin 81 mg PO DAILY #30 chew Sotalol [Betapace] 80 mg PO BID Rivaroxaban [Xarelto] 15 mg PO DAILY Insulin Glargine,Hum.rec.anlog [T[place]jeo Solostar] 20 units PO HS Dulaglutide [Trulicity] 0.75 units PO WEEKLY metFORMIN HCL [Glucophage] 500 mg PO BID Lisinopril 20 mg PO DAILY Discharge Medication List Escitalopram [Lexapro] 10 mg PO DAILY #30 tab 03/14/14 [Rx] Metoprolol Tartrate [Lopressor] 50 mg PO BID #60 tab 03/14/14 [Rx] Magnesium Oxide [Mag-Ox] 400 mg PO DAILY #30 tab 05/13/14 [Rx] Atorvastatin [Lipitor] 40 mg PO DAILY 11/28/15 [History] Aspirin 81 mg PO DAILY #30 chew 04/30/17 [Rx] Mexiletine [Mexitil] 150 mg PO Q8HR #90 cap 04/30/17 [Rx] Rivaroxaban [Xarelto] 15 mg PO DAILY 08/05/18 [History] Sotalol [Betapace] 80 mg PO BID 08/05/18 [History] Dulaglutide [Trulicity] 0.75 units PO WEEKLY 11/17/18 [History] Insulin Glargine,Hum.rec.anlog [Lucinda Palmabriandaisy] 20 units PO HS 11/17/18 [History] Lisinopril 20 mg PO DAILY 12/23/18 [History] metFORMIN HCL [Glucophage] 500 mg PO BID 12/23/18 [History] Follow up Appointment(s)/Referral(s): Raj Garcia MD [STAFF PHYSICIAN] - 1 Week (Groin check in 1 week) Activity/Diet/Wound Care/Special Instructions: Post EP study - Ablation instructions 1. Keep access sites dry for 2 days. 2. No heavy lifting or straining for 2 days. 3. Avoid bending the hips repeatedly for 2 days. 4. You may go up and down stairs slowly Call if the following is noted 1. Bleeding, increasing swelling or pain at the access sites. 2. Increasing chest discomfort, especially upon taking a deep breath. 3. Increasing shortness of breath, at rest or with exertion. 4. Undue cough / phlegm 5. Difficulty or pain while swallowing. 6. Pain or change in color in the extremities. 7. Fever, chills, rigors. 8. Increasing headache or neurologic symptoms. 9. Dizziness, fainting, palpitations
[2018-12-25] MEDS ORDERED: METOPROLOL TARTRATE 50 MG TAB PO SCH (09:00)
[2018-12-25] MEDS ORDERED: ESCITALOPRAM 10 MG TAB PO SCH (09:00)
[2018-12-25] MEDS ORDERED: LISINOPRIL 20 MG TAB PO SCH (09:00)
[2018-12-25] MEDS ORDERED: MAGNESIUM OXIDE 400 MG TAB PO SCH (09:00)
[2018-12-25] MEDS ORDERED: ASPIRIN 81 MG PO SCH (09:00)
[2018-12-25] MEDS ORDERED: ATORVASTATIN 40 MG TAB PO SCH (09:00)
[2018-12-25] MEDS ORDERED: RIVAROXABAN 15 MG TAB PO SCH (09:00)
[2018-12-25] MEDS: metFORMIN 500 MG TAB PO SCH (09:43)
[2018-12-25] MEDS: SOTALOL 80 MG TAB PO SCH (09:44)
[2018-12-25] MEDS: MEXILETINE 150 MG CAP PO SCH (09:44)
[2018-12-25] MEDS: SODIUM CHLORIDE 0.9% 1,000 ML IV SCH (09:46)
== END 2018-12-25 11:25 | disposition home or self-care (01) ==
LOC: CATHEP 08:59 → 1SOBS 13:40 → CATHEP 12-25 11:25
PROVIDERS: ATTEND Internal Medicine Clinical Cardiac Electrophysiology
DX: I47.2 Ventricular tachycardia (principal); I25.5 Ischemic cardiomyopathy; I11.0 Hypertensive heart disease with heart failure; I50.9 Heart failure, unspecified; I25.10 Atherosclerotic heart disease of native coronary artery without angina pectoris; Z95.5 Presence of coronary angioplasty implant and graft; Z95.810 Presence of automatic (implantable) cardiac defibrillator; E78.5 Hyperlipidemia, unspecified; Z79.82 Long term (current) use of aspirin; Z79.4 Long term (current) use of insulin; Z79.899 Other long term (current) drug therapy; Z79.01 Long term (current) use of anticoagulants; Z79.02 Long term (current) use of antithrombotics/antiplatelets; Z88.5 Allergy status to narcotic agent
CPT/HCPCS: 93619; C1769 ×4; C1894; C1730 ×2; C1893; J2250; J2720; J1200; J1644 ×2; J2001; J3010; J0131; J2704; J0690

== ENCOUNTER 2018-12-28 12:21 | Emergency (ER) | payer MEDICARE ==
[2018-12-28 12:28] VITALS: RESP 18; TEMP 97.8
[2018-12-28 13:50] VITALS: BP 106/69; PULSE 53
--- NOTE | 2018-12-28 14:29 | US ---
EXAMINATION TYPE: US lower ext pseudo artery BI DATE OF EXAM: 12/28/2018 COMPARISON: NONE CLINICAL HISTORY: Pain. Patient unclear as to what procedure was done. Blackened hematoma pubic area and at base of penis EXAM PERFORMED: Grayscale and color Doppler imaging performed of the groin, post cardiac catheter to assess for pseudoaneurysm. SIDE PERFORMED: bilateral Color Doppler performed to assess for the presence of pseudoaneurysm; Is there ultrasound evidence of a pseudoaneurysm: no Is there evidence of AV shunting: no Is there a fluid collection present: no Negative for pseudoaneurysm and/ or fluid collection at hematoma IMPRESSION: No hematoma or pseudoaneurysm is seen within the left or right groin. Particularly no hematoma deep t o the right groin puncture site and superficial ecchymosis.
--- NOTE | 2018-12-28 14:33 | ED ---
Recheck HPI - General Chief Complaint: Recheck/Abnormal Lab/Rx Stated Complaint: bleeding post op Time Seen by Provider: 12/28/18 12:39 Source: patient Mode of arrival: ambulatory Limitations: no limitations - History of Present Illness Initial Comments: 68-year-old male presenting today for chief complaint of bruising in the pelvic/groin region. Patient states he has had mild discomfort in the groin b/l since catherization, denies swelling. HE states the day after his surgery he was mowing on his rider and there were multiple bumps. He states Friday following he noticed bruising, that eventually over the course of 3 days towards the testicles. Denies testicular pain, abdominal pain, chest pain, increase in groin pain or groin swelling. Remaining ROS (-). Upon arrival patient appears well, no signs of acute distress. - Related Data Home Medications Medication Instructions Recorded Confirmed Atorvastatin [Lipitor] 40 mg PO DAILY 11/28/15 12/28/18 Rivaroxaban [Xarelto] 15 mg PO DAILY 08/05/18 12/28/18 Sotalol [Betapace] 80 mg PO BID 08/05/18 12/28/18 Dulaglutide [Trulicity] 0.75 units PO TU 11/17/18 12/28/18 Insulin Glargine,Hum.rec.anlog 20 units PO DAILY@1700 11/17/18 12/28/18 [Touadolfo Solostar] Lisinopril 20 mg PO DAILY 12/23/18 12/28/18 metFORMIN HCL [Glucophage] 500 mg PO BID 12/23/18 12/28/18 Previous Rx's Medication Instructions Recorded Escitalopram [Lexapro] 10 mg PO DAILY #30 tab 03/14/14 Metoprolol Tartrate [Lopressor] 50 mg PO BID #60 tab 03/14/14 Magnesium Oxide [Mag-Ox] 400 mg PO DAILY #30 tab 05/13/14 Aspirin 81 mg PO DAILY #30 chew 04/30/17 Mexiletine [Mexitil] 150 mg PO Q8HR #90 cap 04/30/17 Allergies Allergy/AdvReac Type Severity Reaction Status Date / Time codeine AdvReac passed out Verified 12/28/18 12:40 at 23 yrs old Review of Systems ROS Statement: Those systems with pertinent positive or pertinent negative responses have been documented in the HPI. ROS Other: All systems not noted in ROS Statement are negative. Past Medical History Past Medical History: Coronary Artery Disease (CAD), Cancer, Chest Pain / Angina, Heart Failure, Diabetes Mellitus, Hyperlipidemia, Hypertension, Myocardial Infarction ([place]) Additional Past Medical History / Comment(s): Nonsustained VT-has had ablations/AICD-PPM, basal cell skin cancer , states new diabetic (October 2018), States SOB with exertion Last Myocardial Infarction Date:: 1999 History of Any Multi-Drug Resistant Organisms: None Reported Past Surgical History: AICD, Cardiac Ablation, Heart Catheterization, Heart Catheterization With Stent Additional Past Surgical History / Comment(s): 1999 cardiac cath, 2012 PCI with stent, 2013 AICD/pacer, 2016 PCI with stent, cardiac ablation for VT twice, EPS, COLONOSCOPY Past Anesthesia/Blood Transfusion Reactions: No Reported Reaction Additional Past Anesthesia/Blood Transfusion Reaction / Comment(s): DIFFICULTY WAKING UP AFTER Anesthesia- States sensitive to medications. Date of Last Stent Placement:: 2016 Type of Cardiac Device: AICD Device Placement Date:: 02/23/14 Past Psychological History: No Psychological Hx Reported Smoking Status: Never smoker Past Alcohol Use History: Daily Past Drug Use History: None Reported - Past Family History Father Family Medical History: Diabetes Mellitus Additional Family Medical History / Comment(s): AT AGE 72-GAVE UP HIS INSULIN ATE THE WAY HE WANTED A 1 YEAR LATER. HX SPINAL MENINGITIS Mother Family Medical History: Liver Disease Additional Family Medical History / Comment(s): at the age of 72 yrs from a LIVER CONDITION. General Exam - General Exam Comments Initial Comments: General: The patient is awake and alert, in no distress, and does not appear acutely ill. Eye: +3 mm pupils are equal, round and reactive to light, extra-ocular movements are intact. No nystagmus. There is normal conjunctiva bilaterally. No signs of icterus. Ears, nose, mouth and throat: There are moist mucous membranes and no oral lesions. Neck: The neck is supple, there is no tenderness or JVD. Cardiovascular: There is a regular rate and rhythm. No murmur, rub or gallop is appreciated. Respiratory: Lungs are clear to auscultation, respirations are non-labored, breath sounds are equal. No wheezes, stridor, rales, or rhonchi. Gastrointestinal: Soft, non-distended, non-tender abdomen without masses or organomegaly noted. There is no rebound or guarding present. No CVA tenderness. Bowel sounds are unremarkable. Musculoskeletal: Normal ROM, no tenderness. Strength 5/5. Sensation intact. Radial and femoral pulses equal bilaterally 2+. No pain to palpation of the femoral, no swelling or masses noted. Bruising noted near the pubis region and in scrotum, Vertical lie. Cremesteric present. No pain to palpat ion. Neurological: A&O x 3. CN II-XII intact, There are no obvious motor or sensory deficits. Coordination appears grossly intact. Speech is normal. Skin: Skin is warm and dry and no rashes or lesions are noted. Psychiatric: Cooperative, appropriate mood & affect, normal judgment. Limitations: no limitations Course Vital Signs 12/28/18 12/28/18 12:25 13:47 Temperature 97.8 F Pulse Rate 82 53 L Respiratory 18 18 Rate Blood Pressure 120/80 106/69 O2 Sat by Pulse 98 99 Oximetry Medical Decision Making - Medical Decision Making 68-year-old male presenting forearm bruising after catheterization patient states the enter both whorls. Ultrasound revealed no hematomas or pseudoaneurysm. Patient denies any significant pain he states is more of a discomfort. Patient appears well no other complaints. Patient states he was riding a lawnmower which she shouldn't have status post his catheterization. I recommended rest elevation of testicles and application of heat or ice. Patient is discharged with instruction to follow-up with her primary care provider and office nurse. Patient is agreeable to plan we discussed return parameters. Patient was discharged. After discussing the case with attending provider Dr. Badillo Disposition Clinical Impression: Ecchymosis, Post-operative pain Disposition: HOME SELF-CARE Condition: Good Additional Instructions: Please use medication as discussed. Please follow-up with family doctor in the next 2 days. Please return to emergency room if the symptoms increase or worsen or for any other concerns. Is patient prescribed a controlled substance at d/c from ED?: No Referrals: Sudeep Cabrera MD [Primary Care Provider] - 1-2 days Time of Disposition: 14:33
== END 2018-12-28 14:43 | disposition home or self-care (01) ==
LOC: EC 12:21
DX: G89.18 Other acute postprocedural pain (principal); S30.1XXA Contusion of abdominal wall, initial encounter; S30.22XA Contusion of scrotum and testes, initial encounter; I25.119 Atherosclerotic heart disease of native coronary artery with unspecified angina pectoris; I11.0 Hypertensive heart disease with heart failure; I50.9 Heart failure, unspecified; E78.5 Hyperlipidemia, unspecified; E11.9 Type 2 diabetes mellitus without complications; I25.2 Old myocardial infarction; Z79.01 Long term (current) use of anticoagulants; Z79.4 Long term (current) use of insulin; Z79.899 Other long term (current) drug therapy; Z88.5 Allergy status to narcotic agent; Z95.810 Presence of automatic (implantable) cardiac defibrillator; Z95.5 Presence of coronary angioplasty implant and graft; Z85.828 Personal history of other malignant neoplasm of skin
CPT/HCPCS: 93925; 93975; 99283

== ENCOUNTER → 2019-02-05 | Outpatient (CLI) | payer MEDICARE ==
[2019-02-05 09:26] LABS: HCT 47.2 % (39.0-53.0); HGB 15.8 gm/dL (13.0-17.5); MCH 31.7 pg (25.0-35.0); MCHC 33.3 g/dL (31.0-37.0); MCV 95.2 fL (80.0-100.0); Mean Platelet Volume 8.4; RBC 4.96 m/uL (4.30-5.90); WBC 4.7 k/uL (3.8-10.6)
[2019-02-05 09:38] LABS: African American GFR (CKD) >90 (>60 ml/min/1.73 sqM); Anion Gap 8 mmol/L; Blood Urea Nitrogen 12 mg/dL (9-20); Carbon Dioxide 29 mmol/L (22-30); Chloride 103 mmol/L (98-107); Glucose 101 mg/dL (74-99); Potassium 4.9 mmol/L (3.5-5.1); Sodium 140 mmol/L (137-145)
[2019-02-05 10:59] LABS: Platelet Count 70 k/uL (150-450)
== END | disposition home or self-care (01) ==
LOC: LABWHC1 08:48
PROVIDERS: ATTEND Internal Medicine Clinical Cardiac Electrophysiology
DX: Z01.812 Encounter for preprocedural laboratory examination (principal); I25.5 Ischemic cardiomyopathy; I47.2 Ventricular tachycardia
CPT/HCPCS: 36415; 80051; 82565; 82947; 84520; 85027

== ENCOUNTER 2019-02-11 10:53 | Day surgery (SDC) | payer MEDICARE ==
[2019-02-04 15:29] VITALS: BMI 30.2
[2019-02-11] MEDS: SODIUM CHLORIDE 0.9% 1,000 ML IV SCH (11:15)
[2019-02-11 11:38] LABS: Glucose,Whole Blood 95 mg/dL (75-99)
[2019-02-11 12:04] LABS: Mean Platelet Volume 8.6
[2019-02-11 12:06] LABS: Platelet Count 88 k/uL (150-450)
[2019-02-11] MEDS ORDERED: SUCCINYLCHOLINE CHLORIDE 100 MG/5 ML SYR IV ONE (12:27)
[2019-02-11] MEDS ORDERED: fentaNYL (PF) 50 MCG/ML 2 ML AMP ONE (12:27)
[2019-02-11] MEDS ORDERED: PROPOFOL 10 MG/ML 20 ML VIAL IV ONE (12:27)
[2019-02-11] MEDS ORDERED: HEPARIN SODIUM,PORCINE 10,000 UNIT/ML 1 ML VIAL ONE (12:27)
[2019-02-11] MEDS ORDERED: PHENYLEPHRINE-0.9% NACL SYG 1 MG/10 ML SYRINGE ONE (12:27)
[2019-02-11] MEDS ORDERED: NEOSTIGMINE 1 MG/ML 10 ML VIAL ONE (12:27)
[2019-02-11] MEDS ORDERED: DEXTROSE 50% SYRINGE 50 ML IVP ONE (12:27)
[2019-02-11] MEDS ORDERED: FUROSEMIDE 10 MG/ML 2 ML VIAL ONE (12:27)
[2019-02-11] MEDS ORDERED: MIDAZOLAM 2 MG/2 ML VIAL ONE (12:27)
[2019-02-11] MEDS ORDERED: PROTAMINE SULFATE 10 MG/ML 5 ML VIAL IV ONE ×3 (12:27→18:12)
[2019-02-11] MEDS ORDERED: diphenhydrAMINE 50 MG/ML 1 ML VIAL ONE (12:27)
[2019-02-11] MEDS ORDERED: GLYCOPYRROLATE 0.2 MG/ML 2 ML VIAL ONE (12:27)
[2019-02-11] MEDS ORDERED: ROCURONIUM BROMIDE 10 MG/ML 10 ML VIAL IV ONE (12:27)
[2019-02-11] MEDS ORDERED: LIDOCAINE 1% INJ 10MG/ML (20 ML MDV) SQ ONE (13:19)
[2019-02-11] MEDS ORDERED: LIDOCAINE 1% INJ 10MG/ML (20 ML MDV) ONE (13:28)
[2019-02-11] MEDS: DEXTROSE 50% SYRINGE 50 ML IVP ONE ×3 (13:39→16:12)
[2019-02-11 13:54] LABS: Glucose,Whole Blood 79 mg/dL (75-99)
[2019-02-11] MEDS ORDERED: HEPARIN SOD,PORK IN 0.45% NACL 25,000 UNIT in 0.45% NACL 1 250ML.BAG IV ONE (14:00)
[2019-02-11] MEDS ORDERED: HEPARIN SODIUM (1,000 UNIT/ML) 1,000 UNIT in SODIUM CHLORIDE 0.9% 1,000 ML IRRIGATION ONE (14:45)
[2019-02-11 15:01] LABS: Glucose,Whole Blood 82 mg/dL (75-99)
[2019-02-11 16:23] LABS: Glucose,Whole Blood 75 mg/dL (75-99)
[2019-02-11 17:47] LABS: Glucose,Whole Blood 88 mg/dL (75-99)
[2019-02-11] MEDS ORDERED: ACETAMINOPHEN TAB 325 MG TAB PO PRN (18:13)
[2019-02-11] MEDS ORDERED: SODIUM CHLORIDE 0.9% 1,000 ML IV ONE (18:16)
--- NOTE | 2019-02-11 18:41 | P.HPCAR ---
History of Present Illness This is Dr. Alfaro dictating an h/p on this patient The patient was interviewed and examined by me IMPRESSION / ASSESSMENT: Recurrent symptomatic ventricular tachycardia despite sotalol and mexiletine with dizzy spells Ischemic cardiomyopathy Hypertension Dyslipidemia line status post dual-chamber ICD implant PLAN: EP study and VT ablation today Patient was interviewed and examined VZV with plan HPI Recurrent dizzy spells associated with fast ventricular tachycardia despite prior successful ablation 5 years back and sotalol and mexiletine Patient denies any recent syncope in the last few days no chest discomfort or angina like symptoms orthopnea PND or heart failure symptoms He denies any fever chills cough expectoration. Tract infection of any bleeding issues He does have a low platelet count ROS: No fever chills or rigors, no cough, phlegm or expectoration, no nausea, vomiting or diarrhea, no hematuria, dysuria, no musculoskeletal complaints, no strokes or seizures, no skin lesions. EXAMINATION: Afebrile 98.4F, pulse rate in the 50s, normal respirations blood pressure 90 5 mmHg Breath sounds are clear no rhonchi no crackles Heart sounds S1 and S2 are normal no murmurs or gallops or rub Abdomen is soft nontender Extremities warm no edema REVIEW OF LABS, ECG & MEDICAL DATA Platelet count 88,000 Physical Exam Vitals: Vital Signs Temp Pulse Resp BP Pulse Ox 02/11/19 11:50 98.4 F 51 L 20 99/55 99 Intake and Output 02/11/19 02/11/19 02/11/19 06:59 14:59 22:59 Intake Total 1758 Balance 1758 Intake: IV 1758 Past Medical History Past Medical History: Cancer, Diabetes Mellitus, Hyperlipidemia, Myocardial Infarction ([place]), Pneumonia, Sleep Apnea/CPAP/BIPAP Additional Past Medical History / Comment(s): hx skin cancer left ear ,States SOB with exertion, see Dr Alfaro H&P, no CPAP used, Last Myocardial Infarction Date:: 1999 History of Any Multi-Drug Resistant Organisms: None Reported Past Surgical History: AICD, Cardiac Ablation, Heart Catheterization, Heart Catheterization With Stent Additional Past Surgical History / Comment(s): 3 cardiac stents, cardiac ablation x 2, Past Anesthesia/Blood Transfusion Reactions: Previous Problems w/ Anesthesia Additional Past Anesthesia/Blood Transfusion Reaction / Comment(s): DIFFICULTY WAKING UP AFTER Anesthesia- States sensitive to medications. Date of Last Stent Placement:: 2016 Type of Cardiac Device: AICD Device Placement Date:: 02/23/14 Smoking Status: Never smoker - Past Family History Father Family Medical History: Diabetes Mellitus Additional Family Medical History / Comment(s): AT AGE 72-GAVE UP HIS INSULIN ATE THE WAY HE WANTED A 1 YEAR LATER. HX SPINAL MENINGITIS Mother Family Medical History: Liver Disease Additional Family Medical History / Comment(s): at the age of 72 yrs from a LIVER CONDITION. Sister(s) Family Medical History: Cancer Physical Examination Vital Signs Temp Pulse Resp BP Pulse Ox 02/11/19 11:50 98.4 F 51 L 20 99/55 99 Intake and Output 02/11/19 02/11/19 02/11/19 06:59 14:59 22:59 Intake Total 1758 Balance 1758 Intake: IV 1758 Results 02/11/19 11:30 CBC 02/11/19 Range/Units 11:30 Plt Count 88 L (150-450) k/uL Current Medications Generic Name Dose Route Start Last Admin Trade Name Freq PRN Reason Stop Dose Admin Acetaminophen 650 mg 02/11/19 18:13 Tylenol Tab PO Q6HR PRN Mild Pain Aspirin 81 mg 02/12/19 09:00 Aspirin PO DAILY NAVEED Atorvastatin Calcium 40 mg 02/12/19 09:00 Lipitor PO DAILY NAVEED Escitalopram Oxalate 10 mg 02/12/19 09:00 Lexapro PO DAILY NAVEED Sodium Chloride 1,000 mls @ 20 mls/hr 02/11/19 06:14 02/11/19 11:15 Saline 0.9% IV 980 mls .Q24H NAVEED Administration Acetaminophen 1,000 mg/ IV 100 mls @ 400 mls/hr 02/11/19 18:45 Solution IVPB 02/11/19 18:59 ONCE ONE Insulin Detemir 20 unit 02/12/19 17:00 Levemir SQ DAILY@1700 NAVEED Lisinopril 20 mg 02/12/19 09:00 Zestril PO DAILY NAVEED Magnesium Oxide 400 mg 02/12/19 09:00 Mag-Ox PO DAILY NAVEED Metoprolol Tartrate 50 mg 02/11/19 21:00 Lopressor PO BID NAVEED Mexiletine HCl 150 mg 02/12/19 00:00 Mexitil PO Q8HR NAVEED Sodium Chloride 12 ml 02/11/19 21:00 Saline Flush IV Q12HR NAVEED Sotalol HCl 80 mg 02/11/19 21:00 Betapace PO BID NAVEED Intake and Output 02/11/19 02/11/19 02/11/19 06:59 14:59 22:59 Intake Total 1758 Balance 1758 Intake: IV 1758 02/11/19 11:30
[2019-02-11] MEDS ORDERED: ACETAMINOPHEN IV (For NPO) 1,000 MG in EMPTY BAG 1 BAG IVPB ONE (18:45)
[2019-02-11 19:24] VITALS: RESP 16
[2019-02-11 19:24] LABS: Glucose,Whole Blood 72 mg/dL (75-99)
[2019-02-11 20:16] LABS: Glucose,Whole Blood 95 mg/dL (75-99)
[2019-02-11] MEDS: SOTALOL 80 MG TAB PO SCH (22:23)
[2019-02-11] MEDS: METOPROLOL TARTRATE 50 MG TAB PO SCH (22:23)
[2019-02-12] MEDS: MEXILETINE 150 MG CAP PO SCH ×2 (00:23→08:30)
[2019-02-12] MEDS: SODIUM CHLORIDE 0.9% 1,000 ML IV SCH (04:40)
[2019-02-12 06:53] LABS: Glucose,Whole Blood 84 mg/dL (75-99)
--- NOTE | 2019-02-12 07:25 | CE ---
CARDIAC ELECTROPHYSIOLOGY REPORT This is a 68-year-old male patient of Dr. Cerda who has acute cardiomyopathy, history of atrial fibrillation, history of ventricular tachycardia, status post successful ablation in 2014. He presented with recurrent episodes of dizzy spells and was noted to have ventricular tachycardia. He failed sotalol and mexiletine. He is brought in for diagnostic EP study and radiofrequency ablation for VT. Patient was brought to the EP lab in a fasting state. Written informed consent was obtained prior to the procedure. The initial part of the diagnostic study was performed under conscious sedation. Mapping and ablation were performed under general anesthesia. Two venous sheaths in the left femoral vein, one venous sheath in the right femoral vein and a femoral arterial long sheath in the right femoral artery placed, via these diagnostic catheters were placed in the high right atrium, His bundle area, RV and later even in the coronary sinus as well as a PentaRay catheter and a mapping ablation catheter. Sinus cycle length 1134 milliseconds, QRS 145 milliseconds, paced QT interval 502 milliseconds, AH interval full 264 milliseconds and HV interval 48 milliseconds. Ventricular extra stimulation was performed from the RV apex with double extra stimuli at 4:0 milliseconds (400/300//250 milliseconds). VT was induced. The cycle length was 324 milliseconds. This is a left bundle branch block morphology. This VT was associated with significant hypotension in the 60s, but antitachycardia pacing was successful in terminating the tachycardia. Therefore, the decision was made to perform a 3D electroanatomic mapping and voltage mapping of the left ventricle followed by pace mapping and then, if needed, activation mapping. The VT circuit appeared to be originating in the inferior septum. A PentaRay catheter was placed in the left ventricle and voltage mapping was performed in sinus rhythm as well as during and the extra stim protocol within S2 mapping. The scar was identified in the inferior base and posterior voltage map was performed. Following this, pace mapping was performed to ascertain the location of the exit site of the ventricular tachycardia. Pace maps of the left ventricle were uniformly poor. The best pace map that could be obtained was in the order of 78%-80% along the inferior septum and there was a small area of scar here (in the isolated island). The pace maps here had a right bundle branch block morphology while the VT was the left bundle branch block morphology mid-superior axis. Therefore, the right ventricle was mapped and paced mapping was performed. The best pace map obtained was in the low interventricular septum on the right side of 90%. When the right ventricular and left ventricular maps were evaluated, the best paced maps were on either side of the septum, close to one another and these sites corresponded to each other, anatomically on the septum. Therefore, a decision was made to perform a VT ablation on the right side as well as on the left side, kissing technique. RF ablation was first performed at the left side of the septum with good contact, force and power. Next, VT ablation was then performed on the right side with good contact force. A Mobic catheter was used, MBI; however the contact force was best obtained when the Mobic catheter was pulled into the IVC. Following this, an EP study was also performed and the tachycardia was completely noninducible with double extrastimuli at [address] Following that, RF ablation was once again performed in the area of the interventricular septum with best paced maps for some bonus lesions since this was most likely a deep myocardial focus. The tachycardia was rendered noninducible under general anesthesia. Prior to the procedure, the patient received IV antibiotics and also an ICD has dual- chamber Medtronic ICD was interrogated and reprogrammed. Therapies were turned off and rate response was turned off . The VVI pacing at 40 beats per minute was performed. At the end of the procedure, the ICD was interrogated and reprogrammed. ICD with VT and VF therapies are turned back on and AV sequential pacing was turned back AAIR-DDDR 50-130 ppm. Intracardiac echocardiography was performed through the procedure and a 3D electroanatomic map was made in the right and left ventricle. At the end of the procedure, there was no pericardial effusions noted. His LV function was quite reasonable. Since this was an interventricular septal tachycardia, with cavity focus, I also placed the mapping catheter in the coronary sinus and mapped the coronary sinus. However, the coronary sinus anatomy allowed for the catheter normally to reach the anterior septum not the area of the VT focus. Patient tolerated the procedure well without any acute complication. MMODL / IJN: [id number] /
[2019-02-12] MEDS: METOPROLOL TARTRATE 50 MG TAB PO SCH (08:30)
[2019-02-12] MEDS: SOTALOL 80 MG TAB PO SCH (08:30)
[2019-02-12] MEDS ORDERED: ASPIRIN 81 MG PO SCH (09:00)
[2019-02-12] MEDS ORDERED: ESCITALOPRAM 10 MG TAB PO SCH (09:00)
[2019-02-12] MEDS ORDERED: ATORVASTATIN 40 MG TAB PO SCH (09:00)
[2019-02-12] MEDS ORDERED: MAGNESIUM OXIDE 400 MG TAB PO SCH (09:00)
[2019-02-12] MEDS ORDERED: LISINOPRIL 20 MG TAB PO SCH (09:00)
[2019-02-12 09:44] VITALS: BP 90/46; PULSE 57; TEMP 98.8
--- NOTE | 2019-02-12 11:29 | P.DS ---
Providers Attending physician: Pete Alfaro Primary care physician: [facility] Course: Patient is doing well. He is ablating around the room. No swelling in the groin no tenderness no pain Afebrile 98.8F pulse rate in the 50s Blood pressure 90/46. His mercury Head and neck examination is normal Heart sounds S1 and S2 are normal Breath sounds are clear no rhonchi no crackles Impression History of ventricular tachycardia History of ischemic cardio myopathy status post dual-chamber ICD Status post VT ablation VT focus was in the septum and RF ablation was performed from the left as well as the right side of the septum The pacemaker better along the RV surface on the septum, 90% versus 78% along the left side Following ablation the tachycardia was rendered noninducible Plan Continue current medications continue xarelto 15 g daily discharge home by 2:58 PM if he is ablating in the hallways and is stable and followed by Dr. Garcia within a week Plan - Discharge Summary Discharge Rx Participant: Yes New Discharge Prescriptions: Continue Escitalopram [Lexapro] 10 mg PO DAILY #30 tab Metoprolol Tartrate [Lopressor] 50 mg PO BID #60 tab Magnesium Oxide [Mag-Ox] 400 mg PO DAILY #30 tab Atorvastatin [Lipitor] 40 mg PO DAILY Mexiletine [Mexitil] 150 mg PO Q8HR #90 cap Aspirin 81 mg PO DAILY #30 chew Sotalol [Betapace] 80 mg PO BID Rivaroxaban [Xarelto] 15 mg PO DAILY Insulin Glargine,Hum.rec.anlog [Toujeo Solostar] 20 units PO DAILY@1700 Dulaglutide [Trulicity] 0.75 units INJ TU Lisinopril 20 mg PO DAILY Discharge Medication List Escitalopram [Lexapro] 10 mg PO DAILY #30 tab 03/14/14 [Rx] Metoprolol Tartrate [Lopressor] 50 mg PO BID #60 tab 03/14/14 [Rx] Magnesium Oxide [Mag-Ox] 400 mg PO DAILY #30 tab 05/13/14 [Rx] Atorvastatin [Lipitor] 40 mg PO DAILY 11/28/15 [History] Aspirin 81 mg PO DAILY #30 chew 04/30/17 [Rx] Mexiletine [Mexitil] 150 mg PO Q8HR #90 cap 04/30/17 [Rx] Rivaroxaban [Xarelto] 15 mg PO DAILY 08/05/18 [History] Sotalol [Betapace] 80 mg PO BID 08/05/18 [History] Dulaglutide [Trulicity] 0.75 units INJ TU 11/17/18 [History] Insulin Glargine,Hum.rec.anlog [Lucinda Benton] 20 units PO DAILY@1700 11/17/18 [History] Lisinopril 20 mg PO DAILY 12/23/18 [History] Follow up Appointment(s)/Referral(s): Pete Alfaro MD [STAFF PHYSICIAN] - 02/23/19 3:00 pm (follow up with Dr. Alfaro/Karen Oswald/Iris Ritchie once daily Follow-up with Dr. Garcia in 3 weeks) Activity/Diet/Wound Care/Special Instructions: Post EP study - Ablation instructions 1. Keep access sites dry for 2 days. 2. No heavy lifting or straining for 2 days. 3. Avoid bending the hips repeatedly for 2 days. 4. You may go up and down stairs slowly Call if the following is noted 1. Bleeding, increasing swelling or pain at the access sites. 2. Increasing chest discomfort, especially upon taking a deep breath. 3. Increasing shortness of breath, at rest or with exertion. 4. Undue cough / phlegm 5. Difficulty or pain while swallowing. 6. Pain or change in color in the extremities. 7. Fever, chills, rigors. 8. Increasing headache or neurologic symptoms. 9. Dizziness, fainting, palpitations Continue all cardiac medications including Xarelto, no medication changes
[2019-02-12 11:41] LABS: Glucose,Whole Blood 104 mg/dL (75-99)
--- NOTE | 2019-02-12 13:39 | P.PCN ---
Preoperative Diagnosis: Dual-chamber ICD was interrogated Medtronic protector XT dual-chamber ICD RV pacing percentage is high Atrial pacing impedance 494 ohms, RV pacing impedance 513 ohms Defibrillation impedance 69 ohms, RV Atrial pacing threshold 0.8. 0.4 ms RV pacing threshold 1 warted 0.4 ms P waves 2.5 mV and R waves 13.4 mV He has a prolonged TX interval and his RV pacing percentage is very high and I would recommend upgrade to a biventricular ICD in the future I would also recommend noninvasive program stimulation to months after VT ablation
[2019-02-12] MEDS ORDERED: INSULIN DETEMIR (LEVEMIR) 100 UNIT/ML SYR SQ SCH (17:00)
== END 2019-02-12 13:55 | disposition home or self-care (01) ==
LOC: CATHEP 10:53 → 1SOBS 18:15 → CATHEP 02-12 13:55
PROVIDERS: ATTEND Internal Medicine Clinical Cardiac Electrophysiology
DX: I47.2 Ventricular tachycardia (principal); I25.5 Ischemic cardiomyopathy; I10 Essential (primary) hypertension; I48.91 Unspecified atrial fibrillation; E78.5 Hyperlipidemia, unspecified; D69.6 Thrombocytopenia, unspecified; Z95.810 Presence of automatic (implantable) cardiac defibrillator; Z95.5 Presence of coronary angioplasty implant and graft; I25.2 Old myocardial infarction; G47.33 Obstructive sleep apnea (adult) (pediatric); Z79.01 Long term (current) use of anticoagulants; Z79.82 Long term (current) use of aspirin; Z79.4 Long term (current) use of insulin; Z79.899 Other long term (current) drug therapy; Z88.5 Allergy status to narcotic agent; Z85.828 Personal history of other malignant neoplasm of skin; Z87.01 Personal history of pneumonia (recurrent); Z83.3 Family history of diabetes mellitus; Z80.9 Family history of malignant neoplasm, unspecified; Z83.79 Family history of other diseases of the digestive system
CPT/HCPCS: 93654; 93662; 85347; 86900; 86901; 85049; 86850; C1894; C1769 ×4; C1730 ×3; C1760; C1731; C1759; C1893 ×2; C1732; J2250; J2720; J1200; J1644 ×3; J1940; J2710; J0690; J2001; J3010; J2370; J0330; J2704

== ENCOUNTER → 2019-06-09 | Outpatient (CLI) | payer MEDICARE ==
[2019-06-09 17:07] LABS: Basophils % (A) 1 %; Eosinophils # (A) 0.2 k/uL (0-0.7); Eosinophils % (A) 5 %; HCT 43.1 % (39.0-53.0); HGB 14.6 gm/dL (13.0-17.5); Lymphocytes # (A) 0.9 k/uL (1.0-4.8); Lymphocytes % (A) 22 %; MCH 31.9 pg (25.0-35.0); MCHC 33.9 g/dL (31.0-37.0); MCV 94.1 fL (80.0-100.0); Monocytes # (A) 0.3 k/uL (0-1.0); Monocytes % (A) 8 %; Neutrophils # (A) 2.5 k/uL (1.3-7.7); Neutrophils % (A) 61 %; RBC 4.58 m/uL (4.30-5.90); RDW 13.6 % (11.5-15.5); WBC 4.1 k/uL (3.8-10.6)
[2019-06-09 17:10] LABS: INR 1.1 (<1.2); Prothrombin Time 11.4 sec (9.0-12.0)
[2019-06-09 17:25] LABS: Platelet Count 74 k/uL (150-450)
[2019-06-09 23:36] LABS: African American GFR (CKD) 121.4 (60.0-200.0); Albumin 4.1 g/dL (3.80-4.90); Albumin/Globulin Ratio 2.05 (1.60-3.17); Anion Gap 6.7 mmol/L (4.00-12.00); BUN/Creat Ratio 23.33 Ratio (12.00-20.00); Bilirubin, Conjugated 0.2 mg/dL (0.20-0.40); Bilirubin,Unconjugated 0.5 mg/dL; Calcium 9.1 mg/dL (8.7-10.3); Carbon Dioxide 29.3 mmol/L (21.6-31.8); Non-African American GFR(CKD) 104.8 (60.0-200.0); Potassium 4.5 mmol/L (3.5-5.5); Total Bilirubin 0.7 mg/dL (0.2-1.2); Total Protein 6.1 g/dL (6.2-8.2)
== END | disposition home or self-care (01) ==
LOC: LABWHC1 16:33
PROVIDERS: ATTEND Nurse Practitioner Family
DX: R04.2 Hemoptysis (principal); Z79.899 Other long term (current) drug therapy
CPT/HCPCS: 36415; 80053; 82248; 85025; 85610

== ENCOUNTER 2020-01-25 10:29 | Day surgery (SDC) | payer MEDICARE ==
[2020-01-24 09:53] VITALS: BMI 32.5
[~2020-01-25 10:29] MED LIST changes: -ALPRAZolam 0.25 MG TAB PO PRN; -ALPRAZolam 0.5 MG TAB PO PRN; -ASPIRIN 325 MG TAB PO STA; -ATORVASTATIN 80 MG TAB PO STA; -NITROGLYCERIN SL TABS 0.4 MG TAB SUBLINGUAL PRN; -SODIUM CHLORIDE 0.9% 1,000 ML in EMPTY BAG 1 BAG IV ONE; +ceFAZolin 1,000 MG in SODIUM CHLORIDE 0.9% IRRIGATIO 250 ML IRRIGATION ONE
[2020-01-25] MEDS ORDERED: SODIUM CHLORIDE 0.9% 500 ML 500 ML IV ONE (11:39)
[2020-01-25 11:46] LABS: African American GFR (CKD) >90 (>60 ml/min/1.73 sqM); Anion Gap 7 mmol/L; Blood Urea Nitrogen 13 mg/dL (9-20); Calcium 8.7 mg/dL (8.4-10.2); Carbon Dioxide 26 mmol/L (22-30); Chloride 106 mmol/L (98-107); Glucose 133 mg/dL (74-99); Non-African American GFR(CKD) >90 (>60 ml/min/1.73 sqM); Potassium 4.5 mmol/L (3.5-5.1); Sodium 139 mmol/L (137-145)
[2020-01-25 11:48] LABS: Basophils % (A) 1 %; Eosinophils # (A) 0.2 k/uL (0-0.7); Eosinophils % (A) 4 %; HGB 15.4 gm/dL (13.0-17.5); Lymphocytes # (A) 0.8 k/uL (1.0-4.8); Lymphocytes % (A) 19 %; MCH 33.4 pg (25.0-35.0); MCV 95.4 fL (80.0-100.0); Monocytes # (A) 0.3 k/uL (0-1.0); Monocytes % (A) 7 %; Neutrophils # (A) 2.9 k/uL (1.3-7.7); Neutrophils % (A) 67 %; RBC 4.61 m/uL (4.30-5.90); RDW 14.5 % (11.5-15.5); WBC 4.3 k/uL (3.8-10.6)
[2020-01-25] MEDS ORDERED: diphenhydrAMINE 50 MG/ML 1 ML VIAL ONE (11:50)
[2020-01-25] MEDS ORDERED: HYDROmorphone (PF) 1 MG/ML ONE (11:50)
[2020-01-25] MEDS ORDERED: MIDAZOLAM 2 MG/2 ML VIAL ONE (11:50)
[2020-01-25] MEDS ORDERED: fentaNYL (PF) 50 MCG/ML 2 ML AMP ONE (11:50)
[2020-01-25] MEDS ORDERED: IOPAMIDOL-370 50ML BTL INJ ONE (12:04)
[2020-01-25] MEDS ORDERED: LIDOCAINE 1% INJ 10MG/ML (20 ML MDV) ONE ×3 (12:09→12:53)
[2020-01-25 12:23] LABS: Platelet Count 79 k/uL (150-450)
[2020-01-25] MEDS ORDERED: LIDOCAINE 1% INJ 10MG/ML (20 ML MDV) SQ ONE ×3 (12:36→13:52)
[2020-01-25] MEDS ORDERED: VANCOMYCIN 1,000 MG in SODIUM CHLORIDE 0.9% 250 ML IVPB STA (12:51)
[2020-01-25] MEDS ORDERED: IOPAMIDOL-370 100ML BTL INJ ONE (13:21)
[2020-01-25] MEDS ORDERED: ACETAMINOPHEN TAB 325 MG TAB PO PRN (14:25)
[2020-01-25] MEDS ORDERED: HYDROcodone/APAP 5-325MG 1 EACH TAB PO PRN (14:25)
[2020-01-25] MEDS: LACTATED RINGERS 1,000 ML IV SCH (14:40)
[2020-01-25] MEDS: SODIUM CHLORIDE 0.9% 1,000 ML IV SCH ×2 (14:40→19:45)
[2020-01-25] MEDS ORDERED: ACETAMINOPHEN IV (For NPO) 1,000 MG in EMPTY BAG 1 BAG IVPB ONE (15:00)
[2020-01-25] MEDS: MEXILETINE 150 MG CAP PO SCH (17:22)
--- NOTE | 2020-01-25 17:53 | P.PCN ---
Preoperative Diagnosis: Left upper extremity venogram was performed 15 mL of IV dye was injected and the left upper extremity The subclavian/axillary junction was occluded partially with bridging collaterals This is a long procedure involving a difficult access into the main Tucker sinus 40 Multiple sheaths at to be used while attempting access and the Tucker sinus Following that venogram was unable to identify the LV veins on account of high pressures in the veins only the coronary sinus body to be opacified Therefore and angioplasty wire was used to find the various LV veins The anterior lateral vein was found, it was a diminutive size and very tortuous The initial Medtronic screw-in lead would not pass through along the tortuosity Procedures medical auditor had to be used instead and placed in the anterior lateral vein in stable position
[2020-01-25 21:57] LABS: Glucose,Whole Blood 136 mg/dL (75-99)
[2020-01-25] MEDS: SODIUM CHLORIDE 0.9% 250 ML IV SCH ×2 (21:59→22:00)
[2020-01-25 22:14] VITALS: RESP 16
[2020-01-26] MEDS: METOPROLOL TARTRATE 50 MG TAB PO SCH ×2 (00:34→09:26)
[2020-01-26] MEDS: SOTALOL 80 MG TAB PO SCH ×2 (00:35→09:28)
[2020-01-26] MEDS: SODIUM CHLORIDE 0.9% 250 ML IV SCH ×2 (00:45→00:57)
[2020-01-26] MEDS: MEXILETINE 150 MG CAP PO SCH ×2 (01:18→09:25)
--- NOTE | 2020-01-26 03:47 | CE ---
CARDIAC ELECTROPHYSIOLOGY REPORT Mr. Meier is a 69-year-old male patient with known ischemic cardiomyopathy with severe LV dysfunction and 100% RV pacing with heart failure symptoms. He has been complaining of shortness of breath and has difficulty breathing with regular exertion. He has had a VT ablation for ischemic VT. He is on appropriate treatment. The patient was brought in for an upgrade to a biventricular ICD for heart failure management. The patient was brought to the EP lab in a fasting state. Written informed consent was obtained prior to the procedure. The left shoulder area was prepped and draped as per protocol and 1% lidocaine was used for local anesthesia. IV antibiotics were administered. An incision was made in the left pectoral area, 1.5 cm medial to the deltopectoral groove and carried down to the level of the pectoralis muscle. A subfascial pocket was made. Hemostasis was assured. The left axillary vein was accessed at one point under fluoroscopy and via appropriately-sized introducer sheath an LV lead was placed. Coronary sinus access was technically challenging and finally a multipurpose sheath was used and CS catheter was used to cannulate the coronary sinus. Once the coronary sinus was cannulated. Venogram was performed. High pressures were noted in the coronary sinus consistent with his advanced heart failure status. The LV veins could not be well delineated and opacified with even a slow coronary sinus venogram. Therefore, an angioplasty wire was used to find the vein and then anterior/anterolateral vein was found. This had a diminutive size. First a Medtronic screw-in lead was attempted but this lead would not cross the tortuosity along this vein. A [employer] medical lead was then placed. This was model #[id number], 86 cm in length and serial #[id number]. This lead was positioned in the anterolateral vein. The lead was quite stable, but it took some effort to get into this vein. The sheath was removed. The lead was tested. There was no diaphragmatic stimulation noted and threshold was 1 V at 0.5 milliseconds between M1 and M3 poles. The P waves were 2.6 mV, pacing impedance 494 ohms, pacing threshold in the atrium 0.75 V at 0.4 milliseconds. The chronic RV lead impedance was 532 ohms, pacing threshold 1 V at 0.4 milliseconds. The patient has complete heart block. No underlying rhythm was noted. High-voltage impedance 71 ohms. The LV pacing impedance was 1107 ohms and threshold was 1 V at 0.5 milliseconds between M1 and M3. The old generator was explanted. This was a Biancaa DR model #V117HLG, serial #[id number]. The new generator implanted was a model #[id number], serial #[id number]. Partial capsulectomy of the pocket was performed. The leads were secured to the underlying pectoralis muscle and the new generator was implanted. The wound was closed in 3 layers and dressed per protocol. RESULT: 1. Successful upgrade to a biventricular ICD. The LV lead was placed in the anterolateral vein. 2. Coronary sinus access was difficult and the veins could not be opacified with venography because of high pressure in the system advanced heart failure, but we were able to find the anterolateral vein. The vein was small caliber and very tortuous. The distal coronary sinus also tortuous. The Medtronic lead could not pass through the tortuosity, but the [employer] medical lead was able to pass through into a very stable position. Thresholds are excellent. The device was then programmed DDDR with simultaneous LV, RV pacing. Appropriate antitachycardia pacing and cardioversion defibrillation were programmed. The patient tolerated the procedure well without any acute complications. IMPRESSION: Severe ischemic cardiomyopathy with severe LV dysfunction, a class 2 to 3 congestive heart failure, complete heart block with 100% RV pacing on appropriate drug treatment for heart failure. Known underlying coronary artery disease and old myocardial infarction. History of VT ablation in the past, status post dual-chamber ICD. He is 100% paced with further reduction in LV function. He was upgraded to a biventricular ICD. MMODL / IJN: [id number] /
[2020-01-26] MEDS: LACTATED RINGERS 1,000 ML IV SCH (05:59)
--- NOTE | 2020-01-26 06:47 | XR ---
EXAMINATION TYPE: XR chest 2V DATE OF EXAM: 01/26/2020 COMPARISON: Chest x-ray August 05, 2018. HISTORY: The placement check. TECHNIQUE: Frontal and lateral views of the chest are obtained. FINDINGS: There is chronic parenchymal changes bilaterally without suspicious new focal air space op acity, pleural effusion, or pneumothorax seen. The cardiac silhouette size remains enlarged. Persist ent multilead pacemaker/AICD with new lead terminating in the coronary sinus. The osseous structures are intact. IMPRESSION: New pacemaker lead terminating in coronary sinus. Chronic parenchymal change and cardiom egaly without new suspicious acute process.
[2020-01-26 08:28] VITALS: BP 121/72; PULSE 60; TEMP 98.6
[2020-01-26] MEDS ORDERED: ASPIRIN 81 MG PO SCH (09:00)
[2020-01-26] MEDS ORDERED: lisinopriL 20 MG TAB PO SCH (09:00)
[2020-01-26] MEDS ORDERED: ESCITALOPRAM 10 MG TAB PO SCH (09:00)
[2020-01-26] MEDS ORDERED: RIVAROXABAN 15 MG TAB PO SCH (09:00)
[2020-01-26] MEDS ORDERED: ATORVASTATIN 40 MG TAB PO SCH (09:00)
[2020-01-26] MEDS ORDERED: MAGNESIUM OXIDE 400 MG TAB PO SCH (09:00)
--- NOTE | 2020-01-26 09:23 | P.DS ---
Providers Attending physician: Pete Alfaro Primary care physician: [facility] Course: Patient is doing well Mild tenderness over the surgical site, no hematoma no bruising no drainage Breath sounds are clear no rhonchi no crackles Heart sounds are normal normal S1 normal S2 Abdomen is soft No JVD No lower extremity edema Vitals are stable blood pressure is normal afebrile normal heart rates Device was interrogated today and is functioning normally Chest x-ray was reviewed no pneumothorax Impression Cardio myopathy, ischemic Worsening congestive heart failure with progressive shortness of breath Complete heart block with 100% RV pacing, dual-chamber ICD in situ Successful upgrade to a biventricular ICD History of ventricular tachycardia status post VT ablation past Plan Changed to metoprolol succinate 100 mg by mouth daily Continue other medications Continue antiplatelet therapy Continue heart failure medications Discharge home today Instructions given and explained Plan - Discharge Summary Discharge Rx Participant: Yes New Discharge Prescriptions: New Metoprolol Succinate [Toprol XL] 100 mg PO DAILY #90 tab Discontinued Metoprolol Tartrate [Lopressor] 50 mg PO BID #60 tab No Action Escitalopram [Lexapro] 10 mg PO DAILY #30 tab Magnesium Oxide [Mag-Ox] 400 mg PO DAILY #30 tab Atorvastatin [Lipitor] 40 mg PO DAILY Mexiletine [Mexitil] 150 mg PO Q8HR #90 cap Aspirin 81 mg PO DAILY #30 chew Sotalol [Betapace] 80 mg PO BID Rivaroxaban [Xarelto] 15 mg PO DAILY lisinopriL [Lisinopril] 20 mg PO DAILY Discharge Medication List Escitalopram [Lexapro] 10 mg PO DAILY #30 tab 03/14/14 [Rx] Magnesium Oxide [Mag-Ox] 400 mg PO DAILY #30 tab 05/13/14 [Rx] Atorvastatin [Lipitor] 40 mg PO DAILY 11/28/15 [History] Aspirin 81 mg PO DAILY #30 chew 04/30/17 [Rx] Mexiletine [Mexitil] 150 mg PO Q8HR #90 cap 04/30/17 [Rx] Rivaroxaban [Xarelto] 15 mg PO DAILY 08/05/18 [History] Sotalol [Betapace] 80 mg PO BID 08/05/18 [History] lisinopriL [Lisinopril] 20 mg PO DAILY 12/23/18 [History] Metoprolol Succinate [Toprol XL] 100 mg PO DAILY #90 tab 01/25/20 [Rx] Follow up Appointment(s)/Referral(s): Peet Alfaro MD [STAFF PHYSICIAN] - As Needed Orlando Velez MD [STAFF PHYSICIAN] - 1 Week (Wrong entry Patient will Dr. Garcia. Follow Dr. Garcia in 6-8 weeks for heart failure management) Raj Garcia MD [STAFF PHYSICIAN] - 6 Weeks (Device clinic follow-up within 1 week Follow-up with Dr. Serrato within 6 weeks) Patient Instructions/Handouts: Tilt Table Test (DC) Activity/Diet/Wound Care/Special Instructions: PATIENT EDUCATION MATERIAL Instructions following a heart rhythm device implant. 1. Keep dressing DRY for 5 DAYS. You may cover the area with Saran or Cling Wrap, prior to a shower. 2. The dressing will be removed in the Device Clinic at [facility]. Absorbable sutures were used to close the wound. 3. Avoid raising the left arm above the shoulder level. 4 week restriction 4. Avoid arm movements, like backscratching, rubbing the head, or pulling on a cord. 4 weeks restriction 5. Gentle range of motion movements of the shoulder, closest to the incision should be performed to avoid a frozen shoulder. (Pendulum exercises of the shoulder) 6. The opposite arm may be used freely. 7. Avoid driving for 7 days. 8. Avoid activities such as golfing, swimming, weed whacking, lifting more than 10 pounds weight, bowling, gymnastics and weight training/lifting. (6 weeks restriction) 9. Activities such as wood chopping with an axe, pull-ups in the gymnasium, power lifting, arc-welding, being close to home induction cooktops will always be a problem. 10. Arm sling is only a reminder not to raise the arm above the head. You do not need to keep the arm completely immobilized. Your free to move the arm and use it and for normal activities. In case of any problems, please call [facility], Neda Whitaker, @ [phone], Attention: Device Clinic Device clinic follow-up in 5 days Follow-up with Dr. Serrato in 6 weeks Stop metoprolol tartrate Start metoprolol succinate 100 mg in the morning Change the timing of lisinopril 2 evening Continue all other medications unchanged Discharge Disposition: HOME SELF-CARE
== END 2020-01-26 11:30 | disposition home or self-care (01) ==
LOC: CATHEP 10:29 → 3NCARDOBS 14:15 → CATHEP 01-26 11:30
PROVIDERS: ATTEND Internal Medicine Clinical Cardiac Electrophysiology
DX: I25.5 Ischemic cardiomyopathy (principal); I50.32 Chronic diastolic (congestive) heart failure; I44.2 Atrioventricular block, complete; Z95.810 Presence of automatic (implantable) cardiac defibrillator; R06.02 Shortness of breath; I47.2 Ventricular tachycardia; Z79.899 Other long term (current) drug therapy; Z79.82 Long term (current) use of aspirin; Z79.01 Long term (current) use of anticoagulants
CPT/HCPCS: 33225; 33249; 80048; 85025; 71046; C1769 ×3; C1892; C1730; C1900; C1882; J2250; J3370; J1200; J0690 ×3; J2001; J3010; J1170; Q9967 ×2

== ENCOUNTER 2020-11-21 06:41 | Inpatient (IN) | payer MEDICARE ==
--- NOTE | 2020-11-21 07:02 | XR ---
EXAMINATION TYPE: XR chest 1V portable DATE OF EXAM: 11/21/2020 COMPARISON: Chest x-ray January 26, 2020 HISTORY: Chest pain. TECHNIQUE: Single AP portable frontal upright view of the chest is obtained. FINDINGS: There is mild chronic parenchymal change without suspicious focal air space opacity, pleur al effusion, or pneumothorax seen. The cardiac silhouette size is stable and enlarged with multilead pacemaker/defibrillator. Degenerative change bilateral glenohumeral joints. IMPRESSION: Chronic changes and cardiomegaly without new acute pulmonary process.
--- NOTE | 2020-11-21 07:19 | ED ---
General Adult HPI - General Chief complaint: Chest Pain Stated complaint: Chest pain Time Seen by Provider: 11/21/20 07:00 Source: patient, family, RN notes reviewed Mode of arrival: ambulatory Limitations: no limitations - History of Present Illness Initial comments: Patient is a pleasant 70-year-old male presenting to the emergency Department with complaints of chest discomfort. Onset of symptoms was around an hour prior to arrival. Patient did have pressure in his chest rated 8/10. No radiation. No dyspnea. Patient was sweaty and nauseated. Discomfort felt like pressure. Patient questions if his defibrillator may have went off twice. Patient states he has a new defibrillator and is not as strong as his old one if that is what happened. Patient states discomfort had resolved at this time. Patient is unclear why. Patient was scheduled to have echo done today with Dr. Garcia. - Related Data Home Medications Medication Instructions Recorded Confirmed Atorvastatin [Lipitor] 40 mg PO DAILY 11/28/15 11/21/20 Rivaroxaban [Xarelto] 15 mg PO DAILY 08/05/18 11/21/20 Sotalol [Betapace] 80 mg PO BID@0900,1600 08/05/18 11/21/20 lisinopriL 20 mg PO DAILY 12/23/18 11/21/20 Mexiletine [Mexitil] 150 mg PO TID@0900,1600,2100 11/21/20 11/21/20 Previous Rx's Medication Instructions Recorded Escitalopram [Lexapro] 10 mg PO DAILY #30 tab 03/14/14 Aspirin 81 mg PO DAILY #30 chew 04/30/17 Metoprolol Succinate [Toprol XL] 100 mg PO DAILY #90 tab 01/25/20 Allergies Allergy/AdvReac Type Severity Reaction Status Date / Time codeine AdvReac passed out Verified 11/21/20 07:44 at 23 yrs old Review of Systems ROS Statement: Those systems with pertinent positive or pertinent negative responses have been documented in the HPI. ROS Other: All systems not noted in ROS Statement are negative. Constitutional: Denies: fever Eyes: Denies: eye pain ENT: Denies: ear pain Respiratory: Denies: cough, dyspnea Cardiovascular: Reports: as per HPI, chest pain Endocrine: Denies: fatigue Gastrointestinal: Reports: nausea. Denies: abdominal pain Genitourinary: Denies: urgency Musculoskeletal: Denies: back pain Skin: Denies: rash Neurological: Denies: weakness Past Medical History Past Medical History: Cancer, Diabetes Mellitus, Hyperlipidemia, Myocardial Infarction ([place]), Pneumonia, Sleep Apnea/CPAP/BIPAP Additional Past Medical History / Comment(s): hx skin cancer left ear ,States SOB with exertion @times, "wheezy", see Dr Alfaro H&P, no CPAP used, diet controlled diabetes Last Myocardial Infarction Date:: 1999 History of Any Multi-Drug Resistant Organisms: None Reported Past Surgical History: AICD, Cardiac Ablation, Heart Catheterization, Heart Catheterization With Stent Additional Past Surgical History / Comment(s): 3 cardiac stents, cardiac ablation x 2 Past Anesthesia/Blood Transfusion Reactions: Previous Problems w/ Anesthesia Additional Past Anesthesia/Blood Transfusion Reaction / Comment(s): DIFFICULTY WAKING UP AFTER Anesthesia- States sensitive to medications. Date of Last Stent Placement:: 2016 Type of Cardiac Device: AICD Device Placement Date:: 02/23/14 Past Psychological History: No Psychological Hx Reported Smoking Status: Never smoker Past Alcohol Use History: Daily Past Drug Use History: None Reported - Past Family History Father Additional Family Medical History / Comment(s): AT AGE 72-GAVE UP HIS INSULIN ATE THE WAY HE WANTED A 1 YEAR LATER. HX SPINAL MENINGITIS Mother Additional Family Medical History / Comment(s): at the age of 72 yrs from a LIVER CONDITION. Sister(s) Family Medical History: Cancer General Exam Limitations: no limitations General appearance: alert, in no apparent distress Head exam: Present: normocephalic Eye exam: Present: normal appearance Neck exam: Present: normal inspection Respiratory exam: Present: normal lung sounds bilaterally. Absent: chest wall tenderness Cardiovascular Exam: Present: regular rate, normal rhythm Expanded Peripheral pulses: 2+: Radial (R), Radial (L), Posterior Tibialis (R), Posterior Tibialis (L) GI/Abdominal exam: Present: soft. Absent: tenderness Extremities exam: Present: normal inspection. Absent: pedal edema, calf tenderness Neurological exam: Present: alert Psychiatric exam: Present: normal affect, normal mood Skin exam: Present: normal color Course Vital Signs 11/21/20 11/21/20 11/21/20 06:44 07:02 07:19 Temperature 97.5 F L Pulse Rate 153 H 50 L 49 L Respiratory 24 18 18 Rate Blood Pressure 103/72 138/71 100/62 O2 Sat by Pulse 82 L 98 99 Oximetry - Reevaluation(s) Reevaluation #1: 11/21/20 07:29 Interrogation of mental chronic device does reveal patient did go into V. tach with treatment EKG Findings - EKG Comments: EKG Findings:: Paced rhythm with a rate of 54. QRS 170. QT 516. QTC 49. Superior axis. Wide QRS complex. No acute ST change. Medical Decision Making - Medical Decision Making Case discussed with Dr. Castillo, who will admit. Case also discussed with Dr. Feng. Patient reevaluated. Patient and family updated. - Lab Data Result diagrams: 11/21/20 06:58 11/21/20 06:58 Lab Results 11/21/20 11/21/20 11/21/20 Range/Units 06:58 06:58 06:58 WBC 5.0 (3.8-10.6) k/uL RBC 4.96 (4.30-5.90) m/uL Hgb 16.3 (13.0-17.5) gm/dL Hct 46.8 (39.0-53.0) % MCV 94.2 (80.0-100.0) fL MCH 32.8 (25.0-35.0) pg MCHC 34.8 (31.0-37.0) g/dL RDW 14.0 (11.5-15.5) % Plt Count 118 L (150-450) k/uL MPV 8.5 Neutrophils % 54 % Lymphocytes % 31 % Monocytes % 10 % Eosinophils % 3 % Basophils % 1 % Neutrophils # 2.7 (1.3-7.7) k/uL Lymphocytes # 1.6 (1.0-4.8) k/uL Monocytes # 0.5 (0-1.0) k/uL Eosinophils # 0.1 (0-0.7) k/uL Basophils # 0.0 (0-0.2) k/uL PT 10.6 (9.0-12.0) sec INR 1.0 (<1.2) APTT 25.8 (22.0-30.0) sec Sodium 139 (137-145) mmol/L Potassium 4.6 (3.5-5.1) mmol/L Chloride 105 (98-107) mmol/L Carbon Dioxide 27 (22-30) mmol/L Anion Gap 7 mmol/L BUN 15 (9-20) mg/dL Creatinine 0.65 L (0.66-1.25) mg/dL Est GFR (CKD-EPI)AfAm >90 (>60 ml/min/1.73 sqM) Est GFR (CKD-EPI)NonAf >90 (>60 ml/min/1.73 sqM) Glucose 157 H (74-99) mg/dL Calcium 9.1 (8.4-10.2) mg/dL Magnesium 2.1 (1.6-2.3) mg/dL Total Bilirubin 0.5 (0.2-1.3) mg/dL AST 42 (17-59) U/L ALT 37 (4-49) U/L Alkaline Phosphatase 199 H (38-126) U/L Troponin I (0.000-0.034) ng/mL NT-Pro-B Natriuret Pep pg/mL Total Protein 6.9 (6.3-8.2) g/dL Albumin 3.8 (3.5-5.0) g/dL 11/21/20 11/21/20 Range/Units 06:58 06:58 WBC (3.8-10.6) k/uL RBC (4.30-5.90) m/uL Hgb (13.0-17.5) gm/dL Hct (39.0-53.0) % MCV (80.0-100.0) fL MCH (25.0-35.0) pg MCHC (31.0-37.0) g/dL RDW (11.5-15.5) % Plt Count (150-450) k/uL MPV Neutrophils % % Lymphocytes % % Monocytes % % Eosinophils % % Basophils % % Neutrophils # (1.3-7.7) k/uL Lymphocytes # (1.0-4.8) k/uL Monocytes # (0-1.0) k/uL Eosinophils # (0-0.7) k/uL Basophils # (0-0.2) k/uL PT (9.0-12.0) sec INR (<1.2) APTT (22.0-30.0) sec Sodium (137-145) mmol/L Potassium (3.5-5.1) mmol/L Chloride (98-107) mmol/L Carbon Dioxide (22-30) mmol/L Anion Gap mmol/L BUN (9-20) mg/dL Creatinine (0.66-1.25) mg/dL Est GFR (CKD-EPI)AfAm (>60 ml/min/1.73 sqM) Est GFR (CKD-EPI)NonAf (>60 ml/min/1.73 sqM) Glucose (74-99) mg/dL Calcium (8.4-10.2) mg/dL Magnesium (1.6-2.3) mg/dL Total Bilirubin (0.2-1.3) mg/dL AST (17-59) U/L ALT (4-49) U/L Alkaline Phosphatase (38-126) U/L Troponin I 0.044 H* (0.000-0.034) ng/mL NT-Pro-B Natriuret Pep 819 pg/mL Total Protein (6.3-8.2) g/dL Albumin (3.5-5.0) g/dL - Radiology Data Radiology results: image reviewed (Chest x-ray shows cardiomegaly and chronic changes without acute process) Disposition Clinical Impression: Chest pain, Ventricular tachycardia Disposition: ADMITTED IP TO THIS HOSP Is patient prescribed a controlled substance at d/c from ED?: No Referrals: Sudeep Cabrera MD [Primary Care Provider] - 1-2 days Decision Time: 08:18
[2020-11-21 07:24] LABS: Basophils % (A) 1 %; Eosinophils # (A) 0.1 k/uL (0-0.7); Eosinophils % (A) 3 %; HCT 46.8 % (39.0-53.0); HGB 16.3 gm/dL (13.0-17.5); Lymphocytes # (A) 1.6 k/uL (1.0-4.8); Lymphocytes % (A) 31 %; MCH 32.8 pg (25.0-35.0); MCHC 34.8 g/dL (31.0-37.0); MCV 94.2 fL (80.0-100.0); Mean Platelet Volume 8.5; Monocytes # (A) 0.5 k/uL (0-1.0); Monocytes % (A) 10 %; Neutrophils # (A) 2.7 k/uL (1.3-7.7); Neutrophils % (A) 54 %; Platelet Count 118 k/uL (150-450); RBC 4.96 m/uL (4.30-5.90)
[2020-11-21 07:28] LABS: ALT 37 U/L (4-49); AST 42 U/L (17-59); African American GFR (CKD) >90 (>60 ml/min/1.73 sqM); Albumin 3.8 g/dL (3.5-5.0); Alkaline Phosphatase 199 U/L (38-126); Anion Gap 7 mmol/L; Blood Urea Nitrogen 15 mg/dL (9-20); Calcium 9.1 mg/dL (8.4-10.2); Carbon Dioxide 27 mmol/L (22-30); Chloride 105 mmol/L (98-107); Glucose 157 mg/dL (74-99); Magnesium 2.1 mg/dL (1.6-2.3); Non-African American GFR(CKD) >90 (>60 ml/min/1.73 sqM); Potassium 4.6 mmol/L (3.5-5.1); Sodium 139 mmol/L (137-145); Total Bilirubin 0.5 mg/dL (0.2-1.3); Total Protein 6.9 g/dL (6.3-8.2)
[2020-11-21 07:36] LABS: Partial Thromboplastin Time 25.8 sec (22.0-30.0); Prothrombin Time 10.6 sec (9.0-12.0)
[2020-11-21] MEDS ORDERED: ASPIRIN 81 MG PO STA (08:18)
[2020-11-21] MEDS ORDERED: NITROGLYCERIN SL TABS 0.4 MG TAB SUBLINGUAL PRN (08:18)
[2020-11-21] MEDS: PANTOPRAZOLE 40 MG/10 ML VIAL IVP SCH (11:23)
--- NOTE | 2020-11-21 11:37 | ECHOF ---
Referral Reason:vt, cp MEASUREMENTS -------- HEIGHT: 175.3 cm WEIGHT: 101.6 kg BP: RVIDd: 2.7 cm (< 3.3) IVSd: 1.3 cm (0.6 - 1.1) LVIDd: 4.9 cm (3.9 - 5.3) LVPWd: 0.9 cm (0.6 - 1.1) IVSs: 1.4 cm LVIDs: 3.9 cm LVPWs: 1.2 cm LAESV Index (A-L): 39.46 ml/m Ao Diam: 2.9 cm (2.0 - 3.7) AV Cusp: 2.0 cm (1.5 - 2.6) LA Diam: 3.9 cm (2.7 - 3.8) MV EXCURSION: 13.189 mm (> 18.000) MV EF SLOPE: 66 mm/s (70 - 150) EPSS: 1.5 cm MV E Mychal: 1.20 m/s MV DecT: 191 ms MV A Mychal: 0.45 m/s MV E/A Ratio: 2.67 AV maxP.75 mmHg AV meanP.24 mmHg AR PHT: 825 ms RAP: 5.00 mmHg RVSP: 33.06 mmHg FINDINGS -------- Paced rhythm. This was a technically difficult study with suboptimal views. The left ventricular size is normal. There is borderline concentric left ventricular hypertrophy. Overall left ventricular systolic function is mildly impaired with, an EF between 45 - 50 %. Left ventricular fillimg pressure cannot be estimated due to paced rhythm. The right ventricle is normal in size. LA is moderately dilated 34-39 ml/m2 The right atrial size is normal. Lumason used Aortic valve is trileaflet and is mildly thickened. There is mild aortic valve sclerosis. There i s mild aortic regurgitation. Peak/mean gradient across the Aortic Valve is 13.75mmHg / 7.24mmHg. The mitral valve is normal. Mild mitral regurgitation is present. The tricuspid valve appears structurally normal. Mild tricuspid regurgitation present. Right vent ricular systolic pressure is normal at < 35 mmHg. There is no pulmonic regurgitation present. The aortic root size is normal. IVC Not well visulized. There is no pericardial effusion. CONCLUSIONS -------- 1. Paced rhythm. 2. The left ventricular size is normal. 3. There is borderline concentric left ventricular hypertrophy. 4. Overall left ventricular systolic function is mildly impaired with, an EF between 45 - 50 %. 5. Left ventricular fillimg pressure cannot be estimated due to paced rhythm. 6. LA is moderately dilated 34-39 ml/m2 7. Aortic valve is trileaflet and is mildly thickened. 8. There is mild aortic valve sclerosis. 9. There is mild aortic regurgitation. 10. Peak/mean gradient across the Aortic Valve is 13.75mmHg / 7.24mmHg. 11. Mild mitral regurgitation is present. 12. Mild tricuspid regurgitation present. 13. There is no pericardial effusion. ADMISSIONS CLERK: Madeline Dodd RDCS
[2020-11-21] MEDS ORDERED: ALPRAZolam 0.25 MG TAB PO PRN (12:55)
[2020-11-21] MEDS ORDERED: ALPRAZolam 0.5 MG TAB PO PRN (12:55)
[2020-11-21] MEDS ORDERED: HEPARIN SODIUM 1,000 UN/ML (10ML VL) IV PRN (12:56)
[2020-11-21] MEDS ORDERED: HEPARIN SODIUM 1,000 UN/ML (10ML VL) IV ONE (12:56)
--- NOTE | 2020-11-21 13:24 | P.CRDCN ---
History of Present Illness History of present illness: HISTORY OF PRESENTING ILLNESS This is a pleasant 70-year-old male past medical history significant for coronary artery disease s/p PCI, ventricular tachycardia s/p ablations 2017 and 2019, ischemic cardiomyopathy s/p BiV AICD, chronic persistent atrial fibrillation, hypertension, dyslipidemia, obstructive sleep apnea and obesity. He follows in the office with Dr. Garcia. We have been asked to see in consultation for chest pain. He presented to the hospital with symptoms of chest pain. He states is started early this morning around 0500. The pain was described as a heavy tight sensation. The pain was persistent associated with shortness of breath, diaphoresis and nausea. Device interrogation obtained revealed he received 2 shocks from his device this morning for sustained monomorphic VT. First at 0557 and second at 0644. He does not recall the first shock but does for sure recall the second. He is seen and examined sitting up on the stretcher in no acute distress. He states his chest pain has resolved. Breathing is stable. He underwent recent upgrade of his ICD to BiV 01/[address] Alfaro. Prior to that in 2018 he presented with a similar type picture. C atheterization at that time revealed stable coronary artery disease with a patent stent in the LAD and circumflex with a mid lesion of the small branch of RCA 90%. Subsequently thereafter he underwent a successful VT ablation. Echocardiogram obtained this admission reveals preserved LV systolic function with ejection fraction 45-50%, moderately dilated left atrium, mild aortic regurgitation with a mean gradient across the aortic valve is 7 mmHg, mild MR and mild TR. DIAGNOSTICS EKG reveals ventricular paced rhythm with underlying atrial fibrillation. Chest xray chronic changes and cardiomegaly with no acute cardiopulmonary process. Laboratory reviewed, WBC 5, hgb 16.3, plt 118, sodium 139, potassium 4.6, creatinine 0.65, magnesium 2.1, troponin 0.044, 0.486 and proBNP 819. Current cardiac medications include lisinopril 20 mg daiy, sotalol 80 BID, xarelto 15 mg daily, mexilitine 150 mg TID, toprol 100 mg daily, aspirin 81 mg daily and atorvastatin 40 mg daily. REVIEW OF SYSTEMS At the time of my exam: CONSTITUTIONAL: Denies fever or chills. CARDIOVASCULAR: Denies chest pain, shortness of breath, orthopnea, PND or palpitations. RESPIRATORY: Denies cough. GASTROINTESTINAL: Denies abdominal pain, diarrhea, constipation, nausea or vomiting. MUSCULOSKELETAL: Denies myalgias. NEUROLOGIC: Denies numbness, tingling, headacbe or weakness. ENDOCRINE: Denies fatigue, weight change, polydipsia or polyurina. GENITOURINARY: Denies burning, hematuria or urgency with micturation. HEMATOLOGIC: Denies history of anemia or bleeding. PHYSICAL EXAMINATION Blood pressure 103/73 heart rate 53 afebrile and maintaining oxygen saturation on room air. CONSTITUTIONAL: No apparent distress. HEENT: Head is normocephalic. Pupils are equal, round. Sclerae anicteric. Mucous membranes of the mouth are moist. No JVD. No carotid bruit. CHEST EXAMINATION: Lungs are clear to auscultation. No chest wall tenderness is noted on palpation or with deep breathing. HEART EXAMINATION: Irregular rate and rhythm. S1, S2 heard. No murmurs, gallops or rub. ABDOMEN: Soft, nontender. Positive bowel sounds. EXTREMITIES: 2+ peripheral pulses, no lower extremity edema and no calf tenderness. NEUROLOGIC EXAMINATION: Patient is awake, alert and oriented x3. ASSESSMENT Chest pain NSTEMI, could be related to ICD shock therapy Sustained ventricular tachycardia s/p shock therapy from ICD History of VT and VF in the past Ischemic cardiomyopathy Chronic persistent atrial fibrillation on xarelto Hypertension Dyslipidemia Coronary artery disease s/p PCI LAD and circumflex artery Diabetes mellitus Sleep apnea PLAN Initiate heparin infusion and hold xarelto. Resume sotalol, toprol and mexilitine as previously ordered. Continue aspirin and statin. Hold lisinopril secondary to hypotension. Repeat BMP in the morning. Check TSH. Echocardiogram reviewed. Recommend proceeding with cardiac catheterization. I have discussed the risks, benefits and alternative therapies for the above-mentioned procedure and for both sedation/analgesia as well as necessary blood product administration, if indicated, as they pertain to this patient. The patient has indicated understanding and acceptance of the risks and procedures discussed. Questions have been answered appropriately and he is agreeable to move forward with the above stated procedure. Nothing by mouth after midnight tonight. Further recommendations to follow based on clinical course. Thank you kindly for this consultation. Nurse Practitioner note has been reviewed, I agree with a documented findings and plan of care. Patient was seen and examined. Past Medical History Past Medical History: Cancer, Diabetes Mellitus, Hyperlipidemia, Myocardial Infarction ([place]), Pneumonia, Sleep Apnea/CPAP/BIPAP Additional Past Medical History / Comment(s): hx skin cancer left ear ,States SOB with exertion @times, "wheezy", see Dr Alfaro H&P, no CPAP used, diet controlled diabetes Last Myocardial Infarction Date:: 1999 History of Any Multi-Drug Resistant Organisms: None Reported Past Surgical History: AICD, Cardiac Ablation, Heart Catheterization, Heart Catheterization With Stent Additional Past Surgical History / Comment(s): 3 cardiac stents, cardiac ablation x 2 Past Anesthesia/Blood Transfusion Reactions: Previous Problems w/ Anesthesia Additional Past Anesthesia/Blood Transfusion Reaction / Comment(s): DIFFICULTY WAKING UP AFTER Anesthesia- States sensitive to medications. Date of Last Stent Placement:: 2016 Type of Cardiac Device: AICD Device Placement Date:: 02/23/14 Past Psychological History: No Psychological Hx Reported Smoking Status: Never smoker Past Alcohol Use History: Daily Past Drug Use History: None Reported - Past Family History Father Additional Family Medical History / Comment(s): AT AGE 72-GAVE UP HIS INSULIN ATE THE WAY HE WANTED A 1 YEAR LATER. HX SPINAL MENINGITIS Mother Additional Family Medical History / Comment(s): at the age of 72 yrs from a LIVER CONDITION. Sister(s) Family Medical History: Cancer Medications and Allergies Home Medications Medication Instructions Recorded Confirmed Type Escitalopram [Lexapro] 10 mg PO DAILY #30 tab 03/14/14 11/21/20 Rx Atorvastatin [Lipitor] 40 mg PO DAILY 11/28/15 11/21/20 History Aspirin 81 mg PO DAILY #30 chew 04/30/17 11/21/20 Rx Rivaroxaban [Xarelto] 15 mg PO DAILY 08/05/18 11/21/20 History Sotalol [Betapace] 80 mg PO BID@0900,1600 08/05/18 11/21/20 History lisinopriL 20 mg PO DAILY 12/23/18 11/21/20 History Metoprolol Succinate [Toprol XL] 100 mg PO DAILY #90 tab 01/25/20 11/21/20 Rx Mexiletine [Mexitil] 150 mg PO TID@0900,1600,2100 11/21/20 11/21/20 History Allergies Allergy/AdvReac Type Severity Reaction Status Date / Time codeine AdvReac passed out Verified 11/21/20 07:44 at 23 yrs old Physical Exam Vitals: Vital Signs Temp Pulse Resp BP Pulse Ox 11/21/20 12:11 53 L 19 103/73 98 11/21/20 11:21 118/71 11/21/20 11:17 97.8 F 51 L 20 99 11/21/20 10:35 49 L 20 131/84 99 11/21/20 08:00 49 L 18 102/70 97 11/21/20 07:19 49 L 18 100/62 99 11/21/20 07:02 50 L 18 138/71 98 11/21/20 06:44 97.5 F L 153 H 24 103/72 82 L Intake and Output 11/20/20 11/21/20 11/21/20 22:59 06:59 14:59 Other: Weight 101.605 kg Results 11/21/20 06:58 11/21/20 06:58 Cardiac Enzymes 11/21/20 11/21/20 11/21/20 Range/Units 06:58 06:58 09:53 AST 42 (17-59) U/L Troponin I 0.044 H* 0.486 H* (0.000-0.034) ng/mL Coagulation 11/21/20 Range/Units 06:58 PT 10.6 (9.0-12.0) sec APTT 25.8 (22.0-30.0) sec CBC 11/21/20 Range/Units 06:58 WBC 5.0 (3.8-10.6) k/uL RBC 4.96 (4.30-5.90) m/uL Hgb 16.3 (13.0-17.5) gm/dL Hct 46.8 (39.0-53.0) % Plt Count 118 L (150-450) k/uL Comprehensive Metabolic Panel 11/21/20 Range/Units 06:58 Sodium 139 (137-145) mmol/L Potassium 4.6 (3.5-5.1) mmol/L Chloride 105 (98-107) mmol/L Carbon Dioxide 27 (22-30) mmol/L BUN 15 (9-20) mg/dL Creatinine 0.65 L (0.66-1.25) mg/dL Glucose 157 H (74-99) mg/dL Calcium 9.1 (8.4-10.2) mg/dL AST 42 (17-59) U/L ALT 37 (4-49) U/L Alkaline Phosphatase 199 H (38-126) U/L Total Protein 6.9 (6.3-8.2) g/dL Albumin 3.8 (3.5-5.0) g/dL Current Medications Generic Name Dose Route Start Last Admin Trade Name Freq PRN Reason Stop Dose Admin Aspirin 325 mg 11/22/20 09:00 Aspirin 325 Mg Tab PO DAILY NAVEED Nitroglycerin 0.4 mg 11/21/20 08:18 Nitroglycerin Sl Tabs 0.4 Mg Tab SUBLINGUAL Q5M PRN Chest Pain Pantoprazole Sodium 40 mg 11/21/20 11:00 11/21/20 11:23 Pantoprazole 40 Mg/10 Ml Vial IVP 40 mg DAILY NAVEED Administration Intake and Output 11/20/20 11/21/20 11/21/20 22:59 06:59 14:59 Other: Weight 101.605 kg 11/21/20 06:58 11/21/20 06:58
[2020-11-21] MEDS: HEPARIN SOD,PORK IN 0.45% NACL 25,000 UNIT in 0.45% NACL 1 250ML.BAG IV SCH (13:45)
[2020-11-21] MEDS: ATORVASTATIN 40 MG TAB PO SCH (13:48)
[2020-11-21] MEDS: METOPROLOL SUCCINATE (ER) 100 MG TAB.ER.24H PO SCH (13:49)
[2020-11-21] MEDS: MEXILETINE 150 MG CAP PO SCH ×2 (16:34→19:55)
[2020-11-21] MEDS: SOTALOL 80 MG TAB PO SCH (16:35)
--- NOTE | 2020-11-21 16:53 | P.HPIM ---
History of Present Illness H&P Date: 11/21/20 Chief Complaint: Chest pressure Jessicaista 70-year-old gentleman with past medical history of CAD, PA ,cardiac stenting, cardiomyopathy, hypertension, hyperlipidemia, AICD placement secondary to ventricular arrhythmias, successful VT ablation, diabetes mellitus, sleep apnea, wears CPAP, DVT, and multiple other medical issues presented to the ER with complaints of nonradiating chest heaviness /pressure accompanied by shortness of breath ,nausea and diaphoresis, with possible firing of his defibrillator 2, since an hour prior to admission. Patient reports he recently had his AICD upgraded ,was scheduled for echo today with Dr. Cross. Currently denies chest pain, palpitations or shortness of breath. Device interrogated, reporting a sustained runs of V. tach with 2 shocks per ER. EKG reporting ventricular paced rhythm, rate controlled. Sodium 139 potassium 4.6, BUN 15 creatinine 0.65, glucose 157, magnesium 2.1 alk phos 199, troponin 0.044, 0.486, 0.786. Hematology panel unremarkable with the exception of platelets 118-appears to be chronic. Coronavirus not detected. Chest x-ray reported chronic changes, cardiomegaly, no acute pulmonary process .afebrile . On admission, heart rate 153,respiratory rate 24, blood pressure 103/72, O2 sat 82% on room air . Currently heart rate 49, O2 sat high 90s on 2 L nasal cannula with systolic blood pressure ranging from low 100s to 130s. Cardiology consulted. Echo pending. Review of Systems Constitutional: Denied any fatigue denied any fever. Positive diaphoresis Cardio vascular: Chest pressure as described above Gastrointestinal denied any vomiting, positive nausea Pulmonary: Denied cough Neurologic denied any new focal deficits ROS Statement: Those systems with pertinent positive or pertinent negative responses have been documented in the HPI. ROS Other: All systems not noted in ROS Statement are negative. Past Medical History Past Medical History: Cancer, Diabetes Mellitus, Hyperlipidemia, Myocardial I nfarction ([place]), Pneumonia, Sleep Apnea/CPAP/BIPAP Additional Past Medical History / Comment(s): hx skin cancer left ear ,States SOB with exertion @times, "wheezy", see Dr Alfaro H&P, no CPAP used, diet controlled diabetes Last Myocardial Infarction Date:: 1999 History of Any Multi-Drug Resistant Organisms: None Reported Past Surgical History: AICD, Cardiac Ablation, Heart Catheterization, Heart C atheterization With Stent Additional Past Surgical History / Comment(s): 3 cardiac stents, cardiac ablation x 2 Past Anesthesia/Blood Transfusion Reactions: Previous Problems w/ Anesthesia Additional Past Anesthesia/Blood Transfusion Reaction / Comment(s): DIFFICULTY WAKING UP AFTER Anesthesia- States sensitive to medications. Date of Last Stent Placement:: 2016 Type of Cardiac Device: AICD Device Placement Date:: 02/23/14 Past Psychological History: No Psychological Hx Reported Smoking Status: Never smoker Past Alcohol Use History: Daily Past Drug Use History: None Reported - Past Family History Father Additional Family Medical History / Comment(s): AT AGE 72-GAVE UP HIS INSULIN ATE THE WAY HE WANTED A 1 YEAR LATER. HX SPINAL MENINGITIS Mother Additional Family Medical History / Comment(s): at the age of 72 yrs from a LIVER CONDITION. Sister(s) Family Medical History: Cancer Medications and Allergies Home Medications Medication Instructions Recorded Confirmed Type Escitalopram [Lexapro] 10 mg PO DAILY #30 tab 03/14/14 11/21/20 Rx Atorvastatin [Lipitor] 40 mg PO DAILY 11/28/15 11/21/20 History Aspirin 81 mg PO DAILY #30 chew 04/30/17 11/21/20 Rx Rivaroxaban [Xarelto] 15 mg PO DAILY 08/05/18 11/21/20 History Sotalol [Betapace] 80 mg PO BID@0900,1600 08/05/18 11/21/20 History lisinopriL 20 mg PO DAILY 12/23/18 11/21/20 History Metoprolol Succinate [Toprol XL] 100 mg PO DAILY #90 tab 01/25/20 11/21/20 Rx Mexiletine [Mexitil] 150 mg PO TID@0900,1600,2100 11/21/20 11/21/20 History Allergies Allergy/AdvReac Type Severity Reaction Status Date / Time codeine AdvReac passed out Verified 11/21/20 07:44 at 23 yrs old Physical Exam Vitals: Vital Signs Temp Pulse Resp BP Pulse Ox 11/21/20 08:00 49 L 18 102/70 97 11/21/20 07:19 49 L 18 100/62 99 11/21/20 07:02 50 L 18 138/71 98 11/21/20 06:44 97.5 F L 153 H 24 103/72 82 L Intake and Output 11/20/20 11/21/20 11/21/20 22:59 06:59 14:59 Other: Weight 101.605 kg GENERAL: Alert and oriented 3, Sitting up on stretcher, no acute distress HEENT: Head is atraumatic, normocephalic. Pupils equal, round. Sclera anicteric. Conjunctiva clear. Mucous membranes moist. Neck is supple, no JVD. HEART EXAMINATION: Heart S1, S2 normal. No murmur or gallop heard. CHEST EXAMINATION: Bilateral equal air entry ,Lungs are clear to auscultation and precussion. ABDOMEN: Soft, nontender. Nondistended. Bowel sounds are heard. No organomegaly noted. No guarding. EXTREMITIES: 2+ peripheral pulses with no evidence of peripheral edema and no calf tenderness noted. NEUROLOGIC cranial nerves II through XII grossly intact, no focal deficits Results CBC & Chem 7: 11/21/20 06:58 11/21/20 06:58 Labs: Abnormal Lab Results - Last 24 Hours (Table) 11/21/20 11/21/20 11/21/20 Range/Units 06:58 06:58 06:58 Plt Count 118 L (150-450) k/uL Creatinine 0.65 L (0.66-1.25) mg/dL Glucose 157 H (74-99) mg/dL Alkaline Phosphatase 199 H (38-126) U/L Troponin I 0.044 H* (0.000-0.034) ng/mL Assessment and Plan Assessment: Chest pain, sustained V. tach with shock therapy per interrogation,rule out ACS Hypoxic respiratory failure secondary to all the above History of AICD for ventricular arrhythmia CAD with history of PA, prior stenting of the LAD and circumflex Ischemic Cardiomyopathy Chronic persistent atrial fibrillation, anticoagulated on Xarelto Hyperlipidemia Hypertension Diabetes mellitus Obstructive sleep apnea Obesity, BMI 33.1 Plan: Continue on current medication regime ,monitoring and symptomatic treatment. OSMAN inhibitor remains on hold related to borderline hypotension .Serial Troponins. Echo pending. Anticoagulate with heparin drip. Further radiology recommendations pending. The impression and plan of care has been dictated as directed. : I performed a history and examination of this patient, discussed the same with the dictator. I agree with the dictator's note ,documented as a scribe. Any additional findings or plans will be noted.
[2020-11-21] MEDS: lisinopriL 20 MG TAB PO SCH (17:31)
[2020-11-21] MEDS: ESCITALOPRAM 10 MG TAB PO SCH (17:31)
[2020-11-21] MEDS ORDERED: SODIUM CHLORIDE 0.9% 1,000 ML in EMPTY BAG 1 BAG IV ONE (23:59)
[2020-11-22] MEDS: METOPROLOL SUCCINATE (ER) 100 MG TAB.ER.24H PO SCH (06:24)
[2020-11-22] MEDS: ESCITALOPRAM 10 MG TAB PO SCH (06:25)
[2020-11-22] MEDS: MEXILETINE 150 MG CAP PO SCH ×3 (06:25→23:01)
[2020-11-22] MEDS: ATORVASTATIN 40 MG TAB PO SCH (06:25)
[2020-11-22] MEDS: lisinopriL 20 MG TAB PO SCH (06:25)
[2020-11-22] MEDS: SOTALOL 80 MG TAB PO SCH ×2 (06:26→16:22)
[2020-11-22] MEDS: PANTOPRAZOLE 40 MG/10 ML VIAL IVP SCH (06:26)
[2020-11-22] MEDS ORDERED: HEPARIN SODIUM,PORCINE 10,000 UNIT in SODIUM CHLORIDE 0.9% 1,000 ML IRRIGATION PRN (07:00)
[2020-11-22] MEDS ORDERED: HEPARIN SODIUM,PORCINE 2,500 UNIT in SODIUM CHLORIDE 0.9% 250 ML IRRIGATION PRN (07:00)
[2020-11-22 08:09] LABS: Partial Thromboplastin Time 66.4 sec (22.0-30.0); Prothrombin Time 11.1 sec (9.0-12.0)
[2020-11-22 08:36] LABS: Basophils % (A) 1 %; Eosinophils # (A) 0.2 k/uL (0-0.7); Eosinophils % (A) 3 %; HCT 44.6 % (39.0-53.0); HGB 15.5 gm/dL (13.0-17.5); Lymphocytes # (A) 1.2 k/uL (1.0-4.8); Lymphocytes % (A) 27 %; MCH 33.5 pg (25.0-35.0); MCHC 34.8 g/dL (31.0-37.0); MCV 96.2 fL (80.0-100.0); Monocytes # (A) 0.4 k/uL (0-1.0); Monocytes % (A) 8 %; Neutrophils # (A) 2.6 k/uL (1.3-7.7); Neutrophils % (A) 58 %; RBC 4.64 m/uL (4.30-5.90); RDW 14.1 % (11.5-15.5); WBC 4.5 k/uL (3.8-10.6)
[2020-11-22 08:50] LABS: African American GFR (CKD) >90 (>60 ml/min/1.73 sqM); Anion Gap 4 mmol/L; Blood Urea Nitrogen 14 mg/dL (9-20); Calcium 8.5 mg/dL (8.4-10.2); Carbon Dioxide 28 mmol/L (22-30); Chloride 106 mmol/L (98-107); Glucose 146 mg/dL (74-99); Non-African American GFR(CKD) >90 (>60 ml/min/1.73 sqM); Potassium 4.6 mmol/L (3.5-5.1); Sodium 138 mmol/L (137-145)
[2020-11-22] MEDS ORDERED: ASPIRIN 325 MG TAB PO SCH (09:00)
[2020-11-22 09:58] LABS: Platelet Count 90 k/uL (150-450)
[2020-11-22] MEDS ORDERED: fentaNYL (PF) 50 MCG/ML 2 ML AMP ONE (10:45)
[2020-11-22] MEDS ORDERED: LIDOCAINE 1% INJ 10MG/ML (20 ML MDV) ONE (10:46)
[2020-11-22] MEDS ORDERED: MIDAZOLAM 2 MG/2 ML VIAL IV ONE (10:52)
[2020-11-22] MEDS ORDERED: LIDOCAINE 1% INJ 10MG/ML (20 ML MDV) SQ ONE (10:52)
[2020-11-22] MEDS: fentaNYL (PF) 50 MCG/ML 2 ML AMP IV ONE ×2 (10:52→11:15)
[2020-11-22] MEDS ORDERED: IV FLUID CONTINUATION 1,000 ML IV ONE (10:53)
--- NOTE | 2020-11-22 11:14 | P.CARDCATH ---
Date of Procedure: 11/22/20 Preoperative Diagnosis: Chest pain followed by episodes of V. tach requiring ICD shocks Postoperative Diagnosis: Critical lesion involving the diagonal branch of the LAD Procedure(s) Performed: Left heart cath without left ventriculography Description of Procedure: HISTORY: This is a 70-year-old gentleman with history of ischemic heart disease with a previous stent placements and also AICD implantation who comes to the hospital with complaints of prolonged chest pain followed by ventricular tachycardia episodes 2 requiring ICD shocks. Troponins are mildly elevated. Patient is advised to have cardiac catheterization for definitive diagnosis CONSENT:I have discussed the risks, benefits and alternative therapies for the above-mentioned procedure and for both sedation/analgesia as well as necessary blood product administration, if indicated, as they pertain to this patient. The patient has indicated understanding and acceptance of the risks and procedures discussed. PROCEDURE: Patient was brought to the lab in a fasting state. Patient was given some IV sedation. The right groin is infiltrated with lidocaine and right femoral artery was entered using Seldinger technique. A 6-Slovenian catheter was left in place and selective coronary arteriography was performed. Patient tolerated the procedure well. Patient is found to have a critical lesion involving the diagonal branch ostium. The stents in the LAD are patent and also in the circumflex. Patient went on to have stent placement of the ostium of the diagonal Conscious Sedation: Versed 2mg Fentanyl 50 g Duration 20minutes HEMODYNAMICS: Aortic pressure is 110/60. Left ventricle end-diastolic pressure is normal SELECTIVE CORONARY ARTERIOGRAPHY: LEFT MAIN: Normal length and free of occlusive disease THE LEFT ANTERIOR DESCENDING CORONARY ARTERY: . The left anterior descending coronary is patent at the site of previous stent placement. The second diagonal branch which is a moderate caliber vessel, has about 70-80% ostial stenosis THE LEFT CIRCUMFLEX AND IS CORONARY ARTERY: . The circumflex coronary artery is a dominant vessel and the previously stented area appears to be patent. No other significant blockages are noted THE RIGHT CORONARY ARTERY: Nondominant vessel with chronic 80% stenosis in midportion LEFT VENTRICULOGRAPHY: . Not performed FINAL IMPRESSION: Patent stents in LAD and circumflex. New critical lesion involving the ostium of the diagonal. Chronic critical lesion involving the small nondominant RCA PLAN: Stent placement of the diagonal to be done by Dr. Mota PROGNOSIS: Guarded
--- NOTE | 2020-11-22 11:15 | CDI ---
Documentation Clarification Form Date: 11/22/2020 11:03:39 AM From: Linda Miller CCS, CCDS Admit Date: 11/21/2020 08:18:00 AM Patient Name: Gen Meier Visit Number: [id number] Discharge Date: ATTENTION: The Clinical Documentation Specialists (CDI) and [facility] Coding Staff appreciate your assistance in clarifying documentation. Please respond to the clarification below the line at the bottom and electronically sign. The CDI & [facility] Coding staff will review the response and follow-up if needed. Please note: Queries are made part of the Legal Health Record. If you have any questions, please contact the author of this message via ITS. Dr. Yaya Henson: Hypoxic Respiratory Failure secondary to Chest Pain, sustained V Tach with Shock Therapy per interrogation of ICD is documented in the 11/21 H/P. Additional diagnosis regarding the acuity of the patient's hypoxemic respiratory failure is requested. History/Risk Factors per the 11/21 H/P: CAD with history of IA status post stent to LAD, Ischemic Cardiomyopathy, Chronic Persistent Atrial Fibrillation on Xarelto, AICD for ventricular arrhythmia, Hypertension, Hyperlipidemia, DM, MARILY and Obesity w/BMI 33.1. Non smoker. Clinical Indicators: Presented to the ED on 11/21 with chest pain, acute onset an hour prior to arrival, sweaty & nauseated. Per the patient, he has a new defibrillator that went off twice. ED Clinical Impression: Chest pain and Ventricular Tachycardia. 11/21 VS: T 97.5, P 153, R 25, BP 103/72, PO 82 RA - 98 2Lnc, BMI: 32.3 11/21 LAB: Pl Ct 118, Cr 0.65, CO2 27, Glucose 157, Alk Phos 199, Troponin 0.044, 0.486, 0.786. 11/21 CXR: Chronic changes and cardiomegaly without new acute pulmonary process. Treatment 11/21: O2 2Lnc, po Aspirin, IV Protonix, IV Heparin drip, IV NaCl 1,000 mls @ 1ml/kg/hr Please specify the acuity of the hypoxemic respiratory failure: [ ] Acute Hypoxic Respiratory Failure [ ] Chronic Hypoxic Respiratory Failure [ ] Acute on Chronic Hypoxic Respiratory Failure [ ] Respiratory Failure ruled out [ ] Other, please specify [ ] Unable to determine (Template Last Revised: September 2020) MTDD
[2020-11-22] MEDS ORDERED: BIVALIRUDIN BOLUS 250 MG/50 ML IV ONE (11:31)
[2020-11-22] MEDS ORDERED: IOPAMIDOL-370 100ML BTL INJ ONE ×2 (11:32→12:02)
[2020-11-22] MEDS ORDERED: BIVALIRUDIN 250 MG in SODIUM CHLORIDE 0.9% 35 ML IV ONE (11:32)
[2020-11-22] MEDS: MIDAZOLAM 2 MG/2 ML VIAL IV ONE ×2 (11:39→11:41)
[2020-11-22] MEDS ORDERED: TICAGRELOR 90 MG TAB ONE (11:59)
[2020-11-22] MEDS ORDERED: TICAGRELOR 90 MG TAB PO ONE (12:01)
[2020-11-22] MEDS ORDERED: NITROGLYCERIN SL TABS 0.4 MG TAB SUBLINGUAL PRN (12:18)
[2020-11-22] MEDS ORDERED: RX INFO: IV CONTRAST WAS GIVEN 1 EACH MISC MISCELLANE PRN (12:18)
[2020-11-22] MEDS ORDERED: ATROPINE SULFATE 0.1 MG/ML 10ML SYRINGE IV PRN (12:18)
[2020-11-22] MEDS ORDERED: MAG HYDROX/AL HYDROX/SIMETH 30 ML CUP PO PRN (12:18)
[2020-11-22] MEDS ORDERED: ZOLPIDEM 5 MG TAB PO PRN (12:18)
[2020-11-22] MEDS ORDERED: SODIUM CHLORIDE 0.9% 1,000 ML IV SCH (12:30)
[2020-11-22] MEDS: HEPARIN SOD,PORK IN 0.45% NACL 25,000 UNIT in 0.45% NACL 1 250ML.BAG IV SCH (14:07)
--- NOTE | 2020-11-22 15:45 | LTR ---
November 22, 2020 To: Dr. Sudeep Cabrera Re: Gen Hardeep (54) Dear Dr. Cabrera, MrEmma Meier underwent successful stenting of the diagonal branch of the LAD with good angiographic results and without any complication. I want to thank you for allowing me to participate in his care, and please do not hesitate to call if you have any question or concern. Sincerely, Orlando Velez M.D. IBAN / KETTY: [phone] /
--- NOTE | 2020-11-22 15:45 | PTCA ---
PERCUTANEOUSTRANS CORORONARY ANGIOGRAPHY DATE OF SERVICE: 11/22/2020 PERFORMING PHYSICIAN: Orlando Velez M.D. PROCEDURES PERFORMED: 1. Successful stenting of the diagonal branch of the LAD along with balloon angioplasty of the LAD with a kissing technique using a 2.5 x 15 mm Xience drug- eluting stent with excellent angiographic results and reduction of stenosis from 80% to zero percent. 2. Intravascular ultrasound (IVUS) of the left anterior descending artery. 3. Selective right common femoral artery angiogram. INDICATION: This is a very pleasant 70-year-old gentleman who sees Dr. Garcia in the office regularly with coronary artery disease and prior stenting of the LAD as well as ischemic cardiomyopathy and status post biventricular ICD and also hypertension and dyslipidemia. He received an ICD shock. He underwent heart catheterization by Dr. Garcia and was found to have severe disease involving the ostial of a large diagonal branch of the LAD just proximal to the previous LAD stent. APPROACH: Right common femoral artery. COMPLICATIONS: None. LEVEL OF SEDATION: Moderate, with sedation length of 41 minutes. PROCEDURE DESCRIPTION: Please refer to diagnostic heart catheterization that was performed by Dr. Garcia earlier today. Anticoagulation was initiated using Angiomax. I did engage the left main using a 7-Luxembourgish JL4 guide. I did wire the LAD using a run- through wire and wired the diagonal using a Whisper wire. Subsequently I did balloon angioplasty of the diagonal using a 2.5 x 12 mm balloon which was inflated under 10 atmospheres for 20 seconds. After that I did stenting of the diagonal branch using a 2.5 x 15 mm Xience drug-eluting stent, and at the same time I did PTCA ballooning of the LAD in a kissing technique. I did that because I did not want to pinch the stent in the LAD. The stent was deployed under 10 atmospheres for 20 seconds along with 10 atmospheres for 10 seconds of inflation of the balloon in the LAD. The following angiogram showed excellent angiographic results. Just to make sure there were no stent struts in the LAD, I did intravascular ultrasound, which showed good results. The procedure was completed without any complication. After that I did selective right common femoral artery angiogram. The procedure was completed without any complication. POST-PROCEDURE MANAGEMENT: 1. Dual anti-platelet therapy. 2. Aggressive cholesterol control. 3. Risk factor modifications. 4. Follow up with the patient. MMODL / IJN: [id number] /
--- NOTE | 2020-11-22 16:18 | P.PN ---
Subjective Progress Note Date: 11/22/20 Jean-Claude 70-year-old gentleman with past medical history of CAD, [place] ,cardiac stenting, cardiomyopathy, hypertension, hyperlipidemia, AICD placement secondary to ventricular arrhythmias, successful VT ablation, diabetes mellitus, sleep apnea, wears CPAP, DVT, and multiple other medical issues presented to the ER with complaints of nonradiating chest heaviness /pressure accompanied by shortness of breath ,nausea and diaphoresis, with possible firing of his defibrillator 2, since an hour prior to admission. Patient reports he recently had his AICD upgraded ,was scheduled for echo today with Dr. Cross. Currently denies chest pain, palpitations or shortness of breath. Device interrogated, reporting a sustained runs of V. tach with 2 shocks per ER. EKG reporting ventricular paced rhythm, rate controlled. Sodium 139 potassium 4.6, BUN 15 creatinine 0.65, glucose 157, magnesium 2.1 alk phos 199, troponin 0.044, 0.486, 0.786. Hematology panel unremarkable with the exception of platelets 118 -appears to be chronic. Coronavirus not detected. Chest x-ray reported chronic changes, cardiomegaly, no acute pulmonary process .afebrile . On admission, heart rate 153,respiratory rate 24, blood pressure 103/72, O2 sat 82% on room air . Currently heart rate 49, O2 sat high 90s on 2 L nasal cannula with systolic blood pressure ranging from low 100s to 130s. Cardiology consulted. Echo pending. 11/22/2020 Recently returned back from cardiac catheterization, reporting patent stents in the LAD and circumflex, new critical lesion involving the ostium of the diagonal with stent placed, chronic critical lesion involving the small nondominant RCA. Tolerated procedure well. procedure well. Denies chest pain, palpitations or shortness of breath. Troponin reported mildly impaired LV functi on with EF 45-50%. Objective - Vital Signs Vital signs: Vital Signs Temp 97.8 F 11/22/20 08:20 Pulse 50 L 11/22/20 13:10 Resp 16 11/22/20 13:10 BP 127/74 11/22/20 13:10 Pulse Ox 97 11/22/20 13:18 Intake & Output 11/21/20 11/22/20 11/22/20 18:59 06:59 18:59 Intake Total 180 800 577.667 Balance 180 800 577.667 Weight 101.605 kg 99.3 kg Intake: IV 400 Intake, IV Titration 800 177.667 Amount Heparin Sod,Pork in 0.45% 177.667 NaCl 25,000 unit In 0.45 % NaCl 1 250ml.bag @ 9. 842 UNITS/KG/HR 10 mls/hr IV .Q24H [facility] Rx#: [id number] Sodium Chloride 0.9% 1, 800 000 ml In Empty Bag 1 bag @ 1 ML/KG/HR 101.605 mls /hr IV .[id number] [facility] Rx#: [id number] Oral 180 Other: Voiding Method Toilet Toilet Urinal Urinal # Voids 2 - Exam GENERAL: Alert and oriented 3, lying in bed, drowsy, no acute distress HEENT: Head is atraumatic, normocephalic. Pupils equal, round. Sclera anicteric. Conjunctiva clear. Mucous membranes moist. Neck is supple, no JVD. HEART EXAMINATION: Heart S1, S2 normal. No murmur or gallop heard. CHEST EXAMINATION: Bilateral equal air entry ,Lungs are clear to auscultation and precussion. ABDOMEN: Soft, nontender. Nondistended. Bowel sounds are heard. No organomegaly noted. No guarding. EXTREMITIES: 2+ peripheral pulses with no evidence of peripheral edema and no calf tenderness noted. NEUROLOGIC cranial nerves II through XII grossly intact, no focal deficits - Labs CBC & Chem 7: 11/22/20 07:18 11/22/20 07:18 Labs: Abnormal Lab Results - Last 24 Hours (Table) 11/21/20 11/21/20 11/22/20 Range/Units 12:33 19:26 07:18 Plt Count 90 L (150-450) k/uL APTT 48.7 H (22.0-30.0) sec Glucose (74-99) mg/dL Troponin I 0.786 H* (0.000-0.034) ng/mL 11/22/20 11/22/20 Range/Units 07:18 07:18 Plt Count (150-450) k/uL APTT 66.4 H (22.0-30.0) sec Glucose 146 H (74-99) mg/dL Troponin I (0.000-0.034) ng/mL Assessment and Plan Assessment: Chest pain, sustained V. tach with shock therapy per interrogation.NSTEMI, Status post cardiac cath. reporting patent stents in the LAD and circumflex, new critical lesion involving the ostium of the diagonal with stent placed, chronic critical lesion involving the small nondominant RCA. Hypoxic respiratory failure secondary to all the above History of AICD for ventricular arrhythmia CAD with history of [place], prior stenting of the LAD and circumflex Ischemic Cardiomyopathy Chronic persistent atrial fibrillation, anticoagulated on Xarelto Hyperlipidemia Hypertension Diabetes mellitus Obstructive sleep apnea Obesity, BMI 33.1 Plan: Continue on current medication regime ,monitoring and symptomatic treatment. Increase ambublation as tolerated. Follow closely with cardiology, discharge planning in progress for tomorrow. The impression and plan of care has been dictated as directed. : I performed a history and examination of this patient, discussed the same with the dictator. I agree with the dictator's note ,documented as a scribe. Any additional findings or plans will be noted.
[2020-11-22 16:52] LABS: Chol/HDL Ratio 3.82; LDL Cholesterol,Calculated 57.8 mg/dL (0.0-131.0); VLDL Calculation 35.2 mg/dL (5.00-40.00)
[2020-11-22] MEDS: TICAGRELOR 90 MG TAB PO SCH (20:17)
[2020-11-23 07:37] LABS: Basophils % (A) 1 %; Eosinophils # (A) 0.1 k/uL (0-0.7); Eosinophils % (A) 2 %; HCT 39.7 % (39.0-53.0); HGB 13.9 gm/dL (13.0-17.5); Lymphocytes # (A) 0.7 k/uL (1.0-4.8); Lymphocytes % (A) 18 %; MCH 33.4 pg (25.0-35.0); MCHC 34.9 g/dL (31.0-37.0); MCV 95.5 fL (80.0-100.0); Mean Platelet Volume 8.7; Monocytes # (A) 0.3 k/uL (0-1.0); Monocytes % (A) 8 %; Neutrophils # (A) 2.8 k/uL (1.3-7.7); Neutrophils % (A) 70 %; Platelet Count 72 k/uL (150-450); RBC 4.16 m/uL (4.30-5.90)
[2020-11-23 07:53] LABS: African American GFR (CKD) >90 (>60 ml/min/1.73 sqM); Anion Gap 2 mmol/L; Blood Urea Nitrogen 10 mg/dL (9-20); Calcium 8.4 mg/dL (8.4-10.2); Carbon Dioxide 30 mmol/L (22-30); Chloride 104 mmol/L (98-107); Glucose 123 mg/dL (74-99); Non-African American GFR(CKD) >90 (>60 ml/min/1.73 sqM); Potassium 4.4 mmol/L (3.5-5.1); Sodium 136 mmol/L (137-145)
[2020-11-23] MEDS: TICAGRELOR 90 MG TAB PO SCH (08:28)
[2020-11-23] MEDS: ATORVASTATIN 40 MG TAB PO SCH (08:28)
[2020-11-23] MEDS: METOPROLOL SUCCINATE (ER) 100 MG TAB.ER.24H PO SCH (08:28)
[2020-11-23] MEDS: lisinopriL 20 MG TAB PO SCH (08:28)
[2020-11-23] MEDS: ESCITALOPRAM 10 MG TAB PO SCH (08:28)
[2020-11-23] MEDS: PANTOPRAZOLE 40 MG/10 ML VIAL IVP SCH (08:28)
[2020-11-23] MEDS: MEXILETINE 150 MG CAP PO SCH (08:29)
[2020-11-23] MEDS: SOTALOL 80 MG TAB PO SCH (08:29)
[2020-11-23] MEDS ORDERED: ASPIRIN 81 MG PO SCH (09:00)
[2020-11-23 09:33] VITALS: PULSE 56; RESP 20
[2020-11-23] MEDS: HEPARIN SOD,PORK IN 0.45% NACL 25,000 UNIT in 0.45% NACL 1 250ML.BAG IV SCH (10:53)
[2020-11-23 11:49] VITALS: BP 112/64; TEMP 97.9
--- NOTE | 2020-11-23 12:19 | P.PN ---
Subjective HISTORY OF PRESENTING ILLNESS This is a pleasant 70-year-old male past medical history significant for coronary artery disease s/p PCI, ventricular tachycardia s/p ablations 2017 and 2019, ischemic cardiomyopathy s/p BiV AICD, chronic persistent atrial fibrillation, hypertension, dyslipidemia, obstructive sleep apnea and obesity. He follows in the office with Dr. Garcia. We have been asked to see in consultation for chest pain. He presented to the hospital with symptoms of chest pain. He states is started early this morning around 0500. The pain was described as a heavy tight sensation. The pain was persistent associated with shortness of breath, diaphoresis and nausea. Device interrogation obtained revealed he received 2 shocks from his device this morning for sustained monomorphic VT. First at 0557 and second at 0644. He does not recall the first shock but does for sure recall the second. He is seen and examined sitting up on the stretcher in no acute distress. He states his chest pain has resolved. Breathing is stable. He underwent recent upgrade of his ICD to BiV 01/[address] Alfaro. Prior to that in 2018 he presented with a similar type picture. Catheterization at that time revealed stable coronary artery disease with a patent stent in the LAD and circumflex with a mid lesion of the small branch of RCA 90%. Subsequently thereafter he underwent a successful VT ablation. Echocardiogram obtained this admission reveals preserved LV systolic function with ejection fraction 45-50%, moderately dilated left atrium, mild aortic regurgitation with a mean gradient across the aortic valve is 7 mmHg, mild MR and mild TR. 11/23/2020 Patient is seen and examined resting comfortably sitting up in bed in no acute distress. He underwent catheterization and successful PCI using the kissing technique of the ostial diagonal branch of the LAD per Dr. Velez. He is currently on brilinta and aspirin. Blood pressure 117/64 heart rate 56 afebrile maintaining oxygen saturation on room air. Laboratory data reviewed, WBC 4, hemoglobin 13.9, platelets 72, sodium 136, potassium 4.4, creatinine 0.55. PHYSICAL EXAMINATION CONSTITUTIONAL: No apparent distress. HEENT: Head is normocephalic. Pupils are equal, round. Sclerae anicteric. Mucous membranes of the mouth are moist. No JVD. No carotid bruit. CHEST EXAMINATION: Lungs are clear to auscultation. No chest wall tenderness is noted on palpation or with deep breathing. HEART EXAMINATION: Irregular rate and rhythm. S1, S2 heard. No murmurs, gallops or rub. EXTREMITIES: 2+ peripheral pulses, no lower extremity edema and no calf tenderness. Right femoral access site soft, nontender with no evidence of ecchymosis or hematoma. ASSESSMENT Chest pain NSTEMI Sustained ventricular tachycardia s/p shock therapy from ICD History of VT and VF in the past Ischemic cardiomyopathy Chronic persistent atrial fibrillation on xarelto Atrial flutter, atypical. Rates in the 50s Hypertension Dyslipidemia Coronary artery disease s/p PCI LAD and circumflex artery Diabetes mellitus Sleep apnea PLAN Brilinta has been sent to the pharmacy, we will ask the case folder to check the patient's cost. Dr. Alfaro will see the patient for recommendations on possible flutter ablation. Increase activity and ambulation as tolerated. Possible discharge this afternoon after Dr. Alfaro evaluation. Nurse Practitioner note has been reviewed, I agree with a documented findings and plan of care. Patient was seen and examined. Objective - Vital Signs Vital signs: Vital Signs Temp 98.8 F 11/23/20 08:00 Pulse 56 L 11/23/20 08:00 Resp 20 11/23/20 08:00 BP 117/64 11/23/20 08:00 Pulse Ox 98 11/23/20 08:00 Intake & Output 11/22/20 11/23/20 11/23/20 18:59 06:59 18:59 Intake Total 1377.667 400 820 Output Total 500 250 Balance 877.667 150 820 Weight 100.7 kg Intake: IV 400 Intake, IV Titration 177.667 Amount Heparin Sod,Pork in 0.45% 177.667 NaCl 25,000 unit In 0.45 % NaCl 1 250ml.bag @ 9. 842 UNITS/KG/HR 10 mls/hr IV .Q24H [facility] Rx#: [id number] Oral 800 400 820 Output: Urine 500 250 Other: Voiding Method Toilet Toilet Urinal Urinal # Voids 2 - Labs CBC & Chem 7: 11/23/20 06:43 11/23/20 06:43 Labs: Abnormal Lab Results - Last 24 Hours (Table) 11/22/20 11/23/20 11/23/20 Range/Units 07:18 06:43 06:43 RBC 4.16 L (4.30-5.90) m/uL Plt Count 72 L (150-450) k/uL Lymphocytes # 0.7 L (1.0-4.8) k/uL Sodium 136 L (137-145) mmol/L Creatinine 0.55 L (0.66-1.25) mg/dL Glucose 123 H (74-99) mg/dL Triglycerides 176.0 H (0.0-149.0) mg/dL HDL Cholesterol 33.0 L (40.0-60.0) mg/dL
[2020-11-23 15:07] VITALS: BMI 32.8
--- NOTE | 2020-11-23 17:40 | P.CRDCN ---
History of Present Illness History of present illness: This is Dr. Alfaro dictating a consult on this patient The patient was interviewed and examined IMPRESSION / ASSESSMENT: Worsening heart failure, systolic, class 2-3 Patient presenting with angina at rest/acute coronary syndrome/non-Q-wave by Persistent atrial fibrillation/atrial tachycardia, on sotalol 80 mg twice daily Ventricular tachycardia treated with antitachycardia pacing, no syncope. VT cycle length 330 ms Device interrogation reveals double tachycardia PLAN: Patient is undergone coronary stenting to the diagonal branch Intravascular ultrasound revealed a patent stent in the LAD In terms of treatment of atherosclerosis I would increase the dose of atorvastatin to 80 mg by mouth daily He has failed 40 mg daily despite having an LDL of less than 60 mg/dL. His HDL is low He was in Xarelto for anticoagulation but is now on Brilinta For now he will start xarelto along with Brilinta but in the future they should be switched to Plavix plus xarelto After about 6 weeks of anticoagulation with xarelto I would recommend in A. fib ablation/atrial tachycardia ablation His twelve-lead EKG shows biventricular pacing with underlying atrial tachycardia with a cycle length of about 280-300 ms Noninvasive program stimulation at a later date once sinus rhythm was restored Continue sotalol and mexiletine and beta blockers Consideration for ENTRESTO Biventricular ICD was interrogated and reprogrammed, ProRetina Therapeuticstronic HPI Shortness of breath for the last several weeks Chest discomfort as if someone was standing in the middle of his chest for of prior to admission Non-Q wave myocardial infarction Progression of coronary artery disease status post stenting Patient had ventricular tachycardia which is terminated with antitachycardia pacing by his biventricular ICD He is doing well now he remains in atrial fibrillation His atrial fibrillation onset was 2 is the end of October, coinciding with his increasing shortness of breath ROS: No fever chills or rigors, no cough, phlegm or expectoration, no nausea, vomiting or diarrhea, no hematuria, dysuria, no musculoskeletal complaints, no strokes or seizures, no skin lesions. EXAMINATION: Afebrile 97.9F, pulse rate in the 50s, blood pressure 112/64 mmHg Breath sounds are clear Heart sounds are status post was soft Abdomen is soft No JVD REVIEW OF LABS, ECG & MEDICAL DATA Hemoglobin 15.5 and 13.9 Sodium 136, potassium 4.4, BUN 10 and creatinine 0.55 Abnormal troponins Total. 176 LDL 58 and HDL 33 TSH normal at 1.5 Twelve-lead EKG shows organized atrial fibrillation/atrial tachycardia with biventricular pacing Past Medical History Past Medical History: Cancer, Diabetes Mellitus, Hyperlipidemia, Myocardial Infarction ([place]), Pneumonia, Sleep Apnea/CPAP/BIPAP Additional Past Medical History / Comment(s): hx skin cancer left ear ,States SOB with exertion @times, "wheezy", see Dr Alfaro H&P, no CPAP used, diet controlled diabetes Last Myocardial Infarction Date:: 1999 History of Any Multi-Drug Resistant Organisms: None Reported Past Surgical History: AICD, Cardiac Ablation, Heart Catheterization, Heart Catheterization With Stent Additional Past Surgical History / Comment(s): 3 cardiac stents, cardiac ablation x 2 Past Anesthesia/Blood Transfusion Reactions: Previous Problems w/ Anesthesia Additional Past Anesthesia/Blood Transfusion Reaction / Comment(s): DIFFICULTY WAKING UP AFTER Anesthesia- States sensitive to medications. Date of Last Stent Placement:: 2016 Type of Cardiac Device: AICD Device Placement Date:: 02/23/14 Past Psychological History: No Psychological Hx Reported Smoking Status: Never smoker Past Alcohol Use History: Daily Past Drug Use History: None Reported - Past Family History Father Additional Family Medical History / Comment(s): AT AGE 72-GAVE UP HIS INSULIN ATE THE WAY HE WANTED A 1 YEAR LATER. HX SPINAL MENINGITIS Mother Additional Family Medical History / Comment(s): at the age of 72 yrs from a LIVER CONDITION. Sister(s) Family Medical History: Cancer Medications and Allergies Home Medications Medication Instructions Recorded Confirmed Type Escitalopram [Lexapro] 10 mg PO DAILY #30 tab 03/14/14 11/21/20 Rx Atorvastatin [Lipitor] 40 mg PO DAILY 11/28/15 11/21/20 History Sotalol [Betapace] 80 mg PO BID@0900,1600 08/05/18 11/21/20 History lisinopriL 20 mg PO DAILY 12/23/18 11/21/20 History Metoprolol Succinate [Toprol XL] 100 mg PO DAILY #90 tab 01/25/20 11/21/20 Rx Mexiletine [Mexitil] 150 mg PO TID@0900,1600,2100 11/21/20 11/21/20 History Nitroglycerin Sl Tabs [Nitrostat] 0.4 mg SUBLINGUAL Q5M PRN #100 tab 11/23/20 Rx Ticagrelor [Brilinta] 90 mg PO BID #60 tab 11/23/20 Rx Allergies Allergy/AdvReac Type Severity Reaction Status Date / Time codeine AdvReac passed out Verified 11/21/20 07:44 at 23 yrs old Physical Exam Vitals: Vital Signs Temp Pulse Resp BP BP Pulse Ox 11/23/20 11:48 97.9 F 56 L 20 112/64 98 11/23/20 08:00 98.8 F 56 L 20 117/64 98 11/23/20 04:00 97.9 F 60 17 138/70 99 11/23/20 01:51 50 L 17 11/23/20 00:10 97.9 F 50 L 17 104/64 98 11/23/20 00:00 97.9 F 50 L 17 104/64 98 11/22/20 20:00 97.9 F 54 L 18 119/73 97 Intake and Output 11/23/20 11/23/20 11/23/20 06:59 14:59 22:59 Intake Total 400 1280 0 Output Total 250 Balance 150 1280 0 Intake: Intake, IV Titration 0 Amount Sodium Chloride 0.9% 1, 0 000 ml @ 75 mls/hr IV . [id number] [facility] Rx#:[id number] Oral 400 1280 Output: Urine 250 Other: Voiding Method Toilet Urinal # Voids 2 Weight 100.7 kg 100.7 kg Results 11/23/20 06:43 11/23/20 06:43 CBC 11/23/20 Range/Units 06:43 WBC 4.0 (3.8-10.6) k/uL RBC 4.16 L (4.30-5.90) m/uL Hgb 13.9 (13.0-17.5) gm/dL Hct 39.7 (39.0-53.0) % Plt Count 72 L (150-450) k/uL Comprehensive Metabolic Panel 11/23/20 Range/Units 06:43 Sodium 136 L (137-145) mmol/L Potassium 4.4 (3.5-5.1) mmol/L Chloride 104 (98-107) mmol/L Carbon Dioxide 30 (22-30) mmol/L BUN 10 (9-20) mg/dL Creatinine 0.55 L (0.66-1.25) mg/dL Glucose 123 H (74-99) mg/dL Calcium 8.4 (8.4-10.2) mg/dL Intake and Output 11/23/20 11/23/20 11/23/20 06:59 14:59 22:59 Intake Total 400 1280 0 Output Total 250 Balance 150 1280 0 Intake: Intake, IV Titration 0 Amount Sodium Chloride 0.9% 1, 0 000 ml @ 75 mls/hr IV . [id number] [facility] Rx#:[id number] Oral 400 1280 Output: Urine 250 Other: Voiding Method Toilet Urinal # Voids 2 Weight 100.7 kg 100.7 kg Patient Weight 11/24/20 06:59 Weight 100.7 kg 11/23/20 06:43 11/23/20 06:43
--- NOTE | 2020-11-23 17:42 | P.EPPROC ---
- EP Procedure Note Electrophysiology Procedure Note: Metronic biventricular ICD was interrogated Patient has been in atrial fibrillation/atrial tachycardia since end of October Atrial tachycardia cycle length of about 252-80 ms Interrogation of the strips/electrograms show double tachycardia VT cycle length was about 340 ms The third round of antitachycardia pacing terminated VT The device was then reprogrammed 15 pulses for antitachycardia pacing at 84 and 78% First VF shock at 35 J Plan Noninvasive program stimulation at a future date Patient underwent coronary stenting to a diagonal branch stenosis at this admission
--- NOTE | 2020-11-24 13:10 | P.DS ---
Providers Date of admission: 11/21/20 08:18 Expected date of discharge: 11/24/20 Attending physician: Yaya Henson Consults: 11/21/20 08:18 Consult Physician Urgent Consulting Provider: Raj Garcia Consult Reason/Comments: vt, cp Do you want consulting provider notified?: Yes 11/22/20 12:18 Consult Physician Routine Consulting Provider: [facility] Consult Reason/Comments: Post Interventional patient Do you want consulting provider notified?: Already Contacted Primary care physician: Sudeep Cabrera [facility] Course: Final Diagnoses: Chest pain, sustained V. tach with shock therapy per interrogation.NSTEMI, Status post cardiac cath. reporting patent stents in the LAD and circumflex, new critical lesion involving the ostium of the diagonal with stent placed, chronic critical lesion involving the small nondominant RCA. Acute Hypoxic respiratory failure secondary to all the above History of AICD for ventricular arrhythmia CAD with history of [place], prior stenting of the LAD and circumflex Ischemic Cardiomyopathy Chronic persistent atrial fibrillation, anticoagulated on Xarelto Hyperlipidemia Hypertension Diabetes mellitus Obstructive sleep apnea Obesity, BMI 33.1 Hospital course: This is a 70-year-old gentleman with past medical history of CAD, [place] ,cardiac stenting, cardiomyopathy, hypertension, hyperlipidemia, AICD placement secondary to ventricular arrhythmias, successful VT ablation, diabetes mellitus, sleep apnea, wears CPAP, DVT, and multiple other medical issues presented to the ER with complaints of nonradiating chest heaviness /pressure accompanied by shortness of breath ,nausea and diaphoresis, with possible firing of his defibrillator 2, since an hour prior to admission. Patient reports he recently had his AICD upgraded ,was scheduled for echo today with Dr. Cross. Currently denies chest pain, palpitations or shortness of breath. Device interrogated, reporting a sustained runs of V. tach with 2 shocks per ER. EKG reporting ventricular paced rhythm, rate controlled. Sodium 139 potassium 4.6, BUN 15 creatinine 0.65, glucose 157, magnesium 2.1 alk phos 199, troponin 0.044, 0.486, 0.786. Hematology panel unremarkable with the exception of platelets 118-appears to be chronic. Coronavirus not detected. Chest x-ray reported chronic changes, cardiomegaly, no acute pulmonary process .afebrile . On admission, heart rate 153,respiratory rate 24, blood pressure 103/72, O2 sat 82% on room air . Currently heart rate 49, O2 sat high 90s on 2 L nasal cannula with systolic blood pressure ranging from low 100s to 130s. Cardiology consulted. Echo pending. 11/22/2020 Recently returned back from cardiac catheterization, reporting patent stents in the LAD and circumflex, new critical lesion involving the ostium of the diagonal with stent placed, chronic critical lesion involving the small nondominant RCA. Tolerated procedure well. procedure well. Denies chest pain, palpitations or shortness of breath. Troponin reported mildly impaired LV function with EF 45-50%. Significant clinical improvement. Cleared by cardiology for consult pending evaluation/recommendations by . Patient will be discharged home in stable condition with guarded prognosis. The impression and plan of care has been dictated as directed. : I performed a history and examination of this patient, discussed the same with the dictator. I agree with the dictator's note ,documented as a scribe. Any additional findings or plans will be noted. Patient Condition at Discharge: Stable Plan - Discharge Summary Discharge Rx Participant: No New Discharge Prescriptions: New Ticagrelor [Brilinta] 90 mg PO BID #60 tab Nitroglycerin Sl Tabs [Nitrostat] 0.4 mg SUBLINGUAL Q5M PRN #100 tab PRN Reason: Chest Pain Continue Escitalopram [Lexapro] 10 mg PO DAILY #30 tab Atorvastatin [Lipitor] 40 mg PO DAILY Sotalol [Betapace] 80 mg PO BID@0900,1600 lisinopriL 20 mg PO DAILY Metoprolol Succinate [Toprol XL] 100 mg PO DAILY #90 tab Mexiletine [Mexitil] 150 mg PO TID@0900,1600,2100 Discontinued Aspirin 81 mg PO DAILY #30 chew Rivaroxaban [Xarelto] 15 mg PO DAILY Discharge Medication List Escitalopram [Lexapro] 10 mg PO DAILY #30 tab 03/14/14 [Rx] Atorvastatin [Lipitor] 40 mg PO DAILY 11/28/15 [History] Sotalol [Betapace] 80 mg PO BID@0900,1600 08/05/18 [History] lisinopriL 20 mg PO DAILY 12/23/18 [History] Metoprolol Succinate [Toprol XL] 100 mg PO DAILY #90 tab 01/25/20 [Rx] Mexiletine [Mexitil] 150 mg PO TID@0900,1600,2100 11/21/20 [History] Nitroglycerin Sl Tabs [Nitrostat] 0.4 mg SUBLINGUAL Q5M PRN #100 tab 11/23/20 [Rx] Ticagrelor [Brilinta] 90 mg PO BID #60 tab 11/23/20 [Rx] Follow up Appointment(s)/Referral(s): Sudeep Cabrera MD [Primary Care Provider] - 11/27/20 10:00 am Raj Garcia MD [Family Provider] - 1 Week (keep scheduled appointment) Ambulatory/Diagnostic Orders: Complete Blood Count w/diff [LAB.AMB] Time Frame: 3 Days, Location: None Selected Patient Instructions/Handouts: *Surgery [facility] - After Heart Catheterization - Product Communications Manager Instructions Discharge Disposition: HOME SELF-CARE
== END 2020-11-23 17:16 | disposition home or self-care (01) | DRG 246 ==
LOC: EC 06:41 → 3SCARD 08:18
PROVIDERS: ADMIT Family Medicine; ATTEND Family Medicine
PROC: 027034Z Dilation of Coronary Artery, One Artery with Drug-eluting Intraluminal Device, Percutaneous Approach (ICD-10-PCS; principal; 2020-11-22 09:00)
PROC: 4A023N7 Measurement of Cardiac Sampling and Pressure, Left Heart, Percutaneous Approach (ICD-10-PCS; 2020-11-22 09:00)
PROC: B2111ZZ Fluoroscopy of Multiple Coronary Arteries using Low Osmolar Contrast (ICD-10-PCS; 2020-11-22 09:00)
PROC: B41F1ZZ Fluoroscopy of Right Lower Extremity Arteries using Low Osmolar Contrast (ICD-10-PCS; 2020-11-23)
PROC: 4B02XTZ Measurement of Cardiac Defibrillator, External Approach (ICD-10-PCS; 2020-11-23)
PROC: B240ZZ3 Ultrasonography of Single Coronary Artery, Intravascular (ICD-10-PCS; 2020-11-23)
DX: I21.4 Non-ST elevation (NSTEMI) myocardial infarction (principal); J96.01 Acute respiratory failure with hypoxia; I47.1 Supraventricular tachycardia; I47.2 Ventricular tachycardia; I48.19 Other persistent atrial fibrillation; I48.4 Atypical atrial flutter; I50.22 Chronic systolic (congestive) heart failure; I25.10 Atherosclerotic heart disease of native coronary artery without angina pectoris; Z45.02 Encounter for adjustment and management of automatic implantable cardiac defibrillator; E11.9 Type 2 diabetes mellitus without complications; E66.9 Obesity, unspecified; E78.5 Hyperlipidemia, unspecified; G47.33 Obstructive sleep apnea (adult) (pediatric); I11.0 Hypertensive heart disease with heart failure; I25.2 Old myocardial infarction; I25.5 Ischemic cardiomyopathy; Z68.33 Body mass index [BMI] 33.0-33.9, adult; Z79.01 Long term (current) use of anticoagulants; Z79.02 Long term (current) use of antithrombotics/antiplatelets; Z79.82 Long term (current) use of aspirin; Z79.899 Other long term (current) drug therapy; Z85.828 Personal history of other malignant neoplasm of skin; Z95.5 Presence of coronary angioplasty implant and graft; Z20.822 Contact with and (suspected) exposure to COVID-19; Z83.79 Family history of other diseases of the digestive system; Z80.9 Family history of malignant neoplasm, unspecified; Z83.3 Family history of diabetes mellitus
CPT/HCPCS: 36415; 71045; 80048; 80053; 80061; 83735; 83880; 84443; 84484; 85025; 85610; 85730; 87635; 93005; 93306; 93458; 99285

== ENCOUNTER 2020-12-15 16:50 | Observation (INO) | payer MEDICARE ==
[2020-12-15 17:01] LABS: Glucose,Whole Blood 144 mg/dL (75-99)
[2020-12-15] MEDS ORDERED: SODIUM CHLORIDE 0.9% 1,000 ML IV STA (17:12)
--- NOTE | 2020-12-15 17:14 | ED ---
General Adult HPI - General Chief complaint: Syncope Stated complaint: Syncope Time Seen by Provider: 12/15/20 16:54 Source: patient, EMS Mode of arrival: EMS Limitations: no limitations - History of Present Illness Initial comments: Dictation was produced using [employer] dictation software. please excuse any grammatical, word or spelling errors. Chief Complaint: 70-year-old male past medical history diabetes, dyslipidemia NC, sleep apnea presents to the emergency department for episode of presyncope. History of Present Illness: Eb is a 62-year-old male he has multiple cardiac comorbidities. He states that he was carrying 2 packs of beer a cooler and some other substances. He states that he started to feel faint. He feels as though that he got to him. He had an episode where he became very diaphoretic. He felt faint so he lowered himself to the ground and lay down for several minutes. He states that he feels fine now. States that it's been very hot recently. Patient denies any symptoms currently. Denies any chest pain or palpitations. Patient is post have an ablation in the near future for cardiac process. The ROS documented in this emergency department record has been reviewed and confirmed by me. Those systems with pertinent positive or negative responses have been documented in the HPI. All other systems are other negative and/or noncontributory. PHYSICAL EXAM: General Impression: Alert and oriented x3, not in acute distress HEENT: Normocephalic atraumatic, extra-ocular movements intact, pupils equal and reactive to light bilaterally, mucous membranes moist. Cardiovascular: Heart regular rate and rhythm Chest: Able to complete full sentences, no retractions, no tachypnea Abdomen: abdomen soft, non-tender, non-distended, no organomegaly Musculoskeletal: Pulses present and equal in all extremities, no peripheral edema Motor: no focal deficits noted Neurological: CN II-XII grossly intact, no focal motor or sensory deficits noted Skin: Intact with no visualized rashes Psych: Normal affect and mood ED course: 70-year-old male with episode of presyncope. Vital signs upon arrival shows blood pressure of 99/70, rest of vital signs within acceptable limits. EKG shows paced rhythm. Laboratory evaluation obtained. CBC remarkable. Coag panel is negative. Metabolic panel is within acceptable limits. Troponin is within patient's baseline. Brain natruretic peptide is elevated. No old labs for comparison. Lactic acidosis 2.3. Patient given a bolus of IV fluids with improvement of blood pressure. Patient really would've bedside found to be stable medical condition. Considering that patient had presyncope with extensive history of cardiac disease and concern for heart failure. There is concern of cardiac cause of syncope. Patient be admitted for observation with consultation to cardiology. Patient be admitted to Dr. Cabrera's group. EKG interpretation: Ventricular rate 68, paced rhythm, FL interval 120, QRS 174, QTC 538. No FL prolongation, no ST or T-wave changes noted. EKG compared to 11/21/2020 showing no changes. Overall, this EKG is unremarkable - Related Data Home Medications Medication Instructions Recorded Confirmed Sotalol [Betapace] 80 mg PO BID@0900,1600 08/05/18 12/15/20 lisinopriL 20 mg PO DAILY 12/23/18 12/15/20 Mexiletine [Mexitil] 150 mg PO TID@0900,1600,2100 11/21/20 12/15/20 Atorvastatin Calcium [Lipitor] 80 mg PO DAILY 12/15/20 12/15/20 Rivaroxaban [Xarelto] 15 mg PO DAILY 12/15/20 12/15/20 Previous Rx's Medication Instructions Recorded Escitalopram [Lexapro] 10 mg PO DAILY #30 tab 03/14/14 Metoprolol Succinate [Toprol XL] 100 mg PO DAILY #90 tab 01/25/20 Ticagrelor [Brilinta] 90 mg PO BID #60 tab 11/23/20 Allergies Allergy/AdvReac Type Severity Reaction Status Date / Time codeine AdvReac passed out Verified 12/15/20 18:34 at 23 yrs old Review of Systems ROS Statement: Those systems with pertinent positive or pertinent negative responses have been documented in the HPI. ROS Other: All systems not noted in ROS Statement are negative. Past Medical History Past Medical History: Cancer, Diabetes Mellitus, Hyperlipidemia, Myocardial Infarction ([place]), Pneumonia, Sleep Apnea/CPAP/BIPAP Additional Past Medical History / Comment(s): hx skin cancer left ear ,States SOB with exertion @times, "wheezy", see Dr Alfaro H&P, no CPAP used, diet cont rolled diabetes Last Myocardial Infarction Date:: 1999 History of Any Multi-Drug Resistant Organisms: None Reported Past Surgical History: AICD, Cardiac Ablation, Heart Catheterization, Heart Catheterization With Stent Additional Past Surgical History / Comment(s): 3 cardiac stents, cardiac ablation x 2 Past Anesthesia/Blood Transfusion Reactions: Previous Problems w/ Anesthesia Additional Past Anesthesia/Blood Transfusion Reaction / Comment(s): DIFFICULTY WAKING UP AFTER Anesthesia- States sensitive to medications. Date of Last Stent Placement:: 2016 Type of Cardiac Device: AICD Device Placement Date:: 02/23/14 Past Psychological History: No Psychological Hx Reported Smoking Status: Never smoker Past Alcohol Use History: Daily Past Drug Use History: None Reported - Past Family History Father Additional Family Medical History / Comment(s): AT AGE 72-GAVE UP HIS INSULIN ATE THE WAY HE WANTED A 1 YEAR LATER. HX SPINAL MENINGITIS Mother Additional Family Medical History / Comment(s): at the age of 72 yrs from a LIVER CONDITION. 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 ] Respiratory 16 16 Rate Blood Pressure 99/78 101/73 O2 Sat by Pulse 98 97 Oximetry Medical Decision Making - Lab Data Result diagrams: 12/15/20 17:11 12/15/20 17:11 Lab Results 12/15/20 12/15/20 12/15/20 Range/Units 17:00 17:11 17:11 WBC 4.9 (3.8-10.6) k/uL RBC 4.58 (4.30-5.90) m/uL Hgb 15.0 (13.0-17.5) gm/dL Hct 42.5 (39.0-53.0) % MCV 92.7 (80.0-100.0) fL MCH 32.7 (25.0-35.0) pg MCHC 35.2 (31.0-37.0) g/dL RDW 13.6 (11.5-15.5) % Plt Count 104 L (150-450) k/uL MPV 9.1 Neutrophils % 64 % Lymphocytes % 21 % Monocytes % 9 % Eosinophils % 3 % Basophils % 1 % Neutrophils # 3.1 (1.3-7.7) k/uL Lymphocytes # 1.0 (1.0-4.8) k/uL Monocytes # 0.4 (0-1.0) k/uL Eosinophils # 0.2 (0-0.7) k/uL Basophils # 0.0 (0-0.2) k/uL PT 13.6 H (9.0-12.0) sec INR 1.3 H (<1.2) APTT 27.1 (22.0-30.0) sec Sodium (137-145) mmol/L Potassium (3.5-5.1) mmol/L Chloride (98-107) mmol/L Carbon Dioxide (22-30) mmol/L Anion Gap mmol/L BUN (9-20) mg/dL Creatinine (0.66-1.25) mg/dL Est GFR (CKD-EPI)AfAm (>60 ml/min/1.73 sqM) Est GFR (CKD-EPI)NonAf (>60 ml/min/1.73 sqM) Glucose (74-99) mg/dL POC Glucose (mg/dL) 144 H (75-99) mg/dL POC Glu Performing Artist ID Gigi, Amanda Plasma Lactic Acid Ernie (0.7-2.0) mmol/L Calcium (8.4-10.2) mg/dL Ionized Calcium Guero (4.5-5.3) mg/dL Magnesium (1.6-2.3) mg/dL Troponin I (0.000-0.034) ng/mL NT-Pro-B Natriuret Pep pg/mL 12/15/20 12/15/20 12/15/20 Range/Units 17:11 17:11 17:11 WBC (3.8-10.6) k/uL RBC (4.30-5.90) m/uL Hgb (13.0-17.5) gm/dL Hct (39.0-53.0) % MCV (80.0-100.0) fL MCH (25.0-35.0) pg MCHC (31.0-37.0) g/dL RDW (11.5-15.5) % Plt Count (150-450) k/uL MPV Neutrophils % % Lymphocytes % % Monocytes % % Eosinophils % % Basophils % % Neutrophils # (1.3-7.7) k/uL Lymphocytes # (1.0-4.8) k/uL Monocytes # (0-1.0) k/uL Eosinophils # (0-0.7) k/uL Basophils # (0-0.2) k/uL PT (9.0-12.0) sec INR (<1.2) APTT (22.0-30.0) sec Sodium 137 (137-145) mmol/L Potassium 4.1 (3.5-5.1) mmol/L Chloride 105 (98-107) mmol/L Carbon Dioxide 24 (22-30) mmol/L Anion Gap 8 mmol/L BUN 11 (9-20) mg/dL Creatinine 0.48 L (0.66-1.25) mg/dL Est GFR (CKD-EPI)AfAm >90 (>60 ml/min/1.73 sqM) Est GFR (CKD-EPI)NonAf >90 (>60 ml/min/1.73 sqM) Glucose 128 H (74-99) mg/dL POC Glucose (mg/dL) (75-99) mg/dL POC Glu Performing Artist ID Plasma Lactic Acid Ernie 2.3 H* (0.7-2.0) mmol/L Calcium 9.0 (8.4-10.2) mg/dL Ionized Calcium Guero 4.7 (4.5-5.3) mg/dL Magnesium 1.8 (1.6-2.3) mg/dL Troponin I 0.027 (0.000-0.034) ng/mL NT-Pro-B Natriuret Pep pg/mL 12/15/20 Range/Units 17:12 WBC (3.8-10.6) k/uL RBC (4.30-5.90) m/uL Hgb (13.0-17.5) gm/dL Hct (39.0-53.0) % MCV (80.0-100.0) fL MCH (25.0-35.0) pg MCHC (31.0-37.0) g/dL RDW (11.5-15.5) % Plt Count (150-450) k/uL MPV Neutrophils % % Lymphocytes % % Monocytes % % Eosinophils % % Basophils % % Neutrophils # (1.3-7.7) k/uL Lymphocytes # (1.0-4.8) k/uL Monocytes # (0-1.0) k/uL Eosinophils # (0-0.7) k/uL Basophils # (0-0.2) k/uL PT (9.0-12.0) sec INR (<1.2) APTT (22.0-30.0) sec Sodium (137-145) mmol/L Potassium (3.5-5.1) mmol/L Chloride (98-107) mmol/L Carbon Dioxide (22-30) mmol/L Anion Gap mmol/L BUN (9-20) mg/dL Creatinine (0.66-1.25) mg/dL Est GFR (CKD-EPI)AfAm (>60 ml/min/1.73 sqM) Est GFR (CKD-EPI)NonAf (>60 ml/min/1.73 sqM) Glucose (74-99) mg/dL POC Glucose (mg/dL) (75-99) mg/dL POC Glu Performing Artist ID Plasma Lactic Acid Ernie (0.7-2.0) mmol/L Calcium (8.4-10.2) mg/dL Ionized Calcium Guero (4.5-5.3) mg/dL Magnesium (1.6-2.3) mg/dL Troponin I (0.000-0.034) ng/mL NT-Pro-B Natriuret Pep 1470 pg/mL Disposition Clinical Impression: Pre-syncope Disposition: ADMITTED IP TO THIS HOSP Condition: Fair Referrals: Sudeep Cabrera MD [Primary Care Provider] - 1-2 days
[2020-12-15 17:23] LABS: Basophils % (A) 1 %; Eosinophils # (A) 0.2 k/uL (0-0.7); Eosinophils % (A) 3 %; HCT 42.5 % (39.0-53.0); Lymphocytes % (A) 21 %; MCH 32.7 pg (25.0-35.0); MCHC 35.2 g/dL (31.0-37.0); MCV 92.7 fL (80.0-100.0); Mean Platelet Volume 9.1; Monocytes # (A) 0.4 k/uL (0-1.0); Monocytes % (A) 9 %; Neutrophils # (A) 3.1 k/uL (1.3-7.7); Neutrophils % (A) 64 %; Platelet Count 104 k/uL (150-450); RBC 4.58 m/uL (4.30-5.90); RDW 13.6 % (11.5-15.5); WBC 4.9 k/uL (3.8-10.6)
[2020-12-15 17:31] LABS: Ionized Calcium 4.7 mg/dL (4.5-5.3)
[2020-12-15 17:32] LABS: INR 1.3 (<1.2); Partial Thromboplastin Time 27.1 sec (22.0-30.0); Prothrombin Time 13.6 sec (9.0-12.0)
[2020-12-15 17:38] LABS: African American GFR (CKD) >90 (>60 ml/min/1.73 sqM); Anion Gap 8 mmol/L; Blood Urea Nitrogen 11 mg/dL (9-20); Carbon Dioxide 24 mmol/L (22-30); Chloride 105 mmol/L (98-107); Glucose 128 mg/dL (74-99); Magnesium 1.8 mg/dL (1.6-2.3); Non-African American GFR(CKD) >90 (>60 ml/min/1.73 sqM); Potassium 4.1 mmol/L (3.5-5.1); Sodium 137 mmol/L (137-145)
--- NOTE | 2020-12-15 18:24 | XR ---
EXAMINATION TYPE: XR chest 1V portable DATE OF EXAM: 12/15/2020 COMPARISON: 11/21/2020 HISTORY: Chest pain TECHNIQUE: Single view FINDINGS: Heart appears slightly enlarged. There is no heart failure. There is left axillary pacemake r. There are chest leads. Costophrenic angles are clear. IMPRESSION: Mild cardiomegaly. No acute lung disease. There is clearing of the atelectasis right lung base compared to old exam.
[2020-12-15] MEDS ORDERED: NALOXONE 0.4 MG/ML 1 ML VIAL IV PRN (18:48)
[2020-12-15] MEDS ORDERED: MEXILETINE 150 MG CAP PO SCH (22:45)
[2020-12-15] MEDS: SODIUM CHLORIDE 0.9% 1,000 ML IV SCH (23:37)
--- NOTE | 2020-12-16 08:29 | P.CRDCN ---
History of Present Illness Consult date: 12/16/20 Chief complaint: Syncopal episode History of present illness: This is a pleasant 70-year-old gentleman with coronary artery disease and prior stenting of the diagonal branch which was performed in October 2019 as well as cardiomyopathy with EF around 45% and also paroxysmal atrial fibrillation and hypertension and dyslipidemia and also by biV ICD presented to the hospital after he had an episode of ICD shock. The patient was in his usual state of health until yesterday when he was walking and felt dizzy and lightheaded and started sweating. He called a friend and subsequently he did have an episode of loss of consciousness and he felt the AICD shock. The patient after that was brought to the hospital. The AICD was interrogated and revealed one episode of VT treated with ATP. He was seen in the hospital this morning. He denies any symptoms of chest pain or chest discomfort at this point and overall he is feeling better. The EKG showed biV pacing with RBBB morphology. The troponin came in to be unremarkable. The chest x-ray did not show any acute abnormalities. Currently he is on sotalol as well as mexiletine. He stated that he scheduled to have an ablation in the next few weeks by Dr. Alfaro. Past Medical History Past Medical History: Cancer, Diabetes Mellitus, Hyperlipidemia, Myocardial Infarction ([place]), Pneumonia, Sleep Apnea/CPAP/BIPAP Additional Past Medical History / Comment(s): hx skin cancer left ear ,States SOB with exertion @times, "wheezy", see Dr Alfaro H&P, no CPAP used, diet controlled diabetes Last Myocardial Infarction Date:: 1999 History of Any Multi-Drug Resistant Organisms: None Reported Past Surgical History: AICD, Cardiac Ablation, Heart Catheterization, Heart Catheterization With Stent Additional Past Surgical History / Comment(s): 3 cardiac stents, cardiac ablation x 2 Past Anesthesia/Blood Transfusion Reactions: Previous Problems w/ Anesthesia Additional Past Anesthesia/Blood Transfusion Reaction / Comment(s): DIFFICULTY WAKING UP AFTER Anesthesia- States sensitive to medications. Date of Last Stent Placement:: 2016 Type of Cardiac Device: AICD Device Placement Date:: 02/23/14 Past Psychological History: No Psychological Hx Reported Additional Psychological History / Comment(s): . Smoking Status: Never smoker Past Alcohol Use History: Daily Additional Past Alcohol Use History / Comment(s): States 2-3 glass wine daily Past Drug Use History: None Reported - Past Family History Father Additional Family Medical History / Comment(s): AT AGE 72-GAVE UP HIS INSULIN ATE THE WAY HE WANTED A 1 YEAR LATER. HX SPINAL MENINGITIS Mother Additional Family Medical History / Comment(s): at the age of 72 yrs from a LIVER CONDITION. Sister(s) Family Medical History: Cancer Medications and Allergies Home Medications Medication Instructions Recorded Confirmed Type Escitalopram [Lexapro] 10 mg PO DAILY #30 tab 03/14/14 12/15/20 Rx Sotalol [Betapace] 80 mg PO BID@0900,1600 08/05/18 12/15/20 History lisinopriL 20 mg PO DAILY 12/23/18 12/15/20 History Metoprolol Succinate [Toprol XL] 100 mg PO DAILY #90 tab 01/25/20 12/15/20 Rx Mexiletine [Mexitil] 150 mg PO TID@0900,1600,2100 11/21/20 12/15/20 History Ticagrelor [Brilinta] 90 mg PO BID #60 tab 11/23/20 12/15/20 Rx Atorvastatin Calcium [Lipitor] 80 mg PO DAILY 12/15/20 12/15/20 History Rivaroxaban [Xarelto] 15 mg PO DAILY 12/15/20 12/15/20 History Allergies Allergy/AdvReac Type Severity Reaction Status Date / Time codeine AdvReac passed out Verified 12/15/20 18:34 at 23 yrs old Physical Exam Vitals: Vital Signs Temp Pulse Pulse Pulse Resp BP BP 12/16/20 07:00 97.6 F 58 L 17 110/68 12/16/20 01:40 97.6 F 47 L 14 106/67 12/15/20 21:15 97.4 F L 58 L 16 126/72 12/15/20 19:13 57 L 16 111/86 12/15/20 17:56 53 L 55 L 16 101/73 12/15/20 16:54 98.2 F 84 16 99/78 Pulse Ox 12/16/20 07:00 95 12/16/20 01:40 96 12/15/20 21:15 100 12/15/20 19:13 97 12/15/20 17:56 97 12/15/20 16:54 98 Intake and Output 12/15/20 12/16/20 12/16/20 22:59 06:59 14:59 Other: Voiding Method Toilet # Voids 11 1 Weight 100.698 kg 101.3 kg - Constitutional General appearance: no acute distress - Respiratory Respiratory: bilateral: diminished - Cardiovascular Rhythm: regular Heart sounds: normal: S1, S2 Abnormal Heart Sounds: systolic murmur Results 12/15/20 17:11 12/15/20 17:11 Cardiac Enzymes 12/15/20 Range/Units 17:11 Troponin I 0.027 (0.000-0.034) ng/mL Coagulation 12/15/20 Range/Units 17:11 PT 13.6 H (9.0-12.0) sec APTT 27.1 (22.0-30.0) sec CBC 12/15/20 Range/Units 17:11 WBC 4.9 (3.8-10.6) k/uL RBC 4.58 (4.30-5.90) m/uL Hgb 15.0 (13.0-17.5) gm/dL Hct 42.5 (39.0-53.0) % Plt Count 104 L (150-450) k/uL Comprehensive Metabolic Panel 12/15/20 Range/Units 17:11 Sodium 137 (137-145) mmol/L Potassium 4.1 (3.5-5.1) mmol/L Chloride 105 (98-107) mmol/L Carbon Dioxide 24 (22-30) mmol/L BUN 11 (9-20) mg/dL Creatinine 0.48 L (0.66-1.25) mg/dL Glucose 128 H (74-99) mg/dL Calcium 9.0 (8.4-10.2) mg/dL Current Medications Generic Name Dose Route Start Last Admin Trade Name Freq PRN Reason Stop Dose Admin Atorvastatin Calcium 80 mg 12/16/20 09:00 Atorvastatin 80 Mg Tab PO DAILY [facility] Escitalopram Oxalate 10 mg 12/16/20 09:00 Escitalopram 10 Mg Tab PO DAILY [facility] Sodium Chloride 1,000 mls @ 80 mls/hr 12/15/20 19:00 12/15/20 23:37 Saline 0.9% IV 80 mls/hr .[id number] NAVEED Administration Lisinopril 20 mg 12/16/20 09:00 Lisinopril 20 Mg Tab PO DAILY [facility] Metoprolol Succinate 100 mg 12/16/20 09:00 Metoprolol Succinate (Er) 100 Mg Tab.Er.24h PO DAILY [facility] Mexiletine HCl 150 mg 12/15/20 22:45 12/15/20 22:39 Mexiletine 150 Mg Cap PO 150 mg TID@0900,1600,2100 [facility] Administration Naloxone HCl 0.2 mg 12/15/20 18:48 Naloxone 0.4 Mg/Ml 1 Ml Vial IV Q2M PRN Opioid Reversal Rivaroxaban 15 mg 12/16/20 09:00 Rivaroxaban 15 Mg Tab PO DAILY [facility] Protocol Sotalol HCl 80 mg 12/16/20 09:00 Sotalol 80 Mg Tab PO BID@0900,1600 [facility] Ticagrelor 90 mg 12/16/20 09:00 Ticagrelor 90 Mg Tab PO BID [facility] Intake and Output 12/15/20 12/16/20 12/16/20 22:59 06:59 14:59 Other: Voiding Method Toilet # Voids 11 1 Weight 100.698 kg 101.3 kg 12/15/20 17:11 12/15/20 17:11 Assessment and Plan Assessment: Assessment #1 appropriate ICD shock for one episode of VT #2 slightly prolonged QT interval #3 coronary artery disease #4 paroxysmal atrial fibrillation #5 cardiomyopathy #6 multiple comorbid conditions Plan #1 continue the current medical regimen #2 monitor electrolytes and keep the potassium above 4 and also monitor the m agnesium #3 obtain an echocardiogram was Doppler #[address] Alfaro #5 follow-up with the patient
[2020-12-16] MEDS ORDERED: lisinopriL 20 MG TAB PO SCH (09:00)
[2020-12-16] MEDS: METOPROLOL SUCCINATE (ER) 100 MG TAB.ER.24H PO SCH (09:14)
[2020-12-16] MEDS: ATORVASTATIN 80 MG TAB PO SCH (09:14)
[2020-12-16] MEDS: MEXILETINE 150 MG CAP PO SCH ×3 (09:14→19:26)
[2020-12-16] MEDS: RIVAROXABAN 15 MG TAB PO SCH (09:15)
[2020-12-16] MEDS: ESCITALOPRAM 10 MG TAB PO SCH (09:15)
[2020-12-16] MEDS: TICAGRELOR 90 MG TAB PO SCH ×2 (09:16→19:26)
[2020-12-16] MEDS: SOTALOL 80 MG TAB PO SCH ×2 (09:16→16:05)
[2020-12-16] MEDS: MAGNESIUM SULFATE-D5W PMX 1 GM in DEXTROSE/WATER 1 100ML.BAG IVPB SCH ×2 (09:48→11:31)
--- NOTE | 2020-12-16 12:23 | P.HPIM ---
History of Present Illness H&P Date: 12/16/20 Chief Complaint: Syncope Gen a 62-year-old white male well-known to me. His long-standing history of coronary artery disease with stenting of the diagonal branch in October 2019, cardiomyopathy with ejection fraction 45%, paroxysmal atrial fibrillation, hypertension, hyperlipidemia, and AICD twice a day. 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 He had approximately 1 beer at that time. He went in the clubhouse and sat down and felt a little bit better. Asked her friend to drive the emergency room, when he got up to became very dizzy again and laid on the floor. He lost consciousness and woke up with EMS attending to him. AICD was interrogated and showed that he had V. tach that was treated with ATP. In the emergency room he remained stable and overnight has been feeling much better. Currently he takes sotalol as well as mexiletine cardiology. His post- undergo ablation soon with cardiology. Other home medications include lisinopril, Brillinta, Xarelto, Toprol-XL, Lexapro, and Lipitor. Currently he has no significant complaints and feels back to his baseline. He denies any chest pains compression of a short of breath, nausea vomiting Review of Systems All systems: negative Past Medical History Past Medical History: Cancer, Diabetes Mellitus, Hyperlipidemia, Myocardial Infarction ([place]), Pneumonia, Sleep Apnea/CPAP/BIPAP Additional Past Medical History / Comment(s): hx skin cancer left ear ,States SOB with exertion @times, "wheezy", see Dr Alfaro H&P, no CPAP used, diet controlled diabetes Last Myocardial Infarction Date:: 1999 History of Any Multi-Drug Resistant Organisms: None Reported Past Surgical History: AICD, Cardiac Ablation, Heart Catheterization, Heart Catheterization With Stent Additional Past Surgical History / Comment(s): 3 cardiac stents, cardiac ablation x 2 Past Anesthesia/Blood Transfusion Reactions: Previous Problems w/ Anesthesia Additional Past Anesthesia/Blood Transfusion Reaction / Comment(s): DIFFICULTY WAKING UP AFTER Anesthesia- States sensitive to medications. Date of Last Stent Placement:: 2016 Type of Cardiac Device: AICD Device Placement Date:: 02/23/14 Past Psychological History: No Psychological Hx Reported Additional Psychological History / Comment(s): . Smoking Status: Never smoker Past Alcohol Use History: Daily Additional Past Alcohol Use History / Comment(s): States 2-3 glass wine daily Past Drug Use History: None Reported - Past Family History Father Additional Family Medical History / Comment(s): AT AGE 72-GAVE UP HIS INSULIN ATE THE WAY HE WANTED A 1 YEAR LATER. HX SPINAL MENINGITIS Mother Additional Family Medical History / Comment(s): at the age of 72 yrs from a LIVER CONDITION. Sister(s) Family Medical History: Cancer Medications and Allergies Home Medications Medication Instructions Recorded Confirmed Type Escitalopram [Lexapro] 10 mg PO DAILY #30 tab 03/14/14 12/15/20 Rx Sotalol [Betapace] 80 mg PO BID@0900,1600 08/05/18 12/15/20 History lisinopriL 20 mg PO DAILY 12/23/18 12/15/20 History Metoprolol Succinate [Toprol XL] 100 mg PO DAILY #90 tab 01/25/20 12/15/20 Rx Mexiletine [Mexitil] 150 mg PO TID@0900,1600,2100 11/21/20 12/15/20 History Ticagrelor [Brilinta] 90 mg PO BID #60 tab 11/23/20 12/15/20 Rx Atorvastatin Calcium [Lipitor] 80 mg PO DAILY 12/15/20 12/15/20 History Rivaroxaban [Xarelto] 15 mg PO DAILY 12/15/20 12/15/20 History Allergies Allergy/AdvReac Type Severity Reaction Status Date / Time codeine AdvReac passed out Verified 12/15/20 18:34 at 23 yrs old Physical Exam Vitals: Vital Signs Temp Pulse Pulse Pulse Resp BP BP 12/16/20 07:00 97.6 F 58 L 17 110/68 12/16/20 01:40 97.6 F 47 L 14 106/67 12/15/20 21:15 97.4 F L 58 L 16 126/72 12/15/20 19:13 57 L 16 111/86 12/15/20 17:56 53 L 55 L 16 101/73 12/15/20 16:54 98.2 F 84 16 99/78 Pulse Ox 12/16/20 07:00 95 12/16/20 01:40 96 12/15/20 21:15 100 12/15/20 19:13 97 12/15/20 17:56 97 12/15/20 16:54 98 Intake and Output 12/15/20 12/16/20 12/16/20 22:59 06:59 14:59 Intake Total 180 Balance 180 Intake: Oral 180 Other: Voiding Method Toilet # Voids 11 1 Weight 100.698 kg 101.3 kg GENERAL: Well-appearing, well-nourished and in no acute distress. HEAD: Atraumatic, normocephalic. EYES: Pupils equal round and reactive to light, extraocular movements intact, sclera anicteric, conjunctiva are normal. ENT:nares patent, oropharynx clear without exudates. Moist mucous membranes. NECK: Normal range of motion, supple without lymphadenopathy or JVD, no thyromegaly LUNGS: Breath sounds clear to auscultation bilaterally and equal. No wheezes rales or rhonchi. HEART: Regular rate and rhythm without murmurs, rubs or gallops.S1S2 Normal. There is an AICD in place in his chest wall cutaneous. ABDOMEN: Soft, nontender, normoactive bowel sounds. No guarding, no rebound. No masses appreciated. EXTREMITIES: Normal range of motion, no pitting or edema. No clubbing or cyanosis. NEUROLOGICAL: Cranial nerves II through XII grossly intact. Normal speech, normal gait. PSYCH: Normal mood, normal affect. SKIN: Warm, Dry, normal turgor, no rashes or lesions noted. Results CBC & Chem 7: 12/15/20 17:11 12/15/20 17:11 Labs: Abnormal Lab Results - Last 24 Hours (Table) 12/15/20 12/15/20 12/15/20 Range/Units 17:00 17:11 17:11 Plt Count 104 L (150-450) k/uL PT 13.6 H (9.0-12.0) sec INR 1.3 H (<1.2) Creatinine (0.66-1.25) mg/dL Glucose (74-99) mg/dL POC Glucose (mg/dL) 144 H (75-99) mg/dL Plasma Lactic Acid Ernie (0.7-2.0) mmol/L 12/15/20 12/15/20 Range/Units 17:11 17:11 Plt Count (150-450) k/uL PT (9.0-12.0) sec INR (<1.2) Creatinine 0.48 L (0.66-1.25) mg/dL Glucose 128 H (74-99) mg/dL POC Glucose (mg/dL) (75-99) mg/dL Plasma Lactic Acid Ernie 2.3 H* (0.7-2.0) mmol/L Chest x-ray: report reviewed Thrombosis Risk Factor Assmnt - DVT/VTE Prophylaxis DVT/VTE Prophylaxis: Mechanical Prophylaxis ordered (Patient remain on Xarelto) - Choose All That Apply Any of the Below Risk Factors Present?: No Each Risk Factor Represents 2 Points: Age 61-74 years Other congenital or acquired thrombophilia - If yes, enter type in comment: No Thrombosis Risk Factor Assessment Total Risk Factor Score: 2 Thrombosis Risk Factor Assessment Level: Low Risk Assessment and Plan (1) Systolic congestive heart failure Current Visit: Yes Status: Acute Code(s): I50.20 - UNSPECIFIED SYSTOLIC (CONGESTIVE) HEART FAILURE SNOMED Code(s): 09752263 (2) Atrial fibrillation Current Visit: Yes Status: Acute Code(s): I48.91 - UNSPECIFIED ATRIAL FIBRILLATION SNOMED Code(s): 24057813 (3) residential current use of anticoagulant therapy Current Visit: Yes Status: Acute Code(s): Z79.01 - DRIP PUMPER (CURRENT) USE OF ANTICOAGULANTS SNOMED Code(s): 023203322 (4) Depression Current Visit: Yes Status: Acute Code(s): F32.9 - MAJOR DEPRESSIVE DISORDER, SINGLE EPISODE, UNSPECIFIED SNOMED Code(s): 35342805 (5) AICD discharge Current Visit: No Status: Acute Code(s): Z45.02 - ENCNTR FOR ADJUST AND MGMT OF AUTOMATIC IMPLNTBL CARD DEFIB SNOMED Code(s): 625300953 (6) Syncope Current Visit: No Status: Acute Code(s): R55 - SYNCOPE AND COLLAPSE SNOMED Code(s): 946875340 (7) Ventricular tachycardia Current Visit: No Status: Acute Code(s): I47.2 - VENTRICULAR TACHYCARDIA SNOMED Code(s): 04559247 (8) AICD (automatic cardioverter/defibrillator) present Current Visit: No Status: Chronic Code(s): Z95.810 - PRESENCE OF AUTOMATIC (IMPLANTABLE) CARDIAC DEFIBRILLATOR SNOMED Code(s): 786765212 (9) Coronary artery disease Current Visit: No Status: Chronic Code(s): I25.10 - ATHSCL HEART DISEASE OF [place] CORONARY ARTERY W/O ANG PCTRS SNOMED Code(s): 248508087 Plan: I will await further recommendations from cardiology. We'll repeat labs Reevaluated in the next 24 hours. He may be cleared for discharge later on today
[2020-12-16 17:10] LABS: African American GFR (CKD) 119.7 (60.0-200.0); Anion Gap 7.5 mmol/L (4.00-12.00); BUN/Creat Ratio 16.67 Ratio (12.00-20.00); Calcium 9.3 mg/dL (8.7-10.3); Carbon Dioxide 25.5 mmol/L (21.6-31.8); Non-African American GFR(CKD) 103.3 (60.0-200.0); Potassium 4.2 mmol/L (3.5-5.5)
[2020-12-16 17:12] LABS: Basophils # (A) 0.03 X 10*3/uL (0.00-0.10); Basophils % (A) 0.6 %; Eosinophils # (A) 0.11 X 10*3/uL (0.04-0.35); Eosinophils % (A) 2.2 %; HCT 40.1 % (39.6-50.0); HGB 13.5 g/dL (13.0-17.0); Lymphocytes # (A) 0.89 X 10*3/uL (0.90-5.00); Lymphocytes % (A) 17.9 %; MCH 32.1 pg (27.0-32.0); MCHC 33.7 g/dL (32.0-37.0); MCV 95.5 fL (80.0-97.0); Mean Platelet Volume 12.3 fL (9.5-12.2); Monocytes # (A) 0.51 X 10*3/uL (0.20-1.00); Monocytes % (A) 10.2 %; Neutrophils # (A) 3.43 X 10*3/uL (1.80-7.70); Neutrophils % (A) 68.9 %; Platelet Count 87 X 10*3/uL (140-440); RDW 13.8 % (11.5-14.5); WBC 4.98 X 10*3/uL (4.50-10.00)
[2020-12-16] MEDS: SODIUM CHLORIDE 0.9% 1,000 ML IV SCH ×2 (19:24→21:58)
[2020-12-17 03:03] VITALS: TEMP 97.8
[2020-12-17 07:54] VITALS: BP 112/68; PULSE 53; RESP 16
[2020-12-17] MEDS: MEXILETINE 150 MG CAP PO SCH (08:44)
[2020-12-17] MEDS: TICAGRELOR 90 MG TAB PO SCH (08:44)
[2020-12-17] MEDS: ATORVASTATIN 80 MG TAB PO SCH (08:44)
[2020-12-17] MEDS: ESCITALOPRAM 10 MG TAB PO SCH (08:45)
[2020-12-17] MEDS: METOPROLOL SUCCINATE (ER) 100 MG TAB.ER.24H PO SCH (08:45)
[2020-12-17] MEDS: SOTALOL 80 MG TAB PO SCH (08:45)
[2020-12-17] MEDS: RIVAROXABAN 15 MG TAB PO SCH (08:45)
--- NOTE | 2020-12-17 08:45 | P.PN ---
Subjective Progress Note Date: 12/17/20 Principal diagnosis: AICD shock This is a 70-year-old gentleman with coronary artery disease as well as cardiomyopathy and status post AICD as well as hypertension and dyslipidemia who was admitted to the hospital mainly because of an AICD shock appropriately for an episode of VT. The patient was seen yesterday we'll increase the dose of mexiletine and continue sotalol. He was seen today as well. He stated that he has been feeding well from a cardiovascular standpoint of view. No chest pain or chest discomfort. He does have shortness of breath with exertion which has been chronic. On examination he does have mild bilateral rhonchi. He doesn't look in any overt congestive heart failure. From a cardiac standpoint of view, the patient can be discharged home Objective - Vital Signs Vital signs: Vital Signs Temp 97.8 F 12/17/20 07:00 Pulse 53 L 12/17/20 07:00 Resp 16 12/17/20 07:00 BP 112/68 12/17/20 07:00 Pulse Ox 98 12/17/20 07:00 Intake & Output 12/16/20 12/17/20 12/17/20 18:59 06:59 18:59 Intake Total 702 Balance 702 Intake: IV 200 Magnesium Sulfate-D5w Pmx 200 1 gm In Dextrose/Water 1 100ml.bag @ 100 mls/hr IVPB Q1H NAVEED Rx#: [id number] Oral 502 Other: Voiding Method Toilet Toilet # Voids 1 1 - Constitutional General appearance: Present: no acute distress - Respiratory Respiratory: bilateral: rales - Cardiovascular Rhythm: regular Heart sounds: normal: S1, S2 - Labs CBC & Chem 7: 12/16/20 13:02 12/16/20 13:02 Labs: Abnormal Lab Results - Last 24 Hours (Table) 12/16/20 12/16/20 Range/Units 13:02 13:02 RBC 4.20 L (4.40-5.60) X 10*6/uL MCH 32.1 H (27.0-32.0) pg Plt Count 87 L (140-440) X 10*3/uL Plt Count Comment DECREASED A MPV 12.3 H (9.5-12.2) fL Lymphocytes # 0.89 L (0.90-5.00) X 10*3/uL Glucose 154 H (70-110) mg/dL Assessment and Plan Assessment: Assessment #1 appropriate ICD shock for one episode of VT #2 slightly prolonged QT interval #3 coronary artery disease #4 paroxysmal atrial fibrillation #5 cardiomyopathy #6 multiple comorbid conditions Plan #1 continue the current medical regimen including the higher dose of mexiletine #2 the patient can be discharged home
[2020-12-17 09:06] LABS: Basophils # (A) 0.02 X 10*3/uL (0.00-0.10); Basophils % (A) 0.4 %; Eosinophils # (A) 0.12 X 10*3/uL (0.04-0.35); Eosinophils % (A) 2.5 %; HCT 38.3 % (39.6-50.0); HGB 12.8 g/dL (13.0-17.0); Lymphocytes # (A) 1.06 X 10*3/uL (0.90-5.00); Lymphocytes % (A) 21.7 %; MCH 32.3 pg (27.0-32.0); MCHC 33.4 g/dL (32.0-37.0); MCV 96.7 fL (80.0-97.0); Mean Platelet Volume 12.4 fL (9.5-12.2); Monocytes # (A) 0.52 X 10*3/uL (0.20-1.00); Monocytes % (A) 10.7 %; Neutrophils # (A) 3.14 X 10*3/uL (1.80-7.70); Neutrophils % (A) 64.3 %; Platelet Count 81 X 10*3/uL (140-440); RBC 3.96 X 10*6/uL (4.40-5.60); RDW 13.9 % (11.5-14.5); WBC 4.88 X 10*3/uL (4.50-10.00)
[2020-12-17 09:58] LABS: African American GFR (CKD) 119.7 (60.0-200.0); BUN/Creat Ratio 23.33 Ratio (12.00-20.00); Calcium 8.6 mg/dL (8.7-10.3); Non-African American GFR(CKD) 103.3 (60.0-200.0); Potassium 4.6 mmol/L (3.5-5.5)
--- NOTE | 2020-12-17 12:08 | P.DS ---
Providers Date of admission: 12/15/20 18:48 Expected date of discharge: 12/17/20 Attending physician: Sudeep Cabrera Consults: 12/15/20 18:50 Consult Physician Routine Consulting Provider: Pete Alfaro Consult Reason/Comments: presyncope Do you want consulting provider notified?: Yes Primary care physician: Sudeep Cabrera - Discharge Diagnosis(es) (1) Systolic congestive heart failure Current Visit: Yes Status: Acute (2) Atrial fibrillation Current Visit: Yes Status: Acute (3) FDC current use of anticoagulant therapy Current Visit: Yes Status: Acute (4) Depression Current Visit: Yes Status: Acute (5) AICD discharge Current Visit: No Status: Acute (6) Syncope Current Visit: No Status: Acute (7) Ventricular tachycardia Current Visit: No Status: Acute (8) AICD (automatic cardioverter/defibrillator) present Current Visit: No Status: Chronic (9) Coronary artery disease Current Visit: No Status: Chronic Hospital Course: Gen a 62-year-old white male well-known to me. His long-standing history of coronary artery disease with stenting of the diagonal branch in October 2019, cardiomyopathy with ejection fraction 45%, paroxysmal atrial fibrillation, hypertension, hyperlipidemia, and AICD twice a day. 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 He had approximately 1 beer at that time. He went in the clubhouse and sat down and felt a little bit better. Asked her friend to drive the emergency room, when he got up to became very dizzy again and laid on the floor. He lost consciousness and woke up with EMS attending to him. AICD was interrogated and showed that he had V. tach that was treated with ATP. In the emergency room he remained stable and overnight has been feeling much better. Currently he takes sotalol as well as mexiletine cardiology. His post- undergo ablation soon with cardiology. Other home medications include lisinopril, Brillinta, Xarelto, Toprol-XL, Lexapro, and Lipitor. Currently he has no significant complaints and feels back to his baseline. He denies any chest pains compression of a short of breath, nausea vomiting 08/19/2020: Overnight patient has done well and feels well. He had appropriate ICD shock for one episode of V. tach. The V. tach led to syncope. He is a slightly prolonged QT interval. He has known coronary artery disease, paroxysmal atrial fibrillation, cardia myopathy, and multiple other comorbidities. Cardiology has cleared him but increased his dose of sotalol and mexiletine. This morning he has no chest pain pressure shortness of breath or nausea or vomiting. He is ready for discharge at this time. Patient Condition at Discharge: Fair Plan - Discharge Summary Discharge Rx Participant: No New Discharge Prescriptions: [place]iletine [Mexitil] 300 mg PO TID@0900,1600,2100 cap Sotalol [Betapace] 80 mg PO BID@0900,1600 tab Continue Escitalopram [Lexapro] 10 mg PO DAILY #30 tab Sotalol [Betapace] 80 mg PO BID@0900,1600 lisinopriL 20 mg PO DAILY Metoprolol Succinate [Toprol XL] 100 mg PO DAILY #90 tab Atorvastatin Calcium [Lipitor] 80 mg PO DAILY Mexiletine [Mexitil] 150 mg PO TID@0900,1600,2100 Ticagrelor [Brilinta] 90 mg PO BID #60 tab Rivaroxaban [Xarelto] 15 mg PO DAILY Discharge Medication List Escitalopram [Lexapro] 10 mg PO DAILY #30 tab 03/14/14 [Rx] Sotalol [Betapace] 80 mg PO BID@0900,1600 08/05/18 [History] lisinopriL 20 mg PO DAILY 12/23/18 [History] Metoprolol Succinate [Toprol XL] 100 mg PO DAILY #90 tab 01/25/20 [Rx] Mexiletine [Mexitil] 150 mg PO TID@0900,1600,2100 11/21/20 [History] Ticagrelor [Brilinta] 90 mg PO BID #60 tab 11/23/20 [Rx] Atorvastatin Calcium [Lipitor] 80 mg PO DAILY 12/15/20 [History] Rivaroxaban [Xarelto] 15 mg PO DAILY 12/15/20 [History] Mexiletine [Mexitil] 300 mg PO TID@0900,1600,2100 cap 12/17/20 [Rx] Sotalol [Betapace] 80 mg PO BID@0900,1600 tab 12/17/20 [Rx] Follow up Appointment(s)/Referral(s): Sudeep Cabrera MD [Primary Care Provider] - 1-2 days Pete Alfaro MD [STAFF PHYSICIAN] - 1 Week Discharge Disposition: HOME SELF-CARE
[2020-12-17] MEDS ORDERED: lisinopriL 20 MG TAB PO SCH (17:00)
== END 2020-12-17 13:16 | disposition home or self-care (01) ==
LOC: EC 16:50 → 6NMEDSUR 18:48
PROVIDERS: ADMIT Family Medicine; ATTEND Family Medicine
DX: I47.2 Ventricular tachycardia (principal); I11.0 Hypertensive heart disease with heart failure; I50.20 Unspecified systolic (congestive) heart failure; Z95.810 Presence of automatic (implantable) cardiac defibrillator; I25.10 Atherosclerotic heart disease of native coronary artery without angina pectoris; I42.9 Cardiomyopathy, unspecified; I48.0 Paroxysmal atrial fibrillation; I45.10 Unspecified right bundle-branch block; I25.2 Old myocardial infarction; E11.9 Type 2 diabetes mellitus without complications; E78.5 Hyperlipidemia, unspecified; F32.9 Major depressive disorder, single episode, unspecified; E87.2 Acidosis; G47.30 Sleep apnea, unspecified; R79.89 Other specified abnormal findings of blood chemistry; Z20.822 Contact with and (suspected) exposure to COVID-19; Z79.01 Long term (current) use of anticoagulants; Z79.02 Long term (current) use of antithrombotics/antiplatelets; Z79.899 Other long term (current) drug therapy; Z88.5 Allergy status to narcotic agent; Z85.828 Personal history of other malignant neoplasm of skin; Z87.01 Personal history of pneumonia (recurrent); Z95.5 Presence of coronary angioplasty implant and graft; Z98.890 Other specified postprocedural states; Z83.3 Family history of diabetes mellitus; Z83.1 Family history of other infectious and parasitic diseases; Z83.79 Family history of other diseases of the digestive system; Z80.9 Family history of malignant neoplasm, unspecified
CPT/HCPCS: 83605; 96365; 96366; 96361; 99285; 36415; 93005; 83880; 80048 ×3; 82330; 83735 ×2; 84484; 85025 ×3; 85610; 85730; 87635; 71045; G0378 ×3; J3475

== ENCOUNTER → 2020-12-27 | Outpatient (CLI) | payer MEDICARE ==
[2020-12-27 13:44] LABS: HCT 51.5 % (39.0-53.0); HGB 17.3 gm/dL (13.0-17.5); MCH 32.3 pg (25.0-35.0); MCHC 33.6 g/dL (31.0-37.0); MCV 96.3 fL (80.0-100.0); Platelet Count 108 k/uL (150-450); RBC 5.35 m/uL (4.30-5.90); RDW 14.3 % (11.5-15.5); WBC 6.3 k/uL (3.8-10.6)
[2020-12-27 14:03] LABS: African American GFR (CKD) >90 (>60 ml/min/1.73 sqM); Anion Gap 8 mmol/L; Blood Urea Nitrogen 11 mg/dL (9-20); Carbon Dioxide 30 mmol/L (22-30); Chloride 100 mmol/L (98-107); Non-African American GFR(CKD) >90 (>60 ml/min/1.73 sqM); Potassium 5.6 mmol/L (3.5-5.1); Sodium 138 mmol/L (137-145)
== END | disposition home or self-care (01) ==
LOC: LABPAT 12:44
PROVIDERS: ATTEND Internal Medicine Clinical Cardiac Electrophysiology
DX: Z01.812 Encounter for preprocedural laboratory examination (principal); I47.2 Ventricular tachycardia
CPT/HCPCS: 36415; 80051; 82565; 84520; 85027

== ENCOUNTER 2020-12-30 15:16 | Emergency (ER) | payer MEDICARE ==
[2020-12-30 15:32] VITALS: RESP 18
[2020-12-30] MEDS ORDERED: IBUPROFEN 600 MG TAB PO STA (15:50)
[2020-12-30] MEDS ORDERED: SODIUM CHLORIDE 0.9% 1,000 ML IV STA (15:50)
[2020-12-30 16:32] LABS: Basophils % (A) 1 %; Eosinophils # (A) 0.1 k/uL (0-0.7); Eosinophils % (A) 2 %; HCT 42.5 % (39.0-53.0); HGB 15.3 gm/dL (13.0-17.5); Lymphocytes # (A) 0.5 k/uL (1.0-4.8); Lymphocytes % (A) 7 %; MCH 33.4 pg (25.0-35.0); MCV 92.9 fL (80.0-100.0); Mean Platelet Volume 8.8; Monocytes # (A) 0.5 k/uL (0-1.0); Monocytes % (A) 7 %; Neutrophils # (A) 6.2 k/uL (1.3-7.7); Neutrophils % (A) 82 %; Platelet Count 100 k/uL (150-450); RBC 4.58 m/uL (4.30-5.90); RDW 13.3 % (11.5-15.5); WBC 7.6 k/uL (3.8-10.6)
[2020-12-30 16:42] LABS: INR 1.7 (<1.2); Partial Thromboplastin Time 31.3 sec (22.0-30.0); Prothrombin Time 16.5 sec (9.0-12.0)
--- NOTE | 2020-12-30 16:55 | XR ---
EXAMINATION TYPE: XR chest 2V DATE OF EXAM: 12/30/2020 COMPARISON: 12/15/2020 HISTORY: Fever TECHNIQUE: FINDINGS: There is no heart failure nor confluent pneumonic infiltrate. Heart is borderline enlarged. There is left axillary pacemaker. Costophrenic angles are clear. IMPRESSION: No active cardiopulmonary disease. No adverse change.
[2020-12-30 17:08] LABS: ALT 24 U/L (4-49); AST 33 U/L (17-59); African American GFR (CKD) >90 (>60 ml/min/1.73 sqM); Albumin 3.4 g/dL (3.5-5.0); Alkaline Phosphatase 143 U/L (38-126); Anion Gap 8 mmol/L; Blood Urea Nitrogen 17 mg/dL (9-20); Calcium 8.7 mg/dL (8.4-10.2); Carbon Dioxide 24 mmol/L (22-30); Chloride 100 mmol/L (98-107); Glucose 158 mg/dL (74-99); Non-African American GFR(CKD) >90 (>60 ml/min/1.73 sqM); Potassium 4.1 mmol/L (3.5-5.1); Sodium 132 mmol/L (137-145); Total Bilirubin 1.3 mg/dL (0.2-1.3); Total Protein 6.4 g/dL (6.3-8.2)
--- NOTE | 2020-12-30 17:39 | ED ---
Fever HPI - General Chief Complaint: Fever Stated Complaint: SOB/Fever Time Seen by Provider: 12/30/20 15:35 Source: patient, RN notes reviewed Mode of arrival: ambulatory Limitations: no limitations - History of Present Illness Initial Comments: Patient is a 70-year-old male that presents to the emergency department complaining of fever times one. notes that earlier today spheral was 101.7, she given 1000 mg of Tylenol around 2 PM which brought the fever down to 98.8 upon arrival to the emergency room. Patient does report a complicated cardiac history and multiple comorbidities. He noted other than the fever he felt fine. Patient does have an AICD in place. Patient denied any chest pain shortness of breath headache nausea vomiting diarrhea constipation fever fatigue chills. He did report he is vaccinated for Covid. - Related Data Home Medications Medication Instructions Recorded Confirmed Sotalol [Betapace] 80 mg PO BID@0900,1600 08/05/18 12/30/20 lisinopriL 20 mg PO DAILY 12/23/18 12/30/20 Atorvastatin Calcium [Lipitor] 80 mg PO DAILY 12/15/20 12/30/20 Rivaroxaban [Xarelto] 15 mg PO DAILY 12/15/20 12/30/20 Acetaminophen Tab [Tylenol] 1,000 mg PO Q6H PRN 12/30/20 12/30/20 Aspirin EC [Ecotrin Low Dose] 81 mg PO DAILY 12/30/20 12/30/20 Clopidogrel [Plavix] 75 mg PO DAILY 12/30/20 12/30/20 Previous Rx's Medication Instructions Recorded Escitalopram [Lexapro] 10 mg PO DAILY #30 tab 03/14/14 Metoprolol Succinate [Toprol XL] 100 mg PO DAILY #90 tab 01/25/20 Mexiletine [Mexitil] 300 mg PO TID@0900,1600,2100 cap 12/17/20 Cephalexin [Keflex] 500 mg PO Q6HR #40 cap 12/30/20 Allergies Allergy/AdvReac Type Severity Reaction Status Date / Time codeine AdvReac passed out Verified 12/30/20 17:18 at 23 yrs old Review of Systems ROS Statement: Those systems with pertinent positive or pertinent negative responses have been documented in the HPI. ROS Other: All systems not noted in ROS Statement are negative. Past Medical History Past Medical History: Atrial Fibrillation, Cancer, Diabetes Mellitus, Hyperlipidemia, Myocardial Infarction ([place]), Pneumonia, Sleep Apnea/CPAP/BIPAP Additional Past Medical History / Comment(s): hx skin cancer left ear ,States SOB with exertion @times, "wheezy", see Dr Alfaro H&P, no CPAP used, diet controlled diabetes Last Myocardial Infarction Date:: 1999 History of Any Multi-Drug Resistant Organisms: None Reported Past Surgical History: AICD, Cardiac Ablation, Heart Catheterization, Heart Catheterization With Stent Additional Past Surgical History / Comment(s): 3 cardiac stents, cardiac ablation x 2 Past Anesthesia/Blood Transfusion Reactions: Previous Problems w/ Anesthesia Additional Past Anesthesia/Blood Transfusion Reaction / Comment(s): DIFFICULTY WAKING UP AFTER Anesthesia- States sensitive to medications. Date of Last Stent Placement:: 2016 Type of Cardiac Device: AICD Device Placement Date:: 02/23/14 Past Psychological History: No Psychological Hx Reported Smoking Status: Never smoker Past Alcohol Use History: Occasional Past Drug Use History: None Reported - Past Family History Father Additional Family Medical History / Comment(s): AT AGE 72-GAVE UP HIS INSULIN ATE THE WAY HE WANTED A 1 YEAR LATER. HX SPINAL MENINGITIS Mother Additional Family Medical History / Comment(s): at the age of 72 yrs from a LIVER CONDITION. Sister(s) Family Medical History: Cancer General Exam Limitations: no limitations General appearance: alert, in no apparent distress, other (Patient was diaphoretic but was not complaining of any pain) Head exam: Present: atraumatic, normocephalic, normal inspection Eye exam: Present: normal appearance, PERRL, EOMI. Absent: scleral icterus, conjunctival injection, periorbital swelling Neck exam: Present: normal inspection Respiratory exam: Present: normal lung sounds bilaterally. Absent: respiratory distress, wheezes, rales, rhonchi, stridor Cardiovascular Exam: Present: regular rate, normal rhythm, normal heart sounds. Absent: systolic murmur, diastolic murmur, rubs, gallop, clicks GI/Abdominal exam: Present: soft, normal bowel sounds. Absent: distended, tenderness, guarding, rebound, rigid Extremities exam: Present: normal inspection, full ROM, normal capillary refill. Absent: tenderness, pedal edema, joint swelling, calf tenderness Neurological exam: Present: alert, oriented X3 Psychiatric exam: Present: normal affect, normal mood Skin exam: Present: warm, dry, intact, normal color. Absent: rash Course Vital Signs 12/30/20 12/30/20 15:28 19:11 Temperature 98.8 F Pulse Rate 52 L 63 Respiratory 18 18 Rate Blood Pressure 91/65 103/63 O2 Sat by Pulse 98 98 Oximetry Medical Decision Making - Medical Decision Making 70-year-old male complaining of fever times one with A cardiac history. Labs, electronic device monitor, EKG, chest x-ray, 1 L normal saline, 600 mg of Motrin ordered. Labs: Troponin 0.052, patient does have a history of elevated troponins, rest of labs unremarkable compared to baseline Urine unimpressive but will start Keflex due to some white blood cells and bacteria. Case discussed with Dr. Rodriguez, patient can discharge home with close follow- up primary care. - Lab Data Result diagrams: 12/30/20 16:22 12/30/20 16:22 Lab Results 12/30/20 12/30/20 12/30/20 Range/Units 16:22 16:22 16:22 WBC 7.6 (3.8-10.6) k/uL RBC 4.58 (4.30-5.90) m/uL Hgb 15.3 (13.0-17.5) gm/dL Hct 42.5 (39.0-53.0) % MCV 92.9 (80.0-100.0) fL MCH 33.4 (25.0-35.0) pg MCHC 36.0 (31.0-37.0) g/dL RDW 13.3 (11.5-15.5) % Plt Count 100 L (150-450) k/uL MPV 8.8 Neutrophils % 82 % Lymphocytes % 7 % Monocytes % 7 % Eosinophils % 2 % Basophils % 1 % Neutrophils # 6.2 (1.3-7.7) k/uL Lymphocytes # 0.5 L (1.0-4.8) k/uL Monocytes # 0.5 (0-1.0) k/uL Eosinophils # 0.1 (0-0.7) k/uL Basophils # 0.0 (0-0.2) k/uL PT (9.0-12.0) sec INR (<1.2) APTT (22.0-30.0) sec Sodium 132 L (137-145) mmol/L Potassium 4.1 (3.5-5.1) mmol/L Chloride 100 (98-107) mmol/L Carbon Dioxide 24 (22-30) mmol/L Anion Gap 8 mmol/L BUN 17 (9-20) mg/dL Creatinine 0.53 L (0.66-1.25) mg/dL Est GFR (CKD-EPI)AfAm >90 (>60 ml/min/1.73 sqM) Est GFR (CKD-EPI)NonAf >90 (>60 ml/min/1.73 sqM) Glucose 158 H (74-99) mg/dL Plasma Lactic Acid Ernie 1.3 (0.7-2.0) mmol/L Calcium 8.7 (8.4-10.2) mg/dL Total Bilirubin 1.3 (0.2-1.3) mg/dL AST 33 (17-59) U/L ALT 24 (4-49) U/L Alkaline Phosphatase 143 H (38-126) U/L Troponin I (0.000-0.034) ng/mL Total Protein 6.4 (6.3-8.2) g/dL Albumin 3.4 L (3.5-5.0) g/dL Urine Color Urine Appearance (Clear) Urine pH (5.0-8.0) Ur Specific [place] (1.001-1.035) Urine Protein (Negative) Urine Glucose (UA) (Negative) Urine Ketones (Negative) Urine Blood (Negative) Urine Nitrite (Negative) Urine Bilirubin (Negative) Urine Urobilinogen (<2.0) mg/dL Ur Leukocyte Esterase (Negative) Urine RBC (0-5) /hpf Urine WBC (0-5) /hpf Ur Squamous Epith Cells (0-4) /hpf Urine Bacteria (None) /hpf Hyaline Casts (0-2) /lpf Urine Mucus (None) /hpf Coronavirus (PCR) (Not Detectd) 12/30/20 12/30/20 12/30/20 Range/Units 16:22 16:22 18:05 WBC (3.8-10.6) k/uL RBC (4.30-5.90) m/uL Hgb (13.0-17.5) gm/dL Hct (39.0-53.0) % MCV (80.0-100.0) fL MCH (25.0-35.0) pg MCHC (31.0-37.0) g/dL RDW (11.5-15.5) % Plt Count (150-450) k/uL MPV Neutrophils % % Lymphocytes % % Monocytes % % Eosinophils % % Basophils % % Neutrophils # (1.3-7.7) k/uL Lymphocytes # (1.0-4.8) k/uL Monocytes # (0-1.0) k/uL Eosinophils # (0-0.7) k/uL Basophils # (0-0.2) k/uL PT 16.5 H (9.0-12.0) sec INR 1.7 H (<1.2) APTT 31.3 H (22.0-30.0) sec Sodium (137-145) mmol/L Potassium (3.5-5.1) mmol/L Chloride (98-107) mmol/L Carbon Dioxide (22-30) mmol/L Anion Gap mmol/L BUN (9-20) mg/dL Creatinine (0.66-1.25) mg/dL Est GFR (CKD-EPI)AfAm (>60 ml/min/1.73 sqM) Est GFR (CKD-EPI)NonAf (>60 ml/min/1.73 sqM) Glucose (74-99) mg/dL Plasma Lactic Acid Ernie (0.7-2.0) mmol/L Calcium (8.4-10.2) mg/dL Total Bilirubin (0.2-1.3) mg/dL AST (17-59) U/L ALT (4-49) U/L Alkaline Phosphatase (38-126) U/L Troponin I 0.052 H* (0.000-0.034) ng/mL Total Protein (6.3-8.2) g/dL Albumin (3.5-5.0) g/dL Urine Color Urine Appearance (Clear) Urine pH (5.0-8.0) Ur Specific [place] (1.001-1.035) Urine Protein (Negative) Urine Glucose (UA) (Negative) Urine Ketones (Negative) Urine Blood (Negative) Urine Nitrite (Negative) Urine Bilirubin (Negative) Urine Urobilinogen (<2.0) mg/dL Ur Leukocyte Esterase (Negative) Urine RBC (0-5) /hpf Urine WBC (0-5) /hpf Ur Squamous Epith Cells (0-4) /hpf Urine Bacteria (None) /hpf Hyaline Casts (0-2) /lpf Urine Mucus (None) /hpf Coronavirus (PCR) Not Detected (Not Detectd) 12/30/20 Range/Units 19:49 WBC (3.8-10.6) k/uL RBC (4.30-5.90) m/uL Hgb (13.0-17.5) gm/dL Hct (39.0-53.0) % MCV (80.0-100.0) fL MCH (25.0-35.0) pg MCHC (31.0-37.0) g/dL RDW (11.5-15.5) % Plt Count (150-450) k/uL MPV Neutrophils % % Lymphocytes % % Monocytes % % Eosinophils % % Basophils % % Neutrophils # (1.3-7.7) k/uL Lymphocytes # (1.0-4.8) k/uL Monocytes # (0-1.0) k/uL Eosinophils # (0-0.7) k/uL Basophils # (0-0.2) k/uL PT (9.0-12.0) sec INR (<1.2) APTT (22.0-30.0) sec Sodium (137-145) mmol/L Potassium (3.5-5.1) mmol/L Chloride (98-107) mmol/L Carbon Dioxide (22-30) mmol/L Anion Gap mmol/L BUN (9-20) mg/dL Creatinine (0.66-1.25) mg/dL Est GFR (CKD-EPI)AfAm (>60 ml/min/1.73 sqM) Est GFR (CKD-EPI)NonAf (>60 ml/min/1.73 sqM) Glucose (74-99) mg/dL Plasma Lactic Acid Ernie (0.7-2.0) mmol/L Calcium (8.4-10.2) mg/dL Total Bilirubin (0.2-1.3) mg/dL AST (17-59) U/L ALT (4-49) U/L Alkaline Phosphatase (38-126) U/L Troponin I (0.000-0.034) ng/mL Total Protein (6.3-8.2) g/dL Albumin (3.5-5.0) g/dL Urine Color Dark Yellow Urine Appearance Cloudy (Clear) Urine pH 5.5 (5.0-8.0) Ur Specific [place] 1.030 (1.001-1.035) Urine Protein 1+ H (Negative) Urine Glucose (UA) Negative (Negative) Urine Ketones Negative (Negative) Urine Blood Moderate H (Negative) Urine Nitrite Negative (Negative) Urine Bilirubin 1+ H (Negative) Urine Urobilinogen 4.0 (<2.0) mg/dL Ur Leukocyte Esterase Large H (Negative) Urine RBC 3 (0-5) /hpf Urine WBC 51 H (0-5) /hpf Ur Squamous Epith Cells <1 (0-4) /hpf Urine Bacteria Rare H (None) /hpf Hyaline Casts 4 H (0-2) /lpf Urine Mucus Rare H (None) /hpf Coronavirus (PCR) (Not Detectd) - EKG Data -: EKG Interpreted by Me EKG Comments: Ventricular rate 71 bpm, GA interval 160 ms, QRS duration 184 ms, QTC of 545 ms, PRT axes 85/199/57. Atrial sensed ventricular paced rhythm, biventricular pacemaker detected, abnormal ECG. Disposition Clinical Impression: Fever Disposition: HOME SELF-CARE Condition: Stable Instructions (If sedation given, give patient instructions): Fever in Adults (ED) Additional Instructions: Please return to the Emergency Department if symptoms worsen or any other concerns. Follow-up with primary care Friday. Take antibiotics as prescribed. Increase oral fluids. Continue take, Motrin as needed for fever and pain control. Is patient prescribed a controlled substance at d/c from ED?: No Referrals: Sudeep Cabrera MD [Primary Care Provider] - 1-2 days Time of Disposition: 21:08
[2020-12-30 20:39] LABS: Appearance,Urine Cloudy (Clear); Bacteria,Urine Rare /hpf; Bilirubin,Urine 1+ (Negative); Blood,Urine Moderate (Negative); Color,Urine Dark Yellow; Glucose,Urine (UA) Negative (Negative); Hyaline Casts,Urine 4 /lpf (0-2); Ketones,Urine Negative (Negative); Leukocyte Esterase,Urine Large (Negative); Mucus,Urine Rare /hpf; Nitrite,Urine Negative (Negative); PH, Urine 5.5 (5.0-8.0); Protein,Urine 1+ (Negative); RBC,Urine 3 /hpf (0-5); Squamous Epithelial Cell,Urine <1 /hpf (0-4); WBC,Urine 51 /hpf (0-5)
[2020-12-30 21:12] VITALS: BP 97/59; PULSE 66; TEMP 97.2
== END 2020-12-30 21:21 | disposition home or self-care (01) ==
LOC: EC 15:16
DX: R50.9 Fever, unspecified (principal); E11.9 Type 2 diabetes mellitus without complications; E78.5 Hyperlipidemia, unspecified; I25.2 Old myocardial infarction; I48.91 Unspecified atrial fibrillation; Z79.02 Long term (current) use of antithrombotics/antiplatelets; Z79.82 Long term (current) use of aspirin; Z85.828 Personal history of other malignant neoplasm of skin; Z95.5 Presence of coronary angioplasty implant and graft; Z95.810 Presence of automatic (implantable) cardiac defibrillator; G47.33 Obstructive sleep apnea (adult) (pediatric); Z99.81 Dependence on supplemental oxygen
CPT/HCPCS: 36415; 71046; 80053; 81001; 83605; 84484; 85025; 85610; 85730; 87077; 87086; 87186; 87635; 93005; 99284

== ENCOUNTER 2020-12-30 21:36 | Emergency (ER) | payer MEDICARE ==
[2020-12-30] MEDS ORDERED: SODIUM BICARB 8.4% 50 ML SYR (1 MEQ/ML) ONE (21:40)
[2020-12-30] MEDS ORDERED: EPINEPHrine 10 ML SYRINGE (0.1 MG/ML) ONE (21:40)
[2020-12-30] MEDS ORDERED: LIDOCAINE 2% SYG (PF) 100 MG/5 ML ONE (21:40)
[2020-12-30] MEDS ORDERED: DEXTROSE 50% SYRINGE 50 ML IVP ONE (21:40)
[2020-12-30] MEDS ORDERED: AMIODARONE 50 MG/ML 3 ML VIAL IV ONE (21:40)
--- NOTE | 2020-12-30 23:29 | ED ---
CPR HPI - General Stated Complaint: Seizure Source: RN notes reviewed, old records reviewed Mode of arrival: wheelchair Limitations: physical limitation (unresponsive) - History of Present Illness Initial Comments: This is a 62-year-old male who presented to emergency department tonight after becoming unresponsive in his car. Patient was the ER prior for evaluation regarding fever not feeling well. Patient was brought to resuscitation bay unresponsive without pulse MD Complaint: found unresponsive, stopped breathing, collapsed during rest -: minute(s) Place: street (in the hospital parking lot) - Related Data Home Medications Medication Instructions Recorded Confirmed Sotalol [Betapace] 80 mg PO BID@0900,1600 08/05/18 12/30/20 lisinopriL 20 mg PO DAILY 12/23/18 12/30/20 Atorvastatin Calcium [Lipitor] 80 mg PO DAILY 12/15/20 12/30/20 Rivaroxaban [Xarelto] 15 mg PO DAILY 12/15/20 12/30/20 Acetaminophen Tab [Tylenol] 1,000 mg PO Q6H PRN 12/30/20 12/30/20 Aspirin EC [Ecotrin Low Dose] 81 mg PO DAILY 12/30/20 12/30/20 Clopidogrel [Plavix] 75 mg PO DAILY 12/30/20 12/30/20 Previous Rx's Medication Instructions Recorded Escitalopram [Lexapro] 10 mg PO DAILY #30 tab 03/14/14 Metoprolol Succinate [Toprol XL] 100 mg PO DAILY #90 tab 01/25/20 Mexiletine [Mexitil] 300 mg PO TID@0900,1600,2100 cap 12/17/20 Cephalexin [Keflex] 500 mg PO Q6HR #40 cap 12/30/20 Allergies Allergy/AdvReac Type Severity Reaction Status Date / Time codeine AdvReac passed out Verified 12/30/20 17:18 at 23 yrs old Review of Systems ROS Statement: Those systems with pertinent positive or pertinent negative responses have been documented in the HPI. ROS Other: All systems not noted in ROS Statement are negative. Past Medical History Past Medical History: Atrial Fibrillation, Cancer, Diabetes Mellitus, Hyperlipidemia, Myocardial Infarction ([place]), Pneumonia, Sleep Apnea/CPAP/BIPAP Additional Past Medical History / Comment(s): hx skin cancer left ear ,States SOB with exertion @times, "wheezy", see Dr Alfaro H&P, no CPAP used, diet controlled diabetes Last Myocardial Infarction Date:: 1999 History of Any Multi-Drug Resistant Organisms: None Reported Past Surgical History: AICD, Cardiac Ablation, Heart Catheterization, Heart Catheterization With Stent Additional Past Surgical History / Comment(s): 3 cardiac stents, cardiac ablation x 2 Past Anesthesia/Blood Transfusion Reactions: Previous Problems w/ Anesthesia Additional Past Anesthesia/Blood Transfusion Reaction / Comment(s): DIFFICULTY WAKING UP AFTER Anesthesia- States sensitive to medications. Date of Last Stent Placement:: 2016 Type of Cardiac Device: AICD Device Placement Date:: 02/23/14 Past Psychological History: No Psychological Hx Reported Smoking Status: Never smoker Past Alcohol Use History: Occasional Past Drug Use History: None Reported - Past Family History Father Additional Family Medical History / Comment(s): AT AGE 72-GAVE UP HIS INSULIN ATE THE WAY HE WANTED A 1 YEAR LATER. HX SPINAL MENINGITIS Mother Additional Family Medical History / Comment(s): at the age of 72 yrs from a LIVER CONDITION. Sister(s) Family Medical History: Cancer General Exam - General Exam Comments Initial Comments: GCS of 3 Unresponsive No heart sounds not breathing No pulse Limitations: altered mental status, physical limitation General appearance: obtunded, in distress Head exam: Present: atraumatic, normocephalic, normal inspection Eye exam: Present: other (Pupils are fixed are dilated equally bilaterally) ENT exam: Present: normal exam, mucous membranes moist Neck exam: Present: normal inspection. Absent: tenderness, meningismus, lymphadenopathy Respiratory exam: Present: respiratory distress (Apnea) Cardiovascular Exam: Present: other (Patient is in ventricular fibrillation) GI/Abdominal exam: Present: soft, normal bowel sounds. Absent: distended, tenderness, guarding, rebound, rigid Extremities exam: Present: normal inspection, full ROM, normal capillary refill. Absent: tenderness, pedal edema, joint swelling, calf tenderness Back exam: Present: normal inspection Neurological exam: Present: altered Skin exam: Present: warm, cyanosis, pallor Course - Reevaluation(s) Reevaluation #1: Medical record is reviewed Spoke with family regarding patient's grave condition condition, is at bedside Recurrent counseling with during ACLS protocol, we will continue efforts at resuscitation After 45 minutes of ACLS care patient was found to be asystole Bedside ultrasound does show cardiac standstill Patient's apneic Pupils fixed and dilated Pulseless with no heart sounds Spoke with patient and patient's family regarding patient's passing, questions answered Spoke with medical laboratory technician who did release the body Procedures - Intubation Laryngoscope: Elsa Size: 4 ET Tube Size: 8 Tube Secured Location: teeth Tube Placement Confirmation: visualized tube passing through cords, equal breath sounds bilaterally, no breath sounds over epigastrium Patient Tolerated Procedure: well, no complications Intubation Complications: none Medical Decision Making - Medical Decision Making 70 male [place] for cardiac arrest cardiopulmonary arrest patient was in refractory ventricular fibrillation which eventually degraded to asystole. Critical Care Time Critical Care Time: Yes Total Critical Care Time: 45 Disposition Clinical Impression: Ventricular fibrillation, Cardiac arrest, Asystole Disposition: Condition: Critical Is patient prescribed a controlled substance at d/c from ED?: No Referrals: Sudeep Cabrera MD [Primary Care Provider] - 1-2 days Preliminary Cause of : Refractory Ventricular Fibrillation
== END 2020-12-31 01:20 | disposition expired ==
LOC: EC 21:36
DX: I46.9 Cardiac arrest, cause unspecified (principal); I49.01 Ventricular fibrillation; E11.9 Type 2 diabetes mellitus without complications; I25.2 Old myocardial infarction; E78.5 Hyperlipidemia, unspecified; I48.91 Unspecified atrial fibrillation; Z79.02 Long term (current) use of antithrombotics/antiplatelets; Z79.82 Long term (current) use of aspirin; Z79.899 Other long term (current) drug therapy; Z95.5 Presence of coronary angioplasty implant and graft; Z88.5 Allergy status to narcotic agent; Z85.828 Personal history of other malignant neoplasm of skin; Z95.810 Presence of automatic (implantable) cardiac defibrillator
CPT/HCPCS: 31500; 93005; 99291